=== PATIENT | female | born 1950 | race Caucasian/White ===

== ENCOUNTER 2022-09-13 11:34 | Emergency (ER) | payer MEDICARE, SELFPAY ==
[2022-09-13 11:44] VITALS: BP 137/97; PULSE 92; RESP 20; TEMP 36.9; O2SAT 98; BMI 33.3
[2022-09-13 12:05] VITALS: BP 154/75; PULSE 64; RESP 18; TEMP 37; O2SAT 95; BMI 33.6
--- NOTE | 2022-09-13 12:14 | XR_ITS ---
The [address] [address] Patient Name: EMILIANA WEBB MRN: [id number] date: 1950 Sex: F Assigned Patient Location: ER Current Patient Location: ER Accession/Order Number: [id number] Exam Date: 09/13/2022 12:35 Report Date: 09/13/2022 12:55 At the request of: CESIA ARGUETA Procedure: XR chest 1V EXAMINATION: XR chest 1V HISTORY: COUGH COMPARISON: XR chest 04/12/2018 FINDINGS: LUNGS: No significant pulmonary parenchymal abnormalities. VASCULATURE: No increased pulmonary vasculature. PLEURA: No pneumothorax, effusion, or pleural thickening. CARDIAC: No cardiomegaly or cardiac silhouette abnormality. MEDIASTINUM: No visible mass or adenopathy. BONES: No fracture or visible bone lesion. OTHER: Negative. IMPRESSION: 1. No acute cardiopulmonary process. Electronically authenticated by: STEVE RODNEY Date: 09/13/2022 12:55
[2022-09-13 12:16] VITALS: O2SAT 97
[2022-09-13 14:20] VITALS: BP 143/79; PULSE 83; RESP 22; O2SAT 95
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
== END 2022-09-13 14:21 | disposition home or self-care (01) ==
PROVIDERS: Emergency Provider Emergency Medicine; PCP Family Medicine
DX: J06.9 Acute upper respiratory infection, unspecified (principal); R05.9 Cough, unspecified; J04.0 Acute laryngitis; J02.9 Acute pharyngitis, unspecified
CPT/HCPCS: 71045; 99283

== ENCOUNTER 2022-10-21 14:48 | Emergency (ER) | payer MEDICARE, SELFPAY ==
[2022-10-21 15:09] VITALS: BP 107/79; PULSE 83; RESP 18; TEMP 36.6; O2SAT 98; BMI 29.2
--- NOTE | 2022-10-21 15:50 | XR_ITS ---
The [address] [address] Patient Name: EMILIANA WEBB MRN: [facility]:[id number] date: 1950 Sex: F Assigned Patient Location: ER Current Patient Location: ER Accession/Order Number: [id number] Exam Date: 10/21/2022 15:40 Report Date: 10/21/2022 16:48 At the request of: CLAUS MOTA Procedure: XR knee LT 4V IMAGES REVIEWED: XR knee LT 4V COMPARISON: 07/03/2020. CLINICAL INDICATION: fell 2 weeks ago on knee FINDINGS/IMPRESSION: 1. No radiographic evidence of acute osseous abnormality of the left knee. 2. Anterior-medial knee soft tissue swelling. No significant joint effusion. 3. Osteopenia. Moderate tricompartmental osteoarthritis, particularly severe in the patellofemoral compartment. Suprapatellar and infrapatellar enthesopathic change. Electronically authenticated by: ILDEFONSO HUGHES Date: 10/21/2022 16:48
--- NOTE | 2022-10-21 16:53 | ED.LOWEXI1 ---
HPI - Extremity Injury (Lower) General Chief Complaint: Extremity Injury, Lower Stated Complaint: LOWER EXTREMITY INJURY LEFT KNEE Time Seen by Provider: 10/21/22 15:09 Source: patient Mode of arrival: walk-in Limitations: no limitations History of Present Illness HPI Narrative: patient is a 72-year-old female who presents to the emergency department requesting an x-ray of her left knee. Patient states she tripped at home several weeks ago over her dog and fell onto her left knee. She had no other associated injuries. She states she has had continued pain to the anterior and medial aspect of the left knee. She saw her PCP who told her that she likely had a knee sprain. She presents to the Emergency Room today requesting an x-ray has her knee continues to hurt even though her PCP told her she would likely have pain for six weeks. Related Data Home Medications Medication Instructions Recorded Confirmed hydrocodone 5 mg-acetaminophen 325 1 tab PO Q8H 09/13/22 09/13/22 mg tablet Previous Rx's Medication Instructions Recorded prednisone 20 mg tablet 40 mg PO BID #6 tabs 09/13/22 methylprednisolone 4 mg tablets in 4 mg PO DAILY #21 ea 10/21/22 a dose pack (Medrol (Angel)) Allergies Allergy/AdvReac Type Severity Reaction Status Date / Time bee stings Allergy Severe Anaphylaxis Uncoded 09/13/22 12:14 mri dye Allergy Severe Anaphylaxis Uncoded 09/13/22 12:14 sea food Allergy Severe Uncoded 09/13/22 12:14 Review of Systems ROS Constitutional Denies: fever or chills Ears, nose, mouth, and throat Denies: throat pain Respiratory Denies: shortness of breath or cough Gastrointestinal Denies: nausea or vomiting Musculoskeletal Reports: extremity pain; Denies: back pain or neck pain Integumentary/Breast Denies: rash Neurological Denies: headache PFSH PFSH Social History Smoking status: Never smoker Exam Narrative Exam Narrative: Gen.: Awake, alert, in no distress Head: Normocephalic, atraumatic ENT: Moist mucous membranes Respiratory: No respiratory distress Extremities: left knee with no joint effusion, diffuse mild tenderness of the anteromedial aspect of the left knee. No crepitance or laxity of the left patella. No bony tenderness of the left tibia or left ankle Psych: Normal mood and affect Neuro: No focal neuro deficit Skin: Warm, dry, intact Constitutional Vital Signs, click to edit/add: Last Vital Signs Temp 97.8 F 10/21/22 15:09 Pulse 83 10/21/22 15:09 Resp 18 10/21/22 15:09 BP 107/79 10/21/22 15:09 Pulse Ox 98 10/21/22 15:09 O2 Del Method Room Air 10/21/22 15:09 Course Vital Signs Vital signs: Vital Signs Temperature 97.8 F 10/21/22 15:09 Pulse Rate 83 10/21/22 15:09 Respiratory Rate 18 10/21/22 15:09 Blood Pressure 107/79 10/21/22 15:09 Pulse Oximetry 98 10/21/22 15:09 Oxygen Delivery Method Room Air 10/21/22 15:09 Temperature 97.8 F 10/21/22 15:09 Pulse Rate 83 10/21/22 15:09 Respiratory Rate 18 10/21/22 15:09 Blood Pressure 107/79 10/21/22 15:09 Pulse Oximetry 98 10/21/22 15:09 Oxygen Delivery Method Room Air 10/21/22 15:09 MDM - Extremity Injury (Lower) MDM Narrative Medical decision making narrative: x-rays with arthritic changes, no acute fracture or dislocation. Patient placed in a short knee immobilizer and given a Medrol Dosepak for home. Follow-up with PCP and orthopedics as indicated and return to the Emergency Room if symptoms change or worsen. Neurovascularly intact at discharge. Medical Records Attestation: I reviewed the patient's medical records. Discharge Plan Discharge Chief Complaint: Extremity Injury, Lower Clinical Impression: Left knee sprain Patient Disposition: Home, Self-Care Time of Disposition Decision: 16:54 Condition: Good Prescriptions / Home Meds: New methylprednisolone [Medrol (Angel)] 4 mg tablets,dose pack 4 mg PO DAILY Qty: 21 0RF No Action hydrocodone-acetaminophen 5-325 mg tablet 1 tab PO Q8H prednisone 20 mg tablet 40 mg PO BID Qty: 6 0RF Instructions: Knee Sprain (ED) Stand Alone Forms: Portal Instructions Referrals: DORIAN HORTON [Primary Care Provider] - 1 week Discharge Date/Time: 10/21/22 17:03
== END 2022-10-21 17:03 | disposition home or self-care (01) ==
PROVIDERS: Emergency Provider Emergency Medicine; PCP Family Medicine
DX: S83.92XA Sprain of unspecified site of left knee, initial encounter (principal); W01.0XXA Fall on same level from slipping, tripping and stumbling without subsequent striking against object, initial encounter
CPT/HCPCS: 73564; 99283

== ENCOUNTER 2023-02-11 14:24 | Outpatient (OUT) | payer MEDICARE, SELFPAY | END 2023-02-11 14:25 | disposition home or self-care (01) | LOC: PST 14:24 | PROVIDERS: PCP Family Medicine; Visit Provider Surgery | DX: Z01.818 Encounter for other preprocedural examination (principal); R19.5 Other fecal abnormalities ==

== ENCOUNTER 2023-02-19 07:14 | Day surgery (SDC) | payer MEDICARE, SELFPAY ==
--- NOTE | 2023-02-19 | OP_ITS ---
OPERATION DATE: ??02/19/2023 PREOPERATIVE DIAGNOSIS:?? Positive Cologuard. POSTOPERATIVE DIAGNOSIS:? Redundant colon with sigmoid diverticulosis. PROCEDURE:?? Colonoscopy to cecum. SURGEON:? George Andrade M.D. ANESTHESIA:? Monitored anesthesia care. ESTIMATED BLOOD LOSS:? Zero. INDICATIONS AND CONSENT:? Patient is a 72-year-old female presents for colonoscopy with a positive Cologuard.? Indications, risks, benefits, alternatives of proceeding with colonoscopy were explained extensively to the patient, including the risks of bleeding, colon perforation or anesthetic complications.? All of her questions were answered.? Informed consent was obtained. PROCEDURE:? Patient brought to the operating room, placed in the left lateral decubitus position.? Monitored anesthesia care was provided.? Rectal exam was performed which showed no masses or blood.? The scope was inserted into the anal canal.? Under direct visualization was advanced.? It was advanced to the cecum where cecal markings were clearly identified.? There was noted to be a good prep.? Upon withdrawal of the scope, mucosal surfaces were carefully examined.? There were no mass lesions or polyps.? No inflammatory changes or ulcerations.? There was moderate sigmoid diverticulosis without inflammatory changes or scarring.? The scope was retroflexed in the anal canal.? There was no significant hemorrhoidal disease.? Scope was then withdrawn.? Patient tolerated procedure well, was sent to recovery room in good condition.f/u colon oscopy in 10 years. CC:? Shar Temple
[2023-02-19 07:39] VITALS: BMI 31.4
[2023-02-19] MEDS: LACTATED RINGER'S SOLUTION 1,000 ML 50 ML IV (07:44)
[2023-02-19 10:10] VITALS: BP 121/53; PULSE 68; RESP 14; TEMP 36.6; O2SAT 99
[2023-02-19 10:25] VITALS: BP 132/96; PULSE 68; RESP 16; O2SAT 96
[2023-02-19 10:39] VITALS: BP 145/85; PULSE 80; RESP 16; O2SAT 97
== END 2023-02-19 10:40 ==
PROVIDERS: PCP Nurse Practitioner Family; Visit Provider Surgery
PROC: (CPT 45378; principal; 2023-02-19 08:40)
DX: R19.5 Other fecal abnormalities (principal); K57.30 Diverticulosis of large intestine without perforation or abscess without bleeding; Q43.8 Other specified congenital malformations of intestine; I10 Essential (primary) hypertension; E66.9 Obesity, unspecified; Z68.31 Body mass index [BMI] 31.0-31.9, adult; Z90.49 Acquired absence of other specified parts of digestive tract; Z79.82 Long term (current) use of aspirin; Z79.84 Long term (current) use of oral hypoglycemic drugs; E11.9 Type 2 diabetes mellitus without complications
CPT/HCPCS: 45378; J2704

== ENCOUNTER 2023-07-26 12:05 | Emergency (ER) | payer MEDICARE, SELFPAY ==
[2023-07-26 12:13] VITALS: BP 175/102; PULSE 84; TEMP 36.7; O2SAT 98; BMI 29.3
--- OUTSIDE RECORDS SUMMARY | 2023-07-26 12:15 | XMS_ITS | CCD ---
Author Organization [facility] Care Team Providers Care Career Services Director Name Role Phone HOUSE, DR ALARCON Admitting Unavailable HOUSE, DR ALARCON Primary Care Unavailable HOUSE, DR ALARCON Consulting Unavailable HOUSE, DR ALARCON Attending Unavailable HOUSE, DR ALARCON Admitting Unavailable HOUSE, DR ALARCON Primary Care Unavailable HOUSE, DR ALARCON Consulting Unavailable HOUSE, DR ALARCON Attending Unavailable Dashawn Diallo Unavailable Natalie NDIAYE, Héctor See Attending Unavailable HOUSE, DORIAN West Primary Care Unavailable Natalie NDIAYE, Héctor See Attending Unavailable HOUSE, DORIAN West Primary Care Unavailable Natalie NDIAYE, Héctor See Attending Unavailable HOUSE, DORIAN West Primary Care Unavailable Polina De La Rosa Unavailable VANESSA SHANKAR Primary Care Physician Gabriela Garcia I Unavailable Unavailable NILL, George Poe Attending Unavailable NILL, George Poe Attending Unavailable Allergies Allergy Classification Reported Allergen(s) Allergy Type Date of Onset Reaction(s) Facility (1 source) bee venom Drug allergy (disorder) 7 [facility] Repository (1 source) Latex Drug allergy (disorder) 4 [facility] Rep[facility] (2 sources) Shellfish; Translations: [shellfish] Drug allergy (disorder) 4 [facility] Rep[facility] (1 source) Omniscan Drug allergy (disorder) 7 [facility] (7 sources) Bee Sting Drug allergy anaphylaxis [facility] Other (3 sources) Bee/Wasp/Ant venom; Translations: [Bee Stings] Propensity to adverse reactions to drug (disorder) Anaphylaxis (disorder) [facility] Repository (3 sources) Contrast media; Translations: [Contrast Dye] Propensity to adverse reactions to drug (disorder) Itching [facility] Repository (1 source) Iodine; Translations: [iodine] Drug Allergy [facility] (1 source) Seafood; Translations: [Seafood] Propensity to adverse reactions to drug (disorder) [facility] (7 sources) Shellfish; Translations: [shellfish] Drug allergy Unknown, Itching [facility] (6 sources) Contrast Allergy PreMed Pack Drug allergy Unknown [facility] Other Medications Current Medications Medication Drug Class(es) Dates Sig (Normalized) Sig (Original) acetaminophen 325 mg / HYDROcodone bitartrate 5 mg oral tablet (7 sources) Opioid Agonist Start: 05-19-2023 take 1 tablet by mouth every eight hours HYDROcodone-Aceta minophen 5-325 MG 1 tablet as needed Orally every 8 hrs for 30 days G28.9, M54.50 May, Active Start: 03-12-2023 take 1 tablet by bony th every eight hours HYDROcodone-Acetaminophen 5-325 MG 1 tab let as needed Orally every 8 hrs for 30 days G28.9, M54.50 Mar, Active Start: 02-10-2023 take 1 tablet by bony th every eight hours HYDROcodone-Acetaminophen 5-325 MG 1 tab let as needed Orally every 8 hrs for 30 days G28.9, M54.50 Feb, Active Start: 01-07-2023 take 1 tablet by bony th every eight hours HYDROcodone-Acetaminophen 5-325 MG 1 tab let as needed Orally every 8 hrs for 30 days Jan, Active Start: 03-19-2019 take 1 tablet by bony th every six hours acetaminophen-hydrocodone 325 mg-5 mg or al tablet 1 tab(s), Oral, q6hr, Refill(s) 0, Pain Start Date: 03/19/19 Status: Ordered aspirin 81 mg delayed release oral tablet (7 sources) Platelet Aggregation Inhibitor, Nonsteroidal Anti-inflammatory Drug Start: 03-19-2019 take 1 tablet by mouth once daily aspirin 81 mg Oral EC Tab 81 mg = 1 tab(s), Oral, Daily, Prophylaxis Start Date: 03/19/19 Status: Ordered take 1 tablet by mouth once andrews y Aspirin 81 81 MG 1 tablet Orally Once a day Active carvedilol 6.25 mg oral tablet (7 sources) alpha-Adrenergic Moises, beta-Adrenergic Moises Start: 03-19-2019 take 3.125 mg by mouth once daily carvedilol 6.25 mg Tab 3.125 mg = 0.5 tab(s), Oral, Daily, Refills(s) 0, Irregular heartbeat Start Date: 03/19/19 Status: Ordered take 0.5 tablet by m outh every twenty-four hours Carvedilol 6.25 MG 0.5 tablet Orally onc e a day Active HYDROcodone (1 source) Opioid Agonist Hydrocodone Bitartrate Active lisinopril 5 mg oral tablet (7 sources) Angiotensin Converting Enzyme Inhibitor Start: 9 take 5 mg by mouth once daily lisinopril 5 mg, Oral, Daily, Refills(s) 0, High blood pressure Start Date: 03/19/19 Status: Ordered metFORMIN hydrochloride 1000 mg oral tablet (7 sources) Biguanide Start: 9 take 1000 mg by mouth once daily metformin 1,000 mg, Oral, Daily, High blood sugar Start Date: 03/19/19 Status: Ordered Problems Active Problems Problem Classification Problem Date Documented Da te Episodic/Chronic Diabetes mellitus without complication (4 sources) Type 2 diabetes mellitus without complications; Translations: [TYPE 2 DM WITHOUT COMPLICATIONS] Onset: 08-24-2021 Chronic Diabetes mellitus without complication (2 sources) Impaired fasting glucose; Translations: [Impaired fasting glycemia] Episodic Essential hypertension (9 sources) Essential (primary) hypertension; Translations: [Essential hypertension] Onset: 08-30-2021 Chronic Osteoarthritis (5 sources) Unspecified osteoarthritis, unspecified site; Translations: [UNSPECIFIED OSTEOARTHRITIS UNS SITE] Onset: 11-03-2020 Chronic Other gastrointestinal disorders (1 source) Abnormal feces; Translations: [Other fecal abnormalities] Onset: 01-21-2023 Episodic Other nervous system disorders (1 source) Other specified mononeuropathies; Translations: [OTHER SPECIFIED MONONEUROPATHIES] Onset: 11-10-2020 Chronic Other nervous system disorders (6 sources) Chronic pain; Translations: [Other chronic pain] Chronic Other nervous system disorders (4 sources) Other chronic pain Chronic Other nutritional; endocrine; and metabolic disorders (1 source) Obese class I; Translations: [Body mass index (BMI) 31.0-31.9, adult] Onset: 01-21-2023 Chronic Other nutritional; endocrine; and metabolic disorders (1 source) Body mass index 30+ - obesity 01-21-2023 Chronic Other nutritional; endocrine; and metabolic disorders (1 source) Obesity 01-21-2023 Chronic Other screening for suspected conditions (not mental disorders or infectious disease) (2 sources) Encounter for screening for malignant neoplasm of colon; Translations: [Stool DNA-based colorectal cancer screening positive] Episodic Residual codes; unclassified (1 source) Chronic back pain 01-13-2023 Episodic Past or Other Problems Problem Classification Problem Date Documented Date Episodic/Chronic Fracture of neck of femur (hip) (1 source) Displaced subtrochanteric fracture of right femur, subsequent encounter for closed fracture with routine healing; Translations: [Closed displaced subtrochanteric fracture of right femur with routine healing, subsequent encounter S72.21XD] Onset: 12-29-2020 Resolved: 12-29-2020 Episodic Residual codes; unclassified (1 source) Other specified postprocedural states; Translations: [Other specified postprocedural states Z98.890] Onset: 12-29-2020 Resolved: 12-29-2020 Episodic Unclassified (3 sources) Low back pain, unspecified M54.50 Results Test Name Value Interpretation Reference Range Facility Outside Colonoscopyon 2022 Outside Colonoscopy [id number] F#1.00TIFF [facility] Insurance Correspondenceon Insurance Correspondence [id number] 05#1.00TIFF [facility] Consent for Procedure/Surger yon 01-22-2023 Consent for Procedure/Surgery [id number] 658#1.00TIFF [facility] Ambulatory Visit Summaryon Ambulatory Visit Summary EMILIANA WEBB :1950 Visit Date:01/21/2023 Ambulatory Visit Instructions Your Diagnosis Positive colorectal cancer screening using Cologuard test BMI 31.0-31.9,adult Your Care Team Attending Physician - ELLIE NDIAYE, George Poe Primary Care Physician - RENU NDIAYE, VANESSA Bar This Is Your Medications List Contact prescribing physician if questions or concerns acetaminophen-hydro codone (acetaminophen-hydr ocodone 325 mg-5 mg oral tablet) aspirin (aspirin 81 mg Oral EC Tab) carvedilol (carvedilol 6.25 mg Tab) lisinopril metformin Procedures Performed Cataract extraction and insertion of intraocular lens (05/10/2019), CEIOL - Cataract extraction and insertion of intraocular lens (03/22/2019), Colonoscopy (10/02/2018), section, section, section, Cholecystectomy, Fracture of leg. Discharge Vitals Heart Rate (Peripheral) 72 Respiratory Rate 16 Blood Pressure 138/80 Height 162 cm Height 64 in Weight 82.4 kg Weight 181.28 lb BMI 31.4 Medications What How Much When Instructions Unchanged acetaminophen-hydro codone (acetaminophen-hydr ocodone 325 mg-5 mg oral tablet) 1 Tablets By Mouth Every 6 hours Contact prescribing physician if questions or concerns Unchanged aspirin (aspirin 81 mg Oral EC Tab) 1 Tablets By Mouth Every day Contact prescribing physician if questions or concerns Unchanged carvedilol (carvedilol 6.25 mg Tab) 0.5 Tablets By Mouth Every day Contact prescribing physician if questions or concerns Unchanged lisinopril 5 Milligram By Mouth Every day Contact prescribing physician if questions or concerns Unchanged metformin 1,000 Milligram By Mouth Every day Contact prescribing physician if questions or concerns Allergies Bee Stings (Anaphylaxis) Contrast Dye (Itching) shellfish (Itching) Problems Ongoing - Any problem that you are currently receiving treatment for. BMI 31.0-31.9,adult Chronic back pain HTN (hypertension) Impaired fasting glucose Obesity Positive colorectal cancer screening using Cologuard test [facility] Formson 01-21-2023 Forms [id number] 70#1.00TIFF [facility] Physician Referralon 023 Physician Referral [id number] 0D#1.00TIFF [facility] Patient Handouton 11-28-2022 Patient Handout [id number] 14#1.00OTGTIFF [facility] Patient Handouton 11-27-2022 Patient Handout [id number] 375#1.00OTGTIFF Normal [facility] CBC AUTO DIFFon 08-24-2021 BASO # 0.0 103/ul Normal 0.0-0.1 [facility] Comment on above: Performed By: #### C BC #### [facility] [address] [address] [address] Sugar Givesn Basophils/100 WBC (Bld) 0.6 % Normal 0.2-2.0 [facility] Comment on above: Performed By: #### C BC #### [facility] [address] [address] [address] Sugar Givens EO # 0.8 103/ul Critically high 0.0-0.7 [facility] Comment on above: Performed By: #### C BC #### [facility] [address] [address] [address] Sugar Givens Eosinophils/100 WBC (Bld) 12.3 % Critically high 0.9-7.0 [facility] Comment on above: Performed By: #### C BC #### [facility] [address] [address] [address] Sugar Givens Erythrocyte distribution width (RBC) [Ratio] 12.8 % Normal 11.0-15.0 [facility] Comment on above: Performed By: #### C BC #### [facility] [address] [address] [address] Sugar Givens Hematocrit (Bld) [Volume fraction] 35.1 % Critically low 36.0-48.0 [facility] Comment on above: Performed By: #### C BC #### [facility] [address] [address] [address] Sugar Givens Hemoglobin (Bld) [Mass/Vol] 11.0 g/dL Critically low 12.0-16.0 [facility] Comment on above: Performed By: #### C BC #### [facility] [address] [address] [address] Sugar Givens IG # 0.03 10e3/ul Normal 0.00-0.03 [facility] Comment on above: Performed By: #### C BC #### [facility] [address] [place] [address] Dr. Sugar Givens IG % 0.4 % Normal 0.0-0.5 [facility] Comment on above: Performed By: #### C BC #### [facility] [address] [place] [address] Dr. Sugar Givens LYMPH # 2.1 103/ul Normal 1.2-3.8 [facility] Comment on above: Performed By: #### C BC #### [facility] [address] [place] [address] Dr. Sugar Givens Lymphocytes/100 WBC (Bld) 31.4 % Normal 20.5-60.0 [facility] Comment on above: Performed By: #### C BC #### [facility] [address] [place] [address] Dr. Sugar Givens MANUAL DIFF REQ NO Normal [facility] Comment on above: Performed By: #### C BC #### [facility] [address] [place] [address] Dr. Sugar Givens MCH (RBC) [Entitic mass] 27.4 pg Normal 26.7-34.0 [facility] Comment on above: Performed By: #### C BC #### [facility] [address] [place] [address] Dr. Sugar Givens MCHC (RBC) [Mass/Vol] 31.3 g/dL Normal 29.9-35.2 [facility] Comment on above: Performed By: #### C BC #### [facility] [address] [place] [address] Dr. Sugar Givens MCV (RBC) [Entitic vol] 87.3 fL Normal 81.0-99.0 [facility] Comment on above: Performed By: #### C BC #### [facility] [address] [place] [address] Dr. Sugar Givens MONO # 0.4 103/ul Normal 0.3-0.8 [facility] Comment on above: Performed By: #### C BC #### [facility] [address] [address] [address] Sugar Givnes Monocytes/100 WBC (Bld) 5.8 % Normal 1.7-12.0 [facility] Comment on above: Performed By: #### C BC #### [facility] [address] [address] [address] Sugar Givens NEUT # 3.3 103/ul Normal 1.4-6.5 [facility] Comment on above: Performed By: #### C BC #### [facility] [address] [address] [address] Sugar Givens Neutrophils/100 WBC (Bld) 49.5 % Normal 43.0-75.0 [facility] Comment on above: Performed By: #### C BC #### [facility] [address] [place] [address] Dr. Sugar Givens Platelet mean volume (Bld) [Entitic vol] 10.4 fL Normal 9.5-13.5 [facility] Comment on above: Performed By: #### C BC #### [facility] [address] [place] [address] Dr. Sugar Givens PLT 320 103/ul Normal 150-450 [facility] Comment on above: Performed By: #### C BC #### [facility] [address] [place] [address] Dr. Sugar Givens RBC 4.02 106/ul Critically low 4.20-5.40 [facility] Comment on above: Performed By: #### C BC #### [facility] [address] [place] [address] Dr. Sugar Givens WBC 6.8 103/ul Normal 4.0-11.0 [facility] Comment on above: Performed By: #### C BC #### [facility] [address] [place] [address] Dr. Sugar Givens GLYCOHEMOGLOBIN A1Con 2021 ADA RECOMMENDATION SEE BELOW Normal [facility] Comment on above: Result Comment: ADA RECOMMENDED LIMIT 4.0 - 6.0 ADA THERAPEUTIC TARGET < 7.0 ACTION SUGGESTED > 7.0 Performed By: #### A 1C #### [facility] [address] [address] [address] Sugar Givens Glucose [Mass/Vol] 151 mg/dL Normal [facility] Comment on above: Performed By: #### A 1C #### [facility] [address] [address] [address] Sugar Givens HbA1c (Bld) [Mass fraction] 6.9 % Critically high 4.5-6.2 [facility] Comment on above: Performed By: #### A 1C #### [facility] [address] [place] [address] Dr. Sugar Givens LIPID PROFILEon 08-24-2021 CHOL-HDL RATIO NORM SEE BELOW Normal [facility] Comment on above: Result Comment: 3.3 - 4.4 LOW RISK 4.4 - 7.1 AVERAGE RISK 7.1 - 11.0 MODERATE RISK >11.0 HIGH RISK Performed By: #### C MP, LIPID #### [facility] [address] [place] [address] Dr. Sugar Givens Cholesterol [Mass/Vol] 194 mg/dL Normal <=200 [facility] Comment on above: Performed By: #### C MP, LIPID #### [facility] [address] [place] [address] Dr. Sugar Givens Cholesterol in HDL [Mass/Vol] 38 mg/dL Critically low 40-60 [facility] Comment on above: Performed By: #### C MP, LIPID #### [facility] [address] [address] [address] Sugar Givens Cholesterol in LDL [Mass/Vol] 100.2 mg/dL Normal [facility] Comment on above: Performed By: #### C MP, LIPID #### [facility] [address] [place] [address] Dr. Sugar Givens Cholesterol.total/Cho lesterol in HDL [Mass ratio] 5.1 {ratio} Normal [facility] Comment on above: Performed By: #### C MP, LIPID #### [facility] [address] [address] [address] Sugar Givens HDL NORMAL > or = 60 mg/dl - LOW CARDIOVASCULAR RISK <40 mg/dl - HIGH CARDIOVASCULAR RISK Normal [facility] Comment on above: Performed By: #### C MP, LIPID #### [facility] [address] [address] [address] Sugar Givens LDL CALC NORMAL SEE BELOW Normal [facility] Comment on above: Result Comment: <100 mg/dl OPTIMAL 100 - 129 mg/dl NEAR OR ABOVE OPTIMAL 130 - 159 mg/dl BORDERLINE HIGH 160 - 189 mg/dl HIGH >190 mg/dl VERY HIGH Performed By: #### C MP, LIPID #### [facility] [address] [address] [address] Sugar Givens Triglyceride [Mass/Vol] 279 mg/dL Critically high <=150 [facility] Comment on above: Performed By: #### C MP, LIPID #### [facility] [address] [address] [address] Sugar Givens VLDL CALC 55.8 mg/dL Normal [facility] Comment on above: Performed By: #### C MP, LIPID #### [facility] [address] [address] [address] Sugar Givens MICROALBUMIN, RAND URon 08-06 mALB <1.3 Normal <=30.0 [facility] Comment on above: Performed By: #### M ALBR #### [facility] [address] [address] [address] Sugar Givens PROF 14(COMP METB)on 022 Albumin [Mass/Vol] 3.6 g/dL Normal 3.4-5.0 [facility] Comment on above: Performed By: #### C MP, LIPID #### [facility] [address] [address] [address] Sugar Givens Albumin/Globulin [Mass ratio] 0.9 {ratio} Normal [facility] Comment on above: Performed By: #### C MP, LIPID #### [facility] [address] [address] [address] Sugar Givens ALP [Catalytic activity/Vol] 122 U/L Critically high 46-116 [facility] Comment on above: Performed By: #### C MP, LIPID #### [facility] [address] [address] [address] Sugar Givens ALT [Catalytic activity/Vol] 26 U/L Normal 14-59 [facility] Comment on above: Performed By: #### C MP, LIPID #### [facility] [address] [address] [address] Sugar Givens Anion gap [Moles/Vol] 12.0 mmol/L Normal [facility] Comment on above: Performed By: #### C MP, LIPID #### [facility] [address] [address] [address] Sugar Givens AST [Catalytic activity/Vol] 28 U/L Normal 15-37 [facility] Comment on above: Performed By: #### C MP, LIPID #### [facility] [address] [address] [address] Sugar Givens Bilirubin [Mass/Vol] 0.4 mg/dL Normal 0.2-1.0 [facility] Comment on above: Performed By: #### C MP, LIPID #### [facility] [address] [address] [address] Sugar Givens Calcium [Mass/Vol] 9.2 mg/dL Normal 8.5-10.1 [facility] Comment on above: Performed By: #### C MP, LIPID #### [facility] [address] [address] [address] Sugar Givens Chloride [Moles/Vol] 104 mmol/L Normal 98-107 [facility] Comment on above: Performed By: #### C MP, LIPID #### [facility] [address] [address] [address] Sugar Givens CO2 [Moles/Vol] 27.5 mmol/L Normal 21.0-32.0 [facility] Comment on above: Performed By: #### C MP, LIPID #### [facility] [address] [address] [address] Sugar Givens Creatinine [Mass/Vol] 0.82 mg/dL Normal 0.55-1.02 [facility] Comment on above: Performed By: #### C MP, LIPID #### [facility] [address] [address] [address] Sugar Givens EGFR-AF PERUVIAN >60 Normal >=60 [facility] Comment on above: Performed By: #### C MP, LIPID #### [facility] [address] [address] [address] Sugar Givens EGFR-NON AF PERUVIAN >60 Normal >=60 [facility] Comment on above: Performed By: #### C MP, LIPID #### [facility] [address] [address] [address] Sugar Givens Globulin (S) [Mass/Vol] 4.1 g/dL Normal [facility] Comment on above: Performed By: #### C MP, LIPID #### [facility] [address] [address] [address] Sugar Givens Glucose [Mass/Vol] 121 mg/dL Critically high 74-106 [facility] Comment on above: Performed By: #### C MP, LIPID #### [facility] [address] [address] [address] Sugar Givens Potassium [Moles/Vol] 4.5 mmol/L Normal 3.5-5.1 [facility] Comment on above: Performed By: #### C MP, LIPID #### [facility] [address] [address] [address] Sugar Givens Protein [Mass/Vol] 7.7 g/dL Normal 6.4-8.2 [facility] Comment on above: Performed By: #### C MP, LIPID #### [facility] [address] [address] [address] Sugar Givens Sodium [Moles/Vol] 139 mmol/L Normal 136-145 [facility] Comment on above: Performed By: #### C MP, LIPID #### [facility] [address] [address] [address] Sugar Givens Urea nitrogen [Mass/Vol] 16.0 mg/dL Normal 7.0-18.0 [facility] Comment on above: Performed By: #### C MP, LIPID #### [facility] [address] [place], [place] [address] Dr. Sugar Givens Urea nitrogen/Creatinine [Mass ratio] 19.5 mg/mg Normal [facility] Comment on above: Performed By: #### C MP, LIPID #### [facility] [address] [place], [place] [address] Dr. Sugar Givens XR femur RT 2V*on 12-29-2020 XR femur RT 2V* [facility] [employer] Other XR femur RT 2V* [facility] [employer] Other XR femur RT 2V* [address] [place] [address] [employer] Other XR femur RT 2V* [place] [id number] [facility] [employer] Other XR femur RT 2V* XRay Report [employer] Other XR femur RT 2V* Signed [employer] Other XR femur RT 2V* Patient: Emiliana Webb MR#: [id number] [place] [employer] Other XR femur RT 2V* 3564 [employer] Other XR femur RT 2V* : 1950 Acct:[id number] [place] [employer] Other XR femur RT 2V* Age/Sex: 70 / F ADM Date: 12/29/20 [employer] Other XR femur RT 2V* Loc: [facility] Room: Type: [facility] [employer] Other XR femur RT 2V* Attending Dr: Dashawn Diallo DO [employer] Other XR femur RT 2V* Ordering Provider: Dashawn Diallo, [employer] Other XR femur RT 2V* Date of Service: 12/29/20 [employer] Other XR femur RT 2V* XR/XR femur RT 2V*: Closed displaced subtrochanteric fracture of right [employer] Other XR femur RT 2V* femur wit [facility] compareit4me Other XR femur RT 2V* Copies to: Dashawn Diallo, DO [employer] Other XR femur RT 2V* RIGHT FEMUR - 2 views [employer] Other XR femur RT 2V* COMPARISON: 11/29/2020 [employer] Other XR femur RT 2V* CLINICAL DATA: Follow-up femur fracture. [employer] Other XR femur RT 2V* AP and lateral views were obtained. There is osteopenia. There is a dynamic hip screw with long [employer] Other XR femur RT 2V* intramedullary jcarlos. The fracture at the proximal femoral shaft is in satisfactory alignment. There i [employer] Other XR femur RT 2V* s a small amount of developing callus formation. No new fractures or dislocation are noted. There [employer] Other XR femur RT 2V* are degenerative changes at the knee with joint space narrowing and marginal spurring. No soft [employer] Other XR femur RT 2V* tissue abnormalities are present. [employer] Other XR femur RT 2V* XR/XR femur RT 2V* [employer] Other XR femur RT 2V* IMPRESSION: [facility] [employer] Other XR femur RT 2V* STABLE HEALING PROXIMAL FEMUR FRACTURE. [employer] Other XR femur RT 2V* Impression dictated by: Elicia Collier M.D.12/29/2020 11:37 AM [employer] Other XR femur RT 2V* Dictation Location: RADIO-PC-11 [facility] compareit4me Other XR femur RT 2V* Transcribed By: PWS 12/29/20 1139 [facility] Other XR femur RT 2V* Dictated By: Elicia Collier MD 12/29/20 1122 [facility] Other XR femur RT 2V* Signed By: [facility] compare[employer]4me Other XR femur RT 2V* 12/29/20 9008 [facility] Other XR femur RT 2V* [facility] [address] [place] [address] XRay Report Signed Patient: Emiliana Webb MR#: [id number] : 1950 Acct:[id number] Age/Sex: 70 / F ADM Date: 12/29/20 [place] [facility] [place]: Type: [facility] Attending Dr: Dashawn Diallo DO Ordering Provider: Dashawn Diallo DO Date of Service: 12/29/20 XR/XR femur RT 2V*: Closed displaced subtrochanteric fracture of right femur wit Copies to: Dashawn Diallo DO RIGHT FEMUR - 2 views COMPARISON: 11/29/2020 CLINICAL DATA: Follow-up femur fracture. AP and lateral views were obtained. There is osteopenia. There is a dynamic hip screw with long intramedullary jcarlos. The fracture at the proximal femoral shaft is in satisfactory alignment. There i s a small amount of developing callus formation. No new fractures or dislocation are noted. There are degenerative changes at the knee with joint space narrowing and marginal spurring. No soft tissue abnormalities are present. XR/XR femur RT 2V* IMPRESSION: STABLE HEALING PROXIMAL FEMUR FRACTURE. Impression dictated by: Elicia Collier M.D.12/29/2020 11:37 AM Dictation Location: KnowledgeTreePC-11 Transcribed By: [facility] 12/29/20 1135 Dictated By: Elicia Collier MD 12/29/20 1120 Signed By: 12/29/20 1137 Normal [facility] XR femur RT 2V*on 11-29-2020 XR femur RT 2V* [facility] [address] [place] [address] XRay Report Signed Patient: Emiliana Webb MR#: [id number] : 1950 Acct:[id number] Age/Sex: 70 / F ADM Date: 11/29/20 [place] [facility] [place]: Type: [facility] CLI Attending Dr: Dashawn Diallo DO Ordering Provider: Dashawn Diallo DO Date of Service: 11/29/20 XR/XR femur RT 2V*: [id number] Copies to: Dashawn Diallo DO Right femur 11/29/2020. CLINICAL DATA: Follow-up right femur fracture repair. FINDINGS: 4 views of the right femur were obtained and are compared with a prior study 11/07/2020. The patient is status post internal fixation of a fracture of the proximal shaft of the femur with a hip nail and long intramedullary jcarlos. The hardware appears to be intact and in satisfactory position. Bony alignment is anatomic. Skin mark remain present. XR/XR femur RT 2V* IMPRESSION: Status post internal fixation of a proximal right femoral shaft fracture with a hip nail and long intramedullary jcarlos. Impression dictated by: Terry Donaldson Jr., M.D.11/29/2020 5:06 PM Dictation Location: [place] [address] Transcribed By: [facility] 11/29/201705 Dictated By: Terry Donaldson Jr, MD 11/29/201703 Signed By: 11/29/20 1706 Normal [facility] Glucose Poct Glucometerson 0 11-10-2020 Commemt1 Glu2: Cleaned Meter [facility] Comment on above: Result Comment: PERF ORMED BY: [place] [address] PATHOLOGIST [employer] COLT MORENO M.D. Performed By: #### P T, PTT, CMP, CBC #### [facility] [address] [place] [address] [place] Glucose [Mass/Vol] 133 mg/dL Normal [facility] Comment on above: Result Comment: Fonda om Glucose Reference Range is dependent on time and content of last meal. Glucose of more than 200 mg/dL in a nonstressed, ambulatory subject supports the diagnosis of Diabetes Mellitus. Performed By: #### P T, PTT, CMP, CBC #### [facility] [address] Commemt1 Glu2: Cleaned Meter Normal [facility] Comment on above: Result Comment: PERF ORMED BY: [facility] [address] [place] [address] PATHOLOGIST [employer] COLT MORENO M.D. Performed By: #### P T, PTT, CMP, CBC #### [address] Glucose [Mass/Vol] 157 mg/dL Normal [facility] Comment on above: Result Comment: Fonda om Glucose Reference Range is dependent on time and content of last meal. Glucose of more than 200 mg/dL in a nonstressed, ambulatory subject supports the diagnosis of Diabetes Mellitus. Performed By: #### P T, PTT, CMP, CBC #### [facility] [address] Glucose [Mass/Vol] 112 mg/dL Normal [facility] Comment on above: Result Comment: Fonda om Glucose Reference Range is dependent on time and content of last meal. Glucose of more than 200 mg/dL in a nonstressed, ambulatory subject supports the diagnosis of Diabetes Mellitus. PERFORMED BY: [facility] [address] [facility] [place] [address] PATHOLOGIST [employer] COLT MORENO M.D. Performed By: #### P T, PTT, CMP, CBC #### [facility] [address] [place] [address] [place] Glucose Poct Glucometerson 0 11-09-2020 Glucose [Mass/Vol] 106 mg/dL Normal [facility] Comment on above: Result Comment: Fonda om Glucose Reference Range is dependent on time and content of last meal. Glucose of more than 200 mg/dL in a nonstressed, ambulatory subject supports the diagnosis of Diabetes Mellitus. PERFORMED BY: [address] [place] [address] PATHOLOGIST [employer] COLT MORENO M.D. Performed By: #### P T, PTT, CMP, CBC #### [address] Glucose [Mass/Vol] 113 mg/dL Normal [facility] Comment on above: Result Comment: Fonda om Glucose Reference Range is dependent on time and content of last meal. Glucose of more than 200 mg/dL in a nonstressed, ambulatory subject supports the diagnosis of Diabetes Mellitus. PERFORMED BY: [address] [place] [address] PATHOLOGIST [employer] COLT MORENO M.D. Performed By: #### P T, PTT, CMP, CBC #### [address] Glucose [Mass/Vol] 91 mg/dL Normal [facility] Comment on above: Result Comment: Fonda om Glucose Reference Range is dependent on time and content of last meal. Glucose of more than 200 mg/dL in a nonstressed, ambulatory subject supports the diagnosis of Diabetes Mellitus. PERFORMED BY: [address] [place] [address] PATHOLOGIST [employer] COLT MORENO M.D. Performed By: #### P T, PTT, CMP, CBC #### [facility] [address] [place] [address] [place] Commemt1 Glu2: Cleaned Meter Normal [facility] Comment on above: Result Comment: PERF ORMED BY: [facility] [address] [facility] [address] PATHOLOGIST [employer] COLT MORENO M.D. Performed By: #### P T, PTT, CMP, CBC #### [facility] [address] [place] [address] [place] Glucose [Mass/Vol] 101 mg/dL Normal [facility] Comment on above: Result Comment: Fonda om Glucose Reference Range is dependent on time and content of last meal. Glucose of more than 200 mg/dL in a nonstressed, ambulatory subject supports the diagnosis of Diabetes Mellitus. Performed By: #### P T, PTT, CMP, CBC #### [address] Commemt1 Glu2: Cleaned Meter [facility] Comment on above: Result Comment: PERF ORMED BY: [place] [address] PATHOLOGIST [employer] COLT MORENO M.D. Performed By: #### P T, PTT, CMP, CBC #### [address] Glucose [Mass/Vol] 100 mg/dL Normal [facility] Comment on above: Result Comment: Fonda om Glucose Reference Range is dependent on time and content of last meal. Glucose of more than 200 mg/dL in a nonstressed, ambulatory subject supports the diagnosis of Diabetes Mellitus. Performed By: #### P T, PTT, CMP, CBC #### [address] Glucose Poct Glucometerson 0 11-08-2020 Glucose [Mass/Vol] 174 mg/dL Normal [facility] Comment on above: Result Comment: Fonda om Glucose Reference Range is dependent on time and content of last meal. Glucose of more than 200 mg/dL in a nonstressed, ambulatory subject supports the diagnosis of Diabetes Mellitus. PERFORMED BY: [place] [address] PATHOLOGIST [employer] COLT MORENO M.D. Performed By: #### P T, PTT, CMP, CBC #### [address] Commemt1 Glu2: Cleaned Meter [facility] Comment on above: Result Comment: PERF ORMED BY: [place] [address] PATHOLOGIST [employer] COLT MORENO M.D. Performed By: #### P T, PTT, CMP, CBC #### [facility] [address] Glucose [Mass/Vol] 117 mg/dL Normal [facility] Comment on above: Result Comment: Fonda om Glucose Reference Range is dependent on time and content of last meal. Glucose of more than 200 mg/dL in a nonstressed, ambulatory subject supports the diagnosis of Diabetes Mellitus. Performed By: #### P T, PTT, CMP, CBC #### [address] Commemt1 Glu2: Cleaned Meter [facility] Comment on above: Result Comment: PERF ORMED BY: [place] [address] PATHOLOGIST [employer] COLT MORENO M.D. Performed By: #### P T, PTT, CMP, CBC #### [address] Glucose [Mass/Vol] 114 mg/dL Normal [facility] Comment on above: Result Comment: Fonda om Glucose Reference Range is dependent on time and content of last meal. Glucose of more than 200 mg/dL in a nonstressed, ambulatory subject supports the diagnosis of Diabetes Mellitus. Performed By: #### P T, PTT, CMP, CBC #### [address] Commemt1 Glu2: Cleaned Meter [facility] Comment on above: Result Comment: PERF ORMED BY: [place] [address] PATHOLOGIST [employer] COLT MORENO M.D. Performed By: #### P T, PTT, CMP, CBC #### [place] [address] [place] Glucose [Mass/Vol] 147 mg/dL Normal [facility] Comment on above: Result Comment: Fonda om Glucose Reference Range is dependent on time and content of last meal. Glucose of more than 200 mg/dL in a nonstressed, ambulatory subject supports the diagnosis of Diabetes Mellitus. Performed By: #### P T, PTT, CMP, CBC #### [facility] [address] [place] [address] [place] ABO/Rh Retypeon 11-07-2020 ABO/RH Recheck Result Positive Normal [facility] Comment on above: Result Comment: PERF ORMED BY: [address] [place] [address] PATHOLOGIST [employer] COLT MORENO M.D. Basic Metabolic Panelon Calcium [Mass/Vol] 9.0 mg/dL Normal 8.2-10.2 [facility] Comment on above: Performed By: #### Ericka G, BMP #### [facility] [address] Chloride [Moles/Vol] 105 mmol/L Normal 95-114 [facility] Comment on above: Performed By: #### Ericka G, BMP #### [facility] [address] CO2 [Moles/Vol] 20.6 mmol/L Low 22.0-30.0 [facility] Comment on above: Performed By: #### Ercika G, BMP #### [facility] [address] Creatinine [Mass/Vol] 0.79 mg/dL Normal 0.44-1.03 [facility] Comment on above: Performed By: #### Ericka G, BMP #### [facility] [address] [place] [address] [place] Creatinine Clr Calc Pharmacy 71.32 [facility] Comment on above: Performed By: #### Ericka G, BMP #### [facility] [address] [place] [address] [place] Estimated GFR ( Huong > 60 [facility] Comment on above: Result Comment: GFR estimated reference range: According to KDOQI guidelines, <60 ml/min/1.73m2 is sufficient to diagnose a patient with chronic kidney disease. Performed By: #### M G, BMP #### [facility] [address] [place] [address] [place] Estimated GFR (Non- Am > 60 [facility] Comment on above: Performed By: #### Ericka G, BMP #### [facility] [address] Glucose [Mass/Vol] 142 mg/dL High 70-100 [facility] Comment on above: Result Comment: Fonda Glucose Reference Range is dependent on time and content of last meal. Glucose of more than 200 mg/dL in a nonstressed, ambulatory subject supports the diagnosis of Diabetes Mellitus. ADA recommended reference range Performed By: #### Ericka See, BMP #### [facility] [address] Potassium Normal 3.5-5.1 [facility] Comment on above: Result Comment: Spec imen hemolyzed, redraw requested Performed By: #### Ericka See, BMP #### [address] Sodium [Moles/Vol] 137 mmol/L Normal 136-146 [facility] Comment on above: Performed By: #### Ericka See, BMP #### [place] [address] [place] Urea nitrogen [Mass/Vol] 11 mg/dL Normal 9-23 [facility] Comment on above: Performed By: #### Ericka See, BMP #### [address] Complete Blood Count Auto Di ffon 11-07-2020 Basophils (Bld) [#/Vol] 0.0 10*3/uL Normal 0.0-0.2 [facility] Comment on above: Order Comment: REDRA W Result Comment: PERF ORMED BY: [place] [address] PATHOLOGIST [employer] COLT MORENO M.D. Performed By: #### P T, PTT, CMP, CBC #### [facility] [address] [place] [address] [place] Basophils/100 WBC (Bld) 0.5 % Normal . [facility] Comment on above: Order Comment: REDRA W Performed By: #### P T, PTT, CMP, CBC #### [address] Eosinophils (Bld) [#/Vol] 0.2 10*3/uL Normal 0.0-0.45 [facility] Comment on above: Order Comment: REDRA W Performed By: #### P T, PTT, CMP, CBC #### [address] Eosinophils/100 WBC (Bld) 1.8 % Normal . [facility] Comment on above: Order Comment: REDRA W Performed By: #### P T, PTT, CMP, CBC #### [address] Erythrocyte distribution width (RBC) [Ratio] 13.6 % Normal 11.9-15.3 [facility] Comment on above: Order Comment: REDRA W Performed By: #### P T, PTT, CMP, CBC #### [address] Hematocrit (Bld) [Volume fraction] 33.5 % Low 34.0-46.4 [facility] Comment on above: Order Comment: REDRA W Performed By: #### P T, PTT, CMP, CBC #### [address] Hemoglobin (Bld) [Mass/Vol] 11.3 g/dL Low 11.8-15.4 [facility] Comment on above: Order Comment: REDRA W Performed By: #### P T, PTT, CMP, CBC #### [address] Lymphocytes (Bld) [#/Vol] 1.4 10*3/uL Normal 1.00-4.8 [facility] Comment on above: Order Comment: REDRA W Performed By: #### P T, PTT, CMP, CBC #### [address] Lymphocytes/100 WBC (Bld) 14.7 % Normal . [facility] Comment on above: Order Comment: REDRA W Performed By: #### P T, PTT, CMP, CBC #### [address] MCH (RBC) [Entitic mass] 28.9 pg Normal 24.7-34.3 [facility] Comment on above: Order Comment: REDRA W Performed By: #### P T, PTT, CMP, CBC #### [address] MCV (RBC) [Entitic vol] 85.6 fL Normal 80-100 [facility] Comment on above: Order Comment: REDRA W Performed By: #### P T, PTT, CMP, CBC #### [address] Mean Corpuscular HGB Conc 33.7 g/dL Normal 32.0-35.0 [facility] Comment on above: Order Comment: REDRA W Performed By: #### P T, PTT, CMP, CBC #### [address] Monocytes (Bld) [#/Vol] 0.4 10*3/uL Normal 0.0-0.8 [facility] Comment on above: Order Comment: REDRA W Performed By: #### P T, PTT, CMP, CBC #### [address] Monocytes/100 WBC (Bld) 4.4 % Normal . [facility] Comment on above: Order Comment: REDRA W Performed By: #### P T, PTT, CMP, CBC #### [address] Neutrophils (Bld) [#/Vol] 7.4 10*3/uL Normal 1.8-7.7 [facility] Comment on above: Order Comment: REDRA W Performed By: #### P T, PTT, CMP, CBC #### [address] Neutrophils/100 WBC (Bld) 78.6 % Normal . [facility] Comment on above: Order Comment: REDRA W Performed By: #### P T, PTT, CMP, CBC #### [address] Nucleated RBC/100 WBC (Bld) [Ratio] 0.1 % Normal 0-0.5 [facility] Comment on above: Order Comment: REDRA W Performed By: #### P T, PTT, CMP, CBC #### [address] Platelet mean volume (Bld) [Entitic vol] 8.8 fL Normal 6.3-10.7 [facility] Comment on above: Order Comment: REDRA W Performed By: #### P T, PTT, CMP, CBC #### [address] Platelets (Bld) [#/Vol] 219 10*3/uL Normal 150-450 [facility] Comment on above: Order Comment: REDRA W Performed By: #### P T, PTT, CMP, CBC #### [address] RBC (Bld) [#/Vol] 3.91 10*6/uL Normal 3.60-5.[address] [facility] Comment on above: Order Comment: REDRA W Performed By: #### P T, PTT, CMP, CBC #### [address] WBC (Bld) [#/Vol] 9.4 10*3/uL Normal 4.5-11.0 [facility] Comment on above: Order Comment: REDRA W Performed By: #### P T, PTT, CMP, CBC #### [address] Basophils (Bld) [#/Vol] 0.1 10*3/uL Normal 0.0-0.2 [facility] Comment on above: Result Comment: PERF ORMED BY: [place] [address] PATHOLOGIST [employer] COLT MORENO M.D. Performed By: #### P T, PTT, CMP, CBC #### [address] [place] [address] [place] Basophils/100 WBC (Bld) 0.9 % Normal . [facility] Comment on above: Performed By: #### P T, PTT, CMP, CBC #### [address] Eosinophils (Bld) [#/Vol] 0.5 10*3/uL High 0.0-0.45 [facility] Comment on above: Performed By: #### P T, PTT, CMP, CBC #### [address] Eosinophils/100 WBC (Bld) 4.4 % Normal . [facility] Comment on above: Performed By: #### P T, PTT, CMP, CBC #### [address] Erythrocyte distribution width (RBC) [Ratio] 13.9 % Normal 11.9-15.3 [facility] Comment on above: Performed By: #### P T, PTT, CMP, CBC #### [address] Hematocrit (Bld) [Volume fraction] 36.1 % Normal 34.0-46.4 [facility] Comment on above: Performed By: #### P T, PTT, CMP, CBC #### [address] Hemoglobin (Bld) [Mass/Vol] 11.9 g/dL Normal 11.8-15.4 [facility] Comment on above: Performed By: #### P T, PTT, CMP, CBC #### [place] [address] [place] Lymphocytes (Bld) [#/Vol] 2.1 10*3/uL Normal 1.00-4.8 [facility] Comment on above: Performed By: #### P T, PTT, CMP, CBC #### [address] Lymphocytes/100 WBC (Bld) 20.8 % Normal . [facility] Comment on above: Performed By: #### P T, PTT, CMP, CBC #### [address] MCH (RBC) [Entitic mass] 28.6 pg Normal 24.7-34.3 [facility] Comment on above: Performed By: #### P T, PTT, CMP, CBC #### [address] MCV (RBC) [Entitic vol] 86.6 fL Normal 80-100 [facility] Comment on above: Performed By: #### P T, PTT, CMP, CBC #### [address] Mean Corpuscular HGB Conc 33.1 g/dL Normal 32.0-35.0 [facility] Comment on above: Performed By: #### P T, PTT, CMP, CBC #### [address] Monocytes (Bld) [#/Vol] 0.4 10*3/uL Normal 0.0-0.8 [facility] Comment on above: Performed By: #### P T, PTT, CMP, CBC #### [address] Monocytes/100 WBC (Bld) 4.3 % Normal . [facility] Comment on above: Performed By: #### P T, PTT, CMP, CBC #### [address] Neutrophils (Bld) [#/Vol] 7.1 10*3/uL Normal 1.8-7.7 [facility] Comment on above: Performed By: #### P T, PTT, CMP, CBC #### [address] Neutrophils/100 WBC (Bld) 69.6 % Normal . [facility] Comment on above: Performed By: #### P T, PTT, CMP, CBC #### [address] Nucleated RBC/100 WBC (Bld) [Ratio] 0.2 % Normal 0-0.5 [facility] Comment on above: Performed By: #### P T, PTT, CMP, CBC #### [address] Platelet mean volume (Bld) [Entitic vol] 9.2 fL Normal 6.3-10.7 [facility] Comment on above: Performed By: #### P T, PTT, CMP, CBC #### [address] Platelets (Bld) [#/Vol] 261 10*3/uL Normal 150-450 [facility] Comment on above: Performed By: #### P T, PTT, CMP, CBC #### [address] RBC (Bld) [#/Vol] 4.17 10*6/uL Normal 3.60-5.[address] [facility] Comment on above: Performed By: #### P T, PTT, CMP, CBC #### [address] WBC (Bld) [#/Vol] 10.2 10*3/uL Normal 4.5-11.[address] [facility] Comment on above: Performed By: #### P T, PTT, CMP, CBC #### [address] Comprehensive Metabolic Pane claudia 11-07-2020 Albumin [Mass/Vol] 3.9 g/dL Normal 3.2-5.5 [facility] Comment on above: Performed By: #### P T, PTT, CMP, CBC #### [address] Albumin/Globulin [Mass ratio] 1.3 {ratio} Normal [facility] Comment on above: Performed By: #### P T, PTT, CMP, CBC #### [address] ALP [Catalytic activity/Vol] 85 U/L Normal 32-92 [facility] Comment on above: Performed By: #### P T, PTT, CMP, CBC #### [facility] [address] [place] [address] [place] ALT [Catalytic activity/Vol] 22 U/L Normal 10-60 [facility] Comment on above: Performed By: #### P T, PTT, CMP, CBC #### [facility] [address] [place] [address] [place] AST [Catalytic activity/Vol] 29 U/L Normal 10-42 [facility] Comment on above: Performed By: #### P T, PTT, CMP, CBC #### [facility] [address] Bilirubin [Mass/Vol] 0.6 mg/dL Normal 0.3-1.2 [facility] Comment on above: Performed By: #### P T, PTT, CMP, CBC #### [facility] [address] Calcium [Mass/Vol] 9.6 mg/dL Normal 8.2-10.2 [facility] Comment on above: Performed By: #### P T, PTT, CMP, CBC #### [facility] [address] [place] [address] [place] Chloride [Moles/Vol] 104 mmol/L Normal 95-114 [facility] Comment on above: Performed By: #### P T, PTT, CMP, CBC #### [facility] [address] [place] [address] [place] CO2 [Moles/Vol] 21.4 mmol/L Low 22.0-30.0 [facility] Comment on above: Performed By: #### P T, PTT, CMP, CBC #### [facility] [address] [place] [address] [place] Creatinine [Mass/Vol] 0.83 mg/dL Normal 0.44-1.03 [facility] Comment on above: Performed By: #### P T, PTT, CMP, CBC #### [facility] [address] [place] [id number] [place] [facility] 65.79 Normal [facility] Comment on above: Result Comment: PERF ORMED BY: [place] [address] PATHOLOGIST [employer] COLT MORENO M.D. Performed By: #### P T, PTT, CMP, CBC #### [address] Estimated GFR ( Huong > 60 [facility] Comment on above: Result Comment: GFR estimated reference range: According to KDOQI guidelines, <60 ml/min/1.73m2 is sufficient to diagnose a patient with chronic kidney disease. Performed By: #### P T, PTT, CMP, CBC #### [address] Estimated GFR (Non- Am > 60 [facility] Comment on above: Performed By: #### P T, PTT, CMP, CBC #### [address] Globulin (S) [Mass/Vol] 3.0 g/dL [facility] Comment on above: Performed By: #### P T, PTT, CMP, CBC #### [address] Glucose [Mass/Vol] 122 mg/dL High 70-100 [facility] Comment on above: Result Comment: Fonda om Glucose Reference Range is dependent on time and content of last meal. Glucose of more than 200 mg/dL in a nonstressed, ambulatory subject supports the diagnosis of Diabetes Mellitus. ADA recommended reference range Performed By: #### P T, PTT, CMP, CBC #### [address] Potassium [Moles/Vol] 3.9 mmol/L Normal 3.5-5.1 [facility] Comment on above: Performed By: #### P T, PTT, CMP, CBC #### [address] Protein [Mass/Vol] 6.9 g/dL Normal 6.1-7.9 [facility] Comment on above: Performed By: #### P T, PTT, CMP, CBC #### [facility] [address] [place] [address] [place] Sodium [Moles/Vol] 138 mmol/L Normal 136-146 [facility] Comment on above: Performed By: #### P T, PTT, CMP, CBC #### [facility] [address] Urea nitrogen [Mass/Vol] 14 mg/dL Normal 9-23 [facility] Comment on above: Performed By: #### P T, PTT, CMP, CBC #### [facility] [address] [place] [id number] [facility] ECG 12 lead ECGon 11-07-[address] [facility] [place] [address] [place] [address] Electrocardiograph Report Signed Patient: Emiliana Webb MR#: [id number] : 1950 Acct:[id number] Age/Sex: 70 / F ADM Date: 11/06/20 Loc: ER Room: Type: [facility] ER Attending Dr: Ordering Provider: Dc Bee DO Date of Service: 11/06/20 ECG/ECG 12 lead ECG: Fall Copies to: Test Reason : Blood Pressure : 187/085 mmHG Vent. Rate : 069 BPM Atrial Rate : 069 BPM P-R Int : 180 ms QRS Dur : 082 ms QT Int : 416 ms P-R-T Axes : 064 058 061 degrees QTc Int : 445 ms Normal sinus rhythm Nonspecific ST and T wave abnormality Confirmed by Dc BEE DO ([id number]) on 11/07/2020 1:28:07 AM Referred By: Electronically Signed By:Dc BEE DO Transcribed By: MUS Dictated By: Dc Bee DO 11/07/20 0028 Signed By: 11/07/20 0128 Normal [facility] Glucose Poct Glucometerson 0 11-07-2020 Glucose [Mass/Vol] 159 mg/dL Normal [facility] Comment on above: Result Comment: [place] Glucose Reference Range is dependent on time and content of last meal. Glucose of more than 200 mg/dL in a nonstressed, ambulatory subject supports the diagnosis of Diabetes Mellitus. PERFORMED BY: [place] [address] PATHOLOGIST [employer] COLT MORENO M.D. Performed By: #### P T, PTT, CMP, CBC #### [address] Glucose [Mass/Vol] 114 mg/dL Normal [facility] Comment on above: Result Comment: [place] om Glucose Reference Range is dependent on time and content of last meal. Glucose of more than 200 mg/dL in a nonstressed, ambulatory subject supports the diagnosis of Diabetes Mellitus. PERFORMED BY: [place] [address] PATHOLOGIST [employer] COLT MORENO M.D. Performed By: #### P T, PTT, CMP, CBC #### [address] Commemt1 Glu2: Cleaned Meter Normal [facility] Comment on above: Result Comment: PERF ORMED BY: [place] [address] PATHOLOGIST [employer] COLT MORENO M.D. Performed By: #### P T, PTT, CMP, CBC #### [address] Glucose [Mass/Vol] 98 mg/dL Normal [facility] Comment on above: Result Comment: [place] Glucose Reference Range is dependent on time and content of last meal. Glucose of more than 200 mg/dL in a nonstressed, ambulatory subject supports the diagnosis of Diabetes Mellitus. Performed By: #### P T, PTT, CMP, CBC #### [address] Commemt1 Glu2: Cleaned Meter Normal [facility] Comment on above: Result Comment: PERF ORMED BY: [place] [address] PATHOLOGIST [employer] COLT MORENO M.D. Performed By: #### P T, PTT, CMP, CBC #### [address] [address] [place] Glucose [Mass/Vol] 120 mg/dL Normal [facility] Comment on above: Result Comment: [facility] Glucose Reference Range is dependent on time and content of last meal. Glucose of more than 200 mg/dL in a nonstressed, ambulatory subject supports the diagnosis of Diabetes Mellitus. Performed By: #### P T, PTT, CMP, CBC #### [address] Magnesiumon 11-07-2020 Magnesium [Mass/Vol] 1.9 mg/dL Normal 1.6-2.6 [facility] Comment on above: Result Comment: PERF ORMED BY: [place] [address] PATHOLOGIST [employer] COLT MORENO M.D. Performed By: #### M G, BMP #### [address] Partial Thromboplastin Timeo n 11-07-2020 aPTT Coag (Bld) [Time] 30.8 s Normal 25.1-36.5 [facility] Comment on above: Order Comment: REDRA W, FIRST SPECIMEN HEMOLYZED CHRISTI ON 4N NOTIFIED Result Comment: PERF ORMED BY: [place] [address] PATHOLOGIST [employer]ACH[employer] COLT MORENO M.D. Performed By: #### P T, PTT, CMP, CBC #### [address] aPTT Coag (Bld) [Time] 30.8 s Normal 25.1-36.5 [facility] Comment on above: Result Comment: PERF ORMED BY: [place] [address] PATHOLOGIST [employer] COLT MORENO M.D. Performed By: #### P T, PTT, CMP, CBC #### [address] Prothrombin Time INRon 11-07 INR Coag (PPP) [Relative time] 1.1 {INR} Normal [facility] Comment on above: Result Comment: INR Therapeutic Range A) Pre- and Peroperative OAT started two weeks before surgery. NOT HIP SURGERY: 1.5 - 2.5 HIP SURGERY: 2 - 3 B) Primary and secondary prevention of venous THROMBOSIS: 2 - 3 C) Active venous thrombosis, pulmonary embolism and prevention of recurrent venous thrombosis: 2 - 3 D) Prevention of arterial thromboembolism including patients with mechanical heart valves: 3 - 4.5 Performed By: #### P T, PTT, CMP, CBC #### [facility] [address] PT Coag (PPP) [Time] 11.8 s Normal 9.0-12.9 [facility] Comment on above: Performed By: #### P T, PTT, CMP, CBC #### [address] Redraw Potassiumon Potassium [Moles/Vol] 3.9 mmol/L Normal 3.5-5.1 [facility] Comment on above: Result Comment: PERF ORMED BY: [place] [address] PATHOLOGIST [employer]ACH[employer] COLT MORENO M.D. Performed By: #### P T, PTT, CMP, CBC #### [address] Type and Screenon 11-07-2020 ABO and Rh group Nom (Bld) Blood group O Rh(D) positive Normal [facility] Comment on above: Result Comment: PERF ORMED BY: [place] [address] PATHOLOGIST [employer]ACH[employer] COLT MORENO M.D. Urinalysison 11-07-2020 Appearance (U) Clear Normal Clear [facility] Comment on above: Order Comment: Name Collection Type:: Ordonez Catheter Performed By: #### U A #### [address] Bilirubin,Urine Negative Normal Negative [facility] Comment on above: Order Comment: Name Collection Type:: Ordonez Catheter Performed By: #### U A #### [facility] [address] [place] [address] [place] Color (U) Yellow Normal Yellow [facility] Comment on above: Order Comment: Name Collection Type:: Ordonez Catheter Performed By: #### U A #### [facility] [address] [place] [address] Glucose Ql (U) Normal Normal Normal [facility] Comment on above: Order Comment: Name Collection Type:: Ordonez Catheter Performed By: #### U A #### [address] Ketones Ql (U) Negative Normal Negative [facility] Comment on above: Order Comment: Name Collection Type:: Ordonez Catheter Performed By: #### U A #### [address] Leukocyte esterase Test strip Ql (U) Negative Normal Negative [facility] Comment on above: Order Comment: Name Collection Type:: Ordonez Catheter Performed By: #### U A #### [address] Nitrite,Urine Negative Normal Negative [facility] Comment on above: Order Comment: Name Collection Type:: Ordonez Catheter Performed By: #### U A #### [address] Occult Blood,Urine Negative Normal Negative [facility] Comment on above: Order Comment: Name Collection Type:: Ordonez Catheter Result Comment: PERF ORMED BY: [address] [place] [address] PATHOLOGIST [employer] MACHINE COLT MORENO M.D. Performed By: #### U A #### [facility] [address] [place] [address] pH (U) 5.0 [pH] Normal 5.0-9.0 [facility] Comment on above: Order Comment: Name Collection Type:: Ordonez Catheter Performed By: #### U A #### [facility] [address] [place] [address] [place] Protein,Urine Negative Normal Negative [facility] Comment on above: Order Comment: Name Collection Type:: Ordonez Catheter Performed By: #### U A #### [facility] [address] Specificy [place],Urine 1.011 Normal 1.001-1.030 [facility] Comment on above: Order Comment: Name Collection Type:: Ordonez Catheter Performed By: #### U A #### [facility] [address] Urobilinogen,Urine Normal Normal Normal [facility] Comment on above: Order Comment: Name Collection Type:: Ordonez Catheter Performed By: #### U A #### [facility] [address] [place] [address] XR chest 1Von 11-07-[address] [facility] [place] [address] [place] [address] XRay Report Signed Patient: Emiliana Webb MR#: [id number] : 1950 Acct:[id number] Age/Sex: 70 / F ADM Date: 11/07/20 Loc: Room: [address] [place] [address] Type: ADM IN Attending Dr: Israel Mcfadden MD Ordering Provider: Dc Bee DO Date of Service: 11/06/20 XR/XR chest 1V: Fall Copies to: DO Israel Tesfaye MD Plain film chestsingle view HISTORY:Fell injuring RIGHT hip. COMPARISON:04/25/18 FINDINGS:Interstiti al prominence identified. The cardiac, mediastinal and hilar silhouettes are within normal limits. No acute lung process, pleural effusion or pneumothorax identified. Bony structures are intact. XR/XR chest 1V IMPRESSION: No acute process. Similar mild interstitial prominence. Impression dictated by: Kb Peña M.D.11/07/2020 9:52 AM Dictation Location: [place] [address] Transcribed By: [facility] 11/07/2052 Dictated By: Kb Peña DO 11/07/2050 Signed By: 11/07/20951 [facility] XR femur RT 2V*on 11-07-2020 XR femur RT 2V* [facility] Main [address] [address] XRay Report Signed Patient: Emiliana Webb MR#: [id number] : 1950 Acct:[id number] Age/Sex: 70 / F ADM Date: 11/07/20 Loc: 4N Room: [address] [place] [address] Type: ADM IN Attending Dr: Israel Mcfadden MD Ordering Provider: Dashawn Diallo DO Date of Service: 11/07/20 XR/XR femur RT 2V*: RT TFN Copies to: DO Israel Portillo MD Intraoperative fluoroscopy and fluoroscopic spot images of the right femur 11/07/2020. CLINICAL DATA: Right femur fracture. FINDINGS: 1 minute and 18 seconds of intraoperative fluoroscopy were provided. 7 fluoroscopic spot images of the right femur were obtained and demonstrate internal fixation of a fracture of the shaft of the femur with a hip nail and long intramedullary jcarlos. XR/XR femur RT 2V* IMPRESSION: Internal fixation of a right femoral shaft fracture. Impression dictated by: Terry Donaldson Jr., M.D.11/07/2020 8:07 PM Dictation Location: [place] [address] Transcribed By: [facility] 11/07/202006 Dictated By: Terry Donaldson Jr, MD 11/07/202002 Signed By: 11/07/202006 [facility] XR femur RT 2V* [facility] Main [address] [address] XRay Report Signed Patient: Emiliana Webb MR#: [id number] : 1950 Acct:[id number] Age/Sex: 70 / F ADM Date: 11/07/20 Loc: 4N Room: [address] [place] [address] Type: ADM IN Attending Dr: Israel Mcfadden MD Ordering Provider: Dc Bee DO Date of Service: 11/07/20 XR/XR hip RT min 2V(w/wo pelvis)*: Fall ([id number]) XR/XR femur RT 2V*: Fall Copies to: DO Israel Tesfaye MD 2 views RIGHT hip with single view pelvisplain film COMPARISON:None HISTORY:Fell. RIGHT hip pain. Mildly displaced fracture of the proximal shaft of theRIGHT femur is present. No dislocation.No soft tissue abnormality. XR/XR hip RT min 2V(w/wo pelvis)* IMPRESSION:Proximal RIGHT femoral shaft fracture. 2 views RIGHT femur Proximal shaft fracture redemonstrated. No additional fracture or dislocation. IMPRESSION: No additional fracture. Impression dictated by: Kb Peña M.D.11/07/2020 9:50 AM Dictation Location: [place] [address] Transcribed By: [facility] 11/07/2050 Dictated By: Kb Peña DO 11/07/20 0943 Signed By: 11/07/20 0950 [facility] CBC AUTO DIFFon 11-03-2020 BASO # 0.1 103/ul Normal 0.0-0.1 [facility] Comment on above: Performed By: #### C BC #### [facility] [address] [place], [place] [address] [place] Basophils/100 WBC (Bld) 0.9 % Normal 0.2-2.0 [facility] Comment on above: Performed By: #### C BC #### [facility] [address] [place] [address] [place] EO # 0.3 103/ul Normal 0.0-0.7 [facility] Comment on above: Performed By: #### C BC #### [facility] [address] [place], [place] [address] [place] Eosinophils/100 WBC (Bld) 4.8 % Normal 0.9-7.0 [facility] Comment on above: Performed By: #### C BC #### [facility] [address] [place] [address] [place] Erythrocyte distribution width (RBC) [Ratio] 13.0 % Normal 11.0-15.0 [facility] Comment on above: Performed By: #### C BC #### [facility] [address] [place] [address] [place] Hematocrit (Bld) [Volume fraction] 34.9 % Critically low 36.0-48.0 [facility] Comment on above: Performed By: #### C BC #### [facility] [address] [place] [address] [place] Hemoglobin (Bld) [Mass/Vol] 10.9 g/dL Critically low 12.0-16.0 [facility] Comment on above: Performed By: #### C BC #### [facility] [address] [place] [address] [place] IG # 0.02 10e3/ul Normal 0.00-0.03 [facility] Comment on above: Performed By: #### C BC #### [facility] [address] [place] [address] [place] IG % 0.3 % Normal 0.0-0.5 [facility] Comment on above: Performed By: #### C BC #### [facility] [address] [place] [address] [place] LYMPH # 2.3 103/ul Normal 1.2-3.8 [facility] Comment on above: Performed By: #### C BC #### [facility] [address] [place] [address] [place] Lymphocytes/100 WBC (Bld) 35.2 % Normal 20.5-60.0 [facility] Comment on above: Performed By: #### C BC #### [facility] [address] [place] [address] [place] Real[place] MANUAL DIFF REQ NO Normal [facility] Comment on above: Performed By: #### C BC #### [facility] [address] [place], [place] [id number] [place] MCH (RBC) [Entitic mass] 28.0 pg Normal 26.7-34.0 [facility] Comment on above: Performed By: #### C BC #### [facility] [address] [place] [address] [place] Rubi MCHC (RBC) [Mass/Vol] 31.2 g/dL Normal 29.9-35.2 [facility] Comment on above: Performed By: #### C BC #### [facility] [address] [place] [address] [place] Rubi MCV (RBC) [Entitic vol] 89.7 fL Normal 81.0-99.0 [facility] Comment on above: Performed By: #### C BC #### [facility] [address] [place] [address] [place] MONO # 0.4 103/ul Normal 0.3-0.8 [facility] Comment on above: Performed By: #### C BC #### [facility] [address] [place] [address] [place] Rub[place] Monocytes/100 WBC (Bld) 6.3 % Normal 1.7-12.0 [facility] Comment on above: Performed By: #### C BC #### [facility] [address] [place] [address] [place] Real[place] NEUT # 3.4 103/ul Normal 1.4-6.5 [facility] Comment on above: Performed By: #### C BC #### [facility] [address] [place] [address] [place] Rubi Neutrophils/100 WBC (Bld) 52.5 % Normal 43.0-75.0 [facility] Comment on above: Performed By: #### C BC #### [facility] [address] [place] [address] [place] Rubi Platelet mean volume (Bld) [Entitic vol] 11.0 fL Normal 9.5-13.5 [facility] Comment on above: Performed By: #### C BC #### [facility] [address] [place] [address] [place] PLT 262 103/ul Normal 150-450 [facility] Comment on above: Performed By: #### C BC #### [facility] [address] [place] [address] [place] RBC 3.89 106/ul Critically low 4.20-5.40 [facility] Comment on above: Performed By: #### C BC #### [facility] [address] [place] [id number] [place] E[place] WBC 6.5 103/ul Normal 4.0-11.0 [facility] Comment on above: Performed By: #### C BC #### [facility] [address] [place] [id number] [place] PROF 14(COMP METB)on 021 Albumin [Mass/Vol] 3.7 g/dL Normal 3.5-5.0 [facility] Comment on above: Performed By: #### T SH, T4, CMP #### [facility] [address] [place], [place] [id number] [place] Albumin/Globulin [Mass ratio] 1.0 {ratio} Normal [facility] Comment on above: Performed By: #### T SH, T4, CMP #### [facility] [address] [place], [place] [id number] [place] ALP [Catalytic activity/Vol] 98 U/L Normal 38-126 [facility] Comment on above: Performed By: #### T SH, T4, CMP #### [facility] [address] [place], [place] [id number] [place] ALT [Catalytic activity/Vol] 29 U/L Normal 9-52 [facility] Comment on above: Performed By: #### T SH, T4, CMP #### [facility] [address] [place], [place] [id number] [place] Anion gap [Moles/Vol] 11.6 mmol/L Normal [facility] Comment on above: Performed By: #### T SH, T4, CMP #### [facility] [address] [place], [place] [id number] [place] AST [Catalytic activity/Vol] 29 U/L Normal 14-36 [facility] Comment on above: Performed By: #### T SH, T4, CMP #### [facility] [address] [place], [place] [phone] [place] Bilirubin [Mass/Vol] 0.3 mg/dL Normal 0.2-1.3 [facility] Comment on above: Performed By: #### T SH, T4, CMP #### [facility] [address] [place] [address] [place] Calcium [Mass/Vol] 9.2 mg/dL Normal 8.4-10.2 [facility] Comment on above: Performed By: #### T SH, T4, CMP #### [facility] [address] [place] [address] [place] Chloride [Moles/Vol] 107 mmol/L Normal 98-107 [facility] Comment on above: Performed By: #### T SH, T4, CMP #### [facility] [address] [place] [address] [place] CO2 [Moles/Vol] 27.1 mmol/L Normal 22.0-30.0 [facility] Comment on above: Performed By: #### T SH, T4, CMP #### [facility] [address] [place] [address] [place] Creatinine [Mass/Vol] 0.80 mg/dL Normal 0.52-1.04 [facility] Comment on above: Performed By: #### T SH, T4, CMP #### [facility] [address] [place] [address] [place] EGFR-AF PERUVIAN >60 Normal >=60 [facility] Comment on above: Performed By: #### T SH, T4, CMP #### [facility] [address] [place] [address] [place] EGFR-NON AF PERUVIAN >60 Normal >=60 [facility] Comment on above: Performed By: #### T SH, T4, CMP #### [facility] [address] [place] [address] [place] Globulin (S) [Mass/Vol] 3.6 g/dL Normal [facility] Comment on above: Performed By: #### T SH, T4, CMP #### [facility] [address] [place] [address] [place] Glucose [Mass/Vol] 112 mg/dL Critically high 74-106 [facility] Comment on above: Performed By: #### T SH, T4, CMP #### [facility] [address] [place] [address] [place] Potassium [Moles/Vol] 4.7 mmol/L Normal 3.4-5.0 [facility] Comment on above: Performed By: #### T SH, T4, CMP #### [facility] [address] [place] [address] [place] Protein [Mass/Vol] 7.3 g/dL Normal 6.1-8.2 [facility] Comment on above: Performed By: #### T SH, T4, CMP #### [facility] [address] [place] [address] [place] Sodium [Moles/Vol] 141 mmol/L Normal 137-145 [facility] Comment on above: Performed By: #### T SH, T4, CMP #### [facility] [address] [place] [address] [place] Urea nitrogen [Mass/Vol] 9.0 mg/dL Normal 7.0-17.0 [facility] Comment on above: Performed By: #### T SH, T4, CMP #### [facility] [address] [place] [address] [place] Urea nitrogen/Creatinine [Mass ratio] 11.2 mg/mg Normal [facility] Comment on above: Performed By: #### T SH, T4, CMP #### [facility] [address] [place] [address] [place] T4on 11-03-2020 T4 [Mass/Vol] 7.60 ug/dL Normal 5.53-11.00 [facility] Comment on above: Performed By: #### T SH, T4, CMP #### [facility] [address] [place] [address] [place] TSHon 11-03-2020 TSH 0.955 uIU/mL Normal 0.470-4.680 [facility] Comment on above: Performed By: #### T SH, T4, CMP #### [facility] [address] [place], [place] [address] Carolinasurekha Rubi TSH RANGE SEE BELOW Normal [facility] Comment on above: Result Comment: <0.3 4 UIU/ml HYPERTHYROID 0.34-5.60 UIU/ml EUTHYROID >5.60 UIU/ml HYPOTHYROID Performed By: #### T SH, T4, CMP #### [facility] [address] [place], [place] [address] Carolina Elicia Vital Signs Date Time Vital Sign Value Performing Clinician Facility 03-12-2023 13:30-0500 Body height 160.02 cm Polina De La Rosa Other [facility] Other 03-12-2023 13:30-0500 Body mass index (BMI) [Ratio] 33.09 kg/m2 Polina De La Rosa Other [facility] Other 03-12-2023 13:30-0500 Body weight 84.73 kg Polina De La Rosa Other [facility] Other 03-12-2023 13:30-0500 Diastolic blood pressure 80 mm[Hg] Ploina De La Rosa Other [facility] Other 03-12-2023 13:30-0500 SaO2% (BldA) [Mass fraction] 96 % Polina De La Rosa Other [facility] Other 03-12-2023 13:30-0500 Systolic blood pressure 132 mm[Hg] Polina De La Rosa Other [facility] Other 01-21-2023 13:29-0400 Blood Pressure Location George ARGUETA [facility] [place] 01-21-2023 13:29-0400 Diastolic blood pressure 80 mm[Hg] George HAJIL [facility] [place] 01-21-2023 13:29-0400 Heart rate 72 /min George HAJIL [facility] [place] 01-21-2023 13:29-0400 Respiratory rate 16 /min George HAJIL [facility] [place] 01-21-2023 13:29-0400 Systolic blood pressure 138 mm[Hg] George HAJIL [facility] [place] 12-16-2022 14:00-0400 Body height 160.02 cm Polina De La Rosa Other [facility] Other 12-16-2022 14:00-0400 Body mass index (BMI) [Ratio] 31.92 kg/m2 Polina De La Rosa Other [facility] Other 12-16-2022 14:00-0400 Body weight 81.74 kg Polina De La Rosa Other [facility] Other 12-16-2022 14:00-0400 Diastolic blood pressure 72 mm[Hg] Polina De La Rosa Other [facility] Other 12-16-2022 14:00-0400 SaO2% (BldA) [Mass fraction] 96 % Polina De La Rosa Other [facility] Other 12-16-2022 14:00-0400 Systolic blood pressure 120 mm[Hg] Polina De La Rosa Other [facility] Other Encounters Encounter Date Encounter Type Care Provider Facility Start: 05-19-2023 End: 05-19-2023 ambulatory Polina De La Rosa Other [facility] Other Start: 05-19-2023 Telephone encounter Polina Quinteros her [facility] Start: 03-12-2023 End: 03-12-2023 ambulatory Polina De La Rosa Other [facility] Other Start: 03-12-2023 Office outpatient visit 25 minutes Polina De La Rosa [facility] Start: 03-04-2023 End: 03-04-2023 ambulatory Polina De La Rosa Other [facility] Other Start: 03-04-2023 Telephone encounter Polina Quinteros her [facility] Start: 02-19-2023 End: 02-20-2023 ambulatory George ARGUETA Facility:CD:[id number] Start: 02-10-2023 End: 02-10-2023 ambulatory Polina Steelnaseembalbina Other [facility] Other Start: 02-10-2023 Telephone encounter Polina Quinteros her [facility] Start: 01-21-2023 End: 01-22-2023 ambulatory George HAJIL Facility:[facility] Start: 01-21-2023 End: 01-21-2023 Patient encounter procedure George ARGUETA [facility] Start: 01-09-2023 ambulatory George HAJIL Facility:[facility] Start: 01-06-2023 End: 01-06-2023 ambulatory Polina Rj Other [facility] Other Start: 01-06-2023 Telephone encounter Polina Quinteros her [facility] Start: 12-16-2022 End: 12-16-2022 ambulatory Polina Rj Other [facility] Other Start: 12-16-2022 Patient encounter procedure Polina Peymanbarbra [facility] Start: 12-11-2022 End: 12-12-2022 ambulatory Héctor Estrada MD Facility:[facility] Start: 11-28-2022 End: 11-29-2022 ambulatory Héctor Estrada MD Facility:[facility] Start: 11-21-2022 ambulatory Héctor Estrada MD Fac ility:[facility] Start: 08-24-2021 End: 08-25-[address] DORIAN HORTON Facility:[facility] Start: 12-29-2020 Postop follow up vis it related to original px Dashawn Imani [facility] Start: 11-03-2020 End: 11-04-[address] DORIAN HORTON Facility:[facility] Procedures Date Procedure Procedure Detail Performing Clinician Start: 11-07-2020 Antibody screen Comment on above: Result Comment: PERF ORMED BY: [facility] [address] [place] [address] PATHOLOGIST [employer]ACHINE COLT MORENO M.D. Start: 05-10-2019 Cataract extraction and insertion of intraocular lens George HAJIL Comment on above: LEFT Start: 03-22-2019 Cataract extraction and insertion of intraocular lens George NILL Comment on above: CATARACT EXTRACTION W/ INTRAOCULAR LENS IMPLANTATION right Start: 10-02-2018 Colonoscopy George PULIDO LL section George NIL L Cholecystectomy George NILL Fracture of lower li mb (disorder) George NILL Immunizations Immunization Date Immunization Notes Care Provider Fa cility 07-27-2020 SARS-CoV-2 (COVID-19 ) mRNA BNT-162b2 vax George NILL [facility] [place] 07-05-2020 SARS-CoV-2 (COVID-19 ) mRNA BNT-162b2 vax George NILL [facility] [place] NEGATED: Highlighted row has not occurred!01-21-2023 influenza virus vaccine, unspecified formulation George ARGUETA [facility] Payers Date Payer Category Payer Self-pay [employer] 1959 Unknown [id number] 1950 Unknown [id number] [id number] 1950 Unknown [id number] [id number] [id number] 1950 Unknown [id number] 2.16.8 [id number] 1950 Unknown [id number] 2.16.8 [id number] 1950 Unknown [id number] 2.16.8 [id number] 1950 Unknown [id number] 2.16.8 [id number] 1950 Unknown [id number] 2.16.8 [id number] Social History Date Type Detail Facility Sex Assigned At [facility] Start: 01-21-2023 Tobacco smoking status Never s moked tobacco (finding) [facility] [place] Tobacco smoking status Never Gener al [facility] [place] Medical Equipment Procedure Code Equipment Code Equipment Origin al Text Equipment Identifier Dates CATARACT EXTRACT ION W/ INTRAOCULAR LENS Sridevi Shankar MD 03/22/19 Non Biological Eye R {[id number] FDA Start: 03-22-2019 CATARACT EXTRACT ION W/ INTRAOCULAR LENS Sridevi Shankar MD 05/10/19 Non Biological Eye L [id number] FDA Start: 05-10-2019 Functional Status Date Assessment Result Facility 01-21-2023 Functional Status N/A [facility] Clinical Notes 12-29-2020 to 05-19-2023 Note Date & Type Note Facility 05-19-2023 Evaluation note Encounter Date Diagnosis Assessment Notes May, Other chronic pain (ICD-10 - G89.29) [facility] Other 12-06-2023 Evaluation note* Encounter Date Diagnosis Assessment Notes Treatment Notes Treatment Clinical Notes Mar, Other chronic pain (ICD-10 - G89.29) You have been prescribed a narcotic pain medication. Keep all medications in a safe, secure location. Narcotics are controlled medications that can be dangerous if taken incorrently. Any lost or stollen prescriptions will not be replaced without a police report. Medication prescriptions and refills will be given only at office appointments. Return to the office as directed for re-evaluation, call sooner with concerns or side effects or non-effectiveness. Patient has continued need for HYrodcodone. OARRS report processed and reviewed and shows no violations. Patient was educated on the risks and benefits of prison opioid use. Hydrocodone was refilled today opioid risk assessment was. Patient is compliant with opioid medication. The patient denies any opioid related side effects. Last filled on 02/10/2023. Controlled substance agreement signed at her previous appt. She well controlled on current therapy, continue present regimen Mar, Low back pain, unspecified (ICD-10 - M54.50) [facility] Other 11-06-2023 Evaluation note* Encounter Date Diagnosis Assessment Notes Treatment Notes Treatment Clinical Notes Feb, Low back pain, unspecified (ICD-10 - M54.50) Feb, Other chronic pain (ICD-10 - G89.29) [facility] Other 10-17-2023 NoteChief Complaint consultation for positive Cologuard HPI Staff 72 year old female presents on consultation from Polina De La Rosa for positive Cologuard. Deniesabdominal or rectal pain. No rectal bleeding or change in bowel habits. Denies nausea or vomiting. No unexplained weight loss. Last colonoscopy completed 09/2018 with incomplete bowel prep. No additional colonoscopies or previous Cologuard testing. No known family history of colon cancer. History of Present Illness 72 yo female with htn, DMII, chronic back pain, referred for positive Cologuard; denies change in bms or blood in stools, no abd complaints; abd operations significant for x3 and cholecystectomy; attempted colonoscopy in 2019, but poor prep; on baby asa daily, no NSAIDs, no SBE prophylaxis, no fmhx of GI malignancy or IBD; no tobacco use. Review of Systems PHQ Score Initial Depression Screen Score: 0 ROS - Provider Constitutional: no fever, no sweats, no weight loss. Eyes: yes glasses, no blurred vision, no visual loss. ENMT: no dentures, no hoarseness, no swallowing difficulties, no hearing loss, no ear infection(s),no nose bleeds. Cardiovascular: normal blood pressure, no chest pain, regular heartbeat, no heart murmur. Respiratory: no shortness of breath, no cough, no asthma, no wheezing. Gastrointestinal: no nausea, no vomiting, no diarrhea, no constipation, no blood in stool, no change in bowel habits, no abdominal pain, no hepatitis. Genitourinary: no kidney stones, no urine infection, no dysuria. Musculoskeletal: no pain, no weakness. Skin: no changing moles, no rash, no skin lumps. Neurologic: no seizures, no epilepsy, no headache. Psychiatric: no emotional or psychiatric problem. Heme/Lymph: no bleeding problems, no anemia, no blood clots, no transfusions. Allergy/Immunologic: no swollen lymph nodes/glands, no IV drug abuse. Other: Additional ROS info: Except as noted in the above Review of Systems and in the History of Present Illness, all other systems have been reviewed and are negative or noncontributory. Physical Exam Vitals & Measurements HR: 72(Peripheral) RR: 16 BP: 138/80 HT: 64 in HT: 162 cm WT: 82.4 kg WT: 181.28 lb BMI: 31.4 HEENT: normal conjunctiva, sclera clear, no scleral icterus, EOM intact, PERRLA, oral mucosa moist without lesions. Neck: trachea midline, no mass, symmetric, no thyromegaly or nodules, no adenopathy Respiratory: lungs CTA, respirations non labored. Cardiovascular: regular rate and rhythm, no murmur, no pedal edema or varicosities. Gastrointestinal: obese, soft, non distended, no tenderness, no masses, no palpable hernias, diastasis recti no, no hepatosplenomegaly; normal bs Lymphatic: no cervical adenopathy, no supraclavicular adenopathy. Musculoskeletal: normal gait, digits and nails without infection, nodes, cyanosis, clubbing. Skin: no rashes, no lesions, no ulcers, no subcutaneous nodules, induration. Psychiatric/Neuro: oriented to time, place, person, judgement normal, affect appropriate for age, insight intact, no focal deficits. Tests: labs reviewed, review of old records completed , Discussed surgical options, risks, and possible complications with patient. Assessment/Plan 1. Positive colorectal cancer screening using Cologuard test (R19.5: Other fecal abnormalities) plan colonoscopy under anesthesia, informed consent obtained. 2. BMI 31.0-31.9,adult (Z68.31: Body mass index [BMI] 31.0-31.9, adult) recommend diet and exercise. Follow-up No qualifying data available Problem List/Past Medical History Ongoing BMI 31.0-31.9,adult Chronic back pain HTN (hypertension) Impaired fasting glucose Obesity Positive colorectal cancer screening using Cologuard test Historical No qualifying data Procedure/Surgical History Cataract extraction and insertion of intraocular lens (05/10/2019), CEIOL - Cataract extraction andinsertion of intraocular lens (03/22/2019), Colonoscopy (10/02/2018), section, section, section, Cholecystectomy, Fracture of leg. Medications acetaminophen-hydrocodone 325 mg-5 mg oral tablet, 1 tab(s), Oral, q6hr aspirin 81 mg Oral EC Tab, 81 mg= 1 tab(s), Oral, Daily carvedilol 6.25 mg Tab, 3.125 mg= 0.5 tab(s), Oral, Daily lisinopril, 5 mg, Oral, Daily metformin, 1000 mg, Oral, Daily Allergies Bee Stings (Anaphylaxis) Contrast Dye (Itching) shellfish (Itching) Social History Alcohol - Denies Alcohol Use, 01/21/2023 Substance Abuse - Denies Substance Abuse, 01/21/2023 Tobacco Never (less than 100 in lifetime) Tobacco Use:. Never Smokeless Tobacco Use:., 01/21/2023 Family History Family history is negative Immunizations Vaccine Date Status SARS-CoV-2 (COVID-19) mRNA BNT-162b2 vax 07/27/2020 Recorded SARS-CoV-2 (COVID-19) mRNA BNT-162b2 [facility] Comment: Electronically Signed By: ELLIE NDIAYE, George Trinh\Date and Time Signed: 01/21/23 14:00 [id number] Evaluation note * Encounter Date Diagnosis Assessment Notes Treatment Notes Treatment Clinical Notes Dec, Medicare annual wellness visit, subsequent (ICD-10 - Z00.00) Personalized health advice was given to the beneficiary with a referral, if appropriate, to health education of preventative counseling services or programs aimed at reducing identified risk factors and improving self-management or community-based lifestyle interventions to reduce health risks and promote self-management and wellness, including weight loss, physical activity, smoking cessation, fall prevention and nutrition. A written plan for screenings discussed, including colonoscopy, mammography, flu vaccination, other vaccinations if at risk, routine lab studies, eye exams, glaucoma screening, skin checks, risk factors for medical problems discussed, including BP control, obesity, and need for consistent exercise. Advanced care planning reviewed. Counseling was provided here today - specifically in regard to any positively answered questions as noted above. Dec, Impaired fasting glucose (ICD-10 - R73.01) Will obtain labs from [facility] Sugars reviewed and above normal values of <100. Dx of IFG discussed as well as the risk of progression to to DMII. Tx options reviewed - ADA diet, regular aerobic exercise (150 min weekly) with f/u in 6 months. Goal of A1C <6 % and FBG <100 discussed Dec, Primary hypertension (ICD-10 - I10) To goal Prior to your visit today we reviewed your chart and outlined the tetsing and treatment needed for your care. We discussed the possible complications of high blood pressure, including increased risk for heart disease, stroke, and kidney disease. Our goal is to keep your blood pressure below 130/85 (an preferably < 120/80) and maintain a healthy weight with a BMI less than 26. We are working together to acheive these goals with the following plan; healthier diet, increased activity and exercise, understanding your medicaitons, and your complaince. You have been given relevant education handouts. Dec, Other chronic pain (ICD-10 - G89.29) Discussed with pt that I do not typically prescribe NORCO and that she would need to be referred to pain management for furhter prescribing of the [place]. She is not sure what she wants to do about this. OARRS was processed and no violoations have been noted. Sh will determine what she wants to do and will call the office. Dec, Low back pain, unspecified (ICD-10 - M54.50) Dec, Screening for colon cancer (ICD-10 - Z12.11) Discussed with patient the colon cancer screening options including cologuard and colonoscopy. Risks and benefits of each discussed. Patient opts for cologuard screening. [facility] Other 09-24-2021 Evaluation note* Encounter Date Diagnosis Assessment Notes Treatment Notes Treatment Clinical Notes Dec, Closed displaced subtrochanteric fracture of right femur with routine healing, subsequent encounter (ICD-10 - S72.21XD) Emiliana returns now 7 weeks s/p intramedullary nail fixation of right subtrochanteric femur fracture. She is doing well and her x-rays look wonderful and the fracture is healed nicely. At this juncture we have discussed the findings and diagnosis as well as personally reviewed appropriate imaging and performed interpretation of related testing and examination with the patient in office today. Prior medical notes from her hospital discharge and history have been reviewed. At this time I would recommend continued activity as tolerated with weightbearing as tolerated. I have discussed with her that I expect this to go on to remodel fully without any issues. She can continue to progress as tolerated. She can follow-up as needed if she continues to have any issues. The patient has been involved in our cooperative treatment plan and agrees to move forward with treatment at this time. Radiographs reviewed with patient. She is progressing well at this time. Continue gentle motion/strengthe jin exercises. Patient declines formal therapy order today. Call with questions/concer ns. Dec, Other specified postprocedural states (ICD-10 - Z98.890) [facility] Other Evaluation + Plan note No data available for this section [facility] Evaluation noteNo InformationNort Bridge [employer] Other History general Narrative - Reported* Type Description Date Medical History HTN Medical History Pre-diabetes Medical History Back pain Surgical History x3 Surgical History Gallbladder Surgical History Leg surgery, jcarlos placement [facility] Other Hospital Discharge instructions No data available for this section [facility] [place] Progress note No data available for this section [facility] [place] Reason for referral (narrative)* Reason *FU 02/17 needs ev aluation for chronic back pain Diagnosis 1 Low back pain, unspe cified (M54.50) Diagnosis 2 Other chronic pain ( G89.29) Referral Organization [facility] Referring Provider First Name Polina Referring Provider Last Name Rj Referring Provider Specialty Nurse Alex bustamante Referred Organization [facility] Referred Address [address], [place],[address] Referred Provider Specialty Pain Medicin e Referral Priority Routine General Notes Tracey Hancock 04:38:21 PM >received today, attachments made, notes locked, referral faxed Clinical Notes f: [id number] [facility] Other Summary Purpose Family History No Family History Records FoundNo Family History Records FoundNo Family History Records Found No data available for this section No Family History Records Found Advance Directives No Advanced Directives Records FoundNo Advanced Directives Records FoundNo Advanced Directives Records FoundNo Advanced Directives Records Found Additional Source Comments INFORMATION SOURCE (unrecogn ized section and content) DATE CREATED AUTHOR 04/15/2021 [facility] DATE CREATED AUTHOR AUTHOR'S ORGANIZ ATION 08/31/2021 [facility] DATE CREATED AUTHOR AUTHOR'S ORGANIZ ATION 12/12/2022 [facility] DATE CREATED AUTHOR AUTHOR'S ORGANIZ ATION 03/08/2023 [facility] REASON FOR VISIT (unrecogniz ed section and content) Recheck Right FemurWellnessR efillrefillPain ManagementPain management discussionRefill Patient Care team informatio n (unrecognized section and content) Personnel Name: RENU NDIAYE, VANESSA Bar Address: Address: [address] Name: Gabriela Garcia I FOR RECORDS PERTAINING TO PATIENTS WHO ARE OR HAVE BEEN ENROLLED IN A CHEMICAL DEPENDENCY/SUBSTANCEABUSE PROGRAM, SOME INFORMATION MAY BE OMITTED. This clinical summary was aggregated from multiple sources. Caution should be exercised in using it in the provision of clinical care. This summary normalizes information from multiple sources, and as a consequence, information in this document may materially change the coding, format and clinical context of patient data. In addition, data may be omitted in some cases. CLINICAL DECISIONS SHOULD BE BASED ON THE PRIMARY CLINICAL RECORDS. [facility] [employer] [facility]. provides no warranty or guarantee of the accuracy or completeness of information in this document.
--- NOTE | 2023-07-26 12:23 | PC.NURSE ---
no redness, swelling or bruisong observed to left upper abd / rib area
--- NOTE | 2023-07-26 12:24 | PC.NURSE ---
no redness, swelling or bruising observed to left knee
--- NOTE | 2023-07-26 12:26 | XR_ITS ---
The [address] [address] Patient Name: EMILIANA WEBB MRN: [facility]:[id number] date: 1950 Sex: F Assigned Patient Location: ER Current Patient Location: ER Accession/Order Number: [id number] Exam Date: 07/26/2023 12:35 Report Date: 07/26/2023 13:17 At the request of: SINGH BYRD Procedure: XR knee LT 3V EXAM: XR knee LT 3V HISTORY: fall previous fall with persistent knee pain. COMPARISON: 07/03/2020, 10/21/2022 TECHNIQUE: AP, oblique, lateral x-ray left knee. FINDINGS: No fracture noted. Questionable small joint effusion. Mild femoral tibial joint narrowing and minor spurring consistent with DJD. Prominent patellar osteophytes. Unchanged. No suspicious focal bone lesion. No periarticular or intra-articular calcification or loose body. XR/XR knee LT 3V IMPRESSION: Tricompartment DJD most prominent patellofemoral joint. No acute fracture seen. Questionable tiny joint effusion. Electronically authenticated by: JOEL VALERIO Date: 07/26/2023 13:17
--- NOTE | 2023-07-26 12:26 | XR_ITS ---
The [address] [address] Patient Name: EMILIANA WEBB MRN: [id number] date: 1950 Sex: F Assigned Patient Location: ER Current Patient Location: ER Accession/Order Number: [id number] Exam Date: 07/26/2023 12:35 Report Date: 07/26/2023 13:20 At the request of: SINGH BYRD Procedure: XR ribs LT min 3V w CXR1V EXAM: XR ribs LT min 3V w CXR1V HISTORY: fall chest x-ray 10/03/2022 and earlier. Left shoulder x-ray including some of the left ribs 04/30/2022. COMPARISON: Chest x-ray 09/13/2022, 04/30/2022. Left shoulder x-ray including TECHNIQUE: Upright PA chest. AP, right and left oblique views left RIBS. FINDINGS: Chest x-ray demonstrates clear lungs without consolidation contusion. Heart size borderline unchanged. No pleural effusion or pneumothorax. No displaced fracture seen. Left rib x-ray demonstrates smooth cortical margins of the ribs without displaced fracture or focal bone lesion. XR/XR ribs LT min 3V w CXR1V IMPRESSION: 1. Chest x-ray stable without acute abnormality or new lung density. No pleural effusion or pneumothorax. 2. Left rib x-ray demonstrates an intact right margins without displaced fracture or healing fracture.. Electronically authenticated by: JOEL VALERIO Date: 07/26/2023 13:20
--- NOTE | 2023-07-26 12:26 | ED.LOWEXI1 ---
HPI HPI - Extremity Injury (Lower) General Chief Complaint: Extremity Injury, Lower Stated Complaint: DIFFICULTY BREATHING Time Seen by Provider: 07/26/23 12:22 Source: patient Mode of arrival: walk-in History of Present Illness HPI Narrative: 73-year-old female presents for pain to her left lower anterior rib region as well as her left knee. 9 days ago she fell forward while she was walking and hurt these areas. She did not hit her head and has no headache or neck pain. No other injury was sustained. The pain is moderate. Related Data Home Medications ?Medication ?Instructions ?Recorded ?Confirmed hydrocodone 5 mg-acetaminophen 325 1 tab PO Q8H PRN pain 09/13/22 02/19/23 mg tablet aspirin 81 mg capsule 81 mg PO DAILY 02/11/23 02/19/23 carvedilol 3.125 mg tablet 3.125 mg PO BID 02/11/23 02/19/23 lisinopril 5 mg tablet 5 mg PO DAILY 02/11/23 02/19/23 metformin 1,000 mg tablet 1,000 mg PO DAILY 02/11/23 02/19/23 Previous Rx's ?Medication ?Instructions ?Recorded prednisone 20 mg tablet 40 mg (2 x 20 mg) PO BID #6 tabs 09/13/22 Allergies Allergy/AdvReac Type Severity Reaction Status Date / Time latex Allergy Severe Hives Verified 02/11/23 13:19 bee stings Allergy Severe Anaphylaxis Uncoded 09/13/22 12:14 mri dye Allergy Severe Anaphylaxis Uncoded 09/13/22 12:14 sea food Allergy Severe Uncoded 09/13/22 12:14 Opioid HPI Opioid Management Most Recent Pain and Opioid Data: Last Pain Scale 7 10/21/22 16:06 Review of Systems ROS Narrative A ten point review of systems is negative except as noted above. [facility] Medical History (Updated 07/26/23 @ 14:06 by Jeff Pena MD) Fracture of leg ?S82.90XA - Unspecified fracture of unspecified lower leg, initial encounter for closed fracture (ICD-10) Positive colorectal cancer screening using Cologuard test ?R19.5 - Other fecal abnormalities (ICD-10) Impaired fasting glucose ?R73.01 - Impaired fasting glucose (ICD-10) Chronic back pain ?M54.9 - Dorsalgia, unspecified (ICD-10) ?G89.29 - Other chronic pain (ICD-10) Obesity ?E66.9 - Obesity, unspecified (ICD-10) HTN (hypertension) ?I10 - Essential (primary) hypertension (ICD-10) Surgical History (Updated 02/11/23 @ 13:17 by Stormy Magallanes, RN) Hx of cholecystectomy ?Z90.49 - Acquired absence of other specified parts of digestive tract (ICD-10) H/O colonoscopy ?Z98.890 - Other specified postprocedural states (ICD-10) H/O section ?Z98.891 - History of uterine scar from previous surgery (ICD-10) History of cataract extraction with lens replacement Social History (Updated 02/11/23 @ 13:25 by Stormy Magallanes, RN) Within the past year, how often did you have a drink containing alcohol: never Score interpretation: A score less than 3 is consistent with normal alcohol consumption. 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 General: The patient appears well and in no apparent distress. Patient is resting comfortably on cart. Skin: Warm, dry, no pallor noted. There is no rash noted. Head: Normocephalic, atraumatic Eye: Normal conjunctiva, no drainage Ears, Nose, Mouth, and Throat: oral mucosa is moist. Nares patent. Cardiovascular: Regular Rate and Rhythm Respiratory: Patient is in no distress, no accessory muscle use, lungs are clear to auscultation, no wheezing, rales or rhonchi. She has some tenderness in the left anterior rib region without bruise or abrasion or crepitus. No tenderness in the left upper quadrant or elsewhere on her abdomen. Back: non-tender GI: Soft and nontender Musculoskeletal: Left knee has no swelling or bruising or abrasion. It has good range of motion. Neurological: A&O, normal speech Psychiatric: Cooperative Constitutional Vital Signs, click to edit/add: Last Vital Signs Temp 98.0 F 07/26/23 12:13 Pulse 84 07/26/23 12:13 Resp 20 07/26/23 12:13 BP 175/102 H 07/26/23 12:13 Pulse Ox 98 04/20/24 12:13 Course Vital Signs Vital signs: Vital Signs Temperature 98.0 F 07/26/23 12:13 Pulse Rate 84 07/26/23 12:13 Respiratory Rate 20 07/26/23 12:13 Blood Pressure 175/102 H 07/26/23 12:13 Pulse Oximetry 98 07/26/23 12:13 Temperature 98.0 F 07/26/23 12:13 Pulse Rate 84 07/26/23 12:13 Respiratory Rate 20 07/26/23 12:13 Blood Pressure 175/102 H 07/26/23 12:13 Pulse Oximetry 98 07/26/23 12:13 MDM - Extremity Injury (Lower) MDM Narrative Medical decision making narrative: Rib x-rays and the x-rays are negative per radiologist for acute findings. Treatment diagnosis and follow-up were discussed with the patient. Differential Diagnosis Differential diagnosis: Likely other (Rib fracture, rib contusion, pneumothorax, knee contusion, knee fracture) Imaging Data Rib x-rays and knee x-ray: Radiologist's impression: ITS Impressions Knee X-Ray 07/26/23 12:26 IMPRESSION: [employer]ricom[employer] DJD most prominent patellofemoral joint. No acute fracture seen. Questionable tiny joint effusion. Electronically authenticated by: JOEL VALERIO Date: 07/26/2023 13:17 Ribs X-Ray 07/26/23 12:26 IMPRESSION: 1. Chest x-ray stable without acute abnormality or new lung density. No pleural effusion or pneumothorax. 2. Left rib x-ray demonstrates an intact right margins without displaced fracture or healing fracture.. Electronically authenticated by: JOEL VALERIO Date: 07/26/2023 13:20 Discharge Plan Discharge Stand Alone Forms: Portal Instructions Chief Complaint: Extremity Injury, Lower Clinical Impression: Contusion of rib Patient Disposition: Home, Self-Care Time of Disposition Decision: 14:05 Condition: Good Mode of Transportation: Private Vehicle Prescriptions / Home Meds: No Action hydrocodone-acetaminophen 5-325 mg tablet 1 tab PO Q8H PRN (Reason: pain) prednisone 20 mg tablet 40 mg PO BID Qty: 6 0RF aspirin 81 mg capsule 81 mg PO DAILY carvedilol 3.125 mg tablet 3.125 mg PO BID Rx Instructions: must administer with a meal/food lisinopril 5 mg tablet 5 mg PO DAILY metformin 1,000 mg tablet 1,000 mg PO DAILY Print Language: Korean Instructions: Rib Contusion (ED) Referrals: MYRTLE BAILEY [Primary Care Provider] - 1 week
== END 2023-07-26 14:19 | disposition home or self-care (01) ==
PROVIDERS: Emergency Provider Emergency Medicine; PCP Nurse Practitioner Family
DX: S20.212A Contusion of left front wall of thorax, initial encounter (principal); W19.XXXA Unspecified fall, initial encounter; Z79.82 Long term (current) use of aspirin; Z79.899 Other long term (current) drug therapy; Z79.84 Long term (current) use of oral hypoglycemic drugs; I10 Essential (primary) hypertension; E66.9 Obesity, unspecified; Z90.49 Acquired absence of other specified parts of digestive tract; Z98.890 Other specified postprocedural states; Z98.891 History of uterine scar from previous surgery; Z68.29 Body mass index [BMI] 29.0-29.9, adult
CPT/HCPCS: 71101; 73562; 99284

== ENCOUNTER 2024-04-06 08:11 | Outpatient (OUT) | payer MEDICARE, SELFPAY ==
--- OUTSIDE RECORDS SUMMARY | 2024-04-06 08:19 | XMS_ITS | CCD ---
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 Name Role Phone HOUSE, DR ALARCON Admitting Unavailable HOUSE, DR ALARCON Primary Care Unavailable HOUSE, DR ALARCON Consulting Unavailable HOUSE, DR ALARCON Attending Unavailable HOUSE, DR ALARCON Admitting Unavailable HOUSE, DR ALARCON Primary Care Unavailable HOUSE, DR ALARCON Consulting Unavailable HOUSE, DR ALARCON Attending Unavailable Dashawn Diallo Unavailable Natalie NDIAYE, Hcétor See Attending Unavailable HOUSE, DORIAN West Primary Care Unavailable Natalie NDIAYE, Héctor See Attending Unavailable HOUSE, DORIAN West Primary Care Unavailable Natalie NDIAYE, Héctor See Attending Unavailable HOUSE, DORIAN West Primary Care Unavailable Polina De La Rosa Unavailable [phone] VANESSA SHANKAR Primary Care Physician Gabriela Garcia I Unavailable Unavailable NILL, George Poe Attending Unavailable NILL, George Poe Attending Unavailable Allergies Allergy Classification Reported Allergen(s) Allergy Type Date of Onset Reaction(s) Facility (1 source) bee venom Drug allergy (disorder) 7 [facility] (3 sources) Latex Drug allergy (disorder) 4 Rash [facility] (2 sources) Shellfish; Translations: [shellfish] Drug allergy (disorder) 4 [facility] (1 source) Omniscan Drug allergy (disorder) 7 [facility] (7 sources) Bee Sting Drug allergy anaphylaxis [employer] Other (3 sources) Bee/Wasp/Ant venom; Translations: [Bee Stings] Propensity to adverse reactions to drug (disorder) Anaphylaxis (disorder) [facility] Rep[facility] (3 sources) Contrast media; Translations: [Contrast Dye] Propensity to adverse reactions to drug (disorder) Itching [facility] (1 source) Iodine; Translations: [iodine] Drug Allergy [facility] (1 source) Seafood; Translations: [Seafood] Propensity to adverse reactions to drug (disorder) [facility] (7 sources) Shellfish; Translations: [shellfish] Drug allergy Unknown, Itching [facility] (6 sources) Contrast Allergy PreMed Pack Drug allergy Unknown [facility] [employer] Other (2 sources) Shellfish Allergy to substance 4 Unknown Reaction [facility] (2 sources) bee venom protein (honey bee) Allergy to substance 4 anaphylaxis [facility] (2 sources) Iodinated [employer] Allergy to substance 4 Anaphylaxis [facility] Medications Current Medications Medication Drug Class(es) Dates Sig (Normalized) Sig (Original) carvedilol 6.25 mg oral tablet (9 sources) alpha-Adrenergic Moisse, beta-Adrenergic Moises Start: 02-18-2018 take 3.125 mg by mouth once daily Carvedilol (Coreg) 6.25 mg Tablet Active 3.125 MG PO Daily February 18, 2018 1:00am take 0.5 tablet by m outh every twenty-four hours Carvedilol 6.25 MG 0.5 tablet Orally onc e a day Active HYDROcodone (1 source) Opioid Agonist Hydrocodone Bitartrate Active lisinopril 5 mg oral tablet (9 sources) Angiotensin Converting Enzyme Inhibitor Start: 8 take 5 mg by mouth once daily Lisinopril Active 5 MG PO Daily February 18, 2018 1:00am metFORMIN hydrochloride 1000 mg oral tablet (13 sources) Biguanide Start: 4 End: 4 take 1000 mg by mouth once daily Metformin Active 1000 MG PO Daily 90 90 August 07, 2023 1:44pm Start: 03-19-2019 take 1000 mg by mout h once daily metformin 1,000 mg, Oral, Daily, High blood sugar Start Date: 03/19/19 Status: Ordered Start: 02-18-2018 End: 05-21-2023 take 1000 mg by mouth twice daily Metformin Discontinued 1000 MG PO Twice daily February 18, 2018 1:00am May 21, 2023 9:39am Completed/Discontinued Medications Medication Drug Class(es) Dates Sig (Normalized) Sig (Original) acetaminophen 500 mg oral tablet (2 sources) Start: 11-09-2020 End: 05-21-2023 take 2 tablets by mouth every eight hours Acetaminophen (Tylenol Extra Strength) 500 mg tablet Discontinued 1000 MG PO Every 8 hours 180 November 09, 2020 12:00am May 21, 2023 9:38am acetaminophen 325 mg / HYDROcodone bitartrate 5 mg oral tablet (20 sources) Opioid Agonist Start: 05-19-2023 End: 12-04-2023 take 1 tablet by mouth every eight hours Hydrocodone-Acetami nophen Discontinued 1 TAB PO Every 8 hours 90 June 10, 2023 July 17, 2023 2:24pm Start: 03-12-2023 take 1 tablet by bony [...] 0, Pain Start Date: 03/19/19 Status: Ordered Start: 04-28-2018 End: 11-09-2020 take 1 tablet by mouth twice daily Hydrocodone-Acetaminophen (Winona) 5-325 mg Tablet Discontinued 1 TAB PO Twice daily 0 April 28, 2018 11:32am November 09, 2020 3:26pm Start: 02-28-2018 End: 04-28-2018 Hydrocodone-Acetaminophen (N orco) 5-325 mg Tablet Discontinued 1 TAB PO every 6 to 8 hours February 28, 2018 1:00am April 28, 2018 11:32am acetaminophen 325 mg / oxyCODONE hydrochloride 5 mg oral tablet (4 sources) Opioid Agonist Start: 02-28-2018 End: 03-03-2018 take 1 tablet by mouth every four to six hours Oxycodone-Acetaminophen (Percocet) 5-325 mg tablet Discontinued 1 TAB PO EVERY 4-6 HOURS 14 3 February 28, 2018 March 03, 2018 1:01am Start: 02-10-2018 End: 02-14-2018 take 2 tablets by mouth every four hours Oxycodone-Acetaminophen (Percocet) 5-325 mg tablet Discontinued 2 TAB PO Q4H 20 4 February 10, 2018 February 14, 2018 1:02am acyclovir 400 mg oral tablet (2 sources) Herpesvirus Nucleoside Analog DNA Polymerase Inhibitor, Herpes Simplex Virus Nucleoside Analog DNA Polymerase Inhibitor, Herpes Zoster Virus Nucleoside Analog DNA Polymerase Inhibitor Start: 02-28-2018 End: 04-28-2018 take 400 mg by mouth three times daily Acyclovir Discontinued 400 MG PO Three times daily February 28, 2018 1:00am April 28, 2018 11:29am aspirin 81 mg delayed release oral tablet (11 sources) Platelet Aggregation Inhibitor, Nonsteroidal Anti-inflammatory Drug Start: 11-09-2020 End: 05-21-2023 take 81 mg by mouth twice daily Aspirin Discontinued 81 MG PO Twice daily 42 November 09, 2020 12:00am May 21, 2023 9:38am Start: 02-18-2018 take 1 tablet by bony th once daily Aspirin (Aspir-81) 81 mg Tablet,Delayed Release (Dr/Ec) Active 81 MG PO Daily February 18, 2018 1:00am take 1 tablet by bony th once daily Aspirin 81 81 MG 1 tablet Orally Once a day Active cephalexin 500 mg oral capsule (2 sources) Cephalosporin Antibacterial Start: 04-28-2018 End: 05-02-2018 take 1 capsule by mouth every eight hours Cephalexin (Keflex) 500 mg capsule Discontinued 500 MG PO Q8H 12 4 April 28, 2018 1:00am May 02, 2018 1:02am start 04/29/18 cyclobenzaprine hydrochloride 10 mg oral tablet (2 sources) Muscle Relaxant Start: 11-09-2020 End: 05-21-2023 take 10 mg by mouth every eight hours Cyclobenzaprine Discontinued 10 MG PO Q8H 63 November 09, 2020 12:00am May 21, 2023 9:38am docusate sodium 100 mg oral tablet (2 sources) Start: 11-09-2020 End: 05-21-2023 take 100 mg by mouth twice daily Docusate Sodium Discontinued 100 MG PO Twice daily 28 November 09, 2020 12:00am May 21, 2023 9:38am gabapentin 600 mg oral tablet (4 sources) Anti-epileptic Agent Start: 02-18-2018 End: 11-07-2020 take 400 mg by mouth twice daily Gabapentin Discontinued 400 MG PO Twice daily February 18, 2018 1:00am November 07, 2020 12:01am Start: 02-11-2018 End: 02-18-2018 take 600 mg by mouth twice daily Gabapentin Discontinued 600 MG PO Twice daily 14 February 11, 2018 5:58pm February 18, 2018 1:01am oxyCODONE hydrochloride 5 mg oral tablet (2 sources) Opioid Agonist Start: 11-09-2020 End: 05-21-2023 take 1 tablet by mouth every six hours Oxycodone (Roxicodone) 5 mg tablet Discontinued 5 MG PO Q6H 40 7 November 09, 2020 May 21, 2023 9:38am predniSONE 10 mg oral tablet (4 sources) Start: 07-14-2018 End: 11-06-2020 take 3 doses by mouth once daily Prednisone Discontinued 10 MG PO Once 15 July 14, 2018 12:00am November 06, 2020 11:29pm 3 pills daily X 5 days Start: 02-11-2018 End: 02-15-2018 take 50 mg by mouth once daily Prednisone Discontinued 50 MG PO Daily 4 4 February 11, 2018 1:00am February 15, 2018 1:02am pregabalin 75 mg oral capsule (2 sources) Start: 02-28-2018 End: 04-27-2018 take 1 capsule by mouth twice daily Pregabalin (Lyrica) 75 mg Capsule Discontinued 75 MG PO Twice daily February 28, 2018 1:00am April 27, 2018 7:05pm traZODone hydrochloride 50 mg oral tablet (2 sources) Serotonin Reuptake Inhibitor Start: 02-28-2018 End: 11-06-2020 take 50 mg by mouth once daily at bedtime Trazodone Discontinued 50 MG PO Daily at bedtime February 28, 2018 1:00am November 06, 2020 11:30pm Problems Active Problems Problem Classification Problem Date Documented Da te Episodic/Chronic Diabetes mellitus without complication (4 sources) Type 2 diabetes mellitus without complications; Translations: [TYPE 2 DM WITHOUT COMPLICATIONS] Onset: 08-24-2021 Chronic Diabetes mellitus without complication (6 sources) Impaired fasting glucose; Translations: [Impaired fasting glycemia] Episodic E Codes: Fall (3 sources) Fall; Translations: [Unspecified fall, initial encounter] 08-07-2023 Episodic Essential hypertension (12 sources) Essential (primary) hypertension; Translations: [Essential hypertension] Onset: 08-30-2021 Chronic Fracture of neck of femur (hip) (3 sources) Displaced subtrochanteric fracture of right femur, subsequent encounter for closed fracture with routine healing; Translations: [Fracture of proximal end of femur] Onset: 12-29-2020 Resolved: 12-29-2020 Episodic Osteoarthritis (5 sources) Unspecified osteoarthritis, unspecified site; Translations: [UNSPECIFIED OSTEOARTHRITIS UNS SITE] Onset: 11-03-2020 Chronic Other circulatory disease (2 sources) Orthostatic hypotension; Translations: [Orthostatic hypotension] 03-19-2023 Episodic Other gastrointestinal disorders (1 source) Abnormal feces; Translations: [Other fecal abnormalities] Onset: 01-21-2023 Episodic Other nervous system disorders (1 source) Other specified mononeuropathies; Translations: [OTHER SPECIFIED MONONEUROPATHIES] Onset: 11-10-2020 Chronic Other nervous system disorders (8 sources) Chronic pain; Translations: [Other chronic pain] 05-21-2023 Chronic Other nervous system disorders (8 sources) Other chronic pain; Translations: [Other chronic pain] Chronic Other nutritional; endocrine; and metabolic disorders [...] (1 source) Chronic back pain 01-13-2023 Episodic Spondylosis; intervertebral disc disorders; other back problems (6 sources) Backache; Translations: [Dorsalgia, unspecified] 05-21-2023 Episodic Superficial injury; contusion (6 sources) Contusion of rib; Translations: [Contusion of left front wall of thorax, initial encounter] 08-07-2023 Episodic Syncope (2 sources) Syncope; Translations: [Syncope and collapse] 03-19-2023 Episodic Urinary tract infections (2 sources) Bacterial urinary infection; Translations: [Urinary tract infection, site not specified] 03-19-2023 Episodic Past or Other Problems Problem Classification Problem Date Documented Date Episodic/Chronic Residual codes; unclassified (1 source) Other specified postprocedural states; Translations: [Other specified postprocedural states Z98.890] Onset: 12-29-2020 Resolved: 12-29-2020 Episodic Unclassified (3 sources) Low back pain, unspecified M54.50 Results Test Name Value Interpretation Reference Range Facility Outside Colonoscopyon 2022 Outside Colonoscopy [id number] F#1.00TIFF [facility] Insurance Correspondenceon Insurance Correspondence [id number] 05#1.00TIFF [facility] Consent for Procedure/Surger yon 01-22-2023 Consent for Procedure/Surgery [id number] 658#1.00TIFF [facility] Ambulatory Visit Summaryon 1 Ambulatory Visit Summary EMILIANA WEBB :1950 Visit [...] Positive colorectal cancer screening using Cologuard test [facility] Formson 01-21-2023 Forms [id number] 70#1.00TIFF [facility] Physician Referralon 023 Physician Referral [id number] 0D#1.00TIFF [facility] Patient Handouton 11-28-2022 Patient Handout [id number] 14#1.00OTGTIFF [facility] Patient Handouton 11-27-2022 Patient Handout [id number] 375#1.00OTGTIFF [facility] CBC AUTO DIFFon 08-24-2021 BASO # 0.0 103/ul Normal 0.0-0.1 [facility] Comment on above: Performed By: #### C BC #### [facility] [address] [address] [address] Sugar Givens Basophils/100 WBC (Bld) 0.6 % Normal 0.2-2.0 [facility] Comment on above: Performed By: #### C BC #### [facility] [address] [address] [address] Sugar Givens EO # 0.8 103/ul Critically high 0.0-0.7 [facility] Comment on above: Performed By: #### C BC #### [facility] [address] [address] [address] Sugar Givens Eosinophils/100 WBC (Bld) 12.3 % Critically high 0.9-7.0 [facility] Comment on above: Performed By: #### C BC #### [facility] [address] [place] [address] Dr. Sugar Givens Erythrocyte distribution width (RBC) [Ratio] 12.8 % Normal 11.0-15.0 [facility] Comment on above: Performed By: #### C BC #### [facility] [address] [place] [address] Dr. Sugar Givens Hematocrit (Bld) [Volume fraction] 35.1 % Critically low 36.0-48.0 [facility] Comment on above: Performed By: #### C BC #### [facility] [address] [place] [address] Dr. Sugar Givens Hemoglobin (Bld) [Mass/Vol] 11.0 g/dL Critically low 12.0-16.0 [facility] Comment on above: Performed By: #### C BC #### [facility] [address] [place] [address] Dr. Sugar Givens IG # 0.03 10e3/ul Normal 0.00-0.03 [facility] Comment on above: Performed By: #### C BC #### [facility] [address] [place] [address] Dr. Sugar Givens IG % 0.4 % Normal 0.0-0.5 [facility] Comment on above: Performed By: #### C BC #### [facility] [address] [place] [address] Dr. Sugar Givens LYMPH # 2.1 103/ul Normal 1.2-3.8 [facility] Comment on above: Performed By: #### C BC #### [facility] [address] [place] [address] Dr. Sugar Givens Lymphocytes/100 WBC (Bld) 31.4 % Normal 20.5-60.0 [facility] Comment on above: Performed By: #### C BC #### [facility] [address] [place] [address] Dr. Sugar Givens MANUAL DIFF REQ NO Normal [facility] Comment on above: Performed By: #### C BC #### [facility] [address] [place] [address] Dr. Sugar Givens MCH (RBC) [Entitic mass] 27.4 pg Normal 26.7-34.0 [facility] Comment on above: Performed By: #### C BC #### [facility] [address] [place] [address] Dr. Sugar Givens MCHC (RBC) [Mass/Vol] 31.3 g/dL Normal 29.9-35.2 [facility] Comment on above: Performed By: #### C BC #### [facility] [address] [place] [address] Dr. Sugar Givens MCV (RBC) [Entitic vol] 87.3 fL Normal 81.0-99.0 [facility] Comment on above: Performed By: #### C BC #### [facility] [address] [place] [address] Dr. Sugar Givens MONO # 0.4 103/ul Normal 0.3-0.8 [facility] Comment on above: Performed By: #### C BC #### [facility] [address] [place] [address] Dr. Sugar Givens Monocytes/100 WBC (Bld) 5.8 % Normal 1.7-12.0 [facility] Comment on above: Performed By: #### C BC #### [facility] [address] [address] [address] Sugar Givens NEUT # 3.3 103/ul Normal 1.4-6.5 [facility] Comment on above: Performed By: #### C BC #### [facility] [address] [address] [address] Sugar Givens Neutrophils/100 WBC (Bld) 49.5 % Normal 43.0-75.0 [facility] Comment on above: Performed By: #### C BC #### [facility] [address] [address] [address] Sugar Givens Platelet mean volume (Bld) [Entitic vol] 10.4 fL Normal 9.5-13.5 [facility] Comment on above: Performed By: #### C BC #### [facility] [address] [place] [address] Dr. Sugar Givens PLT 320 103/ul Normal 150-450 [facility] Comment on above: Performed By: #### C BC #### [facility] [address] [address] [address] Sugar Givens RBC 4.02 106/ul Critically low 4.20-5.40 [facility] Comment on above: Performed By: #### C BC #### [facility] [address] [place] [address] Dr. Sugar Givens WBC 6.8 103/ul Normal 4.0-11.0 [facility] Comment on above: Performed By: #### C BC #### [facility] [address] [place] [address] Dr. Sugar Givens GLYCOHEMOGLOBIN A1Con 2021 ADA RECOMMENDATION SEE BELOW Normal [facility] Comment on above: Result Comment: ADA RECOMMENDED LIMIT 4.0 - 6.0 ADA THERAPEUTIC TARGET < 7.0 ACTION SUGGESTED > 7.0 Performed By: #### A 1C #### [facility] [address] [place] [address] Dr. Sugar Givens Glucose [Mass/Vol] 151 mg/dL Normal [facility] Comment on above: Performed By: #### A 1C #### [facility] [address] [address] [address] Sugar Givens HbA1c (Bld) [Mass fraction] 6.9 % Critically high 4.5-6.2 [facility] Comment on above: Performed By: #### A 1C #### [facility] [address] [place] [address] Dr. Sugar Givens LIPID PROFILEon 08-24-2021 CHOL-HDL RATIO NORM SEE BELOW Normal [facility] Comment on above: Result Comment: 3.3 - 4.4 LOW RISK 4.4 - 7.1 AVERAGE RISK 7.1 - 11.0 MODERATE RISK >11.0 HIGH RISK Performed By: #### C MP, LIPID #### [facility] [address] [place] [address] Dr. Sugar Givens Cholesterol [Mass/Vol] 194 mg/dL Normal <=200 [facility] Comment on above: Performed By: #### C MP, LIPID #### [facility] [address] [place] [address] Dr. Sugar Givens Cholesterol in HDL [Mass/Vol] 38 mg/dL Critically low 40-60 [facility] Comment on above: Performed By: #### C MP, LIPID #### [facility] [address] [place] [address] Dr. Sugar Givens Cholesterol in LDL [Mass/Vol] 100.2 mg/dL Normal [facility] Comment on above: Performed By: #### C MP, LIPID #### [facility] [address] [place] [address] Dr. Sugar Givens Cholesterol.total/Cho lesterol in HDL [Mass ratio] 5.1 {ratio} Normal [facility] Comment on above: Performed By: #### C MP, LIPID #### [facility] [address] [place] [address] Dr. Sugar Givens HDL NORMAL > or = 60 mg/dl - LOW CARDIOVASCULAR RISK <40 mg/dl - HIGH CARDIOVASCULAR RISK Normal [facility] Comment on above: Performed By: #### C MP, LIPID #### [facility] [address] [place] [address] Dr. Sugar Givens LDL CALC NORMAL SEE BELOW Normal [facility] Comment on above: Result Comment: <100 mg/dl OPTIMAL 100 - 129 mg/dl NEAR OR ABOVE OPTIMAL 130 - 159 mg/dl BORDERLINE HIGH 160 - 189 mg/dl HIGH >190 mg/dl VERY HIGH Performed By: #### C MP, LIPID #### [facility] [address] [address] [address] Sugar Givens Triglyceride [Mass/Vol] 279 mg/dL Critically high <=150 [facility] Comment on above: Performed By: #### C MP, LIPID #### [facility] [address] [address] [address] Sugar Givens VLDL CALC 55.8 mg/dL Normal [facility] Comment on above: Performed By: #### C MP, LIPID #### [facility] [address] [address] [address] Sugar Givens MICROALBUMIN, RAND URon 05 mALB <1.3 Normal <=30.0 [facility] Comment on above: Performed By: #### M ALBR #### [facility] [address] [address] [address] Sugar Givens PROF 14(COMP METB)on 022 Albumin [Mass/Vol] 3.6 g/dL Normal 3.4-5.0 [facility] Comment on above: Performed By: #### C MP, LIPID #### [facility] [address] [address] [address] Sugar Givens Albumin/Globulin [Mass ratio] 0.9 {ratio} Normal [facility] Comment on above: Performed By: #### C MP, LIPID #### [facility] [address] [address] [address] Sugar Givens ALP [Catalytic activity/Vol] 122 U/L Critically high 46-116 [facility] Comment on above: Performed By: #### C MP, LIPID #### [facility] [address] [address] [address] Sugar Givens ALT [Catalytic activity/Vol] 26 U/L Normal 14-59 [facility] Comment on above: Performed By: #### C MP, LIPID #### [facility] [address] [address] [address] Sugar Givens Anion gap [Moles/Vol] 12.0 mmol/L Normal [facility] Comment on above: Performed By: #### C MP, LIPID #### [facility] [address] [address] [address] Sugar Givens AST [Catalytic activity/Vol] 28 U/L Normal 15-37 [facility] Comment on above: Performed By: #### C MP, LIPID #### [facility] [address] [address] [address] Sugar Givens Bilirubin [Mass/Vol] 0.4 mg/dL Normal 0.2-1.0 [facility] Comment on above: Performed By: #### C MP, LIPID #### [facility] [address] [address] [address] Sugar Givens Calcium [Mass/Vol] 9.2 mg/dL Normal 8.5-10.1 [facility] Comment on above: Performed By: #### C MP, LIPID #### [facility] [address] [address] [address] Sugar Givens Chloride [Moles/Vol] 104 mmol/L Normal 98-107 [facility] Comment on above: Performed By: #### C MP, LIPID #### [facility] [address] [address] [address] Sugar Givens CO2 [Moles/Vol] 27.5 mmol/L Normal 21.0-32.0 [facility] Comment on above: Performed By: #### C MP, LIPID #### [facility] [address] [address] [address] Sugar Givens Creatinine [Mass/Vol] 0.82 mg/dL Normal 0.55-1.02 [facility] Comment on above: Performed By: #### C MP, LIPID #### [facility] [address] [address] [address] Sugar Givens EGFR-AF BARBADIAN >60 Normal >=60 [facility] Comment on above: Performed By: #### C MP, LIPID #### [facility] [address] [address] [address] Sugar Givens EGFR-NON AF BARBADIAN >60 Normal >=60 [facility] Comment on above: Performed By: #### C MP, LIPID #### [facility] [address] [address] [address] Sugar Givens Globulin (S) [Mass/Vol] 4.1 g/dL Normal [facility] Comment on above: Performed By: #### C MP, LIPID #### [facility] [address] [address] [address] Sugar Givens Glucose [Mass/Vol] 121 mg/dL Critically high 74-106 [facility] Comment on above: Performed By: #### C MP, LIPID #### [facility] [address] [address] [address] Sugar Givens Potassium [Moles/Vol] 4.5 mmol/L Normal 3.5-5.1 [facility] Comment on above: Performed By: #### C MP, LIPID #### [facility] [address] [address] [address] Sugar Givens Protein [Mass/Vol] 7.7 g/dL Normal 6.4-8.2 [facility] Comment on above: Performed By: #### C MP, LIPID #### [facility] [address] [address] [address] Sugar Givens Sodium [Moles/Vol] 139 mmol/L Normal 136-145 [facility] Comment on above: Performed By: #### C MP, LIPID #### [facility] [address] [address] [address] Sugar Givens Urea nitrogen [Mass/Vol] 16.0 mg/dL Normal 7.0-18.0 [facility] Comment on above: Performed By: #### C MP, LIPID #### [facility] [address] [address] [address] Sugar Givens Urea nitrogen/Creatinine [Mass ratio] 19.5 mg/mg Normal [facility] Comment on above: Performed By: #### C MP, LIPID #### [facility] [address] [address] [address] Sugar Givens XR femur RT 2V*on 12-29-2020 XR femur RT 2V* [facility] [employer] Other XR femur RT 2V* [facility] [place] [facility] [employer] Other XR femur RT 2V* [address] [facility] [employer] Other XR femur RT 2V* [place] [address] N [facility] [employer] Other XR femur RT 2V* XRay Report [employer] Other XR femur RT 2V* Signed [employer] Other XR femur RT 2V* Patient: Emiliana Webb MR#: [id number] [place] [employer] Other XR femur RT 2V* 3564 [employer] Other XR femur RT 2V* : 1950 Acct:[id number] [place] [employer] Other XR femur RT 2V* Age/Sex: 70 / F ADM Date: 12/29/20 [employer] Other XR femur RT 2V* [place] [facility] [place]: Type: [facility] [employer] Other XR femur RT 2V* Attending Dr: Dashawn Diallo DO [employer] Other XR femur RT 2V* Ordering Provider: Dashawn Diallo DO [employer] Other XR femur RT 2V* Date of Service: 12/29/20 [employer] Other XR femur RT 2V* XR/XR femur RT 2V*: Closed displaced subtrochanteric fracture of right [employer] Other XR femur RT 2V* femur wit [employer] Other XR femur RT 2V* Copies to: Dashawn Diallo, DO [employer] Other XR femur RT 2V* RIGHT FEMUR - 2 views [facility] [employer] Other XR femur RT 2V* COMPARISON: 11/29/2020 [place] [employer] Other XR femur RT 2V* CLINICAL DATA: Follow-up femur fracture. [employer] Other XR femur RT 2V* AP and lateral views were obtained. There is osteopenia. There is a dynamic hip screw with long [employer] Other XR femur RT 2V* intramedullary jcarlos. The fracture at the proximal femoral shaft is in satisfactory alignment. There i [employer] Other XR femur RT 2V* s a small amount of developing callus formation. No new fractures or dislocation are noted. There [employer] Other XR femur RT 2V* are degenerative changes at the knee with joint space narrowing and marginal spurring. No soft [employer] Other XR femur RT 2V* tissue abnormalities are present. [employer] Other XR femur RT 2V* XR/XR femur RT 2V* [employer] Other XR femur RT 2V* IMPRESSION: [facility] [employer] Other XR femur RT 2V* STABLE HEALING PROXIMAL FEMUR FRACTURE. [employer] Other XR femur RT 2V* Impression dictated by: Elicia Collier M.D.12/29/2020 11:37 AM [employer] Other XR femur RT 2V* Dictation Location: [place] [address] [employer] Other XR femur RT 2V* Transcribed By: SVITLANA 12/29/20 1137 [employer] Other XR femur RT 2V* Dictated By: Elicia Collier MD 12/29/20 1120 [facility] [employer] Other XR femur RT 2V* Signed By: [facility] [employer] Other XR femur RT 2V* 12/29/20 4854 [facility] [employer] Other XR femur RT 2V* [facility] Main [address] [address] XRay Report Signed Patient: Emiliana Webb MR#: [id number] : 1950 Acct:[id number] Age/Sex: 70 / F ADM Date: 12/29/20 [place] [facility] [place]: [facility] Attending Dr: Dashawn Diallo DO Ordering [...] Elicia Collier M.D.12/29/2020 11:37 AM Dictation Location: [place] [address] Transcribed By: [facility] 12/29/20 1137 Dictated By: Elicia Collier MD 12/29/20 1120 Signed By: 12/29/20 1137 Normal [facility] XR femur RT 2V*on 11-29-2020 XR femur RT 2V* [facility] Main [address] [address] XRay Report Signed Patient: Emiliana Webb MR#: [id number] : 1950 Acct:[id number] Age/Sex: 70 / F ADM Date: 11/29/20 Loc: [facility] Room: Type: [facility] Attending Dr: Dashawn Diallo DO Ordering [...] Donaldson Jr., M.D.11/29/2020 5:06 PM Dictation Location: [place] [address] Transcribed By: [facility] 11/29/201705 Dictated By: Terry Donaldson Jr, MD 11/29/201703 Signed By: 11/29/201705 [facility] Glucose Poct Glucometerson 0 11-10-2020 Commemt1 Glu2: Cleaned Meter [facility] Comment on above: Result Comment: PERF ORMED BY: [place] [address] PATHOLOGIST COGENERATION TECHNICIAN COLT MORENO M.D. Performed By: #### P T, PTT, CMP, CBC #### [address] Glucose [Mass/Vol] 133 mg/dL Normal [facility] Comment on above: Result Comment: Reynolds Glucose Reference Range is dependent on time and content of last meal. Glucose of more than 200 mg/dL in a nonstressed, ambulatory subject supports the diagnosis of Diabetes Mellitus. Performed By: #### P T, PTT, CMP, CBC #### [address] Commemt1 Glu2: Cleaned Meter Normal [facility] Comment on above: Result Comment: PERF ORMED BY: [place] [address] PATHOLOGIST COGENERATION TECHNICIAN COLT MORENO M.D. Performed By: #### P T, PTT, CMP, CBC #### [address] Glucose [Mass/Vol] 157 mg/dL Normal [facility] Comment on above: Result Comment: Reynolds om Glucose Reference Range is dependent on time and content of last meal. Glucose of more than 200 mg/dL in a nonstressed, ambulatory subject supports the diagnosis of Diabetes Mellitus. Performed By: #### P T, PTT, CMP, CBC #### [address] Glucose [Mass/Vol] 112 mg/dL Normal [facility] Comment on above: Result Comment: [place] om Glucose Reference Range is dependent on time and content of last meal. Glucose of more than 200 mg/dL in a nonstressed, ambulatory subject supports the diagnosis of Diabetes Mellitus. PERFORMED BY: [place] [address] PATHOLOGIST COGENERATION TECHNICIAN COLT MORENO M.D. Performed By: #### P T, PTT, CMP, CBC #### [address] Glucose Poct Glucometerson 0 11-09-2020 Glucose [Mass/Vol] 106 mg/dL Normal [facility] Comment on above: Result Comment: [place] om Glucose Reference Range is dependent on time and content of last meal. Glucose of more than 200 mg/dL in a nonstressed, ambulatory subject supports the diagnosis of Diabetes Mellitus. PERFORMED BY: [place] [address] PATHOLOGIST COGENERATION TECHNICIAN COLT MORENO M.D. Performed By: #### P T, PTT, CMP, CBC #### [facility] [address] [place] [address] Glucose [Mass/Vol] 113 mg/dL Normal [facility] Comment on above: Result Comment: Reynolds om Glucose Reference Range is dependent on time and content of last meal. Glucose of more than 200 mg/dL in a nonstressed, ambulatory subject supports the diagnosis of Diabetes Mellitus. PERFORMED BY: [place] [address] PATHOLOGIST COGENERATION TECHNICIAN COLT MORENO M.D. Performed By: #### P T, PTT, CMP, CBC #### [address] Glucose [Mass/Vol] 91 mg/dL Normal [facility] Comment on above: Result Comment: [place] om Glucose Reference Range is dependent on time and content of last meal. Glucose of more than 200 mg/dL in a nonstressed, ambulatory subject supports the diagnosis of Diabetes Mellitus. PERFORMED BY: [place] [address] PATHOLOGIST COGENERATION TECHNICIAN COLT MORENO M.D. Performed By: #### P T, PTT, CMP, CBC #### [address] Commemt1 Glu2: Cleaned Meter Normal [facility] Comment on above: Result Comment: PERF ORMED BY: [place] [address] PATHOLOGIST COGENERATION TECHNICIAN COLT MORENO M.D. Performed By: #### P T, PTT, CMP, CBC #### [address] Glucose [Mass/Vol] 101 mg/dL Normal [facility] Comment on above: Result Comment: [employer] om Glucose Reference Range is dependent on time and content of last meal. Glucose of more than 200 mg/dL in a nonstressed, ambulatory subject supports the diagnosis of Diabetes Mellitus. Performed By: #### P T, PTT, CMP, CBC #### [facility] [address] [place] [address] Commemt1 Glu2: Cleaned Meter Normal [facility] Comment on above: Result Comment: PERF ORMED BY: [place] [address] PATHOLOGIST COGENERATION TECHNICIAN COLT MORENO M.D. Performed By: #### P T, PTT, CMP, CBC #### [address] Glucose [Mass/Vol] 100 mg/dL Normal [facility] Comment on above: Result Comment: [place] om Glucose Reference Range is dependent on time and content of last meal. Glucose of more than 200 mg/dL in a nonstressed, ambulatory subject supports the diagnosis of Diabetes Mellitus. Performed By: #### P T, PTT, CMP, CBC #### [address] Glucose Poct Glucometerson 0 11-08-2020 Glucose [Mass/Vol] 174 mg/dL Normal [facility] Comment on above: Result Comment: [place] om Glucose Reference Range is dependent on time and content of last meal. Glucose of more than 200 mg/dL in a nonstressed, ambulatory subject supports the diagnosis of Diabetes Mellitus. PERFORMED BY: [place] [address] PATHOLOGIST COGENERATION TECHNICIAN COLT MORENO M.D. Performed By: #### P T, PTT, CMP, CBC #### [address] Commemt1 Glu2: Cleaned Meter Normal [facility] Comment on above: Result Comment: PERF ORMED BY: [place] [address] PATHOLOGIST COGENERATION TECHNICIAN COLT MORENO M.D. Performed By: #### P T, PTT, CMP, CBC #### [facility] [address] [place] [address] Glucose [Mass/Vol] 117 mg/dL Normal [facility] Comment on above: Result Comment: [place] om Glucose Reference Range is dependent on time and content of last meal. Glucose of more than 200 mg/dL in a nonstressed, ambulatory subject supports the diagnosis of Diabetes Mellitus. Performed By: #### P T, PTT, CMP, CBC #### [address] Commemt1 Glu2: Cleaned Meter [facility] Comment on above: Result Comment: PERF ORMED BY: [place] [address] PATHOLOGIST COGENERATION TECHNICIAN COLT MORENO M.D. Performed By: #### P T, PTT, CMP, CBC #### [address] Glucose [Mass/Vol] 114 mg/dL Normal [facility] Comment on above: Result Comment: [employer] om Glucose Reference Range is dependent on time and content of last meal. Glucose of more than 200 mg/dL in a nonstressed, ambulatory subject supports the diagnosis of Diabetes Mellitus. Performed By: #### P T, PTT, CMP, CBC #### [address] Commemt1 Glu2: Cleaned Meter [facility] Comment on above: Result Comment: PERF ORMED BY: [place] [address] PATHOLOGIST COGENERATION TECHNICIAN COLT MORENO M.D. Performed By: #### P T, PTT, CMP, CBC #### [address] Glucose [Mass/Vol] 147 mg/dL Normal [facility] Comment on above: Result Comment: [place] om Glucose Reference Range is dependent on time and content of last meal. Glucose of more than 200 mg/dL in a nonstressed, ambulatory subject supports the diagnosis of Diabetes Mellitus. Performed By: #### P T, PTT, CMP, CBC #### [address] ABO/Rh Retypeon 11-07-2020 ABO/RH Recheck Result Positive [facility] Comment on above: Result Comment: PERF ORMED BY: [place] [address] PATHOLOGIST COGENERATION TECHNICIAN COLT OMRENO M.D. Basic Metabolic Panelon 08-0 Calcium [Mass/Vol] 9.0 mg/dL Normal 8.2-10.2 [facility] Comment on above: Performed By: #### M G, BMP #### [facility] [address] [place] [address] [place] Chloride [Moles/Vol] 105 mmol/L Normal 95-114 [facility] Comment on above: Performed By: #### M G, BMP #### [facility] [address] [place] [address] [place] CO2 [Moles/Vol] 20.6 mmol/L Low 22.0-30.0 [facility] Comment on above: Performed By: #### M G, BMP #### [facility] [address] Creatinine [Mass/Vol] 0.79 mg/dL Normal 0.44-1.03 [facility] Comment on above: Performed By: #### M G, BMP #### [facility] [address] [place] [address] [place] Creatinine Clr Calc Pharmacy 71.32 [facility] Comment on above: Performed By: #### M G, BMP #### [facility] [address] Estimated GFR ( Huong > 60 [facility] Comment on above: Result Comment: GFR estimated reference range: According to KDOQI guidelines, <60 ml/min/1.73m2 is sufficient to diagnose a patient with chronic kidney disease. Performed By: #### M G, BMP #### [facility] [address] [place] [address] [place] Estimated GFR (Non- Am > 60 [facility] Comment on above: Performed By: #### M G, BMP #### [facility] [address] [place] [address] [place] Glucose [Mass/Vol] 142 mg/dL High 70-100 [facility] Comment on above: Result Comment: [place] Glucose Reference Range is dependent on time and content of last meal. Glucose of more than 200 mg/dL in a nonstressed, ambulatory subject supports the diagnosis of Diabetes Mellitus. ADA recommended reference range Performed By: #### Ericka See, RANCHO #### [address] Potassium Normal 3.5-5.1 [facility] Comment on above: Result Comment: Spec imen hemolyzed, redraw requested Performed By: #### Ericka See, BMP #### [address] Sodium [Moles/Vol] 137 mmol/L Normal 136-146 [facility] Comment on above: Performed By: #### Ericka See, BMP #### [address] Urea nitrogen [Mass/Vol] 11 mg/dL Normal 9-23 [facility] Comment on above: Performed By: #### Ericka See, BMP #### [address] Complete Blood Count Auto Di ffon 11-07-2020 Basophils (Bld) [#/Vol] 0.0 10*3/uL Normal 0.0-0.2 [facility] Comment on above: Order Comment: REDRA W Result Comment: PERF ORMED BY: [place] [address] PATHOLOGIST COGENERATION TECHNICIAN COLT MORENO M.D. Performed By: #### P T, PTT, CMP, CBC #### [place] [address] [place] Basophils/100 WBC (Bld) 0.5 % Normal . [facility] Comment on above: Order Comment: REDRA W Performed By: #### P T, PTT, CMP, CBC #### [facility] [address] [place] [address] [place] Eosinophils (Bld) [#/Vol] 0.2 10*3/uL Normal 0.0-0.45 [facility] Comment on above: Order Comment: REDRA W Performed By: #### P T, PTT, CMP, CBC #### [address] Eosinophils/100 WBC (Bld) 1.8 % Normal . [facility] Comment on above: Order Comment: REDRA W Performed By: #### P T, PTT, CMP, CBC #### [address] Erythrocyte distribution width (RBC) [Ratio] 13.6 % Normal 11.9-15.3 [facility] Comment on above: Order Comment: REDRA W Performed By: #### P T, PTT, CMP, CBC #### [address] Hematocrit (Bld) [Volume fraction] 33.5 % Low 34.0-46.4 [facility] Comment on above: Order Comment: REDRA W Performed By: #### P T, PTT, CMP, CBC #### [address] Hemoglobin (Bld) [Mass/Vol] 11.3 g/dL Low 11.8-15.4 [facility] Comment on above: Order Comment: REDRA W Performed By: #### P T, PTT, CMP, CBC #### [address] Lymphocytes (Bld) [#/Vol] 1.4 10*3/uL Normal 1.00-4.8 [facility] Comment on above: Order Comment: REDRA W Performed By: #### P T, PTT, CMP, CBC #### [address] Lymphocytes/100 WBC (Bld) 14.7 % Normal . [facility] Comment on above: Order Comment: REDRA W Performed By: #### P T, PTT, CMP, CBC #### [address] MCH (RBC) [Entitic mass] 28.9 pg Normal 24.7-34.3 [facility] Comment on above: Order Comment: REDRA W Performed By: #### P T, PTT, CMP, CBC #### [address] MCV (RBC) [Entitic vol] 85.6 fL Normal 80-100 [facility] Comment on above: Order Comment: REDRA W Performed By: #### P T, PTT, CMP, CBC #### [address] Mean Corpuscular HGB Conc 33.7 g/dL Normal 32.0-35.0 [facility] Comment on above: Order Comment: REDRA W Performed By: #### P T, PTT, CMP, CBC #### [address] Monocytes (Bld) [#/Vol] 0.4 10*3/uL Normal 0.0-0.8 [facility] Comment on above: Order Comment: REDRA W Performed By: #### P T, PTT, CMP, CBC #### [address] Monocytes/100 WBC (Bld) 4.4 % Normal . [facility] Comment on above: Order Comment: REDRA W Performed By: #### P T, PTT, CMP, CBC #### [address] Neutrophils (Bld) [#/Vol] 7.4 10*3/uL Normal 1.8-7.7 [facility] Comment on above: Order Comment: REDRA W Performed By: #### P T, PTT, CMP, CBC #### [address] Neutrophils/100 WBC (Bld) 78.6 % Normal . [facility] Comment on above: Order Comment: REDRA W Performed By: #### P T, PTT, CMP, CBC #### [address] Nucleated RBC/100 WBC (Bld) [Ratio] 0.1 % Normal 0-0.5 [facility] Comment on above: Order Comment: REDRA W Performed By: #### P T, PTT, CMP, CBC #### [facility] [address] Platelet mean volume (Bld) [Entitic vol] 8.8 fL Normal 6.3-10.7 [facility] Comment on above: Order Comment: REDRA W Performed By: #### P T, PTT, CMP, CBC #### [address] Platelets (Bld) [#/Vol] 219 10*3/uL Normal 150-450 [facility] Comment on above: Order Comment: REDRA W Performed By: #### P T, PTT, CMP, CBC #### [address] RBC (Bld) [#/Vol] 3.91 10*6/uL Normal 3.60-5.00 [facility] Comment on above: Order Comment: REDRA W Performed By: #### P T, PTT, CMP, CBC #### [address] WBC (Bld) [#/Vol] 9.4 10*3/uL Normal 4.5-11.0 [facility] Comment on above: Order Comment: REDRA W Performed By: #### P T, PTT, CMP, CBC #### [address] Basophils (Bld) [#/Vol] 0.1 10*3/uL Normal 0.0-0.2 [facility] Comment on above: Result Comment: PERF ORMED BY: [place] [address] PATHOLOGIST COGENERATION TECHNICIAN COLT MORENO M.D. Performed By: #### P T, PTT, CMP, CBC #### [address] Basophils/100 WBC (Bld) 0.9 % Normal . [facility] Comment on above: Performed By: #### P T, PTT, CMP, CBC #### [address] Eosinophils (Bld) [#/Vol] 0.5 10*3/uL High 0.0-0.45 [facility] Comment on above: Performed By: #### P T, PTT, CMP, CBC #### [address] Eosinophils/100 WBC (Bld) 4.4 % Normal . [facility] Comment on above: Performed By: #### P T, PTT, CMP, CBC #### [address] Erythrocyte distribution width (RBC) [Ratio] 13.9 % Normal 11.9-15.3 [facility] Comment on above: Performed By: #### P T, PTT, CMP, CBC #### [address] Hematocrit (Bld) [Volume fraction] 36.1 % Normal 34.0-46.4 [facility] Comment on above: Performed By: #### P T, PTT, CMP, CBC #### [address] Hemoglobin (Bld) [Mass/Vol] 11.9 g/dL Normal 11.8-15.4 [facility] Comment on above: Performed By: #### P T, PTT, CMP, CBC #### [address] Lymphocytes (Bld) [#/Vol] 2.1 10*3/uL Normal 1.00-4.8 [facility] Comment on above: Performed By: #### P T, PTT, CMP, CBC #### [place] [address] [place] Lymphocytes/100 WBC (Bld) 20.8 % Normal . [facility] Comment on above: Performed By: #### P T, PTT, CMP, CBC #### [address] MCH (RBC) [Entitic mass] 28.6 pg Normal 24.7-34.3 [facility] Comment on above: Performed By: #### P T, PTT, CMP, CBC #### [address] MCV (RBC) [Entitic vol] 86.6 fL Normal 80-100 [facility] Comment on above: Performed By: #### P T, PTT, CMP, CBC #### [address] Mean Corpuscular HGB Conc 33.1 g/dL Normal 32.0-35.0 [facility] Comment on above: Performed By: #### P T, PTT, CMP, CBC #### [address] Monocytes (Bld) [#/Vol] 0.4 10*3/uL Normal 0.0-0.8 [facility] Comment on above: Performed By: #### P T, PTT, CMP, CBC #### [address] Monocytes/100 WBC (Bld) 4.3 % Normal . [facility] Comment on above: Performed By: #### P T, PTT, CMP, CBC #### [address] Neutrophils (Bld) [#/Vol] 7.1 10*3/uL Normal 1.8-7.7 [facility] Comment on above: Performed By: #### P T, PTT, CMP, CBC #### [address] Neutrophils/100 WBC (Bld) 69.6 % Normal . [facility] Comment on above: Performed By: #### P T, PTT, CMP, CBC #### [place] [address] [place] Nucleated RBC/100 WBC (Bld) [Ratio] 0.2 % Normal 0-0.5 [facility] Comment on above: Performed By: #### P T, PTT, CMP, CBC #### [address] Platelet mean volume (Bld) [Entitic vol] 9.2 fL Normal 6.3-10.7 [facility] Comment on above: Performed By: #### P T, PTT, CMP, CBC #### [facility] [address] [place] [address] Platelets (Bld) [#/Vol] 261 10*3/uL Normal 150-450 [facility] Comment on above: Performed By: #### P T, PTT, CMP, CBC #### [address] RBC (Bld) [#/Vol] 4.17 10*6/uL Normal 3.60-5.00 [facility] Comment on above: Performed By: #### P T, PTT, CMP, CBC #### [address] WBC (Bld) [#/Vol] 10.2 10*3/uL Normal 4.5-11.0 [facility] Comment on above: Performed By: #### P T, PTT, CMP, CBC #### [address] Comprehensive Metabolic Pane claudia 11-07-2020 Albumin [Mass/Vol] 3.9 g/dL Normal 3.2-5.5 [facility] Comment on above: Performed By: #### P T, PTT, CMP, CBC #### [address] Albumin/Globulin [Mass ratio] 1.3 {ratio} Normal [facility] Comment on above: Performed By: #### P T, PTT, CMP, CBC #### [address] ALP [Catalytic activity/Vol] 85 U/L Normal 32-92 [facility] Comment on above: Performed By: #### P T, PTT, CMP, CBC #### [address] ALT [Catalytic activity/Vol] 22 U/L Normal 10-60 [facility] Comment on above: Performed By: #### P T, PTT, CMP, CBC #### [facility] [address] AST [Catalytic activity/Vol] 29 U/L Normal 10-42 [facility] Comment on above: Performed By: #### P T, PTT, CMP, CBC #### [facility] [address] Bilirubin [Mass/Vol] 0.6 mg/dL Normal 0.3-1.2 [facility] Comment on above: Performed By: #### P T, PTT, CMP, CBC #### [facility] [address] Calcium [Mass/Vol] 9.6 mg/dL Normal 8.2-10.2 [facility] Comment on above: Performed By: #### P T, PTT, CMP, CBC #### [facility] [address] Chloride [Moles/Vol] 104 mmol/L Normal 95-114 [facility] Comment on above: Performed By: #### P T, PTT, CMP, CBC #### [address] CO2 [Moles/Vol] 21.4 mmol/L Low 22.0-30.0 [facility] Comment on above: Performed By: #### P T, PTT, CMP, CBC #### [facility] [address] Creatinine [Mass/Vol] 0.83 mg/dL Normal 0.44-1.03 [facility] Comment on above: Performed By: #### P T, PTT, CMP, CBC #### [facility] [address] [place] [address] [place] Creatinine Clr Calc Pharmacy 65.79 Normal [facility] Comment on above: Result Comment: PERF ORMED BY: [place] [address] PATHOLOGIST COGENERATION TECHNICIAN COLT MORENO M.D. Performed By: #### P T, PTT, CMP, CBC #### [facility] [address] Estimated GFR ( Huong > 60 Normal [facility] Comment on above: Result Comment: GFR estimated reference range: According to KDOQI guidelines, <60 ml/min/1.73m2 is sufficient to diagnose a patient with chronic kidney disease. Performed By: #### P T, PTT, CMP, CBC #### [address] Estimated GFR (Non- Am > 60 Normal [facility] Comment on above: Performed By: #### P T, PTT, CMP, CBC #### [address] Globulin (S) [Mass/Vol] 3.0 g/dL [facility] Comment on above: Performed By: #### P T, PTT, CMP, CBC #### [address] Glucose [Mass/Vol] 122 mg/dL High 70-100 [facility] Comment on above: Result Comment: Reynolds Glucose Reference Range is dependent on time and content of last meal. Glucose of more than 200 mg/dL in a nonstressed, ambulatory subject supports the diagnosis of Diabetes Mellitus. ADA recommended reference range Performed By: #### P T, PTT, CMP, CBC #### [address] Potassium [Moles/Vol] 3.9 mmol/L Normal 3.5-5.1 [facility] Comment on above: Performed By: #### P T, PTT, CMP, CBC #### [address] Protein [Mass/Vol] 6.9 g/dL Normal 6.1-7.9 [facility] Comment on above: Performed By: #### P T, PTT, CMP, CBC #### [address] Sodium [Moles/Vol] 138 mmol/L Normal 136-146 [facility] Comment on above: Performed By: #### P T, PTT, CMP, CBC #### [address] [place] [address] [place] Urea nitrogen [Mass/Vol] 14 mg/dL Normal 9- [facility] Comment on above: Performed By: #### P T, PTT, CMP, CBC #### [place] [id number] [facility] ECG 12 lead ECGon 11-07-2020 ECG 12 lead ECG [facility] [place] [address] [place] [address] Electrocardiograph Report Signed Patient: Emiliana Webb MR#: [id number] : 1950 Acct:[id number] Age/Sex: 70 / F ADM Date: 11/06/20 Loc: ER Room: Type: [facility] ER Attending Dr: Ordering Provider: Dc Bee [...] wave abnormality Confirmed by Dc BEE DO ([id number]) on 11/07/2020 1:28:07 AM Referred By: Electronically Signed By:Dc BEE DO Transcribed By: KASI Dictated By: Dc Bee DO 11/07/20 0028 Signed By: 11/07/20 0128 Normal [facility] Glucose Poct Glucometerson 0 11-07-2020 Glucose [Mass/Vol] 159 mg/dL Normal [facility] Comment on above: Result Comment: Reynolds Glucose Reference Range is dependent on time and content of last meal. Glucose of more than 200 mg/dL in a nonstressed, ambulatory subject supports the diagnosis of Diabetes Mellitus. PERFORMED BY: [place] [address] PATHOLOGIST COGENERATION TECHNICIAN COLT MORENO M.D. Performed By: #### P T, PTT, CMP, CBC #### [address] Glucose [Mass/Vol] 114 mg/dL Normal [facility] Comment on above: Result Comment: Reynolds om Glucose Reference Range is dependent on time and content of last meal. Glucose of more than 200 mg/dL in a nonstressed, ambulatory subject supports the diagnosis of Diabetes Mellitus. PERFORMED BY: [place] [address] PATHOLOGIST COGENERATION TECHNICIAN COLT MORENO M.D. Performed By: #### P T, PTT, CMP, CBC #### [facility] [address] [place] [address] Commemt1 Glu2: Cleaned Meter [facility] Comment on above: Result Comment: PERF ORMED BY: [place] [address] PATHOLOGIST COGENERATION TECHNICIAN COLT MORENO M.D. Performed By: #### P T, PTT, CMP, CBC #### [address] Glucose [Mass/Vol] 98 mg/dL Normal [facility] Comment on above: Result Comment: Reynolds om Glucose Reference Range is dependent on time and content of last meal. Glucose of more than 200 mg/dL in a nonstressed, ambulatory subject supports the diagnosis of Diabetes Mellitus. Performed By: #### P T, PTT, CMP, CBC #### [facility] [address] [place] [address] Commemt1 Glu2: Cleaned Meter [facility] Comment on above: Result Comment: PERF ORMED BY: [place] [address] PATHOLOGIST COGENERATION TECHNICIAN COLT MORENO M.D. Performed By: #### P T, PTT, CMP, CBC #### [facility] [address] [place] [address] Glucose [Mass/Vol] 120 mg/dL Normal [facility] Comment on above: Result Comment: Reynolds om Glucose Reference Range is dependent on time and content of last meal. Glucose of more than 200 mg/dL in a nonstressed, ambulatory subject supports the diagnosis of Diabetes Mellitus. Performed By: #### P T, PTT, CMP, CBC #### [address] Magnesiumon 11-07-2020 Magnesium [Mass/Vol] 1.9 mg/dL Normal 1.6-2.6 [facility] Comment on above: Result Comment: PERF ORMED BY: [place] [address] PATHOLOGIST COGENERATION TECHNICIAN COLT MORENO M.D. Performed By: #### M G, BMP #### [address] Partial Thromboplastin Timeo n 11-07-2020 aPTT Coag (Bld) [Time] 30.8 s Normal 25.1-36.5 [facility] Comment on above: Order Comment: REDRA W, FIRST SPECIMEN HEMOLYZED CHRISTI ON 4N NOTIFIED Result Comment: PERF ORMED BY: [place] [address] PATHOLOGIST COGENERATION TECHNICIAN COLT MORENO M.D. Performed By: #### P T, PTT, CMP, CBC #### [address] aPTT Coag (Bld) [Time] 30.8 s Normal 25.1-36.5 [facility] Comment on above: Result Comment: PERF ORMED BY: [place] [address] PATHOLOGIST COGENERATION TECHNICIAN COLT MORENO M.D. Performed By: #### P T, PTT, CMP, CBC #### [facility] [address] [place] [address] [place] Prothrombin Time INRon 11-07 INR Coag (PPP) [Relative time] 1.1 {INR} Normal [facility] Comment on above: Result Comment: INR Therapeutic [...] #### P T, PTT, CMP, CBC #### [facility] [address] PT Coag (PPP) [Time] 11.8 s Normal 9.0-12.9 [facility] Comment on above: Performed By: #### P T, PTT, CMP, CBC #### [address] [employer]raw Potassiumon Potassium [Moles/Vol] 3.9 mmol/L Normal 3.5-5.1 [facility] Comment on above: Result Comment: PERF ORMED BY: [place] [address] PATHOLOGIST COGENERATION TECHNICIAN COLT MORENO M.D. Performed By: #### P T, PTT, CMP, CBC #### [address] Type and Screenon 11-07-2020 ABO and Rh group Nom (Bld) Blood group O Rh(D) positive Normal [facility] Comment on above: Result Comment: PERF ORMED BY: [place] [address] PATHOLOGIST COGENERATION TECHNICIAN COLT MORENO M.D. Urinalysison 11-07-2020 Appearance (U) Clear Normal Clear [facility] Comment on above: Order Comment: Name Collection Type:: Ordonez Catheter Performed By: #### U A #### [address] Bilirubin,Urine Negative Normal Negative [facility] Comment on above: Order Comment: Name Collection Type:: Ordonez Catheter Performed By: #### U A #### [address] Color (U) Yellow Normal Yellow [facility] Comment on above: Order Comment: Name Collection Type:: Ordonez Catheter Performed By: #### U A #### [address] Glucose Ql (U) Normal Normal Normal [facility] Comment on above: Order Comment: Name Collection Type:: Ordonez Catheter Performed By: #### U A #### [address] Ketones Ql (U) Negative Normal Negative [facility] Comment on above: Order Comment: Name Collection Type:: Ordonez Catheter Performed By: #### U A #### [address] Leukocyte esterase Test strip Ql (U) Negative Normal Negative [facility] Comment on above: Order Comment: Name Collection Type:: Ordonez Catheter Performed By: #### U A #### [address] Nitrite,Urine Negative Normal Negative [facility] Comment on above: Order Comment: Name Collection Type:: Ordonez Catheter Performed By: #### U A #### [address] Occult Blood,Urine Negative Normal Negative [facility] Comment on above: Order Comment: Name Collection Type:: Ordonez Catheter Result Comment: PERF ORMED BY: [place] [address] PATHOLOGIST COGENERATION TECHNICIAN COLT MORENO M.D. Performed By: #### U A #### [address] pH (U) 5.0 [pH] Normal 5.0-9.0 [facility] Comment on above: Order Comment: Name Collection Type:: Ordonez Catheter Performed By: #### U A #### [place] [address] [place] Protein,Urine Negative Normal Negative [facility] Comment on above: Order Comment: Name Collection Type:: Ordonez Catheter Performed By: #### U A #### [address] Specificy [place],Urine 1.011 Normal 1.001-1.030 [facility] Comment on above: Order Comment: Name Collection Type:: Ordonez Catheter Performed By: #### U A #### [facility] [address] [place] [address] Urobilinogen,Urine Normal Normal Normal [facility] Comment on above: Order Comment: Name Collection Type:: Ordonez Catheter Performed By: #### U A #### [facility] [address] [place] [address] XR chest 1Von 11-07-2020 XR chest 1V [facility] Main [place] [address] [place] [address] XRay Report Signed Patient: Emiliana Webb MR#: [id number] : 1950 Acct:[id number] Age/Sex: 70 / F ADM Date: 11/07/20 Loc: Room: [address] [place] [address] Type: ADM IN Attending Dr: Israel Mcfadden [...] Kb Peña M.D.11/07/2020 9:52 AM Dictation Location: [place] [address] Transcribed By: [facility] 11/07/2052 Dictated By: Kb Peña DO 11/07/20 0950 Signed By: 11/07/20 0952 Normal [facility] XR femur RT 2V*on 11-07-2020 XR femur RT 2V* [facility] [place] [address] XRay Report Signed Patient: Emiliana Webb MR#: [id number] : 1950 Acct:[id number] Age/Sex: 70 / F ADM Date: 11/07/20 Loc: 4N Room: [address] [place] [address] Type: ADM IN Attending Dr: Israel Mcfadden [...] Donaldson Jr., M.D.11/07/2020 8:07 PM Dictation Location: [place] [address] Transcribed By: [facility] 11/07/202006 Dictated By: Terry Donaldson Jr, MD 11/07/202002 Signed By: 11/07/202006 [facility] XR femur RT 2V* [facility] [place] [address] XRay Report Signed Patient: Emiliana Webb MR#: [id number] : 1950 Acct:[id number] Age/Sex: 70 / F ADM Date: 11/07/20 Loc: 4N Room: [id number] Type: ADM IN Attending Dr: Israel Mcfadden MD Ordering Provider: Dc Bee DO Date of Service: 11/07/20 XR/XR hip RT min 2V(w/wo pelvis)*: Fall ([id number]) XR/XR femur RT 2V*: Fall Copies to: [...] Kb Peña M.D.11/07/2020 9:50 AM Dictation Location: [place] [address] Transcribed By: [facility] 11/07/20 0950 Dictated By: Kb Peña DO 11/07/20 0943 Signed By: 11/07/2050 [facility] CBC AUTO DIFFon 11-03-2020 BASO # 0.1 103/ul Normal 0.0-0.1 [facility] Comment on above: Performed By: #### C BC #### [facility] [address] [place], [place] [id number] [place] Elicia Basophils/100 WBC (Bld) 0.9 % Normal 0.2-2.0 [facility] Comment on above: Performed By: #### C BC #### [facility] [address] [place] [address] [place] Elicia EO # 0.3 103/ul Normal 0.0-0.7 [facility] Comment on above: Performed By: #### C BC #### [facility] [address] [place] [address] [place] Elicia Eosinophils/100 WBC (Bld) 4.8 % Normal 0.9-7.0 [facility] Comment on above: Performed By: #### C BC #### [facility] [address] [place], [place] [id number] [place] Elicia Erythrocyte distribution width (RBC) [Ratio] 13.0 % Normal 11.0-15.0 [facility] Comment on above: Performed By: #### C BC #### [facility] [address] [place], [place] [id number] [place] Elicia Hematocrit (Bld) [Volume fraction] 34.9 % Critically low 36.0-48.0 [facility] Comment on above: Performed By: #### C BC #### [facility] [address] [place], [place] [address] [place] Elicia Hemoglobin (Bld) [Mass/Vol] 10.9 g/dL Critically low 12.0-16.0 [facility] Comment on above: Performed By: #### C BC #### [facility] [address] [place] [address] [place] Elicia IG # 0.02 10e3/ul Normal 0.00-0.03 [facility] Comment on above: Performed By: #### C BC #### [facility] [address] [place] [address] [place] Elicia IG % 0.3 % Normal 0.0-0.5 [facility] Comment on above: Performed By: #### C BC #### [facility] [address] [place] [address] [place] Elicia LYMPH # 2.3 103/ul Normal 1.2-3.8 [facility] Comment on above: Performed By: #### C BC #### [facility] [address] [place] [address] [place] Elicia Lymphocytes/100 WBC (Bld) 35.2 % Normal 20.5-60.0 [facility] Comment on above: Performed By: #### C BC #### [facility] [address] [place] [address] [place] Elicia MANUAL DIFF REQ NO Normal [facility] Comment on above: Performed By: #### C BC #### [facility] [address] [place], [place] [id number] [place] Elicia MCH (RBC) [Entitic mass] 28.0 pg Normal 26.7-34.0 [facility] Comment on above: Performed By: #### C BC #### [facility] [address] [place] [address] [place] Elicia MCHC (RBC) [Mass/Vol] 31.2 g/dL Normal 29.9-35.2 [facility] Comment on above: Performed By: #### C BC #### [facility] [address] [place] [address] [place] Elicia MCV (RBC) [Entitic vol] 89.7 fL Normal 81.0-99.0 [facility] Comment on above: Performed By: #### C BC #### [facility] [address] [place], [place] [address] [place] Rubi MONO # 0.4 103/ul Normal 0.3-0.8 [facility] Comment on above: Performed By: #### C BC #### [facility] [address] [place] [address] [place] Rubi Monocytes/100 WBC (Bld) 6.3 % Normal 1.7-12.0 [facility] Comment on above: Performed By: #### C BC #### [facility] [address] [place] [address] [place] Rubi NEUT # 3.4 103/ul Normal 1.4-6.5 [facility] Comment on above: Performed By: #### C BC #### [facility] [address] [place] [address] [place] Rubi Neutrophils/100 WBC (Bld) 52.5 % Normal 43.0-75.0 [facility] Comment on above: Performed By: #### C BC #### [facility] [address] [place], [place] [phone] [place] Rubi Platelet mean volume (Bld) [Entitic vol] 11.0 fL Normal 9.5-13.5 [facility] Comment on above: Performed By: #### C BC #### [facility] [address] [place] [address] Carolinasurekha Realen PLT 262 103/ul Normal 150-450 [facility] Comment on above: Performed By: #### C BC #### [facility] [address] [place], [place] [address] [place] E[place] RBC 3.89 106/ul Critically low 4.20-5.40 [facility] Comment on above: Performed By: #### C BC #### [facility] [address] [place], [place] [address] [place] Elicia WBC 6.5 103/ul Normal 4.0-11.0 [facility] Comment on above: Performed By: #### C BC #### [facility] [address] [place], [place] [address] [place] Elicia PROF 14(COMP METB)on 021 Albumin [Mass/Vol] 3.7 g/dL Normal 3.5-5.0 [facility] Comment on above: Performed By: #### T SH, T4, CMP #### [facility] [address] [place] [id number] [place] Elicia Albumin/Globulin [Mass ratio] 1.0 {ratio} Normal [facility] Comment on above: Performed By: #### T SH, T4, CMP #### [facility] [address] [place], [place] [address] [place] Elicia ALP [Catalytic activity/Vol] 98 U/L Normal 38-126 [facility] Comment on above: Performed By: #### T SH, T4, CMP #### [facility] [address] [place] [id number] [place] Elicia ALT [Catalytic activity/Vol] 29 U/L Normal 9-52 [facility] Comment on above: Performed By: #### T SH, T4, CMP #### [facility] [address] [place] [id number] [place] Elicia Anion gap [Moles/Vol] 11.6 mmol/L Normal [facility] Comment on above: Performed By: #### T SH, T4, CMP #### [facility] [address] [place], [place] [phone] [place] Elicia AST [Catalytic activity/Vol] 29 U/L Normal 14-36 [facility] Comment on above: Performed By: #### T SH, T4, CMP #### [facility] [address] [place] [id number] [place] Elicia Bilirubin [Mass/Vol] 0.3 mg/dL Normal 0.2-1.3 [facility] Comment on above: Performed By: #### T SH, T4, CMP #### [facility] [address] [place] [id number] [place] Elicia Calcium [Mass/Vol] 9.2 mg/dL Normal 8.4-10.2 [facility] Comment on above: Performed By: #### T SH, T4, CMP #### [facility] [address] [place] [address] [place] Elicia Chloride [Moles/Vol] 107 mmol/L Normal 98-107 [facility] Comment on above: Performed By: #### T SH, T4, CMP #### [facility] [address] [place] [address] [place] Elicia CO2 [Moles/Vol] 27.1 mmol/L Normal 22.0-30.0 [facility] Comment on above: Performed By: #### T SH, T4, CMP #### [facility] [address] [place] [address] [place] Elicia Creatinine [Mass/Vol] 0.80 mg/dL Normal 0.52-1.04 [facility] Comment on above: Performed By: #### T SH, T4, CMP #### [facility] [address] [place] [address] [place] Elicia EGFR-AF BARBADIAN >60 Normal >=60 [facility] Comment on above: Performed By: #### T SH, T4, CMP #### [facility] [address] [place] [address] [place] Elicia EGFR-NON AF BARBADIAN >60 Normal >=60 [facility] Comment on above: Performed By: #### T SH, T4, CMP #### [facility] [address] [place] [address] [place] Elicia Globulin (S) [Mass/Vol] 3.6 g/dL Normal [facility] Comment on above: Performed By: #### T SH, T4, CMP #### [facility] [address] [place] [address] [place] Elicia Glucose [Mass/Vol] 112 mg/dL Critically high 74-106 [facility] Comment on above: Performed By: #### T SH, T4, CMP #### [facility] [address] [place] [address] [place] Elicia Potassium [Moles/Vol] 4.7 mmol/L Normal 3.4-5.0 [facility] Comment on above: Performed By: #### T SH, T4, CMP #### [facility] [address] [place] [address] [place] Elicia Protein [Mass/Vol] 7.3 g/dL Normal 6.1-8.2 [facility] Comment on above: Performed By: #### T SH, T4, CMP #### [facility] [address] [place] [address] [place] Elicia Sodium [Moles/Vol] 141 mmol/L Normal 137-145 [facility] Comment on above: Performed By: #### T SH, T4, CMP #### [facility] [address] [place] [address] [place] Elicia Urea nitrogen [Mass/Vol] 9.0 mg/dL Normal 7.0-17.0 [facility] Comment on above: Performed By: #### T SH, T4, CMP #### [facility] [address] [place] [address] [place] Elicia Urea nitrogen/Creatinine [Mass ratio] 11.2 mg/mg Normal [facility] Comment on above: Performed By: #### T SH, T4, CMP #### [facility] [address] [place] [address] [place] Elicia T4on 11-03-2020 T4 [Mass/Vol] 7.60 ug/dL Normal 5.53-11.00 The [facility] Comment on above: Performed By: #### T SH, T4, CMP #### [facility] [address] [place] [address] [place] Elicia TSHon 11-03-2020 TSH 0.955 uIU/mL Normal 0.470-4.680 [facility] Comment on above: Performed By: #### T SH, T4, CMP #### [facility] [address] [place] [address] [place] Elicia TSH RANGE SEE BELOW Normal [facility] Comment on above: Result Comment: <0.3 4 UIU/ml HYPERTHYROID 0.34-5.60 UIU/ml EUTHYROID >5.60 UIU/ml HYPOTHYROID Performed By: #### T SH, T4, CMP #### [facility] [address] [place] [address] [place] Rubi Vital Signs Date Time Vital Sign Value Performing Clinician Facility 12-09-2023 13:130400 Body height 160.02 cm [facility] 12-09-2023 13:130400 Body mass index (BMI) [Ratio] 32.6 kg/m2 [facility] 12-09-2023 13:130400 Body weight 83.57 kg [facility] 12-09-2023 13:130400 Diastolic blood pressure 70 mm[Hg] [facility] 12-09-2023 13:130400 Heart rate 63 /min [facility] 12-09-2023 13:130400 Respiratory rate 18 /min [facility] 12-09-2023 13:130400 SaO2% (BldA) [Mass fraction] 98 % [facility] 12-09-2023 13:130400 Systolic blood pressure 120 mm[Hg] [facility] 09-10-2023 13:280400 Body height 160.02 cm [facility] 09-10-2023 13:28-0400 Body mass index (BMI) [Ratio] 33.1 kg/m2 [facility] 09-10-2023 13:280400 Body weight 84.82 kg [facility] 09-10-2023 13:280400 Diastolic blood pressure 70 mm[Hg] [facility] 09-10-2023 13:280400 Heart rate 73 /min [facility] 09-10-2023 13:28-0400 SaO2% (BldA) [Mass fraction] 98 % [facility] 09-10-2023 13:28-0400 Systolic blood pressure 110 mm[Hg] [facility] 08-07-2023 13:240400 Body height 160.02 cm [facility] 08-07-2023 13:24-0400 Body mass index (BMI) [Ratio] 33.8 kg/m2 [facility] 08-07-2023 13:24-0400 Body weight 86.63 kg [facility] 08-07-2023 13:24-0400 Diastolic blood pressure 64 mm[Hg] [facility] 08-07-2023 13:24-0400 Heart rate 78 /min [facility] 08-07-2023 13:24-0400 SaO2% (BldA) [Mass fraction] 97 % [facility] 08-07-2023 13:24-0400 Systolic blood pressure 116 mm[Hg] [facility] 03-12-2023 13:30-0500 Body height 160.02 cm Polina De La Rosa Other [employer] Other 03-12-2023 13:30-0500 Body mass index (BMI) [Ratio] 33.09 kg/m2 Polina De La Rosa Other [employer] Other 03-12-2023 13:30-0500 Body weight 84.73 kg Polina De La Rosa Other [employer] Other 03-12-2023 13:30-0500 Diastolic blood pressure 80 mm[Hg] Polina De La Rosa Other [employer] Other 03-12-2023 13:30-0500 SaO2% (BldA) [Mass fraction] 96 % Polina De La Rosa Other [employer] Other 03-12-2023 13:30-0500 Systolic blood pressure 132 mm[Hg] Polina De La Rosa Other [employer] Other 01-21-2023 13:29-0400 Blood Pressure Location George ARGUET[facility] [place] 10-17-2023 13:29-0400 Diastolic blood pressure 80 mm[Hg] George HAJIL [facility] [place] 01-21-2023 13:29-0400 Heart rate 72 /min George HAJIL [facility] [place] 01-21-2023 13:29-0400 Respiratory rate 16 /min George HAJIL [facility] [place] 01-21-2023 13:29-0400 Systolic blood pressure 138 mm[Hg] George HAJIL [facility] [place] 12-16-2022 14:00-0400 Body height 160.02 cm Polina De La Rosa Other [employer] Other 12-16-2022 14:00-0400 Body mass index (BMI) [Ratio] 31.92 kg/m2 Polina De La Rosa Other [employer] Other 12-16-2022 14:00-0400 Body weight 81.74 kg Polina De La Rosa Other [employer] Other 12-16-2022 14:00-0400 Diastolic blood pressure 72 mm[Hg] Polina De La Rosa Other [employer] Other 12-16-2022 14:00-0400 SaO2% (BldA) [Mass fraction] 96 % Polina De La Rosa Other [employer] Other 12-16-2022 14:00-0400 Systolic blood pressure 120 mm[Hg] Polina De La Rosa Other [employer] Other Encounters Encounter Date Encounter Type Care Provider Facility Start: 12-09-2023 End: 12-09-2023 [facility] Work Phone: Start: 12-09-2023 End: 12-09-2023 Patient encounter procedure [facility] Physician [facility] Work Phone: Start: 09-10-2023 End: 09-10-2023 ambulatory [facility] Work Phone: Start: 09-10-2023 End: 09-10-2023 Patient encounter procedure [facility] Physician [facility] Work Phone: Start: 08-07-2023 End: 08-07-2023 Patient encounter procedure [facility] Physician [facility] Work Phone: Start: 05-19-2023 End: 05-19-2023 ambulatory Polina Rj Other [employer] Other Start: 05-19-2023 Telephone encounter Polina Quinteros her [facility] Start: 03-12-2023 End: 03-12-2023 ambulatory Polina Rj Other [employer] Other Start: 03-12-2023 Office outpatient visit 25 minutes Polina Rj [facility] Start: 03-04-2023 End: 03-04-2023 ambulatory Polina De La Rosa Other [employer] Other Start: 03-04-2023 Telephone encounter Polina Quinteros her [facility] Start: 02-19-2023 End: 02-20-2023 ambulatory George ARGUETA Facility:CD:[id number] Start: 02-10-2023 End: 02-10-2023 ambulatory Polina Rj Other [employer] Other Start: 02-10-2023 Telephone encounter Polina Steelursulabrandi her [facility] Start: 01-21-2023 End: 01-22-2023 ambulatory George R NILL Facility:[facility] Start: 01-21-2023 End: 01-21-2023 Patient encounter procedure George ARGUETA [facility] Start: 01-09-2023 ambulatory George ARGUETA Facility:[facility] Start: 01-06-2023 End: 01-06-2023 ambulatory Polina Steelursulabarbra Other [employer] Other Start: 01-06-2023 Telephone encounter Polina Quinteros [facility] Start: 12-16-2022 End: 12-16-2022 ambulatory Polina Steeljaci Other [employer] Other Start: 12-16-2022 Patient encounter procedure Polina Steelnaseembalbina [facility] Start: 12-11-2022 End: 12-12-2022 ambulatory Héctor Estrada MD Facility:[facility] Start: 11-28-2022 End: 11-29-2022 ambulatory [facility] Start: 11-21-2022 ambulatory Héctor Estrada MD Fac ility:[facility] Start: 08-24-2021 End: 08-25-[address] DORIAN HORTON Facility:[facility] Start: 12-29-2020 Postop follow up vis it related to original px Dashawn Diallo [facility] Start: 11-03-2020 End: 11-04-[address] DORIAN HORTON Facility:[facility] Procedures Date Procedure Procedure Detail Performing Clinician Start: 11-07-2020 Antibody screen Comment on above: Result Comment: PERF ORMED BY: [facility] [address] [place] [address] PATHOLOGIST COGENERATION TECHNICIAN COLT MORENO M.D. Start: 05-10-2019 Cataract extraction and insertion of intraocular lens George ARGUETA Comment on above: LEFT Start: 03-22-2019 Cataract extraction and insertion of intraocular lens George ARGUETA Comment on above: CATARACT EXTRACTION W/ INTRAOCULAR LENS IMPLANTATION right Start: 10-02-2018 Colonoscopy George PULIDO LL section George HAJI L Cholecystectomy George ARGUETA Fracture of lower li mb (disorder) George ARGUETA Plan of Treatment Date Care Activity Detail Author Comprehensive metabo lic 2000 panel - Serum or Plasma [facility] Immunizations Immunization Date Immunization Notes Care Provider Fa cility 07-27-2020 SARS-CoV-2 (COVID-19 ) mRNA BNT-162b2 vax George ARGUETA [facility] [place] 07-05-2020 SARS-CoV-2 (COVID-19 ) mRNA BNT-162b2 vax George ARGUETA [facility] [place] NEGATED: Highlighted row has not occurred!01-21-2023 influenza virus vaccine, unspecified formulation George ARGUETA [facility] [place] Payers Date Payer Category Payer Self-pay [employer] 1959 Unknown [id number] 1950 Unknown [id number] 2.16.84 [id number] 1950 Unknown [id number] 2.16.84 [id number] 1950 Unknown [id number] 2.16.8 [id number] 1950 Unknown [id number] 2.16.8 [id number] 1949 Unknown [id number] 2.16.8 [id number] 1949 Unknown [id number] 2.16.8 [id number] 1950 Unknown [id number] 2.16.8 [id number] Medicare Medicare [id number] Medicare Anthem MCR PFFS [id number] Self-pay Self Pay [id number] Social History Date Type Detail Facility Sex Assigned At [facility] Start: 01-21-2023 End: 09-10-2023 Tobacco smoking status Never smoked tobacco (finding) [facility] Tobacco smoking status Never [facility] Start: 1950 Sex Assigned At Female F [facility] Medical Equipment Procedure Code Equipment Code Equipment Origin al Text Equipment Identifier Dates CATARACT EXTRACT ION W/ INTRAOCULAR LENS Sridevi Shankar MD 03/22/19 Non Biological Eye R {[id number] FDA Start: 03-22-2019 CATARACT EXTRACT ION W/ INTRAOCULAR LENS Sridevi Shankar MD 05/10/19 Non Biological Eye L [id number] FDA Start: 05-10-2019 Orthopaedic bone screw, non-bioabsorbable, non-sterile ()[id number] FDA Start: 11-07-2020 Femur nail, sterile ()[id number] FDA Start: 11-07-2020 Spiral blade ()[id number] FDA Start: 11-07-2020 Functional Status Date Assessment Result Facility 01-21-2023 Functional Status N/A [facility] Clinical Notes 12-29-2020 to 05-19-2023 Note Date & Type Note Facility 05-19-2023 Evaluation note Encounter Date Diagnosis Assessment Notes May, Other chronic pain (ICD-10 - G89.29) [employer] Other 12-06-2023 Evaluation note* Encounter Date Diagnosis [...] 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 Hydrocodone was refilled today opioid risk assessment was. Patient is compliant with opioid medication. The patient denies any opioid related side effects. Last filled on 02/10/2023. Controlled substance agreement signed at her previous appt. She well controlled on current therapy, continue present regimen Mar, Low back pain, unspecified (ICD-10 - M54.50) [employer] Other 11-06-2023 Evaluation note* Encounter Date Diagnosis Assessment Notes Treatment Notes Treatment Clinical Notes Feb, Low back pain, unspecified (ICD-10 - M54.50) Feb, Other chronic pain (ICD-10 - G89.29) [employer] Other 10-17-2023 NoteChief Complaint consultation for positive [...] Recorded SARS-CoV-2 (COVID-19) mRNA BNT-162b2 vax 07/05/2020 [facility]:Result Comment: Electronically Signed By: ELLIE NDIAYE, George Trinh\Date and Time Signed: 01/21/23 14:00 [id number] Evaluation note * Encounter Date Diagnosis Assessment [...] (ICD-10 - R73.01) Will obtain labs from [facility] Sugars reviewed and above normal values [...] pain management for furhter prescribing of the NORCO. She is not sure what she wants [...] each discussed. Patient opts for cologuard screening. [employer] Other 09-24-2021 Evaluation note* Encounter Date Diagnosis [...] Other specified postprocedural states (ICD-10 - Z98.890) [employer] Other Evaluation + Plan note No data available for this section [facility] [place] Evaluation noteNo InformationNort [employer] Other Evaluation note* Diagnosis Onset Date Resolution Status Back pain acute Contusion of left knee acute Contusion of rib on left side acute Fall acute Other chronic pain acute Pre-diabetes acute Back pain acute Other chronic pain [facility] Work Phone: Evaluation note* Diagnosis Onset Date Resolution Status Back pain acute Other chronic pain acute Back pain acute Other chronic pain acute Pre-diabetes acute Primary hypertension acute [facility] Work Phone: History general Narrative - Reported* Type Description Date Medical History HTN Medical History Pre-diabetes Medical History Back pain Surgical History x3 Surgical History Gallbladder Surgical History Leg surgery, jcarlos placement interclick [facility] [employer] Other Hospital Discharge instructions No data available for this section [facility] [place] Progress note No data available for this section [facility] [place] Reason for referral (narrative)* Reason *FU 02/17 needs ev aluation for chronic back pain Diagnosis 1 Low back pain, unspe cified (M54.50) Diagnosis 2 Other chronic pain ( G89.29) Referral Organization [facility] patti Referring Provider First Name Polina Referring Provider Last Name Rj Referring Provider Specialty Nurse Octaviot dianna Referred Organization [facility] Referred Address [address] [place], [place],[address] Referred Provider Specialty Pain Medicin e Referral Priority Routine General Notes Tracey Hancock 04:38:21 PM >received today, attachments made, notes locked, referral faxed Clinical Notes f: [id number] [facility] [employer] Other Summary Purpose Family History Relationship Condition Age at Onset Recorded Date/T bhargavi family member Diabetes mellitus Unknown father Unknown Not Specified Unknown Relationship Condition Age at Onset Recorded Date/T bhargavi family member Diabetes mellitus Unknown father Unknown mother Unknown Advance Directives Advance Directive Response Recorded Date/ Time Advance Directives No February 10, 2018 7:03am Chief Complaint and Reason for Visit Chief Complaint ER Follow up 3 month follow up Reason for Visit Back pain Contusion of left knee Contusion of rib on left side Fall Other chronic pain Pre-diabetes Back pain Other chronic pain Chief Complaint 3 month follow up 3 month follow up Reason for Visit Back pain Other chronic pain Back pain Other chronic pain Pre-diabetes Primary hypertension Additional Source Comments INFORMATION SOURCE (unrecogn ized section and content) DATE CREATED AUTHOR 04/15/2021 [facility] DATE CREATED AUTHOR AUTHOR'S ORGANIZ ATION 08/31/2021 [facility] DATE CREATED AUTHOR AUTHOR'S ORGANIZ ATION 12/12/2022 [facility] DATE CREATED AUTHOR AUTHOR'S ORGANIZ ATION 03/08/2023 Matthew Restrepo [facility] REASON FOR VISIT (unrecogniz ed section and content) Recheck Right FemurWellnessR efillrefillPain ManagementPain management discussionRefill Patient Care team informatio n (unrecognized section and content) Team Status: Active Member Role Status Dates Polina De La Rosa APRN [employer] Primary Care Provider Active Team Status: Inactive Member Role Status Dates Polina De La Rosa APRN [employer] Primary Care Provider, Attending Provider Active Start: August 07, 2023 End: August 07, 2023 Team Status: Inactive Member Role Status Dates Polina De La Roas APRN [employer] Primary Care Provider, Attending Provider Active Start: September 10, 2023 End: September 10, 2023 Team Status: Inactive Member Role Status Dates Polina De La Rosa APRN [employer] Primary Care Provider, Attending Provider Active Start: December 09, 2023 End: December 09, 2023 Goals (unrecognized section and content) Goals may be documented in a n alternate section FOR RECORDS PERTAINING TO PATIENTS WHO ARE [...] BE BASED ON THE PRIMARY CLINICAL RECORDS. [facility] [employer] [facility] provides no warranty or guarantee of the accuracy or completeness of information in this document.
[2024-04-06 08:43] LABS: Basophils Absolute Auto 0.1 10^3/uL (0.0-0.1); Basophils Percent Auto 0.6 % (0.2-2.0); Eosinophils Absolute Auto 0.7 10^3/uL (0.0-0.7); Eosinophils Percent Auto 8.1 % (0.9-7.0); Hematocrit 38.1 % (36.0-48.0); Hemoglobin 12.4 g/dL (12.0-16.0); Immature Granulocytes Abs Auto 0.02 10^3/uL (0.00-0.03); Immature Granulocytes Pct Auto 0.2 % (0.0-0.5); Lymphocytes Absolute Auto 2.6 10^3/uL (1.2-3.8); Lymphocytes Percent Auto 32.3 % (20.5-60.0); Mean Corpuscular HGB Conc 32.5 g/dL (29.9-35.2); Mean Corpuscular Hemoglobin 28.9 pg (26.7-34.0); Mean Corpuscular Volume 88.8 fL (81.0-99.0); Monocytes Absolute Auto 0.6 10^3/uL (0.3-0.8); Monocytes Percent Auto 7.9 % (1.7-12.0); Neutrophils Absolute Auto 4.1 10^3/uL (1.4-6.5); Neutrophils Percent Auto 50.9 % (43.0-75.0); Platelet Count 289 10^3/uL (150-450); Red Blood Count 4.29 10^6/uL (4.20-5.40); White Blood Count 8.1 10^3/uL (4.0-11.0)
[2024-04-06 09:42] LABS: Alanine Aminotransferase 24 U/L (14-59); Albumin Level 3.8 g/dL (3.4-5.0); Alkaline Phosphatase 137 U/L (46-116); Aspartate Amino Transferase 23 U/L (15-37); BUN Creatinine Ratio 23.1; Bilirubin Total 0.4 mg/dL (0.2-1.0); Calcium 8.9 mg/dL (8.5-10.1); Carbon Dioxide 25.1 mmol/L (21.0-32.0); Chloride 103 mmol/L (98-107); Chol HDL Ratio 5.2; Cholesterol 218 mg/dL (<=200); Estimated GFR (African America >60 (>=60 mL/min/1.73m^2); Estimated GFR (Non-African Ame >60 (>=60 mL/min/1.73m^2); Globulin 3.8 g/dL; Glucose 156 mg/dL (74-106); HDL Cholesterol 42 mg/dL (40-60); Potassium 4.1 mmol/L (3.5-5.1); Sodium 138 mmol/L (136-145); Total Protein 7.6 g/dL (6.4-8.2); Triglycerides 350 mg/dL (<=150)
[2024-04-06 10:06] LABS: Estimated Average Glucose 163 mg/dL; Glycohemoglobin A1C 7.3 % (4.5-6.2)
== END 2024-04-06 08:12 | disposition home or self-care (01) ==
LOC: LAB 08:13
PROVIDERS: PCP Nurse Practitioner Family; Visit Provider Nurse Practitioner Family
DX: R73.03 Prediabetes (principal); I10 Essential (primary) hypertension
CPT/HCPCS: 36415; 80053; 80061; 83036; 85025

== ENCOUNTER 2024-12-28 12:44 | Outpatient (OUT) | payer MEDICARE, SELFPAY ==
--- OUTSIDE RECORDS SUMMARY | 2024-12-21 10:04 | XMS_ITS | Continuity of Care Document ---
Author Organization [facility] Address [address] [place] [address] Phone Care Team Providers Care Automatic Operator Name Role Phone Polnia De La Rosa APRN Primary Care Provider Polina De La Rosa APRN Attending Provider [phone] Care Teams Patient Care Team Team Status: Active Member Role Status Dates Polina De La Rosa APRN TREE THINNER-C Primary Care Provider Active Visit Care Team Team Status: Active Member Role Status Dates Polina De La Rosa APRN [employer]REE [employer]IN[employer]-C Primary Care Provider Active Start: September 23, 2024 CHIKIS Mcmillan Attending Provider Act kathi Start: September 23, 2024 Patient Care Team Team Status: Inactive Member Role Status Dates Polina De La Rosa APRN [employer]REE [employer]IN[employer]-C Primary Care Provider Active Start: December 062024 End: December 21, 2024 Polina De La Rosa APRN [employer]REE THIN[employer]-C Attending Provider Active Start: December End: December 21, 2024 Chief Complaint and Reason for Visit Chief Complaint Admit Date Referral Order September 23, 2024 1:49 pm 3 month f/u December 21, 2024 1:18pm Reason for Visit Admit Date Degenerative arthritis of lumbar spine S eptember 2024 1:18pm Other chronic pain December 21, 2024 1:18pm Primary hypertension December 21 1:18pm Type 2 diabetes mellitus December 21, 2024 1:18pm Allergies, Adverse Reactions, Alerts Allergen Type Severity Reaction Last Updated Verified Status bee venom protein (honey bee) Allergy Unknown anaphylaxis December 21, 2024 1:17pm Yes Active Iodinated Contrast Media Allergy Unknown Anaphylaxis December 21, 2024 1:17pm Yes Active shellfish derived Allergy Unknown Unknown Reaction S eptember 2024 1:17pm Yes Active latex Allergy Unknown Rash December 1:17pm Yes Active Social History Smoking Status Status Start Date End Date Date of Observa tion Never smoked tobacco (finding) September 02, 2024 2:39pm Observation Status Observation Response Date of Response Legal Sex Female (finding) Sex Assigned At Female 1950 Family History Relationship Condition Age at Onset Recorded Date/T bhargavi family member Diabetes mellitus Unknown father Unknown mother Unknown Problems Active Problems Medical Problem Onset Date Status Comments Medicare annual wellness visit, subsequent Unknown Active Screening for osteoporosis Unknown Active Degenerative arthritis of lumbar spine Unknown Ac tive Type 2 diabetes mellitus Unknown Active Back pain Unknown Active Post-menopausal Unknown Active Other chronic pain Unknown Active Primary hypertension Unknown Active Screening for breast cancer Unknown Active Inactive/Resolved Problems Medical Problem Onset Date Status Comments Epistaxis Unknown Resolved Orthostatic hypotension Unknown Resolved Prob reinier List clean-up per request of Phys. EHR Cmte Closed fracture of proximal end of femur Unknown Resolved Problem List clean-u p per request of Phys. EHR Cmte Contusion of rib on left side Unknown Resolved Frequent nosebleeds Unknown Resolved Syncope Unknown Resolved Problem List cl abdulkadir-up per request of Phys. EHR Cmte Pre-diabetes Unknown Resolved UTI (urinary tract infection ), bacterial Unknown Resolved Problem List clean-u p per request of Phys. EHR Cmte Fall Unknown Resolved Contusion of left knee Unknown Resolved Medications Medication Status Dose Units Route Directions Qty Days St art Date Stop Date End Date Instructions Adherence Hydrocodone -Acetaminop hen 5-325 mg tablet Discont inued 1 TAB PO Every 8 hours as needed for pain July 17, 2023 August 14, 2023 1:36p m Hydrocodone -Acetaminop hen 5-325 mg tablet Discont inued 1 TAB PO Every 8 hours as needed for pain August 14, 2023 September 10, 2023 2:04p m Hydrocodone -Acetaminop hen 5-325 mg tablet Discont inued 1 TAB PO Every 8 hours as needed for pain 90 October 08, 2023 Augus t 2023 7:51a m Hydrocodone -Acetaminop hen 5-325 mg tablet Discont inued 1 TAB PO Every 8 hours as needed for pain 90 30 November 07, 2023 Augus t 2023 10:42 am Hydrocodone -Acetaminop hen 5-325 mg tablet Discont inued 1 TAB PO Every 8 hours as needed for pain 90 December 04, 2023 Septe mber 2023 4:26p m Hydrocodone -Acetaminop hen 5-325 mg tablet Discont inued 1 TAB PO Every 8 hours as needed for pain 90 30 Septem kamla 2023 Novem kamla 2023 9:01a m Hydrocodone -Acetaminop hen 5-325 mg tablet Discont inued 1 TAB PO Every 8 hours as needed for pain 90 30 Novemb er 2023 Decem kamla 2023 10:06 am Hydrocodone -Acetaminop hen 5-325 mg tablet Discont inued 1 TAB PO Every 8 hours as needed for pain 90 30 Decemb er 2023 Janua ry 2024 4:40p m Hydrocodone -Acetaminop hen 5-325 mg tablet Discont inued 1 TAB PO Every 8 hours as needed for pain 90 30 Januar y 2024June 07, 2024 5:40p m Hydrocodone -Acetaminop hen 5-325 mg tablet Discont inued 1 TAB PO Every 8 hours as needed for pain 90 June 07, 2024 July 28, 2024 7:54a m Hydrocodone -Acetaminop hen 5-325 mg tablet Discont inued 1 TAB PO Every 8 hours as needed for pain 90 July 28, 2024 September 15, 2024 2:11p m Hydrocodone -Acetaminop hen 5-325 mg tablet Discont inued 1 TAB PO Every 8 hours as needed for pain 90 October 20, 2024 Augus t 2024 1:37p m Hydrocodone -Acetaminop hen 5-325 mg tablet Discont inued 1 TAB PO Every 8 hours as needed for pain 90 November 22, 2024 Septe mber 2024 2:00p m Oxycodone-A cetaminophe n (Percocet) 5-325 mg tablet Discont inued 2 TAB PO Q4H as needed for pain 20 4 Novemb er 2017 Novem kamla 2017 1:00a m Novem kamla 2017 1:02a m Gabapentin 600 mg tablet Discont inued 600 MG PO Twice daily as needed for pain 14 7 Novemb er 2017 5:58pm Novem kamla 2017 1:00a m Novem kmala 2017 1:01a m Prednisone 50 mg tablet Discont inued 50 MG PO Daily 4 4 Novemb er 2017 1:00am Novem kamla 2017 1:00a m Novem kamla 2017 1:02a m Carvedilol (Coreg) 6.25 mg Tablet Discont inued [facility] kamla 2023 12:40 pm Gabapentin 600 mg Tablet Discont inued 400 MG PO Twice daily [facility] er 2017 1:00am 2020 12:01 am Aspirin (Aspir-81) 81 mg Tablet,Frida yed Release (Dr/Ec) Active 81 MG PO Daily [facility] er 2017 1:00am Complies with drug therapy Metformin 1,000 mg Tablet Discont inued 1000 MG PO Twice daily [facility] er 2017 1:00am [facility] 9:39a m Lisinopril 5 mg Tablet Discont inued 5 MG PO Daily [facility] er 2017 1:00am [facility] 2023 12:40 pm Metformin 1,000 mg tablet Discont inued 1000 MG PO Daily 2023 9:38am August 07, 2023 1:45p m Trazodone 50 mg Tablet Discont inued 50 MG PO Daily at bedtime [facility] er 2017 1:00am 2020 11:30 pm Hydrocodone -Acetaminop hen ([place]) 5-325 mg Tablet Discont inued 1 TAB PO every 6 to 8 hours as needed for Pain [facility] er 2017 1:00am 2018 11:32 am Acyclovir 400 mg Tablet Discont inued 400 MG PO Three times daily Novemb er 2017 1:00am ry 2018 11:29 am Pregabalin (Lyrica) 75 mg Capsule Discont inued 75 MG PO Twice daily Novemb er 2017 1:00am 2018 7:05p m Oxycodone-A cetaminophe n (Percocet) 5-325 mg tablet Discont inued 1 TAB PO EVERY 4-6 HOURS as needed for pain 14 3 Novemb er 2017 kamla 2017 1:00a m kamla 2017 1:01a m Cephalexin (Keflex) 500 mg capsule Discont inued 500 MG PO Q8H 12 2018 1:00am ry 2018 1:00a m ry 2018 1:02a m start 04/29/18 Hydrocodone -Acetaminop hen ([place]) 5-325 mg Tablet Discont inued 1 TAB PO Twice daily as needed for Pain 0 2018 11:32a m Augus t 2020 3:26p m Prednisone 10 mg tablet Discont inued 10 MG PO Once 15 July 14, 2018 12:00a m Augus t 2020 11:29 pm 3 pills daily X 5 days Cyclobenzap rine 10 mg tablet Discont inued 10 MG PO Q8H 63 November 09, 2020 12:00a m Febru 2023 9:38a m Aspirin 81 mg tablet,frida yed release (DR/EC) Discont inued 81 MG PO Twice daily 42 November 09, 2020 12:00a m Febru yvette2023 9:38a m Acetaminoph en (Tylenol Extra Strength) 500 mg tablet Discont inued 1000 MG PO Every 8 hours 180 November 09, 2020 12:00a m Febru yvette2023 9:38a m Docusate Sodium 100 mg tablet Discont inued 100 MG PO Twice daily 28 November 09, 2020 12:00a m Febru yvette2023 9:38a m Oxycodone (Roxicodone ) 5 mg tablet Discont inued 5 MG PO Q6H as needed for pain 40 7 November 09, 2020 Febru yvette 2023 9:38a m Hydrocodone -Acetaminop hen 5-325 mg tablet Discont inued 1 TAB PO Every 8 hours as needed for pain 90 September 10, 2023 October 08, 2023 2:21p m Carvedilol 3.125 mg tablet Active 3.125 MG PO Daily 90 September 15, 2024 2:06pm Complies with drug therapy Hydrocodone -Acetaminop hen 5-325 mg tablet Discont inued 1 TAB PO Every 8 hours as needed for pain 90 September 15, 2024 October 20, 2024 1:39p m Lisinopril 5 mg tablet Discont inued 5 MG PO Daily 90 September 15, 2024 2:06pm [facility] 2024 1:54p m Metformin 1,000 mg tablet Discont inued 1000 MG PO Daily 90 September 15, 2024 2:06pm [facility] 2024 1:54p m Hydrocodone -Acetaminop hen 5-325 mg tablet Discont inued 1 TAB PO Every 8 hours as needed Februa 2023 1:00am June 10, 2023 3:57p m Hydrocodone -Acetaminop hen 5-325 mg tablet Discont inued 1 TAB PO Every 8 hours as needed for pain 90 June 10, 2023 July 17, 2023 2:24p m Metformin 1,000 mg tablet Discont inued 1000 MG PO Daily 90 90 August 07, 2023 1:44pm [facility] kamla 2023 12:40 pm Lisinopril 5 mg tablet Discont inued 5 MG PO Daily 90 90 Decemb er 2023 12:39p m September 15, 2024 2:12p m Carvedilol 3.125 mg tablet Discont inued 3.125 MG PO Daily 90 90 Decemb er 2023 12:40p m September 15, 2024 2:12p m Metformin 1,000 mg tablet Discont inued 1000 MG PO Daily 90 90 Decemb er 2023 12:40p m September 15, 2024 2:12p m Lisinopril 5 mg tablet Active 5 MG PO Daily 90 90 2024 1:54pm Complies with drug therapy Metformin 1,000 mg tablet Active 1000 MG PO Daily 90 2024 1:54pm Complies with drug therapy Hydrocodone -Acetaminop hen 5-325 mg tablet Active 1 TAB PO Every 8 hours as needed for pain 90 30 2024 Complies with drug therapy Medical Equipment Device Date Implanted Device Details Orthopaedic bone screw, non-bioabsorbable, non-sterile November 07, 2020 JAIR: [id number] Issuing Agency: [facility] Device Id: [id number] Femur nail, sterile November 07, 2020 JAIR: [id number] Issuing Agency: [facility] Device Id: [id number] Expiration Date: 2030-07-05 Lot Number: [id number] Spiral blade November 07, 2020 JAIR: [id number] Issuing Agency: [facility] Device Id: [id number] Expiration Date: 2030-08-04 Lot Number: [id number] Vital Signs Vital Reading Result Reference Range Collection Date/Time Height 63 [in_i] December 21, 2024 1:20pm Weight 85.72 kg December 21, 2024 1:20pm Body Temperature 97.8 [degF] 97.6-99.0 December 062024 1:20pm Heart Rate 102 /min 60-100 December 21, 2024 1:20pm Oxygen saturation by Pulse oximetry 96 % 95-100 December 21, 2024 1:20pm BP Systolic 124 mm[Hg] 100-140 December 21, 2024 1:20pm BP Diastolic 72 mm[Hg] 60-100 December 21, 2024 1:20pm BMI (Body Mass Index) 33.5 kg/m2 2024 1:20pm Advance Directives Advance Directive Response Recorded Date/ Time Advance Directives No February 10, 2018 7:03am Insurance Providers Guarantor Clotilde Hare Address [address] [place] [id number] Contact Info. Home Phone: Payer Policy Id Subscriber's Name Subscriber Id Effectiv e Date Expiration Date Medicare [id number] Clotilde Hare [id number] Jose [facility] [id number] Clotilde Hare [id number] Encounters Encounter Location(s) Arrival/Admit Date Discharge/Depart Date Provider(s) Non-patient / Non-visit -[facility] September 23, 2024 1:49pm Polina De La Rosa APRN CNP Departed Physician/Prov ider Office Visit -[facility] December 21, 2024 1:18pm December 21, 2024 2:00pm Polina De La Rosa APRN CNP Recent Diagnosis Onset Date Admit Date Degenerative arthritis of lumbar spine Unknown December 21, 2024 1:18pm Other chronic pain Unknown December 1:18pm Primary hypertension Unknown December 062024 1:18pm Type 2 diabetes mellitus Unknown er 2024 1:18pm Assessments Diagnosis Onset Date Resolution Status Admit Date Degenerative arthritis of lumbar spine acute December 21, 2024 1:18pm Other chronic pain acute Septem kamla 2024 1:18pm Primary hypertension acute Dec ember 2024 1:18pm Type 2 diabetes mellitus acute December 21, 2024 1:18pm Plan of Treatment Author Polina De La Rosa [facility] Authored December 21, 2024 2:00pm To goal. Prior to your visit today we reviewed your chart and outlined the testing and treatment needed for your care. We discussed the possible complications of high blood pressure, including increased risk for heart disease, stroke, and kidney disease. Our goal is to keep your blood pressure below 130/85 (an preferably < 120/80) and maintain a healthy weight with a BMI less than 26. We are working together to achieve these goals with the following plan; healthier diet, increased activity and exercise, understanding your medications, and your compliance. You have been given relevant education handouts. Patient has continued need for hydrocodone. OARRS report processed and reviewed and shows no violations. Patient was educated on the risks and benefits of intermediate opioid use. Hydrocodone was refilled today, opioid risk assessment was done. Patient is compliant with opioid medication. The patient denies any opioid related side effects.Controlled substance agreement signed and in chart on 03/2024. see above under chronic pain A1c is 7.6 Continue Metformin Patient is advised to work on healthy diet choices and appropriate servings, weight control, regular exercise as directed, reduced fat intake, and salt avoidance. Patient voiced understanding of this and agrees to this plan. Will follow-up in 3 months Prior to your visit today we reviewed your chart and outlined the testing and treatment needed for your care. We discussed possible complications of diabetes including risk of heart disease, stroke, and kidney disease. Your goal is to keep your HgA1C below 7 (preferably <6.5) and your blood pressure less than 130/85 (and preferably < 120/80) and maintaining a healthy weight with a BMI less than 26. We are working together to achieve these goals with the following plan; healthier diet, understanding your medications, and your compliance. Barriers to these goals have been discussed. Future Tests Future scheduled test information is unavailable Pending Tests Pending diagnostic test information is unavailable Future Visits Future appointment information is unavailable Referrals to Other Providers Referral information is unavailable Future Procedures Future procedure information is unavailable Future Medications Future medication information is unavailable Patient Instructions Patient instructions are unavailable
--- OUTSIDE RECORDS SUMMARY | 2024-12-28 12:50 | XMS_ITS | Clinical Summary ---
Author Organization [facility] Address [address] [place] [address] Care Team Providers Care Construction Site Crossing Guard Name Role Phone House Sr., Kamari EUGENE Primary Care Provider + Social History Tobacco Use Types Packs/Day Years Used Date Smoking Tobacco: Never Assessed Comments Unknown Sex and Gender Information Value Date Recorded Sex Assigned at Not on file Legal Sex Female 9:23 AM EST Gender Identity Not on file Sexual Orientation Not on file Plan of Treatment Health Maintenance Due Date Last Done Comments Anxiety Screening 06/14/1967 Depression Screening 06/14/1967 Hepatitis C Screening 06/14/1967 DTaP,Tdap,Td Vaccine (1 - Tdap) 1968 CT Colonography 1994 Cologuard (FIT-DNA) 1994 Colonoscopy 1994 Colorectal Cancer Screening 1994 Diabetes Screening 1994 Fecal Occult Blood 1994 Lipid Screening 1994 Sigmoidoscopy 1994 Pneumococcal Vaccine: 50+ (1 of 1 - PCV) 06/14/1999 Shingrix Vaccine (1 of 2) 06/14/1999 Bone Density Screening 2014 Advance Directive Discussion 04/07/2024 RSV Vaccine (1 - 1-dose 75+ series) 2024 Influenza Vaccine (#1) 2024 Insurance BLUE CARD PPO OOS Member Subscriber Plan / Payer (Ef fective 2008-Present) Name:Clotilde Hare Relation to Subscriber:Self Name:Clotilde Hare Payer ID:[id number] ([facility]) Group ID:Not on file Type:PPO Address: [facility] [id number] [place] [id number] Care Teams Construction Site Crossing Guard Relationship Specialty Start Date End Date Kamari Jean Sr., DO PCP - General Family Medicine 05/17/10
--- OUTSIDE RECORDS SUMMARY | 2024-12-28 12:50 | XMS_ITS | Clinical Summary ---
Author Organization [facility] Address [id number] [address] [place] [address] Care Team Providers Care Polishing Wheel Repairer Name Role Phone Kamari Jean DO Primary Care Provider [phone] Allergies Active Allergy Reactions Criticality Noted Date Comments Bee Venom Protein (Honey Bee) 05/27/2019 Dye 05/27/2019 IVP CONTRAST DYE Unsure of reaction Medications metFORMIN (GLUCOPHAGE) 1000 mg tablet Take 1,000 mg by mouth 2 (two) times a day with meals. Active carvediloL (COREG) 6.25 mg tablet Take 6.25 mg by mouth 2 (two) times a day with meals. Active lisinopriL (PRINIVIL,ZESTRI L) 5 mg tablet Take 5 mg by mouth daily. Active aspirin 81 mg Take 81 mg by mouth daily. Active HYDROcodone-acet aminophen ([place]) 5-325 mg per tablet Take 1 tablet by mouth every 6 (six) hours as needed for pain. Active Social History Tobacco Use Types Packs/Day Years Used Date Smoking Tobacco: Never Smokeless Tobacco: Never Alcohol Use Standard Drinks/Week Comments Never 0 (1 standard drink = 0.6 oz pur e alcohol) AUDIT-C Answer Date Recorded Frequency of Alcohol Consumption Never 05/27/2019 Average Number of Drinks Not on file 020 Frequency of Binge Drinking Not on file 05/09 Childcare Answer Date Recorded Childcare Unknown 09/16/2018 Employment Answer Date Recorded Employment Unknown 09/16/2018 Purpose - Life Answer Date Recorded Purpose and direction in life Unknown Comments Unknown Sex and Gender Information Value Date Recorded Sex Assigned at Not on file Legal Sex Female 2:29 PM EDT Gender Identity Not on file Sexual Orientation Not on file Last Filed Vital Signs Vital Sign Reading Time Taken Comments Blood Pressure 152/72 06/02/2019 9:00 AM EST Pulse 67 06/02/2019 9:00 AM EST Temperature 36.5 C (97.7 F) 06/02/2019 6:31 AM EST Respiratory Rate 16 06/02/2019 6:31 AM EST Oxygen Saturation 93% 06/02/2019 9:00 AM EST Inhaled Oxygen Concentration - - Weight 85.3 kg (188 lb) 06/02/2019 6:31 AM EST Height 160 cm (5' 3 ) 06/02/2019 6:31 AM EST Body Mass Index 33.3 06/02/2019 6:31 AM EST Plan of Treatment Health Maintenance Due Date Last Done Comments Depression Screening 1961 Tobacco Screening 1961 DTaP,Tdap and Td Vaccines (1 - Tdap) 1968 Zoster (Shingles) Vaccine (1 of 2) 06/14/1999 Fall Risk Screening 2014 Influenza Vaccine 12/06/2024 Medical Devices Not on file Insurance [employer] Care Teams Polishing Wheel Repairer Relationship Specialty Start Date End Date Kamari Jean DO PCP - General Family Medicine 05/27/19
--- OUTSIDE RECORDS SUMMARY | 2024-12-28 12:50 | XMS_ITS | Clinical Summary ---
Author Organization [facility] Address [address] [place] [address] Care Team Providers Care Dye Tub Tender Name Role Phone Polina De La Rosa NP Primary Care Provider Allergies Active Allergy Reactions Criticality Noted Date Comments Bee Venom 10/22/2024 Other Reaction(s): Unknown Iodinated Contrast Media 10/22/2024 Other Reaction(s): Unknown Latex 10/22/2024 Medications carvedilol (Coreg) 6.25 MG tablet 1 (one) time each day at the same time Active HYDROcodone-toyin taminophen ([place]) 5-325 MG tablet every 6 (six) hours Active lisinopril 5 MG tablet 1 (one) time each day at the same time Active metFORMIN (Glucophage) 1000 MG tablet Take 1,000 mg by mouth in the morning and 1,000 mg in the evening. Take with meals. Active mupirocin (Bactroban) 2 % ointmentIndicat ions:Chronic rhinitis Apply to each side of the nose twice daily for 2 weeks 15 g 1 10/22/2024 Active Active Problems Problem Noted Date Diagnosed Date Arthritis of carpometacarpal (CMC) joint of left thumb 10/20/2024 Hypertension 10/20/2024 Impaired fasting glucose 10/20/2024 Carpal tunnel syndrome of right wrist 10/20/2024 BMI 31.0-31.9,adult 10/20/2024 Chronic pain syndrome 10/20/2024 Positive colorectal cancer screening using Colog uard test 10/20/2024 Encounters Date Type Department Care Team Description 10/22/2024 10:50 AM EDT Office Visit [facility] [address] [place] [address] Lisy Albrecht MD Recurrent epistaxis (Primary Dx); Chronic rhinitis; Hypertension, unspecified type 10/22/2024 Bamboo flowsheet [facility] [address] [place] [address] Lisy Albrecht MD 10/22/2024 Travel from Last 3 Months Family History Relation Name Status Comments Father Mother Social History Tobacco Use Types Packs/Day Years Used Date Smoking Tobacco: Never Smokeless Tobacco: Never Tobacco Cessation:Counseling Given: Not Answered Alcohol Use Standard Drinks/Week Comments Not Currently 0 (1 standard drink = 0.6 oz pur e alcohol) Comments Unknown Sex and Gender Information Value Date Recorded Sex Assigned at Not on file Legal Sex Female 8:33 PM EDT Gender Identity Not on file Sexual Orientation Not on file Last Filed Vital Signs Vital Sign Reading Time Taken Comments Blood Pressure 174/77 10/22/2024 10:55 AM EDT Pulse 71 10/22/2024 10:55 AM EDT Temperature - - Respiratory Rate - - Oxygen Saturation - - Inhaled Oxygen Concentration - - Weight 86.2 kg (190 lb) 10/22/2024 10:55 AM EDT Height 160 cm (5' 3 ) 10/22/2024 10:55 AM EDT Body Mass Index 33.66 10/22/2024 10:55 AM EDT Plan of Treatment Health Maintenance Due Date Last Done Comments CT Colonography 1949 FIT-DNA 1949 FIT 1950 FOBT 1950 Sigmoidoscopy 1950 Pneumococcal Vaccine: 65+ Ye ars (1 of 1 - PCV) 06/14/1999 Influenza Vaccine (#1) 2024 02/12/2024, 2022 Colonoscopy 10/02/2028 10/02/2018 Colorectal Cancer Screening 10/02/2028 Insurance [facility] MEDICARE ADVANTAGE Care Teams Dye Tub Tender Relationship Specialty Start Date End Date Polina De La Rosa NP [address] [place] [address] PCP - General Family Medicine 09/28/24
--- NOTE | 2024-12-28 12:54 | MM_ITS ---
Patient Name: EMILIANA WEBB MR#: [id number] : 1950 Exam Date: 12/28/2024 Ordering Doctor: MYRTLE BAILEY KNIFE GLAZER-[facility] RADIOLOGY REPORT PROCEDURE: MM TOMOSYNTHESIS SCREENING BI COMPARISON: MG MAMM SCREEN VALDEMAR W CAD, 03/30/2019. MAMMO POST BIOPSY LEFT, 08/23/2016. MG MAMM SCREEN VALDEMAR W CAD, 08/13/2016. INDICATIONS: screening for malignant neoplasm of breast Calculator Name NCI Breast Cancer Risk Assessment Tool 5 Year Breast Cancer Risk 1.90% Lifetime Breast Cancer Risk 4.10% Personal Breast Cancer No Personal Ovarian Cancer No Treatments None Family Cancers None LOCATION: [facility] BREAST COMPOSITION: There are scattered areas of fibroglandular density. FINDINGS: DIAGNOSTIC CATEGORY 1--NEGATIVE. RIGHT BREAST: No significant suspicious finding. LEFT BREAST: No significant suspicious finding. RECOMMENDATIONS: ROUTINE MAMMOGRAM AND CLINICAL EVALUATION IN 12 MONTHS. Dictated by: Tyron Martinez DO on 12/28/2024 at 15:36 Approved by: Tyron Martinez DO on 12/28/2024 at 15:37
--- OUTSIDE RECORDS SUMMARY | 2024-12-28 12:55 | XMS_ITS | CCD ---
Author Organization [facility] Care Team Providers Care Percussion Instructor Name Role Phone HOUSE, DR ALARCON Admitting [...] Unavailable Polina De La Rosa Unavailable VANESSA SAHNKAR Primary Care Physician [phone] Gabriela Garcia I Unavailable Unavailable George ARGUETA Attending Unavailable George ARGUETA Attending Unavailable Polina De La Rosa APRN Primary Care Provider Juan Luis Roblero MD Emergency Provider [phone] Juan Luis Roblero Attending Unavailable Juan Luis Roblero Admitting Unavailable Polina De La Rosa Primary Care Unavailable Rj GANDHI, Polina Cross Primary Care Provider LISY TEAGUE Attending Unavailable POLINA DE LA ROSA Referring Unavailab le Polina De La Rosa APRN Primary Care Provider Polina De La Rosa APRN Attending Provider Allergies Allergy Classification Reported Allergen(s) Allergy Type Date of Onset Reaction(s) Facility (1 source) bee venom Drug allergy (disorder) 7 [facility] Repository (8 sources) Latex Drug allergy (disorder) 4 Rash [facility] Repository (2 sources) Shellfish; Translations: [shellfish] Drug allergy (disorder) 4 [facility] Repository (1 source) Omniscan Drug allergy (disorder) 7 [facility] (7 sources) Bee Sting Drug allergy anaphylaxis [facility] [employer] Other (3 sources) Bee/Wasp/Ant venom; Translations: [Bee Stings] Propensity to adverse reactions to drug (disorder) Anaphylaxis (disorder) [facility] Repository (3 sources) Contrast media; Translations: [Contrast Dye] Propensity to adverse reactions to drug (disorder) Itching [facility] Repository (1 source) Iodine; Translations: [iodine] Drug Allergy [facility]ository (1 source) Seafood; Translations: [Seafood] Propensity to adverse reactions to drug (disorder) [facility] (7 sources) Shellfish; Translations: [shellfish] Drug allergy Unknown, Itching [facility] (6 sources) Contrast Allergy PreMed Pack Drug allergy Unknown [employer] [employer] Other (8 sources) Shellfish; Translations: [shellfish derived] Allergy to substance 4 Unknown Reaction [facility] (8 sources) bee venom protein (honey bee); Translations: [bee venom protein (honey bee)] Allergy to substance 4 anaphylaxis [facility] (10 sources) Iodinated Contrast Media; Translations: [Iodinated Contrast Media] Allergy to substance 4 Anaphylaxis [facility] (1 source) Latex Drug allergy (disorder) 5 [facility] Repository (2 sources) Honey bee venom Allergy to substance 5 [facility] (2 sources) Latex Propensity to adverse reactions 5 [facility] Medications Current Medications Medication Drug Class(es) Dates Sig (Normalized) Sig (Original) carvedilol 3.125 mg oral tablet (20 sources) alpha-Adrenergic Moises, beta-Adrenergic Moises Start: 03-22-2024 End: 09-15-2024 take 1 tablet by mouth once daily Carvedilol 3.125 mg tablet Active 3.125 MG PO Daily 90 90 September 15, 2024 2:06pm Complies with drug therapy Start: 02-18-2018 End: 03-22-2024 take 3.125 mg by mouth once daily Carvedilol (Coreg) 6.25 mg Tablet Discontinued 3.125 MG PO Daily February 18, 2018 1:00am March 22, 2024 12:40pm carvedilol (Core g) 6.25 MG tablet 1 (one) time each day at the same time Active take 0.5 tablet by m outh every twenty-four hours Carvedilol 6.25 MG 0.5 tablet Orally once a day Active HYDROcodone (1 source) Opioid Agonist Hydrocodone Claudia rtrate Active mupirocin 0.02 mg/mg topical ointment (2 sources) RNA Synthetase Inhibitor Antibacterial Start: 10-22-2024 mupirocin (Bactroban) 2 % ointment Indications: Chronic rhinitis Apply to each side of the nose twice daily for 2 weeks 15 g 10/22/2024 Active Start: 10-22-2024 mupirocin (Lois troban) 2 % ointment Indications: Chronic rhinitis Apply to each side of the nose twice daily for 2 weeks 15 g 10/22/2024 Active Completed/Discontinued Medications Medication Drug Class(es) Dates Sig (Normalized) Sig (Original) acetaminophen 500 mg oral tablet (7 sources) Start: 11-09-2020 End: 05-21-2023 take 2 tablets by mouth every eight hours Acetaminophen (Tylenol Extra Strength) 500 mg tablet Discontinued 1000 MG PO Every 8 hours 180 November 09, 2020 12:00am May 21, 2023 9:38am acetaminophen 325 mg / HYDROcodone bitartrate 5 mg oral tablet (20 sources) Opioid Agonist Start: 05-19-2023 End: 12-21-2024 take 1 tablet by mouth every eight hours as needed for pain Hydrocodone-Acetami nophen 5-325 mg tablet Discontinued 1 TAB PO Every 8 hours as [...] take 1 tablet by mouth twice daily as needed for pain Hydrocodone-Acetaminophen ([place]) 5-325 mg Tablet Discontinued 1 TAB PO Twice daily as needed for Pain 0 April 28, 2018 11:32am November 09, 2020 3:26pm Start: 02-28-2018 End: 04-28-2018 Hydrocodone-Acetaminophen (N orco) 5-325 mg Tablet Discontinued 1 TAB PO every 6 to 8 hours as needed for Pain February 28, 2018 1:00am April 28, 2018 11:32am acetaminophen 325 mg / oxyCODONE hydrochloride 5 mg oral tablet (14 sources) Opioid Agonist Start: 02-28-2018 End: 03-03-2018 take 1 tablet by mouth every four to six hours as needed for pain Oxycodone-Acetaminophen (Percocet) 5-325 mg tablet Discontinued 1 TAB PO EVERY 4-6 HOURS as needed for pain 14 3 February 28, 2018 March 02, 2018 1:00am March 03, 2018 1:01am Start: 02-10-2018 End: 02-14-2018 take 2 tablets by mouth every four hours as needed for pain Oxycodone-Acetaminophen (Percocet) 5-325 mg tablet Discontinued 2 TAB PO Q4H as needed for pain 20 4 February 10, 2018 February 13, 2018 1:00am February 14, 2018 1:02am acyclovir 400 mg oral tablet (7 sources) Herpesvirus Nucleoside Analog DNA Polymerase Inhibitor, Herpes Simplex Virus Nucleoside Analog DNA Polymerase Inhibitor, Herpes Zoster Virus Nucleoside Analog DNA Polymerase Inhibitor Start: 02-28-2018 End: 04-28-2018 take 1 tablet by mouth three times daily Acyclovir 400 mg Tablet Discontinued 400 MG PO Three times daily February 28, 2018 1:00am April 28, 2018 11:29am aspirin 81 mg delayed release oral tablet (20 sources) Platelet Aggregation Inhibitor, Nonsteroidal Anti-inflammatory Drug Start: 11-09-2020 End: 05-21-2023 take 1 tablet by mouth twice daily Aspirin 81 mg tablet,delayed release (DR/EC) Discontinued 81 MG PO Twice daily 42 November 09, 2020 12:00am May 21, 2023 9:38am Start: 02-18-2018 take 1 tablet by bony th once daily Aspirin (Aspir-81) 81 mg Tablet,Delayed Release (Dr/Ec) Active 81 MG PO Daily February 18, 2018 1:00am Complies with drug therapy take 1 tablet by bony th once daily Aspirin 81 81 MG 1 tablet Orally Once a day Active cephalexin 500 mg oral capsule (7 sources) Cephalosporin Antibacterial Start: 04-28-2018 End: 05-02-2018 take 1 capsule by mouth every eight hours Cephalexin (Keflex) 500 mg capsule Discontinued 500 MG PO Q8H 12 April 28, 2018 1:00am May 01, 2018 1:00am May 02, 2018 1:02am start 04/29/18 cyclobenzaprine hydrochloride 10 mg oral tablet (7 sources) Muscle Relaxant Start: 11-09-2020 End: 05-21-2023 take 1 tablet by mouth every eight hours Cyclobenzaprine 10 mg tablet Discontinued 10 MG PO Q8H 63 November 09, 2020 12:00am May 21, 2023 9:38am docusate sodium 100 mg oral tablet (7 sources) Start: 11-09-2020 End: 05-21-2023 take 1 tablet by mouth twice daily Docusate Sodium 100 mg tablet Discontinued 100 MG PO Twice daily November 09, 2020 12:00am May 21, 2023 9:38am gabapentin 600 mg oral tablet (14 sources) Anti-epileptic Agent Start: 02-18-2018 End: 11-07-2020 Gabapentin 600 mg Tablet Discontinued 400 MG PO Twice daily February 18, 2018 1:00am November 07, 2020 12:01am Start: 02-18-2018 End: 11-07-2020 take 400 mg by mouth twice daily Gabapentin Discontinued 400 MG PO Twice daily February 18, 2018 1:00am November 07, 2020 12:01am Start: 02-11-2018 End: 02-18-2018 take 1 tablet by mouth twice daily as needed for pain Gabapentin 600 mg tablet Discontinued 600 MG PO Twice daily as needed for pain 14 February 11, 2018 5:58pm February 17, 2018 1:00am February 18, 2018 1:01am lisinopril 5 mg oral tablet (20 sources) Angiotensin Converting Enzyme Inhibitor Start: 02-18-2018 End: 12-21-2024 take 1 tablet by mouth once daily Lisinopril 5 mg tablet Discontinued 5 MG PO Daily 90 March 22, 2024 12:39pm September 15, 2024 2:12pm metFORMIN hydrochloride 1000 mg oral tablet (20 sources) Biguanide Start: 03-19-2019 End: 12-21-2024 take 1 tablet by mouth once daily Metformin 1,000 mg tablet Discontinued 1000 MG PO Daily 90 March 22, 2024 12:40pm September 15, 2024 2:12pm Start: 02-18-2018 End: 05-21-2023 take 1 tablet by mouth twice daily Metformin 1,000 mg Tablet Discontinued 1000 MG PO Twice daily February 18, 2018 1:00am May 21, 2023 9:39am oxyCODONE hydrochloride 5 mg oral tablet (7 sources) Opioid Agonist Start: 11-09-2020 End: 05-21-2023 take 1 tablet by mouth every six hours as needed for pain Oxycodone (Roxicodone) 5 mg tablet Discontinued 5 MG PO Q6H as needed for pain 40 7 November 09, 2020 May 21, 2023 9:38am predniSONE 10 mg oral tablet (14 sources) Start: 07-14-2018 End: 11-06-2020 take 3 tablets by mouth once daily Prednisone 10 mg tablet Discontinued 10 MG PO Once 15 July 14, 2018 12:00am November 06, 2020 11:29pm 3 pills daily X 5 days Start: 02-11-2018 End: 02-15-2018 take 1 tablet by mouth once daily Prednisone 50 mg tablet Discontinued 50 MG PO Daily 4 4 February 11, 2018 1:00am February 14, 2018 1:00am February 15, 2018 1:02am pregabalin 75 mg oral capsule (7 sources) Start: 02-28-2018 End: 04-27-2018 take 1 capsule by mouth twice daily Pregabalin (Lyrica) 75 mg Capsule Discontinued 75 MG PO Twice daily February 28, 2018 1:00am April 27, 2018 7:05pm traZODone hydrochloride 50 mg oral tablet (7 sources) Serotonin Reuptake Inhibitor Start: 02-28-2018 End: 11-06-2020 take 1 tablet by mouth once daily at bedtime Trazodone 50 mg Tablet Discontinued 50 MG PO Daily at bedtime February 28, 2018 1:00am November 06, 2020 11:30pm Problems Active Problems Problem Classification Problem Date Documented Da te Episodic/Chronic Diabetes mellitus without complication (6 sources) Type 2 diabetes mellitus without complications; Translations: [Type 2 diabetes mellitus] Onset: 08-24-2021 Chronic Diabetes mellitus without complication (19 sources) Impaired fasting glucose; Translations: [Impaired fasting glycemia] Onset: 10-20-2024 Episodic E Codes: Fall (8 sources) Fall; Translations: [Unspecified fall, initial encounter] 08-07-2023 Episodic Essential hypertension (20 sources) Essential (primary) hypertension; Translations: [Essential hypertension] Onset: 08-30-2021 Chronic Fracture of neck of femur (hip) (8 sources) Displaced subtrochanteric fracture of right femur, subsequent encounter for closed fracture with routine healing; Translations: [Fracture of proximal end of femur] Onset: 12-29-2020 Resolved: 12-29-2020 Episodic Comment on above: Problem List clean-u p per request of Phys. EHR Cmte Osteoarthritis (8 sources) Unspecified osteoarthritis, unspecified site; Translations: [Arthritis of first carpometacarpal joint of left hand] Onset: 11-03-2020 Chronic Other circulatory disease (7 sources) Orthostatic hypotension; Translations: [Orthostatic hypotension] 03-19-2023 Episodic Comment on above: Problem List clean-u p per request of Phys. EHR Cmte Other gastrointestinal disorders (1 source) Abnormal feces; Translations: [Other fecal abnormalities] Onset: 01-21-2023 Episodic Other gastrointestinal disorders (3 sources) Stool DNA-based colorectal cancer screening positive; Translations: [Other fecal abnormalities] Onset: 10-20-2024 10-20-2024 Episodic Other injuries and conditions due to external causes (1 source) Other specified injuries of thorax, initial encounter; Translations: [Contusion of rib on left side] 12-21-2024 Episodic Other nervous system disorders (1 source) Other specified mononeuropathies; Translations: [OTHER SPECIFIED MONONEUROPATHIES] Onset: 11-10-2020 Chronic Other nervous system disorders (14 sources) Chronic pain; Translations: [Other chronic pain] 05-21-2023 Chronic Other nervous system disorders (15 sources) Other chronic pain; Translations: [Other chronic pain] Chronic Other nervous system disorders (3 sources) Carpal tunnel syndrome of right wrist; Translations: [Carpal tunnel syndrome, right upper limb] Onset: 10-20-2024 10-20-2024 Chronic Other nervous system disorders (3 sources) Chronic pain syndrome; Translations: [Chronic pain syndrome] Onset: 10-20-2024 10-20-2024 Chronic Other nutritional; endocrine; and metabolic disorders (1 source) Obese class I; Translations: [Body mass index (BMI) 31.0-31.9, adult] Onset: 01-21-2023 Chronic Other nutritional; endocrine; and metabolic disorders (4 sources) Body mass index 30+ - obesity; Translations: [Body mass index (BMI) 31.0-31.9, adult] Onset: 10-20-2024 01-21-2023 Chronic Other nutritional; endocrine; and metabolic disorders (1 source) Obesity 01-21-2023 Chronic Other screening for suspected conditions (not mental disorders or infectious disease) (14 sources) Encounter for screening for malignant neoplasm of colon; Translations: [Stool DNA-based colorectal cancer screening positive] Episodic Other upper respiratory disease (2 sources) Chronic rhinitis; Translations: [Chronic rhinitis] 10-22-2024 Chronic Other upper respiratory disease (5 sources) Bleeding from nose; Translations: [Epistaxis] 09-02-2024 Episodic Other upper respiratory disease (5 sources) Epistaxis; Translations: [Epistaxis] Onset: 09-02-2024 09-06-2024 Episodic Residual codes; unclassified (1 source) Chronic back pain 01-13-2023 Episodic Residual codes; unclassified (5 sources) Postmenopausal state; Translations: [Asymptomatic menopausal state] 03-22-2024 Episodic Residual codes; unclassified (1 source) Asymptomatic menopausal state; Translations: [Asymptomatic postmenopausal status (age-related) (natural)] 03-22-2024 Episodic Spondylosis; intervertebral disc disorders; other back problems (13 sources) Lumbar spondylosis; Translations: [Spondylosis without myelopathy or radiculopathy, lumbar region] 03-22-2024 Chronic Spondylosis; intervertebral disc disorders; other back problems (18 sources) Backache; Translations: [Dorsalgia, unspecified] 05-21-2023 Episodic Superficial injury; contusion (15 sources) Contusion of rib; Translations: [Contusion of left front wall of thorax, initial encounter] 08-07-2023 Episodic Syncope (7 sources) Syncope; Translations: [Syncope and collapse] 03-19-2023 Episodic Comment on above: Problem List clean-u p per request of Phys. EHR Cmte Urinary tract infections (7 sources) Bacterial urinary infection; Translations: [Urinary tract infection, site not specified] 03-19-2023 Episodic Comment on above: Problem List clean-u p per request of Phys. EHR Cmte Past or Other Problems Problem Classification Problem Date Documented Date Episodic/Chronic Residual codes; unclassified (1 source) Other specified postprocedural states; Translations: [Other specified postprocedural states Z98.890] Onset: 12-29-2020 Resolved: 12-29-2020 Episodic Unclassified (3 sources) Low back pain, unspecified M54.50 Results Test Name Value Interpretation Reference Range Facility Basic Metabolic Panelon 05 Anion gap [Moles/Vol] 11.8 mmol/L Normal 6.0-15.0 [facility] Comment on above: Performed By: #### C BC, BMP #### [facility] [address] [place] [address] [place] Calcium [Mass/Vol] 9.6 mg/dL Normal 8.6-10.3 [facility] Comment on above: Performed By: #### C BC, BMP #### [facility] [address] [place] [id number] [place] Chloride [Moles/Vol] 105 mmol/L Normal 98-107 [facility] Comment on above: Performed By: #### C BC, BMP #### [facility] [address] [place] [id number] [place] CO2 [Moles/Vol] 25.5 mmol/L Normal 21.0-31.0 [facility] Comment on above: Performed By: #### C BC, BMP #### [address] Creatinine [Mass/Vol] 0.62 mg/dL Normal 0.60-1.20 [facility] Comment on above: Performed By: #### C BC, BMP #### [place] [address] [place] Creatinine Clr Calc Pharmacy 63.19 Normal [facility] Comment on above: Result Comment: PERF ORMED BY: [place] [address] PATHOLOGIST INSTITUTIONAL RESEARCH DIRECTOR JERMAINE RAMIREZ M.D. Performed By: #### C BC, BMP #### [place] [address] [place] GFR/1.73 sq M.predicted MDRD (S/P/Bld) [Vol rate/Area] mL/min/{1.73_m2} Normal [facility] Comment on above: Performed By: #### C BC, BMP #### [address] Glucose [Mass/Vol] 143 mg/dL High 70-100 [facility] Comment on above: Result Comment: [place] Glucose Reference Range is dependent on time and content of last meal. Glucose of more than 200 mg/dL in a nonstressed, ambulatory subject supports the diagnosis of Diabetes Mellitus. ADA recommended reference range Performed By: #### C BC, BMP #### [place] [address] [place] Potassium [Moles/Vol] 4.3 mmol/L Normal 3.5-5.1 [facility] Comment on above: Performed By: #### C BC, BMP #### [address] Sodium [Moles/Vol] 138 mmol/L Normal 136-145 [facility] Comment on above: Performed By: #### C BC, BMP #### [place] [address] [place] Urea nitrogen [Mass/Vol] 16 mg/dL Normal 7-25 [facility] Comment on above: Performed By: #### C BC, BMP #### [facility] [address] [place] [address] [place] Basophils Auto (Bld) [#/Vol] Ordered By: Juan Luis Roblero on 09-02-2024 Basophils (Bld) [#/Vol] Automated basoph il count 0.0-0.2 [facility] Basophils/100 WBC Auto (Bld) Ordered By: Juan Luis Roblero on 09-02-2024 Basophils/100 WBC (Bld) Automated basoph il % . [facility] Calcium [Mass/volume] in Ser um or PlasmaOrdered By: Juan Luis Roblero on 09-02-2024 Calcium [Mass/Vol] Calcium [Mass/volume] in Serum or Plasma 8.6-10.3 [facility] Carbon dioxide, total [Moles /volume] in Serum or PlasmaOrdered By: Juan Luis Roblero on 09-02-2024 CO2 [Moles/Vol] Carbon dioxide, total [Moles/volume] in Serum or Plasma 21.0-31.0 [facility] Chloride [Moles/volume] in S lanette or PlasmaOrdered By: Juan Luis Roblero on 09-02-2024 Chloride [Moles/Vol] Chloride [Moles/volume] in Serum or Plasma 98-107 [facility] Complete Blood Count Auto Di ffon 09-02-2024 Basophils (Bld) [#/Vol] 0.0 10*3/uL Normal 0.0-0.2 [facility] Comment on above: Result Comment: PERF ORMED BY: [facility] [address] [place] [address] PATHOLOGIST INSTITUTIONAL RESEARCH DIRECTOR JERMAINE RAMIREZ M.D. Performed By: #### C BC, BMP #### [facility] [address] [place] [address] [place] Basophils/100 WBC (Bld) 0.6 % Normal . [facility] Comment on above: Performed By: #### C BC, BMP #### [facility] [address] [place] [address] [place] Eosinophils (Bld) [#/Vol] 0.6 10*3/uL High 0.0-0.45 [facility] Comment on above: Performed By: #### C BC, BMP #### [address] Eosinophils/100 WBC (Bld) 9.1 % Normal . [facility] Comment on above: Performed By: #### C BC, BMP #### [address] Erythrocyte distribution width (RBC) [Ratio] 13.3 % Normal 11.9-15.3 [facility] Comment on above: Performed By: #### C BC, BMP #### [address] Hematocrit (Bld) [Volume fraction] 37.5 % Normal 34.0-46.4 [facility] Comment on above: Performed By: #### C BC, BMP #### [address] Hemoglobin (Bld) [Mass/Vol] 12.5 g/dL Normal 11.8-15.4 [facility] Comment on above: Performed By: #### C BC, BMP #### [address] Lymphocytes (Bld) [#/Vol] 2.3 10*3/uL Normal 1.00-4.8 [facility] Comment on above: Performed By: #### C BC, BMP #### [address] Lymphocytes/100 WBC (Bld) 33.7 % Normal . [facility] Comment on above: Performed By: #### C BC, BMP #### [address] MCH (RBC) [Entitic mass] 28.0 pg Normal 24.7-34.3 [facility] Comment on above: Performed By: #### C BC, BMP #### [address] MCV (RBC) [Entitic vol] 83.9 fL Normal 80-100 [facility] Comment on above: Performed By: #### C BC, BMP #### [address] Mean Corpuscular HGB Conc 33.4 g/dL Normal 32.0-35.0 [facility] Comment on above: Performed By: #### C BC, BMP #### [place] [address] [place] Monocytes (Bld) [#/Vol] 0.5 10*3/uL Normal 0.0-0.8 [facility] Comment on above: Performed By: #### C BC, BMP #### [place] [address] [place] Monocytes/100 WBC (Bld) 18.42 % Normal 0.00-20.00 [facility] Comment on above: Performed By: #### C BC, BMP #### [place] [address] [place] Monocytes/100 WBC (Bld) 6.6 % Normal . [facility] Comment on above: Performed By: #### C BC, BMP #### [place] [address] [place] Neutrophils (Bld) [#/Vol] 3.4 10*3/uL Normal 1.8-7.7 [facility] Comment on above: Performed By: #### C BC, BMP #### [place] [address] [place] Neutrophils/100 WBC (Bld) 50.0 % Normal . [facility] Comment on above: Performed By: #### C BC, BMP #### [place] [address] [place] NRBC% 0.1 /100{WBC} Normal 0-0.5 [facility] Comment on above: Performed By: #### C BC, BMP #### [address] Platelet mean volume (Bld) [Entitic vol] 9.2 fL Normal 6.3-10.7 [facility] Comment on above: Performed By: #### C BC, BMP #### [facility] [address] Platelets (Bld) [#/Vol] 285 10*3/uL Normal 150-450 [facility] Comment on above: Performed By: #### C BC, BMP #### [facility] [address] RBC (Bld) [#/Vol] 4.47 10*6/uL Normal 3.60-5.00 [facility] Comment on above: Performed By: #### C BC, BMP #### [facility] [address] [place] [id number] [place] WBC (Bld) [#/Vol] 6.8 10*3/uL Normal 3.8-11.6 [facility] Comment on above: Performed By: #### C BC, BMP #### [facility] [address] Creatinine [Mass/volume] in Serum or PlasmaOrdered By: Juan Luis Roblero on 09-02-2024 Creatinine [Mass/Vol] Creatinine [Mass/volume] in Serum or Plasma 0.60-1.20 [facility] Eosinophils Auto (Bld) [#/Vo l]Ordered By: Juan Luis Roblero on 09-02-2024 Eosinophils (Bld) [#/Vol] Automated eosinophil count High 0.0-0.45 [facility] Eosinophils/100 WBC Auto (Bl d)Ordered By: Juan Luis Roblero on 09-02-2024 Eosinophils/100 WBC (Bld) Automated eosinophil % . [facility] Erythrocyte distribution wid th Auto (RBC) [Ratio]Ordered By: Juan Luis Roblero on 09-02-2024 Erythrocyte distribution width (RBC) [Ratio] Erythrocyte distribution width [Ratio] by Automated count 11.9-15.3 [facility] Glucose [Mass/volume] in Ser um or PlasmaOrdered By: Juan Luis Roblero on 09-02-2024 Glucose [Mass/Vol] Glucose [Mass/volume] in Serum or Plasma High 70-100 [facility] Comment on above: ADA recommended refe rence rangeRandom Glucose Reference Range is dependent on time and content of last meal. Glucose of more than 200 mg/dL in a nonstressed, ambulatory subject supports the diagnosis of Diabetes Mellitus. Hematocrit Auto (Bld) [Volum e fraction]Ordered By: Juan Luis Roblero on 09-02-2024 Hematocrit (Bld) [Volume fraction] Hematocrit [Volume Fraction] of Blood by Automated count 34.0-46.4 [facility] Hemoglobin [Mass/volume] in BloodOrdered By: Juan Luis Roblero on 09-02-2024 Hemoglobin (Bld) [Mass/Vol] Hemoglobin [Mass/volume] in Blood 11.8-15.4 [facility] Leukocytes [#/volume] correc augustina for nucleated erythrocytes in Blood by Automated counOrdered By: Juan Luis Roblero on 09-02-2024 WBC corrected for nucl RBC Auto (Bld) [#/Vol] Leukocytes [#/volume] corrected for nucleated erythrocytes in Blood by Automated coun 3.8-11.6 [facility] Lymphocytes Auto (Bld) [#/Vo l]Ordered By: Juan Luis Roblero on 09-02-2024 Lymphocytes (Bld) [#/Vol] Lymphocytes [#/volume] in Blood by Automated count 1.00-4.8 [facility] Lymphocytes/100 WBC Auto (Bl d)Ordered By: Juan Luis Roblero on 09-02-2024 Lymphocytes/100 WBC (Bld) Lymphocytes/100 leukocytes in Blood by Automated count . [facility] MCH Auto (RBC) [Entitic mass ]Ordered By: Juan Luis Roblero on 09-02-2024 MCH (RBC) [Entitic mass] MCH [Entitic ma ss] by Automated count 24.7-34.3 [facility] MCHC Auto (RBC) [Mass/Vol]Or dered By: Juan Luis Roblero on 09-02-2024 MCHC (RBC) [Mass/Vol] MCHC [Mass/volume] by Automated count 32.0-35.0 [facility] MCV Auto (RBC) [Entitic vol] Ordered By: Juan Luis Roblero on 09-02-2024 MCV (RBC) [Entitic vol] MCV [Entitic volume] by Automated count 80-100 [facility] Monocyte distribution width [Entitic volume] in Blood by AutomatedOrdered By: Juan Luis Roblero on 09-02-2024 Monocyte distribution width Auto (Bld) [Entitic vol] Monocyte distribution width [Entitic volume] in Blood by Automated 0.00-20.00 [facility] Monocytes Auto (Bld) [#/Vol] Ordered By: Juan Luis Roblero on 09-02-2024 Monocytes (Bld) [#/Vol] Automated blood monocyte count 0.0-0.8 [facility] Monocytes/100 WBC Auto (Bld) Ordered By: Juan Luis Roblero on 09-02-2024 Monocytes/100 WBC (Bld) Automated monocy te % . [facility] Neutrophils Auto (Bld) [#/Vo l]Ordered By: Juan Luis Roblero on 09-02-2024 Neutrophils (Bld) [#/Vol] Neutrophils [#/volume] in Blood by Automated count 1.8-7.7 [facility] Neutrophils/100 WBC Auto (Bl d)Ordered By: Juan Luis Roblero on 09-02-2024 Neutrophils/100 WBC (Bld) Automated neutrophil % . [facility] No Panel InformationOrdered By: Juan Luis Roblero on 09-02-2024 Estimated GFR (CKD-EPI) > 60.0 mL/Min [facility] Creatinine Clearance (Chem 63.19 [facility] Nucleated erythrocytes [Pres ence] in Blood by Automated countOrdered By: Juan Luis Roblero on 09-02-2024 Nucleated RBC Auto Ql (Bld) Nucleated erythrocytes [Presence] in Blood by Automated count 0-0.5 [facility] Platelet mean volume Auto (B ld) [Entitic vol]Ordered By: Juan Luis Roblero on 09-02-2024 Platelet mean volume (Bld) [Entitic vol] Platelet mean volume [Entitic volume] in Blood by Automated count 6.3-10.7 [facility] Platelets Auto (Bld) [#/Vol] Ordered By: Juan Luis Roblero on 09-02-2024 Platelets (Bld) [#/Vol] Platelets [#/volume] in Blood by Automated count 150-450 [facility] Potassium [Moles/volume] in Serum or PlasmaOrdered By: Juan Luis Roblero on 09-02-2024 Potassium [Moles/Vol] Potassium [Moles/volume] in Serum or Plasma 3.5-5.1 [facility] RBC Auto (Bld) [#/Vol]Ordere d By: Juan Luis Roblero on 09-02-2024 RBC (Bld) [#/Vol] Erythrocytes [#/volume] in Blood by Automated count 3.60-5.00 [facility] Serum or plasma anion gap de terminationOrdered By: Juan Luis Roblero on 09-02-2024 Anion gap [Moles/Vol] Serum or plasma anion gap determination 6.0-15.0 [facility] Sodium [Moles/volume] in Ser um or PlasmaOrdered By: Juan Luis Roblero on 09-02-2024 Sodium [Moles/Vol] Sodium [Moles/volume] in Serum or Plasma 136-145 [facility] Urea nitrogen [Mass/volume] in Serum or PlasmaOrdered By: Juan Luis Roblero on 09-02-2024 Urea nitrogen [Mass/Vol] Urea nitrogen [Mass/volume] in Serum or Plasma 7-25 [facility] WBC Auto (Bld) [#/Vol]Ordere d By: Juan Luis Roblero on 09-02-2024 WBC (Bld) [#/Vol] Leukocytes [#/volume] in Blood by Automated count 3.8-11.6 [facility] HbA1c HPLC (Bld) [Mass fract ion]on 06-14-2024 HbA1c (Bld) [Mass fraction] Hemoglobin A1c/Hemoglobin.tot al in Blood by HPLC [facility] Basophils Auto (Bld) [#/Vol] on 04-06-2024 Basophils (Bld) [#/Vol] Automated basoph il count 0.0-0.1 [facility] Basophils/100 WBC Auto (Bld) on 04-06-2024 Basophils/100 WBC (Bld) Automated basoph il % 0.2-2.0 [facility] Cholesterol in LDL Calc [Mas s/Vol]on 04-06-2024 Cholesterol in LDL [Mass/Vol] Cholesterol in LDL [Mass/volume] in Serum or Plasma by calculation [facility] Comment on above: <100 mg/dl [id number] 0-129 mg/dl NEAR OR ABOVE [id number] mg/dl BORDERLINE [id number] mg/dl HIGH>190 mg/dl VERY HIGH Cholesterol in VLDL Calc [Ma ss/Vol]on 04-06-2024 Cholesterol in VLDL [Mass/Vol] Cholesterol in VLDL [Mass/volume] in Serum or Plasma by calculation [facility] Eosinophils/100 WBC Auto (Bl d)on 04-06-2024 Eosinophils/100 WBC (Bld) Automated eosinophil % High 0.9-7.0 [facility] Erythrocyte distribution wid th Auto (RBC) [Ratio]on 04-06-2024 Erythrocyte distribution width (RBC) [Ratio] Erythrocyte distribution width [Ratio] by Automated count 11.0-15.0 [facility] Estimated glomerular filtrat ion rate (GFR) non- Americanon 04-06-2024 GFR/1.73 sq M.predicted among non-blacks MDRD (S/P/Bld) [Vol rate/Area] Estimated glomerular filtration rate (GFR) non- >=60 mL/min/1.73m 2 [facility] Globulin Calc (S) [Mass/Vol] on 04-06-2024 Globulin (S) [Mass/Vol] Serum globulin measurement by calculation (mass/volume) [facility] Glucose mean value [Mass/vol ume] in Blood Estimated from glycated hemoglobinon 04-06-2024 Average glucose Estimated from glycated hemoglobin (Bld) [Mass/Vol] Glucose mean value [Mass/volume] in Blood Estimated from glycated hemoglobin [facility] Hematocrit Auto (Bld) [Volum e fraction]on 04-06-2024 Hematocrit (Bld) [Volume fraction] Hematocrit [Volume Fraction] of Blood by Automated count 36.0-48.0 [facility] Hemoglobin [Mass/volume] in Bloodon 04-06-2024 Hemoglobin (Bld) [Mass/Vol] Hemoglobin [Mass/volume] in Blood 12.0-16.0 [facility] Laboratory - Chemistry and C hemistry - challengeon 04-06-2024 Albumin [Mass/Vol] 3.8 g/dL 3.4-5.0 [facility] ALP [Catalytic activity/Vol] 137 U/L High 46-116 [facility] ALT [Catalytic activity/Vol] 24 U/L 14-59 [facility] AST [Catalytic activity/Vol] 23 U/L 15-37 [facility] Bilirubin [Mass/Vol] 0.4 mg/dL 0.2-1.0 [facility] Calcium [Mass/Vol] 8.9 mg/dL 8.5-10.1 [facility] Chloride [Moles/Vol] 103 mmol/L 98-107 [facility] Cholesterol [Mass/Vol] 218 mg/dL High <=200 [facility] Cholesterol in HDL [Mass/Vol] 42 mg/dL 40-60 [facility] Comment on above: > or =60 mg/dl - LOW CARDIOVASCULAR RISK<40 mg/dl - HIGH CARDIOVASCULAR RISK CO2 [Moles/Vol] 25.1 mmol/L 21.0-32.0 [facility] Creatinine [Mass/Vol] 0.78 mg/dL 0.55-1.02 [facility] GFR/1.73 sq M.predicted MDRD (S/P/Bld) [Vol rate/Area] mL/min/{1.73_m2} >=60 mL/min/1.73m 2 [facility] Glucose [Mass/Vol] 156 mg/dL High 74-106 [facility] Potassium [Moles/Vol] 4.1 mmol/L 3.5-5.1 [facility] Protein [Mass/Vol] 7.6 g/dL 6.4-8.2 [facility] Sodium [Moles/Vol] 138 mmol/L 136-145 [facility] Triglyceride [Mass/Vol] 350 mg/dL High <=150 [facility] Urea nitrogen [Mass/Vol] 18.0 mg/dL 7.0-18.0 [facility] Urea nitrogen/Creatinine [Mass ratio] 23.1 mg/mg [facility] Laboratory - Hematology and Cell countson 04-06-2024 HbA1c (Bld) [Mass fraction] 7.3 % High 4.5-6.2 [facility] Comment on above: ADA RECOMMENDED LIMI T 4.0 - 6.0ADA THERAPEUTIC TARGET < 7.0ACTION SUGGESTED> 7.0 Immature granulocytes/100 WBC (Bld) 0.2 % 0.0-0.5 [facility] Leukocytes [#/volume] correc augustina for nucleated erythrocytes in Blood by Automated counon 04-06-2024 WBC corrected for nucl RBC Auto (Bld) [#/Vol] Leukocytes [#/volume] corrected for nucleated erythrocytes in Blood by Automated coun 4.0-11.0 [facility] Lymphocytes Auto (Bld) [#/Vo l]on 04-06-2024 Lymphocytes (Bld) [#/Vol] Lymphocytes [#/volume] in Blood by Automated count 1.2-3.8 [facility] Lymphocytes/100 WBC Auto (Bl d)on 04-06-2024 Lymphocytes/100 WBC (Bld) Lymphocytes/100 leukocytes in Blood by Automated count 20.5-60.0 [facility] MCH Auto (RBC) [Entitic mass ]on 04-06-2024 MCH (RBC) [Entitic mass] MCH [Entitic ma ss] by Automated count 26.7-34.0 [facility] MCHC Auto (RBC) [Mass/Vol]on 04-06-2024 MCHC (RBC) [Mass/Vol] MCHC [Mass/volume] by Automated count 29.9-35.2 [facility] MCV Auto (RBC) [Entitic vol] on 04-06-2024 MCV (RBC) [Entitic vol] MCV [Entitic volume] by Automated count 81.0-99.0 [facility] Monocytes Auto (Bld) [#/Vol] on 04-06-2024 Monocytes (Bld) [#/Vol] Automated blood monocyte count 0.3-0.8 [facility] Monocytes/100 WBC Auto (Bld) on 04-06-2024 Monocytes/100 WBC (Bld) Automated monocy te % 1.7-12.0 [facility] Neutrophils Auto (Bld) [#/Vo l]on 04-06-2024 Neutrophils (Bld) [#/Vol] Neutrophils [#/volume] in Blood by Automated count 1.4-6.5 [facility] Neutrophils/100 WBC Auto (Bl d)on 04-06-2024 Neutrophils/100 WBC (Bld) Automated neutrophil % 43.0-75.0 [facility] No Panel Informationon 04-06 Eosinophils # (Auto) 0.7 10 3/uL 0.0-0.7 [facility] Immature Granulocyte # (Auto) 0.02 10 3/uL 0.00-0.03 [facility] Platelet mean volume Auto (B ld) [Entitic vol]on 04-06-2024 Platelet mean volume (Bld) [Entitic vol] Platelet mean volume [Entitic volume] in Blood by Automated count 9.5-13.5 [facility] Platelets Auto (Bld) [#/Vol] on 04-06-2024 Platelets (Bld) [#/Vol] Platelets [#/volume] in Blood by Automated count 150-450 [facility] RBC Auto (Bld) [#/Vol]on RBC (Bld) [#/Vol] Erythrocytes [#/volume] in Blood by Automated count 4.20-5.40 [facility] Serum or plasma albumin/glob ulin mass ratioon 04-06-2024 Albumin/Globulin [Mass ratio] Serum or plasma albumin/globulin mass ratio [facility] Serum or plasma anion gap de terminationon 04-06-2024 Anion gap [Moles/Vol] Serum or plasma anion gap determination [facility] Serum or plasma total choles terol/high density lipoprotein (HDL) cholesterol mass doyle 04-06-2024 Cholesterol.total/Choles terol in HDL [Mass ratio] Serum or plasma total cholesterol/high density lipoprotein (HDL) cholesterol mass rat [facility] Comment on above: 3.3 - 4.4 LOW RISK4. 4 - 7.1 AVERAGE RISK7.1 - 11.0 MODERATE RISK>11.0 HIGH RISK Outside Colonoscopyon 2022 Outside Colonoscopy [id number] CEF#1.00TIFF Normal [facility] Insurance Correspondenceon Insurance Correspondence [id number]#1.00TIFF Normal [facility] Consent for Procedure/Surger yon 01-22-2023 Consent for Procedure/Surgery [id number]#1.00TIFF Normal [facility] Ambulatory Visit Summaryon Ambulatory Visit Summary EMILIANA WEBB :1950 Visit Date:01/21/2023 Ambulatory Visit Instructions Your Diagnosis Positive colorectal cancer screening using Cologuard test BMI 31.0-31.9,adult Your Care Team Attending Physician - ELLIE NDIAYE, George Poe Primary Care Physician - RENU NDIAYE, VANESSA Bar This Is Your Medications List Contact prescribing physician if questions or concerns acetaminophen-hydr ocodone (acetaminophen-hyd rocodone 325 mg-5 mg oral tablet) aspirin (aspirin [...] Medications What How Much When Instructions Unchanged acetaminophen-hydr ocodone (acetaminophen-hyd rocodone 325 mg-5 mg oral tablet) 1 Tablets [...] Positive colorectal cancer screening using Cologuard test [facility] Formson 01-21-2023 Forms [id number]#1.00TIFF [facility] Physician Referralon 023 Physician Referral [id number]#1.00TIFF [facility] Patient Handouton 11-28-2022 Patient Handout [id number]#1.00OTGTIFF Normal [facility] Patient Handouton 11-27-2022 Patient Handout [id number]#1.00OTGTIFF Normal [facility] CBC AUTO DIFFon 08-24-2021 BASO # 0.0 103/ul Normal 0.0-0.1 [facility] Comment on above: Performed By: #### C BC #### [facility] [address] [address] [address] Sugar Givens Basophils/100 WBC (Bld) 0.6 % Normal 0.2-2.0 [facility] Comment on above: Performed By: #### C BC #### [facility] [address] [address] [address] Sugar Givens EO # 0.8 103/ul Critically high 0.0-0.7 [facility] Comment on above: Performed By: #### C BC #### [facility] [address] [address] [address] Sugar Givens Eosinophils/100 WBC (Bld) 12.3 % Critically high 0.9-7.0 [facility] Comment on above: Performed By: #### C BC #### [facility] [address] [address] [address] Sugar Givens Erythrocyte distribution width (RBC) [Ratio] 12.8 % Normal 11.0-15.0 [facility] Comment on above: Performed By: #### C BC #### [facility] [address] [address] [address] Sugar Givens Hematocrit (Bld) [Volume fraction] 35.1 % Critically low 36.0-48.0 [facility] Comment on above: Performed By: #### C BC #### [facility] [address] [address] [address] Sugar Givens Hemoglobin (Bld) [Mass/Vol] 11.0 g/dL Critically low 12.0-16.0 [facility] Comment on above: Performed By: #### C BC #### [facility] [address] [address] [address] Sugar Givens IG # 0.03 10e3/ul Normal 0.00-0.03 [facility] Comment on above: Performed By: #### C BC #### [facility] [address] [address] [address] Sugar Givens IG % 0.4 % Normal 0.0-0.5 [facility] Comment on above: Performed By: #### C BC #### [facility] [address] [place] [address] Dr. Sugar Givens LYMPH # 2.1 103/ul Normal 1.2-3.8 [facility] Comment on above: Performed By: #### C BC #### [facility] [address] [place] [address] Dr. Sugar Givens Lymphocytes/100 WBC (Bld) 31.4 % Normal 20.5-60.0 [facility] Comment on above: Performed By: #### C BC #### [facility] [address] [place] [address] Dr. Sugar Givens MANUAL DIFF REQ NO Normal [facility] Comment on above: Performed By: #### C BC #### [facility] [address] [place] [address] Dr. Sugar Givens MCH (RBC) [Entitic mass] 27.4 pg Normal 26.7-34.0 [facility] Comment on above: Performed By: #### C BC #### [facility] [address] [place] [address] Dr. Sugar Givens MCHC (RBC) [Mass/Vol] 31.3 g/dL Normal 29.9-35.2 [facility] Comment on above: Performed By: #### C BC #### [facility] [address] [place] [address] Dr. Sugar Givens MCV (RBC) [Entitic vol] 87.3 fL Normal 81.0-99.0 [facility] Comment on above: Performed By: #### C BC #### [facility] [address] [place] [address] Dr. Sugar Givens MONO # 0.4 103/ul Normal 0.3-0.8 [facility] Comment on above: Performed By: #### C BC #### [facility] [address] [address] [address] Sugar Givens Monocytes/100 WBC (Bld) 5.8 % Normal 1.7-12.0 [facility] Comment on above: Performed By: #### C BC #### [facility] [address] [place] [address] Dr. Sugar Givens NEUT # 3.3 103/ul Normal 1.4-6.5 [facility] Comment on above: Performed By: #### C BC #### [facility] [address] [place] [address] Dr. Sugar Givens Neutrophils/100 WBC (Bld) 49.5 % Normal 43.0-75.0 [facility] Comment on above: Performed By: #### C BC #### [facility] [address] [place] [address] Dr. Sugar Givens Platelet mean volume (Bld) [Entitic vol] 10.4 fL Normal 9.5-13.5 [facility] Comment on above: Performed By: #### C BC #### [facility] [address] [place] [address] Dr. Sugar Givens PLT 320 103/ul Normal 150-450 [facility] Comment on above: Performed By: #### C BC #### [facility] [address] [place] [address] Dr. Sugar Givens RBC 4.02 106/ul Critically low 4.20-5.40 [facility] Comment on above: Performed By: #### C BC #### [facility] [address] [place] [address] Dr. Sugar Givens WBC 6.8 103/ul Normal 4.0-11.0 [facility] Comment on above: Performed By: #### C BC #### [facility] [address] [place] [address] Dr. Sugar Givens GLYCOHEMOGLOBIN A1Con 2021 ADA RECOMMENDATION SEE BELOW Normal [facility] Comment on above: Result Comment: ADA RECOMMENDED LIMIT 4.0 - 6.0 ADA THERAPEUTIC TARGET < 7.0 ACTION SUGGESTED > 7.0 Performed By: #### A 1C #### [facility] [address] [place] [address] Dr. Sugar Givens Glucose [Mass/Vol] 151 mg/dL Normal [facility] Comment on above: Performed By: #### A 1C #### [facility] [address] [place] [address] Dr. Sugar Givens HbA1c (Bld) [Mass fraction] 6.9 % Critically high 4.5-6.2 [facility] Comment on above: Performed By: #### A 1C #### [facility] [address] [place] [address] Dr. Sugar Givens LIPID PROFILEon 08-24-2021 CHOL-HDL RATIO NORM SEE BELOW Normal [facility] Comment on above: Result Comment: 3.3 - 4.4 LOW RISK 4.4 - 7.1 AVERAGE RISK 7.1 - 11.0 MODERATE RISK >11.0 HIGH RISK Performed By: #### C MP, LIPID #### [facility] [address] [place] [address] Dr. Sguar Givens Cholesterol [Mass/Vol] 194 mg/dL Normal <=200 Th [facility] Comment on above: Performed By: #### C MP, LIPID #### [facility] [address] [place] [address] Dr. Sugar Givens Cholesterol in HDL [Mass/Vol] 38 mg/dL Critically low 40-60 [facility] Comment on above: Performed By: #### C MP, LIPID #### [facility] [address] [place] [address] Dr. Sugar Givens Cholesterol in LDL [Mass/Vol] 100.2 mg/dL Normal [facility] Comment on above: Performed By: #### C MP, LIPID #### [facility] [address] [place] [address] Dr. Sugar Givens Cholesterol.total/Choles terol in HDL [Mass ratio] 5.1 {ratio} Normal [facility] Comment on above: Performed By: #### C MP, LIPID #### [facility] [address] [address] [address] Sugar Givens HDL NORMAL > or = 60 mg/dl - LOW CARDIOVASCULAR RISK <40 mg/dl - HIGH CARDIOVASCULAR RISK Normal [facility] Comment on above: Performed By: #### C MP, LIPID #### [facility] [address] [address] [address] Sugar Givens LDL CALC NORMAL SEE BELOW Normal [facility] Comment on above: Result Comment: <100 mg/dl OPTIMAL 100 - 129 mg/dl NEAR OR ABOVE OPTIMAL 130 - 159 mg/dl BORDERLINE HIGH 160 - 189 mg/dl HIGH >190 mg/dl VERY HIGH Performed By: #### C MP, LIPID #### [facility] [address] [place] [address] Dr. Sugar Givens Triglyceride [Mass/Vol] 279 mg/dL Critically high <=150 [facility] Comment on above: Performed By: #### C MP, LIPID #### [facility] [address] [address] [address] Sugar Givens VLDL CALC 55.8 mg/dL Normal [facility] Comment on above: Performed By: #### C MP, LIPID #### [facility] [address] [place] [address] Dr. Sugar Givens MICROALBUMIN, RAND URon 08-06 mALB <1.3 Normal <=30.0 [facility] Comment on above: Performed By: #### M ALBR #### [facility] [address] [address] [address] Sugar Givens PROF 14(COMP METB)on 022 Albumin [Mass/Vol] 3.6 g/dL Normal 3.4-5.0 [facility] Comment on above: Performed By: #### C MP, LIPID #### [facility] [address] [place] [address] Dr. Sugar Givens Albumin/Globulin [Mass ratio] 0.9 {ratio} Normal [facility] Comment on above: Performed By: #### C MP, LIPID #### [facility] [address] [address] [address] Sugar Givens ALP [Catalytic activity/Vol] 122 U/L Critically high 46-116 [facility] Comment on above: Performed By: #### C MP, LIPID #### [facility] [address] [address] [address] Sugar Givens ALT [Catalytic activity/Vol] 26 U/L Normal 14-59 [facility] Comment on above: Performed By: #### C MP, LIPID #### [facility] [address] [address] [address] Sugar Givens Anion gap [Moles/Vol] 12.0 mmol/L Normal [facility] Comment on above: Performed By: #### C MP, LIPID #### [facility] [address] [place] [address] Dr. Sugar Givens AST [Catalytic activity/Vol] 28 U/L Normal 15-37 [facility] Comment on above: Performed By: #### C MP, LIPID #### [facility] [address] [address] [address] Sugar Givens Bilirubin [Mass/Vol] 0.4 mg/dL Normal 0.2-1.0 [facility] Comment on above: Performed By: #### C MP, LIPID #### [facility] [address] [address] [address] Sugar Givens Calcium [Mass/Vol] 9.2 mg/dL Normal 8.5-10.1 [facility] Comment on above: Performed By: #### C MP, LIPID #### [facility] [address] [address] [address] Sugar Givens Chloride [Moles/Vol] 104 mmol/L Normal 98-107 [facility] Comment on above: Performed By: #### C MP, LIPID #### [facility] [address] [address] [address] Sugar Givens CO2 [Moles/Vol] 27.5 mmol/L Normal 21.0-32.0 [facility] Comment on above: Performed By: #### C MP, LIPID #### [facility] [address] [address] [address] Sugar Givens Creatinine [Mass/Vol] 0.82 mg/dL Normal 0.55-1.02 [facility] Comment on above: Performed By: #### C MP, LIPID #### [facility] [address] [address] [address] Sugar Givens EGFR-AF BAHRAINI >60 Normal >=60 [facility] Comment on above: Performed By: #### C MP, LIPID #### [facility] [address] [address] [address] Sugar Givens EGFR-NON AF BAHRAINI >60 Normal >=60 [facility] Comment on above: Performed By: #### C MP, LIPID #### [facility] [address] [address] [address] Sugar Givens Globulin (S) [Mass/Vol] 4.1 g/dL Normal [facility] [facility] Comment on above: Performed By: #### C MP, LIPID #### [facility] [address] [address] [address] Sugar Givnes Glucose [Mass/Vol] 121 mg/dL Critically high 74-106 [facility] [place] [facility] Comment on above: Performed By: #### C MP, LIPID #### [facility] [address] [address] [address] Sugar Givens Potassium [Moles/Vol] 4.5 mmol/L Normal 3.5-5.1 [facility] Comment on above: Performed By: #### C MP, LIPID #### [facility] [address] [address] [address] Sugar Givens Protein [Mass/Vol] 7.7 g/dL Normal 6.4-8.2 [facility] Comment on above: Performed By: #### C MP, LIPID #### [facility] [address] [address] [address] Sugar Givens Sodium [Moles/Vol] 139 mmol/L Normal 136-145 [facility] Comment on above: Performed By: #### C MP, LIPID #### [facility] [address] [place], [place] [address] Dr. Sugar Givens Urea nitrogen [Mass/Vol] 16.0 mg/dL Normal 7.0-18.0 [facility] Comment on above: Performed By: #### C MP, LIPID #### [facility] [address], [place] [address] Dr. Sugar Givens Urea nitrogen/Creatinine [Mass ratio] 19.5 mg/mg Normal [facility] Comment on above: Performed By: #### C MP, LIPID #### [facility] [address], [place] [address] Dr. Sugar Givens XR femur RT 2V*on 12-29-2020 XR femur RT 2V* [facility] [employer] Other XR femur RT 2V* [facility] [employer] Other XR femur RT 2V* [address] [place] [address] [employer] Other XR femur RT 2V* [place] [id number] [facility] [employer] Other XR femur RT 2V* XRay Report [employer] Other XR femur RT 2V* Signed Narrative Other XR femur RT 2V* Patient: Emiliana Webb MR#: [id number] [place] [employer] Other XR femur RT 2V* 3564 Narrative Other XR femur RT 2V* : 1950 Acct:[id number] [employer] Other XR femur RT 2V* Age/Sex: 70 / F ADM Date: 12/29/20 [employer] Other XR femur RT 2V* Loc: [facility] Room: Type: [facility] [employer] Other XR femur RT 2V* Attending Dr: Dashawn Diallo DO [employer] Other XR femur RT 2V* Ordering Provider: Dashawn Diallo, DO [employer] Other XR femur RT 2V* Date of Service: 12/29/20 [employer] Other XR femur RT 2V* XR/XR femur RT 2V*: Closed displaced subtrochanteric fracture of right [employer] Other XR femur RT 2V* femur wit [facility] [employer] Other XR femur RT 2V* Copies to: Dashawn Diallo, DO [employer] Other XR femur RT 2V* RIGHT FEMUR - 2 views [employer] Other XR femur RT 2V* COMPARISON: 11/29/2020 [employer] Other XR femur RT 2V* CLINICAL DATA: Follow-up femur fracture. [employer] Other XR femur RT 2V* AP and lateral views were obtained. There is osteopenia. There is a dynamic hip screw with long [employer] Other XR femur RT 2V* intramedullary jcarlos. The fracture at the proximal femoral shaft is in satisfactory alignment. There i [employer] Other XR femur RT 2V* s a small amount of developing callus formation. No new fractures or dislocation are noted. There [employer] Other XR femur RT 2V* are degenerative changes at the knee with joint space narrowing and marginal spurring. No soft [employer] Other XR femur RT 2V* tissue abnormalities are present. [employer] Other XR femur RT 2V* XR/XR femur RT 2V* [employer] Other XR femur RT 2V* IMPRESSION: [facility] [employer] Other XR femur RT 2V* STABLE HEALING PROXIMAL FEMUR FRACTURE. [employer] Other XR femur RT 2V* Impression dictated by: Elicia Collier M.D.12/29/2020 11:37 AM [employer] Other XR femur RT 2V* Dictation Location: [place] [address] [employer] Other XR femur RT 2V* Transcribed By: PWS 12/29/20 1137 [employer] Other XR femur RT 2V* Dictated By: Elicia Collier MD 12/29/20 1120 [employer] Other XR femur RT 2V* Signed By: Tamtron [facility] [employer] Other XR femur RT 2V* 12/29/20 1136 [employer] Other CBC AUTO DIFFon 11-03-2020 BASO # 0.1 103/ul Normal 0.0-0.1 [facility] Comment on above: Performed By: #### C BC #### [facility] [address] [place] [address] [place] Elicia Basophils/100 WBC (Bld) 0.9 % Normal 0.2-2.0 [facility] [place] [facility] Comment on above: Performed By: #### C BC #### [facility] [address] [place] [address] [place] Elicia EO # 0.3 103/ul Normal 0.0-0.7 [facility] Comment on above: Performed By: #### C BC #### [facility] [address], [place] [address] [place] Elicia Eosinophils/100 WBC (Bld) 4.8 % Normal 0.9-7.0 [facility] Comment on above: Performed By: #### C BC #### [facility] [address] [place] [address] [place] Elicia Erythrocyte distribution width (RBC) [Ratio] 13.0 % Normal 11.0-15.0 [facility] Comment on above: Performed By: #### C BC #### [facility] [address] [place], [place] [id number] Carolina Elicia Hematocrit (Bld) [Volume fraction] 34.9 % Critically low 36.0-48.0 [facility] Comment on above: Performed By: #### C BC #### [facility] [address] [place] [address] Carolina Elicia Hemoglobin (Bld) [Mass/Vol] 10.9 g/dL Critically low 12.0-16.0 [facility] Comment on above: Performed By: #### C BC #### [facility] [address] [place] [address] Carolina Elicia IG # 0.02 10e3/ul Normal 0.00-0.03 [facility] Comment on above: Performed By: #### C BC #### [facility] [address] [place] [address] Carolina Elicia IG % 0.3 % Normal 0.0-0.5 [facility] Comment on above: Performed By: #### C BC #### [facility] [address] [place] [address] Carolina Elicia LYMPH # 2.3 103/ul Normal 1.2-3.8 [facility] Comment on above: Performed By: #### C BC #### [facility] [address] [place] [address] Carolina Rubi Lymphocytes/100 WBC (Bld) 35.2 % Normal 20.5-60.0 [facility] Comment on above: Performed By: #### C BC #### [facility] [address] [place], [place] [id number] Carolina Rubi MANUAL DIFF REQ NO Normal [facility] Comment on above: Performed By: #### C BC #### [facility] [address] [place], [place] [id number] [place] Elicia MCH (RBC) [Entitic mass] 28.0 pg Normal 26.7-34.0 [facility] Comment on above: Performed By: #### C BC #### [facility] [address] [place] [address] Carolina Rubi MCHC (RBC) [Mass/Vol] 31.2 g/dL Normal 29.9-35.2 [facility] Comment on above: Performed By: #### C BC #### [facility] [address] [place], [place] [id number] Carolina Rubi MCV (RBC) [Entitic vol] 89.7 fL Normal 81.0-99.0 [facility] [place] [facility] Comment on above: Performed By: #### C BC #### [facility] [address] [place], [place] [address] Carolina Elicia MONO # 0.4 103/ul Normal 0.3-0.8 [facility] Comment on above: Performed By: #### C BC #### [facility] [address] [place], [place] [address] Carolina Rubi Monocytes/100 WBC (Bld) 6.3 % Normal 1.7-12.0 [facility] [place] [facility] Comment on above: Performed By: #### C BC #### [facility] [address] [place], [place] [address] Carolina Elicia NEUT # 3.4 103/ul Normal 1.4-6.5 [facility] Comment on above: Performed By: #### C BC #### [facility] [address] [place], [place] [address] Carolina Rubi Neutrophils/100 WBC (Bld) 52.5 % Normal 43.0-75.0 [facility] Comment on above: Performed By: #### C BC #### [facility] [address] [place], [place] [phone] Carolina Rubi Platelet mean volume (Bld) [Entitic vol] 11.0 fL Normal 9.5-13.5 [facility] Comment on above: Performed By: #### C BC #### [facility] [address] [place], [place] [address] Carolina Elicia PLT 262 103/ul Normal 150-450 [facility] Comment on above: Performed By: #### C BC #### [facility] [address] [place], [place] [id number] Carolina Elicia RBC 3.89 106/ul Critically low 4.20-5.40 [facility] Comment on above: Performed By: #### C BC #### [facility] [address] [place], [place] [address] Carolinasurekha Rubi WBC 6.5 103/ul Normal 4.0-11.0 [facility] Comment on above: Performed By: #### C BC #### [facility] [address] [place], [place] [id number] Carolina Elicia PROF 14(COMP METB)on 021 Albumin [Mass/Vol] 3.7 g/dL Normal 3.5-5.0 [facility] Comment on above: Performed By: #### T SH, T4, CMP #### [facility] [address] [place] [address] Carolina Elicia Albumin/Globulin [Mass ratio] 1.0 {ratio} Normal [facility] Comment on above: Performed By: #### T SH, T4, CMP #### [facility] [address] [place] [address] Carolina Elicia ALP [Catalytic activity/Vol] 98 U/L Normal 38-126 [facility] Comment on above: Performed By: #### T SH, T4, CMP #### [facility] [address] [place] [address] Carolina Elicia ALT [Catalytic activity/Vol] 29 U/L Normal 9-52 [facility] Comment on above: Performed By: #### T SH, T4, CMP #### [facility] [address] [place] [address] Carolinasurekha Rubi Anion gap [Moles/Vol] 11.6 mmol/L Normal [facility] Comment on above: Performed By: #### T SH, T4, CMP #### [facility] [address] [place], [place] [id number] Carolina Elicia AST [Catalytic activity/Vol] 29 U/L Normal 14-36 [facility] Comment on above: Performed By: #### T SH, T4, CMP #### [facility] [address] [place], [place] [address] Carolina Elicia Bilirubin [Mass/Vol] 0.3 mg/dL Normal 0.2-1.3 [facility] Comment on above: Performed By: #### T SH, T4, CMP #### [facility] [address] [place] [address] Carolina Elicia Calcium [Mass/Vol] 9.2 mg/dL Normal 8.4-10.2 [facility] Comment on above: Performed By: #### T SH, T4, CMP #### [facility] [address] [place] [address] Carolina Elicia Chloride [Moles/Vol] 107 mmol/L Normal 98-107 [facility] Comment on above: Performed By: #### T SH, T4, CMP #### [facility] [address] [place] [address] Carolina Elicia CO2 [Moles/Vol] 27.1 mmol/L Normal 22.0-30.0 [facility] Comment on above: Performed By: #### T SH, T4, CMP #### [facility] [address] [place] [address] Carolina Elicia Creatinine [Mass/Vol] 0.80 mg/dL Normal 0.52-1.04 [facility] Comment on above: Performed By: #### T CHELSEA, T4, CMP #### [facility] [address] [place], [place] [id number] [place] Elicia EGFR-AF BAHRAINI >60 Normal >=60 [facility] Comment on above: Performed By: #### T SH, T4, CMP #### [facility] [address] [place] [address] Carolina Elicia EGFR-NON AF BAHRAINI >60 Normal >=60 [facility] Comment on above: Performed By: #### T SH, T4, CMP #### [facility] [address] [place] [address] Carolina Elicia Globulin (S) [Mass/Vol] 3.6 g/dL Normal [facility] [place] [facility] Comment on above: Performed By: #### T SH, T4, CMP #### [facility] [address] [place] [address] Carolina Elicia Glucose [Mass/Vol] 112 mg/dL Critically high 74-106 [facility] [place] [facility] Comment on above: Performed By: #### T CHELSEA T4, CMP #### [facility] [address] [place] [address] Carolina Elicia Potassium [Moles/Vol] 4.7 mmol/L Normal 3.4-5.0 [facility] Comment on above: Performed By: #### T SH, T4, CMP #### [facility] [address] [place] [address] Carolina Elicia Protein [Mass/Vol] 7.3 g/dL Normal 6.1-8.2 [facility] Comment on above: Performed By: #### T CHELSEA T4, CMP #### [facility] [address] [place] [address] Carolina Elicia Sodium [Moles/Vol] 141 mmol/L Normal 137-145 [facility] Comment on above: Performed By: #### T CHELSEA T4, CMP #### [facility] [address] [place] [address] Carolina Elicia Urea nitrogen [Mass/Vol] 9.0 mg/dL Normal 7.0-17.0 [facility] Comment on above: Performed By: #### T CHELSEA T4, CMP #### [facility] [address] [place] [address] Carolina Elicia Urea nitrogen/Creatinine [Mass ratio] 11.2 mg/mg Normal [facility] Comment on above: Performed By: #### T CHELSEA T4, CMP #### [facility] [address] [place] [address] Carolina Elicia T4on 11-03-2020 T4 [Mass/Vol] 7.60 ug/dL Normal 5.53-11.00 [facility] Comment on above: Performed By: #### T CHELSEA T4, CMP #### [facility] [address] [place], [place] [id number] [place] Elicia TSHon 11-03-2020 TSH 0.955 uIU/mL Normal 0.470-4.680 [facility] Comment on above: Performed By: #### T SH, T4, CMP #### [facility] [address], [place] [address] Carolina Rubi TSH RANGE SEE BELOW Normal [facility] Comment on above: Result Comment: <0.3 4 UIU/ml HYPERTHYROID 0.34-5.60 UIU/ml EUTHYROID >5.60 UIU/ml HYPOTHYROID Performed By: #### T SH, T4, CMP #### [facility] [address], [place] [address] Carolina Rubi Vital Signs Date Time Vital Sign Value Performing Clinician Facility 12-21-2024 13:20-0400 Body height 160.02 cm Polina De La Rosa APRN Work Phone: [facility] 12-21-2024 13:20-0400 Body mass index (BMI) [Ratio] 33.5 kg/m2 Polina De La Rosa APRN Work Phone: [facility] 12-21-2024 13:20-0400 Body temperature 97.8 [degF] Polina De La Rosa APRN Work Phone: [facility] 12-21-2024 13:20-0400 Body weight 85.72 kg Polina De La Rosa APRN Work Phone: [facility] 12-21-2024 13:20-0400 Diastolic blood pressure 72 mm[Hg] Polina De La Rosa APRN Work Phone: [facility] 12-21-2024 13:20-0400 Heart rate 102 /min Polina De La Rosa APRN Work Phone: [facility] 12-21-2024 13:20-0400 SaO2% (BldA) [Mass fraction] 96 % Polina De La Rosa APRN Work Phone: [facility] 12-21-2024 13:20-0400 Systolic blood pressure 124 mm[Hg] Polina De La Rosa APRN Work Phone: [facility] 10-22-2024 10:55-0400 Body height 160 cm Lisy Teague MD Work Phone: [facility] 10-22-2024 10:55-0400 Body mass index (BMI) [Ratio] 33.66 kg/m2 Lisy Teague MD Work Phone: [facility] 10-22-2024 10:55-0400 Body weight 86.18 kg Lisy Teague MD Work Phone: [facility] 10-22-2024 10:55-0400 Diastolic blood pressure 77 mm[Hg] Lisy Teague MD Work Phone: [facility] 10-22-2024 10:55-0400 Heart rate 71 /min Lisy Teague MD Work Phone: [facility] 10-22-2024 10:55-0400 Systolic blood pressure 174 mm[Hg] Lisy Teague MD Work Phone: [facility] 09-15-2024 13:35-0400 Body height 160.02 cm Polina De La Rosa APRN Work Phone: [facility] 09-15-2024 13:35-0400 Body mass index (BMI) [Ratio] 33.6 kg/m2 Polina De La Rosa [employer] Work Phone: [facility] 09-15-2024 13:35-0400 Body temperature 96.9 [degF] Polina De La Rosa [employer] Work Phone: [facility] 09-15-2024 13:35-0400 Body weight 86.18 kg Polina De La Rosa [employer] Work Phone: [facility] 09-15-2024 13:35-0400 Diastolic blood pressure 82 mm[Hg] Polina De La Rosa [employer] Work Phone: [facility] 09-15-2024 13:35-0400 Heart rate 86 /min Polina De La Rosa APRN Work Phone: [facility] 09-15-2024 13:35-0400 SaO2% (BldA) [Mass fraction] 96 % Polina Rj [employer] Work Phone: [facility] 09-15-2024 13:35-0400 Systolic blood pressure 126 mm[Hg] Polina Rj [employer] Work Phone: [facility] 09-06-2024 15:11-0400 Body height 160.02 cm Polina De La Rosa [employer] Work Phone: [facility] 09-06-2024 15:11-0400 Body mass index (BMI) [Ratio] 33.6 kg/m2 Polina Rj [employer] Work Phone: [facility] 09-06-2024 15:11-0400 Body temperature 98.2 [degF] Polina De La Rosa [employer] Work Phone: [facility] 09-06-2024 15:11-0400 Body weight 86.18 kg Polina De La Rosa [employer] Work Phone: [facility] 09-06-2024 15:11-0400 Diastolic blood pressure 80 mm[Hg] Polina De La Rosa [employer] Work Phone: [facility] 09-06-2024 15:11-0400 Heart rate 81 /min Polina De La Rosa APRN Work Phone: [facility] 09-06-2024 15:11-0400 SaO2% (BldA) [Mass fraction] 96 % Polina De La Rosa [employer] Work Phone: [facility] 09-06-2024 15:11-0400 Systolic blood pressure 144 mm[Hg] Polina De La Rosa [employer] Work Phone: [facility] 09-02-2024 15:45-0400 Diastolic blood pressure 87 mm[Hg] Polina De La Rosa APRN Work Phone: [facility] 09-02-2024 15:45-0400 Heart rate 70 /min Polina De La Rosa [employer] Work Phone: [facility] 09-02-2024 15:45-0400 Respiratory rate 18 /min Polina De La Rosa [employer] Work Phone: [facility] 09-02-2024 15:45-0400 SaO2% (BldA) [Mass fraction] 96 % Polina De La Rosa [employer] Work Phone: [facility] 09-02-2024 15:45-0400 Systolic blood pressure 175 mm[Hg] Polina De La Rosa [employer] Work Phone: [facility] 09-02-2024 14:25-0400 Body height 160.02 cm Polina De La Rosa [employer] Work Phone: [facility] 09-02-2024 14:25-0400 Body temperature 97.8 [degF] Polina De La Rosa [employer] Work Phone: [facility] 09-02-2024 14:25-0400 Body weight 86.1 kg Polina De La Rosa [employer] Work Phone: [facility] 06-14-2024 13:04-0400 Body height 160.02 cm [facility] 06-14-2024 13:04-0400 Body mass index (BMI) [Ratio] 35.2 kg/m2 [facility] 06-14-2024 13:04-0400 Body temperature 98.3 [degF] [facility] 06-14-2024 13:04-0400 Body weight 90.03 kg [facility] 06-14-2024 13:04-0400 Diastolic blood pressure 88 mm[Hg] [facility] 06-14-2024 13:04-0400 Heart rate 88 /min [facility] 06-14-2024 13:04-0400 SaO2% (BldA) [Mass fraction] 98 % [facility] 06-14-2024 13:04-0400 Systolic blood pressure 142 mm[Hg] [facility] 03-22-2024 11:08-0500 Body height 160.02 cm [facility] 03-22-2024 11:08-0500 Body mass index (BMI) [Ratio] 33.6 kg/m2 [facility] 03-22-2024 11:08-0500 Body weight 86.18 kg [facility] 03-22-2024 11:08-0500 Diastolic blood pressure 84 mm[Hg] [facility] 03-22-2024 11:08-0500 Heart rate 80 /min [facility] 03-22-2024 11:08-0500 SaO2% (BldA) [Mass fraction] 97 % [facility] 03-22-2024 11:08-0500 Systolic blood pressure 132 mm[Hg] [facility] 12-09-2023 13:13-0400 Body height 160.02 cm [facility] 12-09-2023 13:13-0400 Body mass index (BMI) [Ratio] 32.6 kg/m2 [facility] 12-09-2023 13:13-0400 Body weight 83.57 kg [facility] 12-09-2023 13:13-0400 Diastolic blood pressure 70 mm[Hg] [facility] 12-09-2023 13:13-0400 Heart rate 63 /min [facility] 12-09-2023 13:13-0400 Respiratory rate 18 /min [facility] 12-09-2023 13:13-0400 SaO2% (BldA) [Mass fraction] 98 % [facility] 12-09-2023 13:13-0400 Systolic blood pressure 120 mm[Hg] [facility] 09-10-2023 13:28-0400 Body height 160.02 cm [facility] 09-10-2023 13:28-0400 Body mass index (BMI) [Ratio] 33.1 kg/m2 [facility] 09-10-2023 13:28-0400 Body weight 84.82 kg [facility] 09-10-2023 13:28-0400 Diastolic blood pressure 70 mm[Hg] [facility] 09-10-2023 13:28-0400 Heart rate 73 /min [facility] 09-10-2023 13:28-0400 SaO2% (BldA) [Mass fraction] 98 % [facility] 09-10-2023 13:28-0400 Systolic blood pressure 110 mm[Hg] [facility] 08-07-2023 13:24-0400 Body height 160.02 cm [facility] 08-07-2023 13:24-0400 Body mass index (BMI) [Ratio] 33.8 kg/m2 [facility] 08-07-2023 13:24-0400 Body weight 86.63 kg [facility] 08-07-2023 13:24-0400 Diastolic blood pressure 64 mm[Hg] [facility] 08-07-2023 13:24-0400 Heart rate 78 /min [facility] 08-07-2023 13:24-0400 SaO2% (BldA) [Mass fraction] 97 % [facility] 08-07-2023 13:24-0400 Systolic blood pressure 116 mm[Hg] [facility] 03-12-2023 13:30-0500 Body height 160.02 cm Polina De La Rosa Other [facility] Other 03-12-2023 13:30-0500 Body mass index (BMI) [Ratio] 33.09 kg/m2 Polina De La Rosa Other [employer] Other 03-12-2023 13:30-0500 Body weight 84.73 kg Polina De La Rosa Other [facility] Other 03-12-2023 13:30-0500 Diastolic blood pressure 80 mm[Hg] Polina De La Rosa Other [facility] Other 03-12-2023 13:30-0500 SaO2% (BldA) [Mass fraction] 96 % Polina De La Rosa Other [facility] Other 03-12-2023 13:30-0500 Systolic blood pressure 132 mm[Hg] Polina De La Rosa Other [facility] Other 01-21-2023 13:29-0400 Blood Pressure Location [facility] [place] 01-21-2023 13:29-0400 Diastolic blood pressure 80 mm[Hg] George N[facility] [place] 01-21-2023 13:29-0400 Heart rate 72 /min [facility] [place] 01-21-2023 13:29-0400 Respiratory rate 16 /min [facility] [place] 01-21-2023 13:29-0400 Systolic blood pressure 138 mm[Hg] [facility] [place] 12-16-2022 14:00-0400 Body height 160.02 cm Polina De La Rosa Other [facility] Other 12-16-2022 14:00-0400 Body mass index (BMI) [Ratio] 31.92 kg/m2 Polina De La Rosa Other [facility] Other 12-16-2022 14:00-0400 Body weight 81.74 kg Polina De La Rosa Other [facility] Other 12-16-2022 14:00-0400 Diastolic blood pressure 72 mm[Hg] Polina De La Rosa Other [facility] Other 12-16-2022 14:00-0400 SaO2% (BldA) [Mass fraction] 96 % Polina De La Rosa Other [facility] Other 12-16-2022 14:00-0400 Systolic blood pressure 120 mm[Hg] Polina De La Rosa Other [employer] Other Encounters Encounter Date Encounter Type Care Provider Facility Start: 12-21-2024 End: 12-21-2024 ambulatory Polina De La Rosa APRN Work Phone: [facility] Work Phone: Start: 12-21-2024 End: 12-21-2024 Patient encounter procedure Polina De La Rosa APRN [facility] Work Phone: Start: 10-22-2024 End: 10-22-2024 Bamboo flowsyang Teague MD Work Phone: [facility] Start: 10-22-2024 End: 10-22-2024 Lurdes Teague MD Work Phone: [facility] Start: 10-22-2024 End: 10-22-2024 ambulatory LISY TEAGUE Not Available Start: 10-22-2024 End: 10-22-2024 Office outpatient new 45 minutes Lisy Teague MD Work Phone: [facility] Comment on above: Recurrent epistaxis (Primary Dx); Chronic rhinitis; Hypertension, unspecified type Start: 09-23-2024 Non-patient / Non-visit Nikkie De La Rosa APRN [facility] [employer] Work Phone: Start: 09-15-2024 End: 09-15-2024 ambulatory Polina De La Rosa APRN Work Phone: [facility] Work Phone: Start: 09-15-2024 End: 09-15-2024 Patient encounter procedure Polina eD La Rosa CELERY PACKER Work Phone: [facility] Work Phone: Start: 09-06-2024 End: 09-06-2024 ambulatory Polina De La Rosa CELERY PACKER Work Phone: [facility] Work Phone: Start: 09-06-2024 End: 09-06-2024 Patient encounter procedure Polina De La Rosa CELERY PACKER Work Phone: [facility] Work Phone: Start: 09-02-2024 End: 09-02-2024 Emergency department patient visit Polina Steeljaci LAZON Work Phone: [facility] Work Phone: Start: 06-14-2024 End: 06-14-2024 ambulatory [facility] Work Phone: Start: 06-14-2024 End: 06-14-2024 Patient encounter procedure [facility] Work Phone: Start: 04-06-2024 Non-patient / Non-visit [facility] Work Phone: Start: 03-22-2024 Patient encounter procedure [facility] Start: 03-22-2024 End: 03-22-2024 Patient encounter procedure [facility] Work Phone: Start: 03-19-2024 Non-patient / Non-visit [facility] Work Phone: Start: 12-09-2023 End: 12-09-2023 ambulatory [facility] Work Phone: Start: 12-09-2023 End: 12-09-2023 Patient encounter procedure [facility] Work Phone: Start: 09-10-2023 End: 09-10-2023 ambulatory [facility] Work Phone: Start: 09-10-2023 End: 09-10-2023 Patient encounter procedure [facility] Work Phone: Start: 08-07-2023 End: 08-07-2023 Patient encounter procedure [facility] Work Phone: Start: 05-19-2023 End: 05-19-2023 ambulatory Polina De La Rosa Other [facility] Other Start: 05-19-2023 Telephone encounter Polina Steelursulabrandi her [facility] Start: 03-12-2023 End: 03-12-2023 ambulatory Polina De La Rosa Other [facility] Other Start: 03-12-2023 Office outpatient vi sit 25 minutes Polina De La Rosa [facility] Start: 03-04-2023 End: 03-04-2023 ambulatory Polina De La Rosa Other [facility] Other Start: 03-04-2023 Telephone encounter Polina Steelmike her [facility] Start: 02-19-2023 End: 02-20-2023 ambulatory George ARGUETA Facility:CD:[id number] Start: 02-10-2023 End: 02-10-2023 ambulatory Polina De La Rosa Other [facility] Other Start: 02-10-2023 Telephone encounter Polina Steelmike her [facility] Start: 01-21-2023 End: 01-22-2023 ambulatory George ARGUETA Facility:[facility] Start: 01-21-2023 End: 01-21-2023 Patient encounter procedure George R NILL [facility] Start: 01-09-2023 ambulatory George ARGUETA Facility:[facility] Start: 01-06-2023 End: 01-06-2023 ambulatory Polina De La Rosa Other [facility] Other Start: 01-06-2023 Telephone encounter Polina fong [facility] Start: 12-16-2022 End: 12-16-2022 ambulatory Polina De La Rosa Other [facility] Other Start: 12-16-2022 Patient encounter procedure Polina De La Rosa [facility] Start: 12-11-2022 End: 12-12-2022 ambulatory Héctor Estrada MD Facility:[facility] Start: 11-28-2022 End: 11-29-2022 ambulatory Héctor Estrada MD Facility:[facility] Start: 11-21-2022 ambulatory Héctor Estrada MD Fac ility:[facility] Start: 08-24-2021 End: 08-25-[address] DORIAN HORTON Facility:[facility] Start: 12-29-2020 Postop follow up vis it related to original px Dashawn Diallo [facility] Start: 11-03-2020 End: 11-04-[address] DORIAN HORTON Facility:[facility] Procedures Date Procedure Procedure Detail Performing Clinician Start: 05-10-2019 Cataract extraction and insertion of intraocular lens George ARGUETA Comment on above: LEFT Start: 03-22-2019 Cataract extraction and insertion of intraocular lens George HAJIL Comment on above: CATARACT EXTRACTION W/ INTRAOCULAR LENS IMPLANTATION right Start: 10-02-2018 Colonoscopy Lisy roldan MD Work Phone: Start: 10-02-2018 Colonoscopy George RODRIGUEZ section George NIL L Cholecystectomy George NILL Fracture of lower li mb (disorder) George ARGUETA Plan of Treatment Date Care Activity Detail Author Start: 10-02-2028 Screening for malignant neoplasm of colon [facility] Start: 12-06-2024 Influenza vaccination Influenza Vaccine (#1) [facility] Start: 06-14-1999 Pneumococcal Vaccine: 65+ Years (1 of 1 - PCV) Pneumococcal Vaccine: 65+ Years (1 of 1 - PCV) [facility] Start: 1950 Screening for malignant neoplasm of colon [facility] Comprehensive metabo lic 1999 panel - Serum or Plasma [facility] DXA Skeletal system. axial Views for bone density [facility] MG Breast - bilatera l Screening [facility] Patient Education Nosebleeds [facility] Work Phone: Patient referral [facility] Work Phone: [facility] Immunizations Immunization Date Immunization Notes Care Provider Fa cility 02-12-2024 influenza virus vaccine, unspecified formulation Lisy Teague MD Work Phone: [facility] 07-27-2020 SARS-CoV-2 (COVID-19 ) mRNA BNT-162b2 vax George ARGUETA [facility] 07-05-2020 SARS-CoV-2 (COVID-19 ) mRNA BNT-162b2 vax George HAJIL [facility] NEGATED: Highlighted row has not occurred!01-21-2023 influenza virus vaccine, unspecified formulation George ARGUETA [facility] Payers Date Payer Category Payer Self-pay [id number] 2024 Medicare (Managed Care) KARRIE PALUMBO [id number] 2024 Medicare [id number] 2017 Self-pay ABC 1959 Unknown [id number] 1949 Unknown [id number] [id number] 1949 Unknown [id number]. [id number] 1949 Unknown [id number]. [id number] 1949 Unknown [id number] [id number]. [id number] 1949 Unknown [id number] [id number] 1949 Unknown [id number] [id number]. 2.727 1949 Unknown [id number] [id number]. [id number] 1949 Unknown [id number] [id number] Medicare Medicare [id number] Unknown [id number] [id number] Social History Date Type Detail Facility Start: 10-22-2024 Sex Assigned At F [facility] Start: 01-21-2023 End: 09-02-2024 Tobacco smoking status Never smoked tobacco (finding) [facility] Tobacco smoking status Never [facility] Start: 1950 Sex Assigned At Female F [facility] Start: 06-14-2024 End: 09-15-2024 Sex Female (finding) [facility] Tobacco smoking stat NHIS Tobacco smoking consumption unknown [facility] Start: 1950 Sex assigned at Not on file [facility] Start: 10-22-2024 Tobacco use and exposure Smokeless tobacco non-user [facility] Start: 10-22-2024 Alcoholic beverage intake Ex-drinker (finding) [facility] Start: 10-22-2024 History of Social function [facility] Medical Equipment Procedure Code Equipment Code Equipment Origin al Text Equipment Identifier Dates CATARACT EXTRACT ION W/ INTRAOCULAR LENS Sridevi Shankar MD 03/22/19 Non Biological Eye R {[id number] FDA Start: 03-22-2019 CATARACT EXTRACT ION W/ INTRAOCULAR LENS Sridevi Shankar MD 05/10/19 Non Biological Eye L {[id number] FDA Start: 05-10-2019 Orthopaedic bone screw, non-bioabsorbable, non-sterile [id number] FDA Start: 11-07-2020 Femur nail, sterile ()[id number] FDA Start: 11-07-2020 Spiral blade [id number] FDA Start: 11-07-2020 Functional Status Date Assessment Result Facility 01-21-2023 Functional Status N/A [facility] Clinical Notes 12-29-2020 to 10-22-2024 Lisy Teague MD - 10/22/2024 10:50 AM EDT Note Date & Type Note Facility 10-22-2024 History of Presen t illness Narrative Images from the original note were not included. Subjective Patient ID: Emiliana Webb is a 74 y.o. female who presents for Epistaxis (Nose Bleed) Pt reports recurrent epistaxis on the left. No blood thinners. Bleeds ant and post. Last bled a few days ago. Nose has not needed to be packed. Review of Systems All other systems reviewed and are negative. No family history on file. Active Ambulatory Problems Diagnosis Date Noted Arthritis of carpometacarpal (CMC) joint of left thumb 10/20/2024 Hypertension 10/20/2024 Impaired fasting glucose 10/20/2024 Carpal tunnel syndrome of right wrist 10/20/2024 BMI 31.0-31.9,adult 10/20/2024 Chronic pain syndrome 10/20/2024 Positive colorectal cancer screening using Cologuard test 10/20/2024 Resolved Ambulatory Problems Diagnosis Date Noted No Resolved Ambulatory Problems Past Medical History: Diagnosis Date Nosebleed Past Surgical History: Procedure Laterality Date APPENDECTOMY SECTION, CLASSIC X 3 CHOLECYSTECTOMY Allergies Allergen Reactions Bee Venom Other Reaction(s): Unknown Iodinated Contrast Media Other Reaction(s): Unknown Latex Current Outpatient Medications on File Prior to Visit Medication Sig Dispense Refill carvedilol (Coreg) 6.25 MG tablet 1 (one) time each day at the same time HYDROcodone-acetaminophen ([place]) 5-325 MG tablet every 6 (six) hours lisinopril 5 MG tablet 1 (one) time each day at the same time metFORMIN (Glucophage) 1000 MG tablet Take 1,000 mg by mouth in the morning and 1,000 mg in the evening. Take with meals. No current facility-administered medications on file prior to visit. Objective Last Recorded Vitals Vitals: 10/22/24 1055 BP: 174/77 Pulse: 71 ENT Physical Exam Constitutional Appearance: patient appears well-developed, well-nourished and well-groomed, Head and Face Appearance: head appears normal and face appears atraumatic; Ear Ear Canals: right ear canal normal; left ear canal normal; Tympanic Membranes: right tympanic membrane normal; left tympanic membrane normal; Nose External Nose: nares patent bilaterally; external nose normal; Internal Nose: septum normal; Oral Cavity/Oropharynx Tongue: normal; Oral mucosa: normal; Hard palate: normal; Soft palate: normal; Tonsils: normal; Neck Neck: neck normal; neck palpation normal; Thyroid: thyroid normal; Respiratory Inspection: breathing unlabored; normal breathing rate; Auscultation: breath sounds are clear; Cardiovascular Inspection: extremities are warm and well perfused; no peripheral edema present; Auscultation: regular rate and rhythm; \Patient ID: Emiliana Webb is a 74 y.o. female. Procedures After nasal decongestion, a diagnostic nasal endoscopy was performed bilaterally. The endoscope was placed into the nose and a thorough inspection of internal nose including the septum skull base lateral nasal wall structures was performed. There is no polypoisis sinus drainage mup Assessment/Plan Diagnoses and all orders for this visit: Recurrent epistaxis Chronic rhinitis - mupirocin (Bactroban) 2 % ointment; Apply to each side of the nose twice daily for 2 weeks Hypertension, unspecified type No bleeding site evident. Bactroban ointment to each side of the nose BID x 2 weeks. F/U if recurs. BP elevated today. F/U with PCP to consider increased BP meds documented in this encounter [facility] 09-23-2024 Chief complaint+R leatha for visit Narrative Referral Order September 23, 2024 1:49 pm 3 month f/u December 21, 2024 1:18pm Reason for Visit Admit Date Degenerative arthritis of lumbar spine S eptember 2024 1:18pm Other chronic pain December 21, 2024 1:18pm Primary hypertension December 21 1:18pm Type 2 diabetes mellitus December 21, 2024 1:18pm [facility] Work Phone: 1(854) 698-229906-02-2025 Evaluation note* Diagnosis Onset Date Resolution Status Admit Date Back pain acute September 06, 2024 3:00pm Degenerative arthritis of lumbar spine acute September 06, 2024 3 :00pm Other chronic pain acute September 062024 3:00pm Primary hypertension acute September 06, 2024 3:00pm Epistaxis inactive September 06, 2024 3:00pm Back pain acute September 15 1:30pm Degenerative arthritis of lumbar spine acute September 15, 2024 1:30pm Other chronic pain acute September 052024 1:30pm Pre-diabetes acute September 15, 2 025 1:30pm Primary hypertension acute September 15, 2024 1:30pm [facility] Work Phone: 1(688) 691-705303-10-2025 Evaluation note* Diagnosis Onset Date Resolution Status Admit Date Back pain acute June 14 1:01pm Degenerative arthritis of alia mbar spine acute June 14, 2024 1:01pm Other chronic pain acute June 14, 2024 1:01pm Pre-diabetes acute June 14, 2024 1:01pm Primary hypertension acute [facility] 2024 1:01pm [facility] Work Phone: 1(423) 572-407403-10-2025 Evaluation note* Diagnosis Onset Date Resolution Status Admit Date Back pain acute June 14 1:01pm Degenerative arthritis of alia mbar spine acute June 14, 2024 1:01pm Other chronic pain acute June 14, 2024 1:01pm Pre-diabetes acute June 14, 2024 1:01pm Primary hypertension acute [facility] h 2024 1:01pm Back pain acute September 06, 2024 3:00pm Degenerative arthritis of alia mbar spine acute September 06, 2024 3 :00pm Epistaxis acute September 06, 2024 3:00pm Other chronic pain acute September 062024 3:00pm [facility] Work Phone: 1(729) 107-343912-16-2024 Evaluation note* Diagnosis Onset Date Resolution Status Admit Date Back pain acute March 22, 2024 10:54am Degenerative arthritis of lumbar spine acute March 22, 10:54am Medicare annual wellness visit, subsequent acute March 22, 2024 10:54am Other chronic pain acute [facility] er 2023 10:54am Post-menopausal acute March 22, 2024 10:54am Pre-diabetes acute March 10:54am Primary hypertension acute Dece er 2023 10:54am Screening for breast cancer acute March 22, 2024 10:54am Screening for osteoporosis acute March 22, 2024 10:54am Back pain acute June 14 1:01pm Degenerative arthritis of lumbar spine acute June 14, 2024 1:01pm Other chronic pain acute June 14, 2024 1:01pm Pre-diabetes acute June 14, 2024 1:01pm Primary hypertension acute [facility] h 2024 1:01pm [facility] Work Phone: 1(272) 684-193902-12-2024 Evaluation note* Encounter Date Diagnosis Assessment Notes Treatment Notes Treatment Clinical Notes May, Other chronic pain (ICD-10 - G89.29) [facility] Other 12-06-2023 Evaluation note* Encounter Date Diagnosis [...] educated on the risks and benefits of fci opioid use. Hydrocodone was refilled today opioid risk assessment was. Patient is compliant with opioid medication. The patient denies any opioid related side effects. Last filled on 02/10/2023. Controlled substance agreement signed at her previous appt. She well controlled on current therapy, continue present regimen Mar, Low back pain, unspecified (ICD-10 - M54.50) [facility] Other 11-06-2023 Evaluation note* Encounter Date Diagnosis Assessment Notes Treatment Notes Treatment Clinical Notes Feb, Low back pain, unspecified (ICD-10 - M54.50) Feb, Other chronic pain (ICD-10 - G89.29) [facility] Other 10-17-2023 NoteChief Complaint consultation for positive [...] Recorded SARS-CoV-2 (COVID-19) mRNA BNT-162b2 vax 07/05/2020 [facility] CenterComment on above:Result Comment: Electronically Signed By: ELLIE NIDAYE, George Trinh\Date and Time Signed: 01/21/23 14:00 [id number] Evaluation note * Encounter Date Diagnosis Assessment [...] - R73.01) Will obtain labs from [facility] Sugars reviewed and above normal values [...] each discussed. Patient opts for cologuard screening. [facility] Other 09-24-2021 Evaluation note* Encounter Date Diagnosis [...] Other specified postprocedural states (ICD-10 - Z98.890) [facility] Other Evaluation + Plan note No data available for this section [facility] Evaluation noteNo InformationNort Jusp Other Evaluation note* Diagnosis Onset Date Resolution Status Back pain acute Contusion of left knee acute Contusion of rib on left side acute Fall acute Other chronic pain acute Pre-diabetes acute Back pain acute Other chronic pain acute [facility] Work Phone: Evaluation note* Diagnosis Onset Date Resolution Status Back pain acute Other chronic pain acute Back pain acute Other chronic pain acute Pre-diabetes acute Primary hypertension acute [facility] Work Phone: Evaluation note* Diagnosis Recurrent epistaxis- Primary Chronic rhinitis Hypertension, unspecified type [facility] Diagnosis Onset Date Resolution Status Admit Date Degenerative arthritis of lumbar spine acute December 21, 2024 1:18pm Other chronic pain acute 2024 1:18pm Primary hypertension acute Dec 1:18pm Type 2 diabetes mellitus acute December 21, 2024 1:18pm [facility] Work Phone: History general Narrative - Reported* Type Description Date Medical History HTN Medical History Pre-diabetes Medical History Back pain Surgical History x3 Surgical History Gallbladder Surgical History Leg surgery, jcarlos placement [facility] Other Hospital Discharge instructions No data available for this section [facility] Discharge instructions Additional Instructions Take your meds as prescribed [facility] note No data available for this section [facility] Reason for referral (narrative)* Reason *FU 02/17 needs ev aluation for chronic back pain Diagnosis 1 Low back pain, unspe cified (M54.50) Diagnosis 2 Other chronic pain ( G89.29) Referral Organization [facility] malia Referring Provider First Name Polina Referring Provider Last Name Rj Referring Provider Specialty Nurse Pract dianna Referred Organization [facility] Referred Address [address], [place],[address] Referred Provider Specialty Pain Medicin e Referral Priority Routine General Notes Tracey Hancock 04:38:21 PM >received today, attachments made, notes locked, referral faxed Clinical Notes f: [id number] [facility] Other Reason for referral (narrative)No reason for referral [facility] Work Phone: Summary Purpose Family History Relationship Condition Age [...] pain Other chronic pain Pre-diabetes Primary hypertension Chief Complaint Admit Date CC Adult Risk Stratification March 192023 1:43pm Wellness March 22, 2024 10:54am 3 month f/u June 14, 2024 1:0 1pm Reason for Visit Admit Date Back pain March 22, 2024 10:54am Degenerative arthritis of lumbar spine D ecember 2023 10:54am Medicare annual wellness visit, subseque nt March 22, 2024 10:54am Other chronic pain March 22, 2024 10:54am Post-menopausal March 22, 2024 10:54am Pre-diabetes March 22, 2024 10:54am Primary hypertension March 22, 2024 10:54am Screening for breast cancer March 10:54am Screening for osteoporosis March 10:54am Back pain June 14, 2024 1:0 1pm Degenerative arthritis of lumbar spine M 2024 1:01pm Other chronic pain June 14, 2024 1:0 1pm Pre-diabetes June 14, 2024 1:0 1pm Primary hypertension June 14, 2024 1: 01pm Chief Complaint Admit Date 3 month f/u June 14, 2024 1:0 1pm nosebleed September 02, 2024 2:15p m Reason for Visit Admit Date Back pain June 14, 2024 1:0 1pm Degenerative arthritis of lumbar spine M arch 2024 1:01pm Other chronic pain June 14, 2024 1:0 1pm Pre-diabetes June 14, 2024 1:0 1pm Primary hypertension June 14, 2024 1: 01pm Chief Complaint Admit Date 3 month f/u June 14, 2024 1:0 1pm nosebleed September 02, 2024 2:15p m nosebleed/[facility] follow up September 06, 2024 3:00pm Reason for Visit Admit Date Back pain June 14, 2024 1:0 1pm Degenerative arthritis of lumbar spine M arch 2024 1:01pm Other chronic pain June 14, 2024 1:0 1pm Pre-diabetes June 14, 2024 1:0 1pm Primary hypertension June 14, 2024 1: 01pm Back pain September 06, 2024 3:00p m Degenerative arthritis of lumbar spine J [facility] 2024 3:00pm Epistaxis September 06, 2024 3:00p m Other chronic pain September 06, 2024 3:00p m Chief Complaint Admit Date nosebleed September 02, 2024 2:15p m nosebleed/[facility] follow up September 06, 2024 3:00pm 3 month f/u September 15, 2024 1:30 pm Reason for Visit Admit Date Back pain September 06, 2024 3:00p m Degenerative arthritis of lumbar spine J une 2024 3:00pm Other chronic pain September 06, 2024 3:00p m Primary hypertension September 06, 2024 3:00 pm Epistaxis September 06, 2024 3:00p m Back pain September 15, 2024 1:30 pm Degenerative arthritis of lumbar spine J une 2024 1:30pm Other chronic pain September 15, 2024 1:30 pm Pre-diabetes September 15, 2024 1:30 pm Primary hypertension September 15, 2024 1:3 0pm Additional Source Comments INFORMATION SOURCE (unrecogn ized section and content) DATE CREATED AUTHOR 08/31/2021 [facility] DATE CREATED AUTHOR AUTHOR'S ORGANIZ ATION [facility]/12/2022 [facility] DATE CREATED AUTHOR AUTHOR'S ORGANIZ ATION 03/08/2023 [facility] DATE CREATED AUTHOR AUTHOR'S ORGANIZ ATION 09/27/2024 [facility] DATE CREATED AUTHOR AUTHOR'S ORGANIZ ATION 10/25/2024 [facility] EPIC REASON FOR VISIT (unrecogniz ed section and content) Reason Comments Epistaxis (Nose Bleed) Patient Care team informatio n (unrecognized section and content) Team Status: Active Member Role Status Dates Polina De La Rosa APRN MAP MAKER-C Primary Care Provider Active Team Status: Inactive Member Role Status Dates Polina De La Rosa APRN MAP [employer]-C Primary Care Provider, Attending Provider Active Start: August 07, 2023 End: August 07, 2023 Team Status: Inactive Member Role Status Dates Polina De La Rosa APRN MAP [employer]-C Primary Care Provider, Attending Provider Active Start: September 10, 2023 End: September 10, 2023 Team Status: Inactive Member Role Status Dates Polina De La Rosa APRN MAP [employer]KER-C Primary Care Provider, Attending Provider Active Start: December 09, 2023 End: December 09, 2023 Team Status: Active Member Role Status Dates Polina De La Rosa APRN MAP [employer]-C Primary Care Provider, Attending Provider Active Start: March 19, 2024 Team Status: Inactive Member Role Status Dates Polina De La Rosa APRN MAP [employer]-C Primary Care Provider, Attending Provider Active Start: March 22, 2024 End: March 22, 2024 Team Status: Active Member Role Status Dates Polina De La Rosa APRN MAP [employer]-C Primary Care Provider, Attending Provider Active Start: April 06, 2024 Team Status: Inactive Member Role Status Dates Polina De La Rosa APRN MAP [employer]-C Primary Care Provider, Attending Provider Active Start: June 14, 2024 End: June 14, 2024 Team Status: Inactive Member Role Status Dates Polina De La Rosa APRN MAP [employer]-C Primary Care Provider Active Start: September 02, 2024 End: September 02, 2024 Juan Luis Roblero MD Emergency Provider Active Star t: September 02, 2024 End: September 02, 2024 Team Status: Inactive Member Role Status Dates Polina De La Rosa APRN MAP [employer]-C Primary Care Provider, Attending Provider Active Start: September 06, 2024 End: September 06, 2024 Team Status: Inactive Member Role Status Dates Polina De La Rosa APRN NP-C Primary Care Provider, Attending Provider Active Start: September 15, 2024 End: September 15, 2024 Percussion Instructor Relationship Specialty Start Date End Date Polina De La [facility] [address] [place] [id number] PCP - General Family Medicine 09/28/24 Percussion Instructor Relationship Specialty Start Date End Date RealYahaira poePolinadiego Cross NP [address] [place] [id number] PCP - General Family Medicine 09/28/24 Team Status: Active Member Role Status Dates Polina De La Rosa APRN MAP MAKER-C Primary Care Provider Active Start: September 23, 2024 CHIKIS Mcmillan Attending Provider Act kathi Start: September 23, 2024 Team Status: Inactive Member Role Status Dates Polina De La Rosa APRN NP-C Primary Care Provider Active Start: December [id number] End: December 21, 2024 CHIKIS Mcmillan Attending Provider Active Start: December End: December 21, 2024 Goals (unrecognized section and content) Goals may [...] BE BASED ON THE PRIMARY CLINICAL RECORDS. [email or web address] [facility]. provides no warranty or guarantee of the accuracy or completeness of information in this document.
== END 2024-12-28 12:45 | disposition home or self-care (01) ==
PROVIDERS: PCP Nurse Practitioner Family; Visit Provider Nurse Practitioner Family
DX: Z12.31 Encounter for screening mammogram for malignant neoplasm of breast (principal); Z13.820 Encounter for screening for osteoporosis; Z78.0 Asymptomatic menopausal state; M85.88 Other specified disorders of bone density and structure, other site
CPT/HCPCS: 77063; 77067; 77080

== ENCOUNTER 2025-01-24 13:21 | Emergency (ER) | payer MEDICARE, SELFPAY ==
[2025-01-24 13:24] VITALS: BP 135/84; PULSE 105; TEMP 36.9; O2SAT 95; BMI 29.2
--- OUTSIDE RECORDS SUMMARY | 2025-01-24 13:33 | XMS_ITS | CCD ---
Author Organization [facility] CliniSymn Care Team Providers Care Critical Care Educator Name Role Phone HOUSE, DR ALARCON Admitting [...] Care Unavailable Polina De La Rosa Unavailable [phone] VANESSA SHANKAR Primary Care Physician Gabriela Garcia I Unavailable Unavailable George ARGUETA Attending Unavailable George ARGUETA Attending Unavailable Polina De La Rosa APRN Primary Care Provider Juan Luis Roblero MD Emergency Provider [phone] Juan Luis Roblero Attending Unavailable Juan Luis Roblero Admitting Unavailable Polina De La Rosa Primary Care Unavailable Rj HYDRAULIC PILE HAMMER OPERATOR, Polina Cross Primary Care Provider LISY TEAGUE Attending Unavailable POLINA DE LA ROSA Referring Unavailab le Polina De La Rosa APRN Primary Care Provider Polina De La Rosa APRN Attending Provider Polina De La Rosa APRN Primary Care Provider Polina De La Rosa APRN Attending Provider Allergies Allergy Classification Reported Allergen(s) Allergy Type Date of Onset Reaction(s) Facility (1 source) bee venom Drug allergy (disorder) 7 [facility] Repository (9 sources) Latex Drug allergy (disorder) 4 Rash [facility] Repository (2 sources) Shellfish; Translations: [shellfish] Drug allergy (disorder) 4 [facility] Repository (1 source) Omniscan Drug allergy (disorder) 7 [facility] Repository (7 sources) Bee Sting Drug allergy anaphylaxis [email or web address] Other (3 sources) Bee/Wasp/Ant venom; Translations: [Bee Stings] Propensity to adverse reactions to drug (disorder) Anaphylaxis (disorder) [facility] Repository (3 sources) Contrast media; Translations: [Contrast Dye] Propensity to adverse reactions to drug (disorder) Itching [facility] Repository (1 source) Iodine; Translations: [iodine] Drug Allergy [facility] Repository (1 source) Seafood; Translations: [Seafood] Propensity to adverse reactions to drug (disorder) [facility] Repository (7 sources) Shellfish; Translations: [shellfish] Drug allergy Unknown, Itching [facility] (6 sources) Contrast Allergy PreMed Pack Drug allergy Unknown [email or web address] Other (9 sources) Shellfish; Translations: [shellfish derived] Allergy to substance 4 Unknown Reaction [facility] (9 sources) bee venom protein (honey bee); Translations: [bee venom protein (honey bee)] Allergy to substance 4 anaphylaxis [facility] (11 sources) Iodinated Contrast Media; Translations: [Iodinated Contrast Media] Allergy to substance 4 Anaphylaxis [facility] (1 source) Latex Drug allergy (disorder) 5 [facility] Repository (2 sources) Honey bee venom Allergy to substance 5 [facility] (2 sources) Latex Propensity to adverse reactions 5 [facility] Medications Current Medications Medication Drug Class(es) Dates Sig (Normalized) Sig (Original) carvedilol 3.125 mg oral tablet (20 sources) alpha-Adrenergic Moises, beta-Adrenergic Moises Start: 03-22-2024 End: 09-15-2024 take 1 tablet by mouth once daily Start: 02-18-2018 End: 03-22-2024 take 3.125 mg [...] 2 weeks 15 g 1 10/22/2024 Active Start: 10-22-2024 mupirocin (Lois troban) 2 % ointment Indications: Chronic rhinitis Apply to each side of the nose twice daily for 2 weeks 15 g 1 10/22/2024 Active Completed/Discontinued Medications Medication Drug Class(es) Dates Sig (Normalized) Sig (Original) acetaminophen 500 mg oral tablet (8 sources) Start: 11-09-2020 End: 05-21-2023 take 2 [...] twice daily as needed for pain Hydrocodone-Acetaminophen ([place]) 5-325 mg Tablet Discontinued 1 TAB PO Twice daily as needed for Pain 0 April 28, 2018 11:32am November 09, 2020 3:26pm Start: 02-28-2018 End: 04-28-2018 Hydrocodone-Acetaminophen ([place]) 5-325 mg Tablet Discontinued 1 TAB PO every 6 to 8 hours as needed for Pain February 28, 2018 1:00am April 28, 2018 11:32am acetaminophen 325 mg / oxyCODONE hydrochloride 5 mg oral tablet (16 sources) Opioid Agonist Start: 02-28-2018 End: 03-03-2018 [...] 2018 1:02am acyclovir 400 mg oral tablet (8 sources) Herpesvirus Nucleoside Analog DNA Polymerase Inhibitor, [...] 9:38am Start: 02-18-2018 take 1 tablet by mouth once da kaylin take 1 tablet by mouth once andrews y Aspirin 81 81 MG 1 tablet Orally Once a day Active cephalexin 500 mg oral capsule (8 sources) Cephalosporin Antibacterial Start: 04-28-2018 End: 05-02-2018 take 1 capsule by mouth every eight hours Cephalexin (Keflex) 500 mg capsule Discontinued 500 MG PO Q8H 12 April 28, 2018 1:00am May 01, 2018 1:00am May 02, 2018 1:02am start 04/29/18 cyclobenzaprine hydrochloride 10 mg oral tablet (8 sources) Muscle Relaxant Start: 11-09-2020 End: 05-21-2023 take 1 tablet by mouth every eight hours Cyclobenzaprine 10 mg tablet Discontinued 10 MG PO Q8H 63 November 09, 2020 12:00am May 21, 2023 9:38am docusate sodium 100 mg oral tablet (8 sources) Start: 11-09-2020 End: 05-21-2023 take 1 tablet by mouth twice daily Docusate Sodium 100 mg tablet Discontinued 100 MG PO Twice daily November 09, 2020 12:00am May 21, 2023 9:38am gabapentin 600 mg oral tablet (16 sources) Anti-epileptic Agent Start: 02-18-2018 End: 11-07-2020 [...] 9:39am oxyCODONE hydrochloride 5 mg oral tablet (8 sources) Opioid Agonist Start: 11-09-2020 End: 05-21-2023 take 1 tablet by mouth every six hours as needed for pain Oxycodone (Roxicodone) 5 mg tablet Discontinued 5 MG PO Q6H as needed for pain 40 7 November 09, 2020 May 21, 2023 9:38am predniSONE 10 mg oral tablet (16 sources) Start: 07-14-2018 End: 11-06-2020 take 3 [...] 2018 1:02am pregabalin 75 mg oral capsule (8 sources) Start: 02-28-2018 End: 04-27-2018 take 1 capsule by mouth twice daily Pregabalin (Lyrica) 75 mg Capsule Discontinued 75 MG PO Twice daily February 28, 2018 1:00am April 27, 2018 7:05pm traZODone hydrochloride 50 mg oral tablet (8 sources) Serotonin Reuptake Inhibitor Start: 02-28-2018 End: 11-06-2020 take 1 tablet by mouth once daily at bedtime Trazodone 50 mg Tablet Discontinued 50 MG PO Daily at bedtime February 28, 2018 1:00am November 06, 2020 11:30pm Problems Active Problems Problem Classification Problem Date Documented Da te Episodic/Chronic Diabetes mellitus without complication (8 sources) Type 2 diabetes mellitus without complications; Translations: [Type 2 diabetes mellitus] Onset: 08-24-2021 Chronic Diabetes mellitus without complication (20 sources) Impaired fasting glucose; Translations: [Impaired fasting glycemia] Onset: 10-20-2024 Episodic E Codes: Fall (9 sources) Fall; Translations: [Unspecified fall, initial encounter] 08-07-2023 Episodic Essential hypertension (20 sources) Essential (primary) hypertension; Translations: [Essential hypertension] Onset: 08-30-2021 Chronic Fracture of neck of femur (hip) (9 sources) Displaced subtrochanteric fracture of right femur, subsequent encounter for closed fracture with routine healing; Translations: [Fracture of proximal end of femur] Onset: 12-29-2020 Resolved: 12-29-2020 Episodic Comment on above: Problem List clean-u p per request of Phys. EHR Cmte Osteoarthritis (8 sources) Unspecified osteoarthritis, unspecified site; Translations: [Arthritis of first carpometacarpal joint of left hand] Onset: 11-03-2020 Chronic Other circulatory disease (8 sources) Orthostatic hypotension; Translations: [Orthostatic hypotension] 03-19-2023 Episodic Comment on above: Problem List clean-u p per request of Phys. EHR Cmte Other gastrointestinal disorders (1 source) Abnormal feces; Translations: [Other fecal abnormalities] Onset: 01-21-2023 Episodic Other gastrointestinal disorders (3 sources) Stool DNA-based colorectal cancer screening positive; Translations: [Other fecal abnormalities] Onset: 10-20-2024 10-20-2024 Episodic Other injuries and conditions due to external causes (2 sources) Other specified injuries of thorax, initial encounter; Translations: [Contusion of rib on left side] 12-21-2024 Episodic Other nervous system disorders (1 source) Other specified mononeuropathies; Translations: [OTHER SPECIFIED MONONEUROPATHIES] Onset: 11-10-2020 Chronic Other nervous system disorders (16 sources) Chronic pain; Translations: [Other chronic pain] [...] conditions (not mental disorders or infectious disease) (16 sources) Encounter for screening for malignant neoplasm of colon; Translations: [Stool DNA-based colorectal cancer screening positive] Episodic Other upper respiratory disease (2 sources) Chronic rhinitis; Translations: [Chronic rhinitis] 10-22-2024 Chronic Other upper respiratory disease (7 sources) Bleeding from nose; Translations: [Epistaxis] 09-02-2024 Episodic Other upper respiratory disease (5 sources) Epistaxis; Translations: [Epistaxis] Onset: 09-02-2024 09-06-2024 Episodic Residual codes; unclassified (1 source) Chronic back pain 01-13-2023 Episodic Residual codes; unclassified (6 sources) Postmenopausal state; Translations: [Asymptomatic menopausal state] 03-22-2024 Episodic Residual codes; unclassified (1 source) Asymptomatic menopausal state; Translations: [Asymptomatic postmenopausal status (age-related) (natural)] 03-22-2024 Episodic Spondylosis; intervertebral disc disorders; other back problems (15 sources) Lumbar spondylosis; Translations: [Spondylosis without myelopathy or radiculopathy, lumbar region] 03-22-2024 Chronic Spondylosis; intervertebral disc disorders; other back problems (19 sources) Backache; Translations: [Dorsalgia, unspecified] 05-21-2023 Episodic Superficial injury; contusion (16 sources) Contusion of rib; Translations: [Contusion of left front wall of thorax, initial encounter] 08-07-2023 Episodic Syncope (8 sources) Syncope; Translations: [Syncope and collapse] 03-19-2023 Episodic Comment on above: Problem List clean-u p per request of Phys. EHR Cmte Urinary tract infections (8 sources) Bacterial urinary infection; Translations: [Urinary tract [...] Test Name Value Interpretation Reference Range Facility HbA1c HPLC (Bld) [Mass fract ion]Ordered By: Polina De La Rosa on 12-21-2024 HbA1c (Bld) [Mass fraction] 7.6 % [facility] Basic Metabolic Panelon 05-2 Anion gap [Moles/Vol] 11.8 mmol/L Normal 6.0-15.0 [facility] Comment on above: Performed By: #### C BC, BMP #### [place] [address] [place] Calcium [Mass/Vol] 9.6 mg/dL Normal 8.6-10.3 [facility] Comment on above: Performed By: #### C BC, BMP #### [facility] [address] [id number] [place] Chloride [Moles/Vol] 105 mmol/L Normal 98-107 [facility] Comment on above: Performed By: #### C BC, BMP #### [facility] [address] [place] [address] CO2 [Moles/Vol] 25.5 mmol/L Normal 21.0-31.0 [facility] Comment on above: Performed By: #### C BC, BMP #### [address] Creatinine [Mass/Vol] 0.62 mg/dL Normal 0.60-1.20 [facility] Comment on above: Performed By: #### C BC, BMP #### [address] Creatinine Clr Calc Pharmacy 63.19 Normal [facility] Comment on above: Result Comment: PERF ORMED BY: [place] [address] PATHOLOGIST GOLD BURNISHER JERMAIEN RAMIREZ M.D. Performed By: #### C BC, BMP #### [address] GFR/1.73 sq M.predicted MDRD (S/P/Bld) [Vol rate/Area] mL/min/{1.73_m2} Normal [facility] Comment on above: Performed By: #### C BC, BMP #### [address] Glucose [Mass/Vol] 143 mg/dL High 70-100 [facility] Comment on above: Result Comment: [place] Glucose Reference Range is dependent on time and content of last meal. Glucose of more than 200 mg/dL in a nonstressed, ambulatory subject supports the diagnosis of Diabetes Mellitus. ADA recommended reference range Performed By: #### C BC, BMP #### [address] Potassium [Moles/Vol] 4.3 mmol/L Normal 3.5-5.1 [facility] Comment on above: Performed By: #### C BC, BMP #### [address] Sodium [Moles/Vol] 138 mmol/L Normal 136-145 [facility] Comment on above: Performed By: #### C BC, BMP #### [facility] [address] Urea nitrogen [Mass/Vol] 16 mg/dL Normal 7-25 [facility] Comment on above: Performed By: #### C MARIA LUISA, BMP #### [facility] [address] Basophils Auto (Bld) [#/Vol] Ordered By: Juan Luis Roblero on 09-02-2024 Basophils (Bld) [#/Vol] Automated basoph il count 0.0-0.2 [facility] Basophils/100 WBC Auto (Bld) Ordered By: Juan Luis Roblero on 09-02-2024 Basophils/100 WBC (Bld) Automated basoph il % . [facility] Calcium [Mass/volume] in Ser um or PlasmaOrdered By: Juan Luis Roblero on 09-02-2024 Calcium [Mass/Vol] Calcium [Mass/volume] in Serum or Plasma 8.6-10.3 [facility] Carbon dioxide, total [Moles /volume] in Serum or PlasmaOrdered By: Juan Luis Roblero on 09-02-2024 CO2 [Moles/Vol] Carbon dioxide, total [Moles/volume] in Serum or Plasma 21.0-31.0 [facility] Chloride [Moles/volume] in S lanette or PlasmaOrdered By: Juan Luis Roblero on 09-02-2024 Chloride [Moles/Vol] Chloride [Moles/volume] in Serum or Plasma 98-107 [facility] Complete Blood Count Auto Di ffon 09-02-2024 Basophils (Bld) [#/Vol] 0.0 10*3/uL Normal 0.0-0.2 [facility] Comment on above: Result Comment: PERF ORMED BY: [facility] [address] [place] [address] PATHOLOGIST GOLD BURNISHER JERMAINE RAMIREZ M.D. Performed By: #### C MARIA LUISA, BMP #### [facility] [address] Basophils/100 WBC (Bld) 0.6 % Normal . T [facility] Comment on above: Performed By: #### C MARIA LUISA, BMP #### [address] Eosinophils (Bld) [#/Vol] 0.6 10*3/uL High 0.0-0.45 [facility] Comment on above: Performed By: #### C BC, BMP #### [address] Eosinophils/100 WBC (Bld) 9.1 % Normal . [facility] Comment on above: Performed By: #### C BC, BMP #### [address] Erythrocyte distribution width (RBC) [Ratio] 13.3 % Normal 11.9-15.3 [facility] Comment on above: Performed By: #### C BC, BMP #### [address] Hematocrit (Bld) [Volume fraction] 37.5 % Normal 34.0-46.4 [facility] Comment on above: Performed By: #### C BC, BMP #### [address] Hemoglobin (Bld) [Mass/Vol] 12.5 g/dL Normal 11.8-15.4 [facility] Comment on above: Performed By: #### C BC, BMP #### [address] Lymphocytes (Bld) [#/Vol] 2.3 10*3/uL Normal 1.00-4.8 [facility] Comment on above: Performed By: #### C BC, BMP #### [place] [address] [place] Lymphocytes/100 WBC (Bld) 33.7 % Normal . [facility] Comment on above: Performed By: #### C BC, BMP #### [address] MCH (RBC) [Entitic mass] 28.0 pg Normal 24.7-34.3 [facility] Comment on above: Performed By: #### C BC, BMP #### [address] MCV (RBC) [Entitic vol] 83.9 fL Normal 80-100 [facility] Comment on above: Performed By: #### C BC, BMP #### [address] Mean Corpuscular HGB Conc 33.4 g/dL Normal 32.0-35.0 [facility] Comment on above: Performed By: #### C BC, BMP #### [address] Monocytes (Bld) [#/Vol] 0.5 10*3/uL Normal 0.0-0.8 [facility] Comment on above: Performed By: #### C BC, BMP #### [address] Monocytes/100 WBC (Bld) 18.42 % Normal 0.00-20.00 [facility] Comment on above: Performed By: #### C BC, BMP #### [address] Monocytes/100 WBC (Bld) 6.6 % Normal . [facility] Comment on above: Performed By: #### C BC, BMP #### [address] Neutrophils (Bld) [#/Vol] 3.4 10*3/uL Normal 1.8-7.7 [facility] Comment on above: Performed By: #### C BC, BMP #### [address] Neutrophils/100 WBC (Bld) 50.0 % Normal . [facility] Comment on above: Performed By: #### C BC, BMP #### [address] NRBC% 0.1 /100{WBC} Normal 0-0.5 [facility] Comment on above: Performed By: #### C BC, BMP #### [address] Platelet mean volume (Bld) [Entitic vol] 9.2 fL Normal 6.3-10.7 [facility] Comment on above: Performed By: #### C BC, BMP #### [facility] [address] Platelets (Bld) [#/Vol] 285 10*3/uL Normal 150-450 [facility] Comment on above: Performed By: #### C BC, BMP #### [facility] [address] RBC (Bld) [#/Vol] 4.47 10*6/uL Normal 3.60-5.00 [facility] Comment on above: Performed By: #### C BC, BMP #### [facility] [address] WBC (Bld) [#/Vol] 6.8 10*3/uL Normal 3.8-11.6 [facility] Comment on above: Performed By: #### C BC, BMP #### [facility] [address] Creatinine [Mass/volume] in Serum or PlasmaOrdered By: Juan Luis Roblero on 09-02-2024 Creatinine [Mass/Vol] Creatinine [Mass/volume] in Serum or Plasma 0.60-1.20 [facility] Eosinophils Auto (Bld) [#/Vo l]Ordered By: Juan Luis Roblero on 09-02-2024 Eosinophils (Bld) [#/Vol] Automated eosinophil count High 0.0-0.45 [facility] Eosinophils/100 WBC Auto (Bl d)Ordered By: Juan Luis Roblero on 09-02-2024 Eosinophils/100 WBC (Bld) Automated eosinophil % . [facility] Erythrocyte distribution wid th Auto (RBC) [Ratio]Ordered By: Juan Luis Roblero on 09-02-2024 Erythrocyte distribution width (RBC) [Ratio] Erythrocyte distribution width [Ratio] by Automated count 11.9-15.3 [facility] Glucose [Mass/volume] in Ser um or PlasmaOrdered By: Juan Luis Roblero on 09-02-2024 Glucose [Mass/Vol] Glucose [Mass/volume] in Serum or Plasma High 70-100 [facility] Comment on above: ADA recommended refe rence rangeRandom Glucose Reference Range is dependent on time and content of last meal. Glucose of more than 200 mg/dL in a nonstressed, ambulatory subject supports the diagnosis of Diabetes Mellitus. Hematocrit Auto (Bld) [Volum e fraction]Ordered By: Juan Luis Roblero on 09-02-2024 Hematocrit (Bld) [Volume fraction] Hematocrit [Volume Fraction] of Blood by Automated count 34.0-46.4 [facility] Hemoglobin [Mass/volume] in BloodOrdered By: Juan Luis Roblero on 09-02-2024 Hemoglobin (Bld) [Mass/Vol] Hemoglobin [Mass/volume] in Blood 11.8-15.4 [facility] Leukocytes [#/volume] correc augustina for nucleated erythrocytes in Blood by Automated counOrdered By: Juan Luis Roblero on 09-02-2024 WBC corrected for nucl RBC Auto (Bld) [#/Vol] Leukocytes [#/volume] corrected for nucleated erythrocytes in Blood by Automated coun 3.8-11.6 [facility] Lymphocytes Auto (Bld) [#/Vo l]Ordered By: Juna Luis Roblero on 09-02-2024 Lymphocytes (Bld) [#/Vol] Lymphocytes [#/volume] in Blood by Automated count 1.00-4.8 [facility] Lymphocytes/100 WBC Auto (Bl d)Ordered By: Juan Luis Roblero on 09-02-2024 Lymphocytes/100 WBC (Bld) Lymphocytes/100 leukocytes in Blood by Automated count . [facility] MCH Auto (RBC) [Entitic mass ]Ordered By: Juan Luis Roblero on 09-02-2024 MCH (RBC) [Entitic mass] MCH [Entitic ma ss] by Automated count 24.7-34.3 [facility] MCHC Auto (RBC) [Mass/Vol]Or dered By: Juan Luis Roblero on 09-02-2024 MCHC (RBC) [Mass/Vol] MCHC [Mass/volume] by Automated count 32.0-35.0 [facility] MCV Auto (RBC) [Entitic vol] Ordered By: Juan Luis Roblero on 09-02-2024 MCV (RBC) [Entitic vol] MCV [Entitic volume] by Automated count 80-100 [facility] Monocyte distribution width [Entitic volume] in Blood by AutomatedOrdered By: Juan Luis Roblero on 09-02-2024 Monocyte distribution width Auto (Bld) [Entitic vol] Monocyte distribution width [Entitic volume] in Blood by Automated 0.00-20.00 [facility] Monocytes Auto (Bld) [#/Vol] Ordered By: Juan Luis Roblero on 09-02-2024 Monocytes (Bld) [#/Vol] Automated blood monocyte count 0.0-0.8 [facility] Monocytes/100 WBC Auto (Bld) Ordered By: Juan Luis Roblero on 09-02-2024 Monocytes/100 WBC (Bld) Automated monocy te % . [facility] Neutrophils Auto (Bld) [#/Vo l]Ordered By: Juan Luis Roblero on 09-02-2024 Neutrophils (Bld) [#/Vol] Neutrophils [#/volume] in Blood by Automated count 1.8-7.7 [facility] Neutrophils/100 WBC Auto (Bl d)Ordered By: Juan Luis Roblero on 09-02-2024 Neutrophils/100 WBC (Bld) Automated neutrophil % . [facility] No Panel InformationOrdered By: Juan Luis Roblero on 09-02-2024 Estimated GFR (CKD-EPI) > 60.0 mL/Min [facility] Creatinine Clearance (Chem 63.19 [facility] Nucleated erythrocytes [Pres ence] in Blood by Automated countOrdered By: Juan Luis Roblero on 09-02-2024 Nucleated RBC Auto Ql (Bld) Nucleated erythrocytes [Presence] in Blood by Automated count 0-0.5 [facility] Platelet mean volume Auto (B ld) [Entitic vol]Ordered By: Juan Luis Roblero on 09-02-2024 Platelet mean volume (Bld) [Entitic vol] Platelet mean volume [Entitic volume] in Blood by Automated count 6.3-10.7 [facility] Platelets Auto (Bld) [#/Vol] Ordered By: Juan Luis Roblero on 09-02-2024 Platelets (Bld) [#/Vol] Platelets [#/volume] in Blood by Automated count 150-450 [facility] Potassium [Moles/volume] in Serum or PlasmaOrdered By: Juan Luis Roblero on 09-02-2024 Potassium [Moles/Vol] Potassium [Moles/volume] in Serum or Plasma 3.5-5.1 [facility] RBC Auto (Bld) [#/Vol]Ordere d By: Juan Luis Roblero on 09-02-2024 RBC (Bld) [#/Vol] Erythrocytes [#/volume] in Blood by Automated count 3.60-5.00 [facility] Serum or plasma anion gap de terminationOrdered By: Juan Luis Roblero on 09-02-2024 Anion gap [Moles/Vol] Serum or plasma anion gap determination 6.0-15.0 [facility] Sodium [Moles/volume] in Ser um or PlasmaOrdered By: Juan Luis Roblero on 09-02-2024 Sodium [Moles/Vol] Sodium [Moles/volume] in Serum or Plasma 136-145 [facility] Urea nitrogen [Mass/volume] in Serum or PlasmaOrdered By: Juan Luis Roblero on 09-02-2024 Urea nitrogen [Mass/Vol] Urea nitrogen [Mass/volume] in Serum or Plasma 7-25 [facility] WBC Auto (Bld) [#/Vol]Ordere d By: Juan Luis Roblero on 09-02-2024 WBC (Bld) [#/Vol] Leukocytes [#/volume] in Blood by Automated count 3.8-11.6 [facility] HbA1c HPLC (Bld) [Mass fract ion]on 06-14-2024 HbA1c (Bld) [Mass fraction] Hemoglobin A1c/Hemoglobin.tot al in Blood by HPLC [facility] Basophils Auto (Bld) [#/Vol] on 04-06-2024 Basophils (Bld) [#/Vol] Automated basoph il count 0.0-0.1 [facility] Basophils/100 WBC Auto (Bld) on 04-06-2024 Basophils/100 WBC (Bld) Automated basoph il % 0.2-2.0 [facility] Cholesterol in LDL Calc [Mas s/Vol]on 04-06-2024 Cholesterol in LDL [Mass/Vol] Cholesterol in LDL [Mass/volume] in Serum or Plasma by calculation [facility] Comment on above: <100 mg/dl [id number] 0-129 mg/dl NEAR OR ABOVE [id number] mg/dl BORDERLINE [id number] mg/dl HIGH>190 mg/dl VERY HIGH Cholesterol in VLDL Calc [Ma ss/Vol]on 04-06-2024 Cholesterol in VLDL [Mass/Vol] Cholesterol in VLDL [Mass/volume] in Serum or Plasma by calculation [facility] Eosinophils/100 WBC Auto (Bl d)on 04-06-2024 Eosinophils/100 WBC (Bld) Automated eosinophil % High 0.9-7.0 [facility] Erythrocyte distribution wid th Auto (RBC) [Ratio]on 04-06-2024 Erythrocyte distribution width (RBC) [Ratio] Erythrocyte distribution width [Ratio] by Automated count 11.0-15.0 [facility] Estimated glomerular filtrat ion rate (GFR) non- Americanon 04-06-2024 GFR/1.73 sq M.predicted among non-blacks MDRD (S/P/Bld) [Vol rate/Area] Estimated glomerular filtration rate (GFR) non- >=60 mL/min/1.73m 2 [facility] Globulin Calc (S) [Mass/Vol] on 04-06-2024 Globulin (S) [Mass/Vol] Serum globulin measurement by calculation (mass/volume) [facility] Glucose mean value [Mass/vol ume] in Blood Estimated from glycated hemoglobinon 04-06-2024 Average glucose Estimated from glycated hemoglobin (Bld) [Mass/Vol] Glucose mean value [Mass/volume] in Blood Estimated from glycated hemoglobin [facility] Hematocrit Auto (Bld) [Volum e fraction]on 04-06-2024 Hematocrit (Bld) [Volume fraction] Hematocrit [Volume Fraction] of Blood by Automated count 36.0-48.0 [facility] Hemoglobin [Mass/volume] in Bloodon 04-06-2024 Hemoglobin (Bld) [Mass/Vol] Hemoglobin [Mass/volume] in Blood 12.0-16.0 [facility] Laboratory - Chemistry and C hemistry - challengeon 04-06-2024 Albumin [Mass/Vol] 3.8 g/dL 3.4-5.0 [facility] ALP [Catalytic activity/Vol] 137 U/L High 46-116 [facility] ALT [Catalytic activity/Vol] 24 U/L 14-59 [facility] AST [Catalytic activity/Vol] 23 U/L 15-37 [facility] Bilirubin [Mass/Vol] 0.4 mg/dL 0.2-1.0 [facility] Calcium [Mass/Vol] 8.9 mg/dL 8.5-10.1 [facility] Chloride [Moles/Vol] 103 mmol/L 98-107 [facility] Cholesterol [Mass/Vol] 218 mg/dL High <=200 [facility] Cholesterol in HDL [Mass/Vol] 42 mg/dL 40-60 [facility] Comment on above: > or =60 mg/dl - LOW CARDIOVASCULAR RISK<40 mg/dl - HIGH CARDIOVASCULAR RISK CO2 [Moles/Vol] 25.1 mmol/L 21.0-32.0 [facility] Creatinine [Mass/Vol] 0.78 mg/dL 0.55-1.02 [facility] GFR/1.73 sq M.predicted MDRD (S/P/Bld) [Vol rate/Area] mL/min/{1.73_m2} >=60 mL/min/1.73m 2 [facility] Glucose [Mass/Vol] 156 mg/dL High 74-106 [facility] Potassium [Moles/Vol] 4.1 mmol/L 3.5-5.1 [facility] Protein [Mass/Vol] 7.6 g/dL 6.4-8.2 [facility] Sodium [Moles/Vol] 138 mmol/L 136-145 [facility] Triglyceride [Mass/Vol] 350 mg/dL High <=150 [facility] Urea nitrogen [Mass/Vol] 18.0 mg/dL 7.0-18.0 [facility] Urea nitrogen/Creatinine [Mass ratio] 23.1 mg/mg [facility] Laboratory - Hematology and Cell countson 04-06-2024 HbA1c (Bld) [Mass fraction] 7.3 % High 4.5-6.2 [facility] Comment on above: ADA RECOMMENDED LIMI T 4.0 - 6.0ADA THERAPEUTIC TARGET < 7.0ACTION SUGGESTED> 7.0 Immature granulocytes/100 WBC (Bld) 0.2 % 0.0-0.5 [facility] Leukocytes [#/volume] correc augustina for nucleated erythrocytes in Blood by Automated counon 04-06-2024 WBC corrected for nucl RBC Auto (Bld) [#/Vol] Leukocytes [#/volume] corrected for nucleated erythrocytes in Blood by Automated coun 4.0-11.0 [facility] Lymphocytes Auto (Bld) [#/Vo l]on 04-06-2024 Lymphocytes (Bld) [#/Vol] Lymphocytes [#/volume] in Blood by Automated count 1.2-3.8 [facility] Lymphocytes/100 WBC Auto (Bl d)on 04-06-2024 Lymphocytes/100 WBC (Bld) Lymphocytes/100 leukocytes in Blood by Automated count 20.5-60.0 [facility] MCH Auto (RBC) [Entitic mass ]on 04-06-2024 MCH (RBC) [Entitic mass] MCH [Entitic ma ss] by Automated count 26.7-34.0 [facility] MCHC Auto (RBC) [Mass/Vol]on 04-06-2024 MCHC (RBC) [Mass/Vol] MCHC [Mass/volume] by Automated count 29.9-35.2 [facility] MCV Auto (RBC) [Entitic vol] on 04-06-2024 MCV (RBC) [Entitic vol] MCV [Entitic volume] by Automated count 81.0-99.0 [facility] Monocytes Auto (Bld) [#/Vol] on 04-06-2024 Monocytes (Bld) [#/Vol] Automated blood monocyte count 0.3-0.8 [facility] Monocytes/100 WBC Auto (Bld) on 04-06-2024 Monocytes/100 WBC (Bld) Automated monocy te % 1.7-12.0 [facility] Neutrophils Auto (Bld) [#/Vo l]on 04-06-2024 Neutrophils (Bld) [#/Vol] Neutrophils [#/volume] in Blood by Automated count 1.4-6.5 [facility] Neutrophils/100 WBC Auto (Bl d)on 04-06-2024 Neutrophils/100 WBC (Bld) Automated neutrophil % 43.0-75.0 [facility] No Panel Informationon 04-06 Eosinophils # (Auto) 0.7 10 3/uL 0.0-0.7 [facility] Immature Granulocyte # (Auto) 0.02 10 3/uL 0.00-0.03 [facility] Platelet mean volume Auto (B ld) [Entitic vol]on 04-06-2024 Platelet mean volume (Bld) [Entitic vol] Platelet mean volume [Entitic volume] in Blood by Automated count 9.5-13.5 [facility] Platelets Auto (Bld) [#/Vol] on 04-06-2024 Platelets (Bld) [#/Vol] Platelets [#/volume] in Blood by Automated count 150-450 [facility] RBC Auto (Bld) [#/Vol]on RBC (Bld) [#/Vol] Erythrocytes [#/volume] in Blood by Automated count 4.20-5.40 [facility] Serum or plasma albumin/glob ulin mass ratioon 04-06-2024 Albumin/Globulin [Mass ratio] Serum or plasma albumin/globulin mass ratio [facility] Serum or plasma anion gap de terminationon 04-06-2024 Anion gap [Moles/Vol] Serum or plasma anion gap determination [facility] Serum or plasma total choles terol/high density lipoprotein (HDL) cholesterol mass doyle 04-06-2024 Cholesterol.total/Choles terol in HDL [Mass ratio] Serum or plasma total cholesterol/high density lipoprotein (HDL) cholesterol mass rat [facility] Comment on above: 3.3 - 4.4 LOW RISK4. 4 - 7.1 AVERAGE RISK7.1 - 11.0 MODERATE RISK>11.0 HIGH RISK Outside Colonoscopyon 2022 Outside Colonoscopy [id number] CEF#1.00TIFF Normal [facility] Insurance Correspondenceon Insurance Correspondence [id number]#1.00TIFF Normal [facility] Consent for Procedure/Surger yon 01-22-2023 Consent for Procedure/Surgery [id number]#1.00TIFF Normal [facility] Ambulatory Visit Summaryon Ambulatory Visit Summary [...] Positive colorectal cancer screening using Cologuard test [facility] Formson 01-21-2023 Forms [id number]#1.00TIFF [facility] Physician Referralon 023 Physician Referral [id number]#1.00TIFF Normal [facility] Patient Handouton 11-28-2022 Patient Handout [id number]#1.00OTGTIFF Normal [facility] Patient Handouton 11-27-2022 Patient Handout [id number][facility] AUTO DIFFon 08-24-2021 BASO # 0.0 103/ul Normal 0.0-0.1 [facility] Comment on above: Performed By: #### C BC #### [facility] [address] [place] [address] Dr. Sugar Givens Basophils/100 WBC (Bld) 0.6 % Normal 0.2-2.0 [facility] Comment on above: Performed By: #### C BC #### [facility] [address] [place] [address] Dr. Sugar Givens EO # 0.8 103/ul Critically high 0.0-0.7 [facility] Comment on above: Performed By: #### C BC #### [facility] [address] [place] [address] Dr. Sugar Givens Eosinophils/100 WBC (Bld) 12.3 % Critically high 0.9-7.0 [facility] Comment on above: Performed By: #### C BC #### [facility] [address] [place] [address] Dr. Sugar Givens Erythrocyte distribution width (RBC) [Ratio] 12.8 % Normal 11.0-15.0 [facility] Comment on above: Performed By: #### C BC #### [facility] [address] [place] [address] Dr. Sugar Givens Hematocrit (Bld) [Volume fraction] 35.1 % Critically low 36.0-48.0 [facility] Comment on above: Performed By: #### C BC #### [facility] [address] [place] [address] Dr. Sugar Givens Hemoglobin (Bld) [Mass/Vol] 11.0 g/dL Critically low 12.0-16.0 [facility] Comment on above: Performed By: #### C BC #### [facility] [address] [place] [address] Dr. Sugar Givens IG # 0.03 10e3/ul Normal 0.00-0.03 [facility] Comment on above: Performed By: #### C BC #### [facility] [address] [place] [address] Dr. Sugar Givens IG % 0.4 % Normal 0.0-0.5 [facility] Comment on above: Performed By: #### C BC #### [facility] [address] [place] [address] Dr. Sugar Givens LYMPH # 2.1 103/ul Normal 1.2-3.8 [facility] Comment on above: Performed By: #### C BC #### [facility] [address] [place] [address] Dr. Sugar Givens Lymphocytes/100 WBC (Bld) 31.4 % Normal 20.5-60.0 [facility] Comment on above: Performed By: #### C BC #### [facility] [address] [place] [address] Dr. Sugar Givens MANUAL DIFF REQ NO Normal [facility] Comment on above: Performed By: #### C BC #### [facility] [address] [place] [address] Dr. Sugar Givens MCH (RBC) [Entitic mass] 27.4 pg Normal 26.7-34.0 [facility] Comment on above: Performed By: #### C BC #### [facility] [address] [place] [address] Dr. Sugar Givens MCHC (RBC) [Mass/Vol] 31.3 g/dL Normal 29.9-35.2 [facility] Comment on above: Performed By: #### C BC #### [facility] [address] [place] [address] Dr. Sugar Givens MCV (RBC) [Entitic vol] 87.3 fL Normal 81.0-99.0 [facility] Comment on above: Performed By: #### C BC #### [facility] [address] [place] [address] Dr. Sugar Givens MONO # 0.4 103/ul Normal 0.3-0.8 [facility] Comment on above: Performed By: #### C BC #### [facility] [address] [place] [address] Dr. Sugar Givens Monocytes/100 WBC (Bld) 5.8 % Normal 1.7-12.0 [facility] Comment on above: Performed By: #### C BC #### [facility] [address] [place] [address] Dr. Sugar Givens NEUT # 3.3 103/ul Normal 1.4-6.5 [facility] Comment on above: Performed By: #### C BC #### [facility] [address] [place] [address] Dr. Sugar Givens Neutrophils/100 WBC (Bld) 49.5 % Normal 43.0-75.0 [facility] Comment on above: Performed By: #### C BC #### [facility] [address] [place] [address] Dr. Sugar Givens Platelet mean volume (Bld) [Entitic vol] 10.4 fL Normal 9.5-13.5 [facility] Comment on above: Performed By: #### C BC #### [facility] [address] [place] [address] Dr. Sugar Givens PLT 320 103/ul Normal 150-450 [facility] Comment on above: Performed By: #### C BC #### [facility] [address] [place] [address] Dr. Sugar Givens RBC 4.02 106/ul Critically low 4.20-5.40 [facility] Comment on above: Performed By: #### C BC #### [facility] [address] [place] [address] Dr. Sugar Givens WBC 6.8 103/ul Normal 4.0-11.0 [facility] Comment on above: Performed By: #### C BC #### [facility] [address] [address] [address] Sugar Givens GLYCOHEMOGLOBIN A1Con 2021 ADA RECOMMENDATION SEE BELOW Normal [facility] Comment on above: Result Comment: ADA RECOMMENDED LIMIT 4.0 - 6.0 ADA THERAPEUTIC TARGET < 7.0 ACTION SUGGESTED > 7.0 Performed By: #### A 1C #### [facility] [address] [place] [address] Dr. Sugar Givens Glucose [Mass/Vol] 151 mg/dL Normal [facility] Comment on above: Performed By: #### A 1C #### [facility] [address] [place] [address] Dr. Sugar Givens HbA1c (Bld) [Mass fraction] 6.9 % Critically high 4.5-6.2 [facility] Comment on above: Performed By: #### A 1C #### [facility] [address] [place] [address] Dr. Sugar Givens LIPID PROFILEon 08-24-2021 CHOL-HDL RATIO NORM SEE BELOW Normal [facility] Comment on above: Result Comment: 3.3 - 4.4 LOW RISK 4.4 - 7.1 AVERAGE RISK 7.1 - 11.0 MODERATE RISK >11.0 HIGH RISK Performed By: #### C MP, LIPID #### [facility] [address] [place] [address] Dr. Sugar Givens Cholesterol [Mass/Vol] 194 mg/dL Normal <=200 [facility] Comment on above: Performed By: #### C MP, LIPID #### [facility] [address] [place] [address] Dr. Sugar Givens Cholesterol in HDL [Mass/Vol] 38 mg/dL Critically low 40-60 [facility] Comment on above: Performed By: #### C MP, LIPID #### [facility] [address] [place] [address] Dr. Sugar Givens Cholesterol in LDL [Mass/Vol] 100.2 mg/dL Normal [facility] Comment on above: Performed By: #### C MP, LIPID #### [facility] [address] [address] [address] Sugar Givens Cholesterol.total/Choles terol in HDL [Mass ratio] 5.1 {ratio} Normal [facility] Comment on above: Performed By: #### C MP, LIPID #### [facility] [address] [address] [address] Sugar Givens HDL NORMAL > or = 60 mg/dl - LOW CARDIOVASCULAR RISK <40 mg/dl - HIGH CARDIOVASCULAR RISK Normal [facility] Comment on above: Performed By: #### C MP, LIPID #### [facility] [address] [place] [address] Dr. Sugar Givens LDL CALC NORMAL SEE BELOW Normal [facility] Comment on above: Result Comment: <100 mg/dl OPTIMAL 100 - 129 mg/dl NEAR OR ABOVE OPTIMAL 130 - 159 mg/dl BORDERLINE HIGH 160 - 189 mg/dl HIGH >190 mg/dl VERY HIGH Performed By: #### C MP, LIPID #### [facility] [address] [place] [address] Dr. Sugar Givens Triglyceride [Mass/Vol] 279 mg/dL Critically high <=150 [facility] Comment on above: Performed By: #### C MP, LIPID #### [facility] [address] [place] [address] Dr. Sugar Givens VLDL CALC 55.8 mg/dL Normal [facility] Comment on above: Performed By: #### C MP, LIPID #### [facility] [address] [place] [address] Dr. Sugar Givens MICROALBUMIN, RAND URon 08-06 mALB <1.3 Normal <=30.0 [facility] Comment on above: Performed By: #### M ALBR #### [facility] [address] [place] [address] Dr. Sugar Givens PROF 14(COMP METB)on 022 Albumin [Mass/Vol] 3.6 g/dL Normal 3.4-5.0 [facility] Comment on above: Performed By: #### C MP, LIPID #### [facility] [address] [place] [address] Dr. Sugar Givens Albumin/Globulin [Mass ratio] 0.9 {ratio} Normal [facility] Comment on above: Performed By: #### C MP, LIPID #### [facility] [address] [place] [address] Dr. Sugar Givens ALP [Catalytic activity/Vol] 122 U/L Critically high 46-116 [facility] Comment on above: Performed By: #### C MP, LIPID #### [facility] [address] [place] [address] Dr. Sugar Givens ALT [Catalytic activity/Vol] 26 U/L Normal 14-59 [facility] Comment on above: Performed By: #### C MP, LIPID #### [facility] [address] [place] [address] Dr. Sugar Givens Anion gap [Moles/Vol] 12.0 mmol/L Normal [facility] Comment on above: Performed By: #### C MP, LIPID #### [facility] [address] [place] [address] Dr. Sugar Givens AST [Catalytic activity/Vol] 28 U/L Normal 15-37 [facility] Comment on above: Performed By: #### C MP, LIPID #### [facility] [address] [place] [address] Dr. Sugar Givens Bilirubin [Mass/Vol] 0.4 mg/dL Normal 0.2-1.0 [facility] Comment on above: Performed By: #### C MP, LIPID #### [facility] [address] [place] [address] Dr. Sugar Givens Calcium [Mass/Vol] 9.2 mg/dL Normal 8.5-10.1 [facility] Comment on above: Performed By: #### C MP, LIPID #### [facility] [address] [place] [address] Dr. Sugar Givens Chloride [Moles/Vol] 104 mmol/L Normal 98-107 [facility] Comment on above: Performed By: #### C MP, LIPID #### [facility] [address] [place] [address] Dr. Sugar Givens CO2 [Moles/Vol] 27.5 mmol/L Normal 21.0-32.0 [facility] Comment on above: Performed By: #### C MP, LIPID #### [facility] [address] [place] [address] Dr. Sugar Givens Creatinine [Mass/Vol] 0.82 mg/dL Normal 0.55-1.02 [facility] Comment on above: Performed By: #### C MP, LIPID #### [facility] [address] [place] [address] Dr. Sugar Givens EGFR-AF [place] >60 Normal >=60 [facility] Comment on above: Performed By: #### C MP, LIPID #### [facility] [address] [place] [address] Dr. Sugar Givens EGFR-NON AF [place] >60 Normal >=60 [facility] Comment on above: Performed By: #### C MP, LIPID #### [facility] [address] [place] [address] Dr. Sugar Givens Globulin (S) [Mass/Vol] 4.1 g/dL Normal [facility] Comment on above: Performed By: #### C MP, LIPID #### [facility] [address] [place] [address] Dr. Sugar Givens Glucose [Mass/Vol] 121 mg/dL Critically high 74-106 [facility] Comment on above: Performed By: #### C MP, LIPID #### [facility] [address] [place] [address] Dr. Sugar Givens Potassium [Moles/Vol] 4.5 mmol/L Normal 3.5-5.1 [facility] Comment on above: Performed By: #### C MP, LIPID #### [facility] [address] [place] [address] Dr. Sugar Givens Protein [Mass/Vol] 7.7 g/dL Normal 6.4-8.2 [facility] Comment on above: Performed By: #### C MP, LIPID #### [facility] [address] [place] [address] Dr. Sugar Givens Sodium [Moles/Vol] 139 mmol/L Normal 136-145 [facility] Comment on above: Performed By: #### C MP, LIPID #### [facility] [address] [place], [place] [address] Dr. Sugar Givens Urea nitrogen [Mass/Vol] 16.0 mg/dL Normal 7.0-18.0 [facility] Comment on above: Performed By: #### C MP, LIPID #### [facility] [address] [place], [place] [address] Dr. Sugar Givens Urea nitrogen/Creatinine [Mass ratio] 19.5 mg/mg Normal [facility] Comment on above: Performed By: #### C MP, LIPID #### [facility] [address] [place], [place] [address] Dr. Sugar Givens XR femur RT 2V*on 12-29-2020 XR femur RT 2V* [facility] [email or web address] Other XR femur RT 2V* [facility] [employer] Other XR femur RT 2V* [address] [place] [address] [employer] Other XR femur RT 2V* [place] [address] [facility] [employer] Other XR femur RT 2V* XRay Report [employer] Other XR femur RT 2V* Signed [employer] Other XR femur RT 2V* Patient: Emiliana Webb MR#: [id number] [email or web address] Other XR femur RT 2V* [address] [employer] Other XR femur RT 2V* : 1950 Acct:[id number] [email or web address] Other XR femur RT 2V* Age/Sex: 70 / F ADM Date: 12/29/20 [email or web address] Other XR femur RT 2V* Loc: [facility]XD Room: Type: REG CLI [email or web address] Other XR femur RT 2V* Attending Dr: Dashawn Diallo DO [email or web address] Other XR femur RT 2V* Ordering Provider: Dashawn Diallo DO [email or web address] Other XR femur RT 2V* Date of Service: 12/29/20 [email or web address] Other XR femur RT 2V* XR/XR femur RT 2V*: Closed displaced subtrochanteric fracture of right [email or web address] Other XR femur RT 2V* femur wit [facility] [employer] Other XR femur RT 2V* Copies to: Dashawn Diallo DO [email or web address] Other XR femur RT 2V* RIGHT FEMUR - 2 views [email or web address] Other XR femur RT 2V* COMPARISON: 11/29/2020 [email or web address] Other XR femur RT 2V* CLINICAL DATA: Follow-up femur fracture. [email or web address] Other XR femur RT 2V* AP and lateral views were obtained. There is osteopenia. There is a dynamic hip screw with long [email or web address] Other XR femur RT 2V* intramedullary jcarlos. The fracture at the proximal femoral shaft is in satisfactory alignment. There i [email or web address] Other XR femur RT 2V* s a small amount of developing callus formation. No new fractures or dislocation are noted. There [email or web address] Other XR femur RT 2V* are degenerative changes at the knee with joint space narrowing and marginal spurring. No soft [email or web address] Other XR femur RT 2V* tissue abnormalities are present. [email or web address] Other XR femur RT 2V* XR/XR femur RT 2V* [email or web address] Other XR femur RT 2V* IMPRESSION: [facility] [employer] Other XR femur RT 2V* STABLE HEALING PROXIMAL FEMUR FRACTURE. [email or web address] Other XR femur RT 2V* Impression dictated by: Elicia Collier M.D.12/29/2020 11:37 AM [email or web address] Other XR femur RT 2V* Dictation Location: RADIO-PC-11 [email or web address] Other XR femur RT 2V* Transcribed By: PWS 12/29/20 1137 [email or web address] Other XR femur RT 2V* Dictated By: Elicia Collier MD 12/29/20 1120 [email or web address] Other XR femur RT 2V* Signed By: [facility] [employer] Other XR femur RT 2V* 12/29/20 1136 [email or web address] Other CBC AUTO DIFFon 11-03-2020 BASO # 0.1 103/ul Normal 0.0-0.1 [facility] Comment on above: Performed By: #### C BC #### [facility] [address] [place] [address] [place] Elicia Basophils/100 WBC (Bld) 0.9 % Normal 0.2-2.0 [facility] Comment on above: Performed By: #### C BC #### [facility] [address] [place] [address] [place] Elicia EO # 0.3 103/ul Normal 0.0-0.7 [facility] Comment on above: Performed By: #### C BC #### [facility] [address] [place] [id number] Carolina Elicia Eosinophils/100 WBC (Bld) 4.8 % Normal 0.9-7.0 [facility] Comment on above: Performed By: #### C BC #### [facility] [address] [place] [id number] Carolina Elicia Erythrocyte distribution width (RBC) [Ratio] 13.0 % Normal 11.0-15.0 [facility] Comment on above: Performed By: #### C BC #### [facility] [address] [place] [address] Carolina Rubi Hematocrit (Bld) [Volume fraction] 34.9 % Critically low 36.0-48.0 [facility] Comment on above: Performed By: #### C BC #### [facility] [address] [place] [address] Carolina Rubi Hemoglobin (Bld) [Mass/Vol] 10.9 g/dL Critically low 12.0-16.0 [facility] Comment on above: Performed By: #### C BC #### [facility] [address] [place] [address] Carolina Rubi IG # 0.02 10e3/ul Normal 0.00-0.03 [facility] Comment on above: Performed By: #### C BC #### [facility] [address] [place] [address] Carolina Rubi IG % 0.3 % Normal 0.0-0.5 [facility] Comment on above: Performed By: #### C BC #### [facility] [address] [place] [address] Carolina Rubi LYMPH # 2.3 103/ul Normal 1.2-3.8 [facility] Comment on above: Performed By: #### C BC #### [facility] [address] [place] [address] Carolina Rubi Lymphocytes/100 WBC (Bld) 35.2 % Normal 20.5-60.0 [facility] Comment on above: Performed By: #### C BC #### [facility] [address] [place] [address] Carolina Rubi MANUAL DIFF REQ NO Normal [facility] Comment on above: Performed By: #### C BC #### [facility] [address] [place] [address] Carolina Rubi MCH (RBC) [Entitic mass] 28.0 pg Normal 26.7-34.0 [facility] Comment on above: Performed By: #### C BC #### [facility] [address] [place], [place] [address] Carolinasurekha Rubi MCHC (RBC) [Mass/Vol] 31.2 g/dL Normal 29.9-35.2 [facility] Comment on above: Performed By: #### C BC #### [facility] [address] [place], [place] [address] Carolinasurekha Rubi MCV (RBC) [Entitic vol] 89.7 fL Normal 81.0-99.0 [facility] Comment on above: Performed By: #### C BC #### [facility] [address] [place] [id number] Carolina Elicia MONO # 0.4 103/ul Normal 0.3-0.8 [facility] Comment on above: Performed By: #### C BC #### [facility] [address] [place] [id number] Carolina Elicia Monocytes/100 WBC (Bld) 6.3 % Normal 1.7-12.0 [facility] Comment on above: Performed By: #### C BC #### [facility] [address] [place] [id number] Carolina Elicia NEUT # 3.4 103/ul Normal 1.4-6.5 [facility] Comment on above: Performed By: #### C BC #### [facility] [address] [id number] Carolina Elicia Neutrophils/100 WBC (Bld) 52.5 % Normal 43.0-75.0 [facility] Comment on above: Performed By: #### C BC #### [facility] [address] [place], [place] [address] Carolina Elicia Platelet mean volume (Bld) [Entitic vol] 11.0 fL Normal 9.5-13.5 [facility] Comment on above: Performed By: #### C BC #### [facility] [address] [place], [place] [address] Carolina Elicia PLT 262 103/ul Normal 150-450 [facility] Comment on above: Performed By: #### C BC #### [facility] [address] [place], [place] [address] Carolina Elicia RBC 3.89 106/ul Critically low 4.20-5.40 [facility] Comment on above: Performed By: #### C BC #### [facility] [address] [place], [place] [id number] Carolina Elicia WBC 6.5 103/ul Normal 4.0-11.0 [facility] Comment on above: Performed By: #### C BC #### [facility] [address] [place] [id number] Carolina Elicia PROF 14(COMP METB)on 021 Albumin [Mass/Vol] 3.7 g/dL Normal 3.5-5.0 [facility] Comment on above: Performed By: #### T SH, T4, CMP #### [facility] [address] [place], [place] [phone] Carolina Elicia Albumin/Globulin [Mass ratio] 1.0 {ratio} Normal [facility] Comment on above: Performed By: #### T SH, T4, CMP #### [facility] [address] [place], [place] [id number] Carolina Elicia ALP [Catalytic activity/Vol] 98 U/L Normal 38-126 [facility] Comment on above: Performed By: #### T SH, T4, CMP #### [facility] [address] [place], [place] [phone] Carolina Elicia ALT [Catalytic activity/Vol] 29 U/L Normal 9-52 [facility] Comment on above: Performed By: #### T SH, T4, CMP #### [facility] [address] [place], [place] [id number] Carolina Elicia Anion gap [Moles/Vol] 11.6 mmol/L Normal [facility] Comment on above: Performed By: #### T SH, T4, CMP #### [facility] [address] [place], [place] [phone] Carolina Elicia AST [Catalytic activity/Vol] 29 U/L Normal 14-36 [facility] Comment on above: Performed By: #### T SH, T4, CMP #### [facility] [address] [place] [address] Carolina Elicia Bilirubin [Mass/Vol] 0.3 mg/dL Normal 0.2-1.3 [facility] Comment on above: Performed By: #### T SH, T4, CMP #### [facility] [address] [place] [address] Carolina Elicia Calcium [Mass/Vol] 9.2 mg/dL Normal 8.4-10.2 [facility] Comment on above: Performed By: #### T SH, T4, CMP #### [facility] [address] [place] [address] Carolina Elicia Chloride [Moles/Vol] 107 mmol/L Normal 98-107 [facility] Comment on above: Performed By: #### T SH, T4, CMP #### [facility] [address] [place] [address] Carolina Elicia CO2 [Moles/Vol] 27.1 mmol/L Normal 22.0-30.0 [facility] Comment on above: Performed By: #### T SH, T4, CMP #### [facility] [address] [place], [place] [address] Carolina Elicia Creatinine [Mass/Vol] 0.80 mg/dL Normal 0.52-1.04 [facility] Comment on above: Performed By: #### T SH, T4, CMP #### [facility] [address] [place], [place] [address] Carolina Elicia EGFR-AF [place] CITIZ[place] >60 Normal >=60 [facility] Comment on above: Performed By: #### T SH, T4, CMP #### [facility] [address] [place] [address] Carolina Elicia EGFR-NON AF [place] CITIZ[place] >60 Normal >=60 [facility] Comment on above: Performed By: #### T SH, T4, CMP #### [facility] [address] [place], [place] [phone] Carolina Elicia Globulin (S) [Mass/Vol] 3.6 g/dL Normal [facility] Comment on above: Performed By: #### T SH, T4, CMP #### [facility] [address] [place] [address] Carolina Elicia Glucose [Mass/Vol] 112 mg/dL Critically high 74-106 [facility] Comment on above: Performed By: #### T SH, T4, CMP #### [facility] [address] [place] [address] Carolina Elicia Potassium [Moles/Vol] 4.7 mmol/L Normal 3.4-5.0 [facility] Comment on above: Performed By: #### T SH, T4, CMP #### [facility] [address] [place] [address] Carolina Elicia Protein [Mass/Vol] 7.3 g/dL Normal 6.1-8.2 [facility] Comment on above: Performed By: #### T SH, T4, CMP #### [facility] [address] [place] [address] Carolina Elicia Sodium [Moles/Vol] 141 mmol/L Normal 137-145 [facility] Comment on above: Performed By: #### T SH, T4, CMP #### [facility] [address] [place] [address] Carolina Elicia Urea nitrogen [Mass/Vol] 9.0 mg/dL Normal 7.0-17.0 [facility] Comment on above: Performed By: #### T SH, T4, CMP #### [facility] [address] [place], [place] [address] Carolina Elicia Urea nitrogen/Creatinine [Mass ratio] 11.2 mg/mg Normal [facility] Comment on above: Performed By: #### T SH, T4, CMP #### [facility] [address] [place] [address] Carolina Elicia T4on 11-03-2020 T4 [Mass/Vol] 7.60 ug/dL Normal 5.53-11.00 [facility] Comment on above: Performed By: #### T SH, T4, CMP #### [facility] [address] [place] [id number] Carolina Elicia TSHon 11-03-2020 TSH 0.955 uIU/mL Normal 0.470-4.680 [facility] Comment on above: Performed By: #### T SH, T4, CMP #### [facility] [address] [place], [place] [address] Carolina Rubi TSH RANGE SEE BELOW Normal [facility] Comment on above: Result Comment: <0.3 4 UIU/ml HYPERTHYROID 0.34-5.60 UIU/ml EUTHYROID >5.60 UIU/ml HYPOTHYROID Performed By: #### T SH, T4, CMP #### [facility] [address] [place], [place] [address] Carolina Rubi Vital Signs Date Time Vital Sign Value Performing Clinician Facility 12-21-2024 13:20-0400 Body height 160.02 cm Polina De La Rosa APRN Work Phone: [facility] 12-21-2024 13:20-0400 Body mass index (BMI) [Ratio] 33.5 kg/m2 Polina De La Rosa APRN Work Phone: [facility] 12-21-2024 13:20-0400 Body temperature 97.8 [degF] Polina De La Rosa APRN Work Phone: [facility] 12-21-2024 13:20-0400 Body weight 85.72 kg Polina De La Rosa APRN Work Phone: [facility] 12-21-2024 13:20-0400 Diastolic blood pressure 72 mm[Hg] Polina De La Rosa APRN Work Phone: [facility] 12-21-2024 13:20-0400 Heart rate 102 /min Polina De La Rosa APRN Work Phone: [facility] 12-21-2024 13:20-0400 SaO2% (BldA) [Mass fraction] 96 % Polina De La Rosa APRN Work Phone: [facility] 12-21-2024 13:20-0400 Systolic blood pressure 124 mm[Hg] Polina De La Rosa APRN Work Phone: [facility] 10-22-2024 10:55-0400 Body height 160 cm Lisy Teague MD Work Phone: [facility] 10-22-2024 10:55-0400 Body mass index (BMI) [Ratio] 33.66 kg/m2 Lisy Teague MD Work Phone: [facility] 10-22-2024 10:55-0400 Body weight 86.18 kg Lisy Teague MD Work Phone: [facility] 10-22-2024 10:55-0400 Diastolic blood pressure 77 mm[Hg] Lisy Teague MD Work Phone: [facility] 10-22-2024 10:55-0400 Heart rate 71 /min Lisy Teague MD Work Phone: [facility] 10-22-2024 10:55-0400 Systolic blood pressure 174 mm[Hg] Lisy Teague MD Work Phone: [facility] 09-15-2024 13:35-0400 Body height 160.02 cm Polina De La Rosa COMPOSITE BOND TECHNICIAN Work Phone: [facility] 09-15-2024 13:35-0400 Body mass index (BMI) [Ratio] 33.6 kg/m2 Polina De La Rosa COMPOSITE BOND TECHNICIAN Work Phone: [facility] 09-15-2024 13:35-0400 Body temperature 96.9 [degF] Polina De La Rosa COMPOSITE BOND TECHNICIAN Work Phone: [facility] 09-15-2024 13:35-0400 Body weight 86.18 kg Polina De La Rosa APRN Work Phone: [facility] 09-15-2024 13:35-0400 Diastolic blood pressure 82 mm[Hg] Polina De La Rosa COMPOSITE BOND TECHNICIAN Work Phone: [facility] 09-15-2024 13:35-0400 Heart rate 86 /min Polina Noblebalbina COMPOSITE BOND TECHNICIAN Work Phone: [facility] 09-15-2024 13:35-0400 SaO2% (BldA) [Mass fraction] 96 % Polina De La Rosa COMPOSITE BOND TECHNICIAN Work Phone: [facility] 09-15-2024 13:35-0400 Systolic blood pressure 126 mm[Hg] Polina Noblebalbina COMPOSITE BOND TECHNICIAN Work Phone: [facility] 09-06-2024 15:11-0400 Body height 160.02 cm Polina De La Rosa COMPOSITE BOND TECHNICIAN Work Phone: [facility] 09-06-2024 15:11-0400 Body mass index (BMI) [Ratio] 33.6 kg/m2 Polina De La Rosa COMPOSITE BOND TECHNICIAN Work Phone: [facility] 09-06-2024 15:11-0400 Body temperature 98.2 [degF] Polina De La Rosa COMPOSITE BOND TECHNICIAN Work Phone: [facility] 09-06-2024 15:11-0400 Body weight 86.18 kg Polina De La Rosa COMPOSITE BOND TECHNICIAN Work Phone: [facility] 09-06-2024 15:11-0400 Diastolic blood pressure 80 mm[Hg] Polina Noblebalbina COMPOSITE BOND TECHNICIAN Work Phone: [facility] 09-06-2024 15:11-0400 Heart rate 81 /min Polina Noblebalbina COMPOSITE BOND TECHNICIAN Work Phone: [facility] 09-06-2024 15:11-0400 SaO2% (BldA) [Mass fraction] 96 % Polina Noblebalbina COMPOSITE BOND TECHNICIAN Work Phone: [facility] 09-06-2024 15:11-0400 Systolic blood pressure 144 mm[Hg] Polina Steeljaci COMPOSITE BOND TECHNICIAN Work Phone: [facility] 09-02-2024 15:45-0400 Diastolic blood pressure 87 mm[Hg] Polina De La Rosa COMPOSITE BOND TECHNICIAN Work Phone: [facility] 09-02-2024 15:45-0400 Heart rate 70 /min Polina De La Rosa COMPOSITE BOND TECHNICIAN Work Phone: [facility] 09-02-2024 15:45-0400 Respiratory rate 18 /min Polina De La Rosa COMPOSITE BOND TECHNICIAN Work Phone: [facility] 09-02-2024 15:45-0400 SaO2% (BldA) [Mass fraction] 96 % Polina Noblebalbina COMPOSITE BOND TECHNICIAN Work Phone: [facility] 09-02-2024 15:45-0400 Systolic blood pressure 175 mm[Hg] Polina Noblebalbina COMPOSITE BOND TECHNICIAN Work Phone: [facility] 09-02-2024 14:25-0400 Body height 160.02 cm Polina Noblebalbina COMPOSITE BOND TECHNICIAN Work Phone: [facility] 09-02-2024 14:25-0400 Body temperature 97.8 [degF] Polina De La Rosa COMPOSITE BOND TECHNICIAN Work Phone: [facility] 09-02-2024 14:25-0400 Body weight 86.1 kg Polina De La Rosa COMPOSITE BOND TECHNICIAN Work Phone: [facility] 06-14-2024 13:04-0400 Body height 160.[address] [facility] 06-14-2024 13:04-0400 Body mass index (BMI) [Ratio] 35.2 kg/m2 [facility] 06-14-2024 13:04-0400 Body temperature 98.3 [degF] [facility] 06-14-2024 13:04-0400 Body weight 90.[address] [facility] 06-14-2024 13:04-0400 Diastolic blood pressure 88 mm[Hg] [facility] 06-14-2024 13:04-0400 Heart rate 88 /min [facility] 06-14-2024 13:04-0400 SaO2% (BldA) [Mass fraction] 98 % [facility] 06-14-2024 13:04-0400 Systolic blood pressure 142 mm[Hg] [facility] 03-22-2024 11:08-0500 Body height 160.[address] [facility] 03-22-2024 11:08-0500 Body mass index (BMI) [Ratio] 33.6 kg/m2 [facility] 03-22-2024 11:08-0500 Body weight 86.[address] [facility] 03-22-2024 11:08-0500 Diastolic blood pressure 84 mm[Hg] [facility] 03-22-2024 11:08-0500 Heart rate 80 /min [facility] 03-22-2024 11:08-0500 SaO2% (BldA) [Mass fraction] 97 % [facility] 03-22-2024 11:08-0500 Systolic blood pressure 132 mm[Hg] [facility] 12-09-2023 13:13-0400 Body height 160.[address] [facility] 12-09-2023 13:13-0400 Body mass index (BMI) [Ratio] 32.6 kg/m2 [facility] 12-09-2023 13:13-0400 Body weight 83.[address] [facility] 12-09-2023 13:13-0400 Diastolic blood pressure 70 mm[Hg] [facility] 12-09-2023 13:13-0400 Heart rate 63 /min [facility] 12-09-2023 13:13-0400 Respiratory rate 18 /min [facility] 12-09-2023 13:13-0400 SaO2% (BldA) [Mass fraction] 98 % [facility] 12-09-2023 13:13-0400 Systolic blood pressure 120 mm[Hg] [facility] 09-10-2023 13:28-0400 Body height 160.[address] [facility] 09-10-2023 13:28-0400 Body mass index (BMI) [Ratio] 33.1 kg/m2 [facility] 09-10-2023 13:28-0400 Body weight 84.[address] [facility] 09-10-2023 13:28-0400 Diastolic blood pressure 70 mm[Hg] [facility] 09-10-2023 13:28-0400 Heart rate 73 /min [facility] 09-10-2023 13:28-0400 SaO2% (BldA) [Mass fraction] 98 % [facility] 09-10-2023 13:28-0400 Systolic blood pressure 110 mm[Hg] [facility] 08-07-2023 13:24-0400 Body height 160.[address] [facility] 08-07-2023 13:24-0400 Body mass index (BMI) [Ratio] 33.8 kg/m2 [facility] 08-07-2023 13:24-0400 Body weight 86.[address] [facility] 08-07-2023 13:24-0400 Diastolic blood pressure 64 mm[Hg] [facility] 08-07-2023 13:24-0400 Heart rate 78 /min [facility] 08-07-2023 13:24-0400 SaO2% (BldA) [Mass fraction] 97 % [facility] 08-07-2023 13:24-0400 Systolic blood pressure 116 mm[Hg] [facility] 03-12-2023 13:30-0500 Body height 160.02 cm Polina De La Rosa Other [email or web address] Other 03-12-2023 13:30-0500 Body mass index (BMI) [Ratio] 33.09 kg/m2 Polina De La Rosa Other [email or web address] Other 03-12-2023 13:30-0500 Body weight 84.73 kg Polina De La Rosa Other [email or web address] Other 03-12-2023 13:30-0500 Diastolic blood pressure 80 mm[Hg] Polina De La Rosa Other [email or web address] Other 03-12-2023 13:30-0500 SaO2% (BldA) [Mass fraction] 96 % Polina De La Rosa Other [email or web address] Other 03-12-2023 13:30-0500 Systolic blood pressure 132 mm[Hg] Polina De La Rosa Other [email or web address] Other 01-21-2023 13:29-0400 Blood Pressure Location [facility] [place] 01-21-2023 13:29-0400 Diastolic blood pressure 80 mm[Hg] [facility] [place] 01-21-2023 13:29-0400 Heart rate 72 /min [facility] [place] 01-21-2023 13:29-0400 Respiratory rate 16 /min [facility] [place] 01-21-2023 13:29-0400 Systolic blood pressure 138 mm[Hg] [facility] 12-16-2022 14:00-0400 Body height 160.02 cm Polina De La Rosa Other [email or web address] Other 12-16-2022 14:00-0400 Body mass index (BMI) [Ratio] 31.92 kg/m2 Poilna De La Rosa Other [email or web address] Other 12-16-2022 14:00-0400 Body weight 81.74 kg Polina De La Rosa Other [email or web address] Other 12-16-2022 14:00-0400 Diastolic blood pressure 72 mm[Hg] Polina Steeljaci Other [email or web address] Other 12-16-2022 14:00-0400 SaO2% (BldA) [Mass fraction] 96 % Polina Steeljaci Other [email or web address] Other 12-16-2022 14:00-0400 Systolic blood pressure 120 mm[Hg] Polina Rj Other [email or web address] Other Encounters Encounter Date Encounter Type Care Provider Facility Start: 12-30-2024 End: 12-30-2024 ambulatory Polina Steeljaci DIOP Work Phone: [facility] Work Phone: Start: 12-30-2024 End: 12-30-2024 Patient encounter procedure Polina Rj DIOP [facility] Work Phone: Start: 12-21-2024 End: 12-21-2024 ambulatory Polina Steeljaci DIOP Work Phone: [facility] Work Phone: Start: 12-21-2024 End: 12-21-2024 Patient encounter procedure Polina Steeljaci DIOP [facility] Work Phone: Start: 10-22-2024 End: 10-22-2024 Bamboo flowsyang Teague MD [facility] Start: 10-22-2024 End: 10-22-2024 Bamboo flowsyang Teague MD Work Phone: [facility] Start: 10-22-2024 End: 10-22-2024 ambulatory LISY TEAGUE Not Available Start: 10-22-2024 End: 10-22-2024 Office outpatient new 45 minutes Lisy Teague MD Work Phone: [facility] Comment on above: Recurrent epistaxis (Primary Dx); Chronic rhinitis; Hypertension, unspecified type Start: 09-23-2024 Non-patient / Non-visit Nikkie De La Rosa APRN [facility] Work Phone: Start: 09-15-2024 End: 09-15-2024 ambulatory Polina Rj DIOP Work Phone: [facility] Work Phone: Start: 09-15-2024 End: 09-15-2024 Patient encounter procedure Polina Rj DIOP Work Phone: [facility] Work Phone: Start: 09-06-2024 End: 09-06-2024 ambulatory Polina Rj DIOP Work Phone: [facility] Work Phone: Start: 09-06-2024 End: 09-06-2024 Patient encounter procedure Polina Rj DIOP Work Phone: [facility] Work Phone: Start: 09-02-2024 End: 09-02-2024 Emergency department patient visit Polina Rj DIOP Work Phone: [facility] Work Phone: Start: 06-14-2024 End: 06-14-2024 ambulatory [facility] Work Phone: Start: 06-14-2024 End: 06-14-2024 Patient encounter procedure [facility] Work Phone: Start: 04-06-2024 Non-patient / Non-visit [facility] Work Phone: Start: 03-22-2024 Patient encounter procedure [facility] Start: 03-22-2024 End: 03-22-2024 Patient encounter procedure [facility] Work Phone: Start: 03-19-2024 Non-patient / Non-visit [facility] Work Phone: Start: 12-09-2023 End: 12-09-2023 ambulatory [facility] Work Phone: Start: 12-09-2023 End: 12-09-2023 Patient encounter procedure [facility] Work Phone: Start: 09-10-2023 End: 09-10-2023 ambulatory [facility] Work Phone: Start: 09-10-2023 End: 09-10-2023 Patient encounter procedure [facility] Work Phone: Start: 08-07-2023 End: 08-07-2023 Patient encounter procedure [facility] Work Phone: Start: 05-19-2023 End: 05-19-2023 ambulatory Polina De La Rosa Other [email or web address] Other Start: 05-19-2023 Telephone encounter Polina Aldair her [facility] Start: 03-12-2023 End: 03-12-2023 ambulatory Polina De La Rosa Other [email or web address] Other Start: 03-12-2023 Office outpatient vi sit 25 minutes Polina De La Rosa [facility] Start: 03-04-2023 End: 03-04-2023 ambulatory Polina De La Rosa Other [email or web address] Other Start: 03-04-2023 Telephone encounter Polina Steelmike her [facility] Start: 02-19-2023 End: 02-20-2023 ambulatory George ARGUETA Facility:[id number] Start: 02-10-2023 End: 02-10-2023 ambulatory Polina Rj Other [email or web address] Other Start: 02-10-2023 Telephone encounter Polina Quinteros her [facility] Start: 01-21-2023 End: 01-22-2023 ambulatory George R NILDipika Facility:[facility] [place] Start: 01-21-2023 End: 01-21-2023 Patient encounter procedure George R NILL [facility] [place] Start: 01-09-2023 ambulatory George ARGUETA Facility:[facility] Start: 01-06-2023 End: 01-06-2023 ambulatory Polina Rj Other [email or web address] Other Start: 01-06-2023 Telephone encounter Polina Quinteros her [facility] Start: 12-16-2022 End: 12-16-2022 ambulatory Polina Steeljaci Other [email or web address] Other Start: 12-16-2022 Patient encounter procedure Polina Steelursulabarbra [facility] Start: 12-11-2022 End: 12-12-2022 ambulatory Héctor Estrada MD Facility:[facility] Start: 11-28-2022 End: 11-29-2022 ambulatory Héctor Estrada MD Facility:[facility] Cli demetrio Start: 11-21-2022 ambulatory Héctor Estrada MD Fac ility:[facility] Start: 08-24-2021 End: 08-25-[address] DORIAN HORTON Facility:[facility]1 Start: 12-29-2020 Postop follow up vis it related to original px Dashawn Diallo [facility] Start: 11-03-2020 End: 11-04-[address] DORIAN HORTON Facility:[facility] Procedures Date Procedure Procedure Detail Performing Clinician Start: 05-10-2019 Cataract extraction and insertion of intraocular lens George NILL Comment on above: LEFT Start: 03-22-2019 Cataract extraction and insertion of intraocular lens George NILL Comment on above: CATARACT EXTRACTION W/ INTRAOCULAR LENS IMPLANTATION right Start: 10-02-2018 Colonoscopy Lisy roldan MD Work Phone: Start: 10-02-2018 Colonoscopy George NI LL section George NIL L Cholecystectomy George NILL Fracture of lower li mb (disorder) George NILL Plan of Treatment Date Care Activity Detail Author Start: 10-02-2028 Screening for malignant neoplasm of colon [facility] Start: 12-06-2024 Influenza vaccination Influenza Vaccine (#1) [facility] Start: 06-14-1999 Pneumococcal Vaccine: 65+ Years (1 of 1 - PCV) Pneumococcal Vaccine: 65+ Years (1 of 1 - PCV) [facility] Start: 1950 Screening for malignant neoplasm of colon [facility] metabo lic 2000 panel - Serum or Plasma [facility] DXA Skeletal system. axial Views for bone density [facility] MG Breast - bilatera l Screening [facility] Patient Education [facility] Work Phone: Patient referral [facility] Work Phone: [facility] Immunizations Immunization Date Immunization Notes Care Provider Fa cility 02-12-2024 influenza virus vaccine, unspecified formulation Lisy Teague MD Work Phone: [facility] 07-27-2020 SARS-CoV-2 (COVID-19 ) mRNA BNT-162b2 vax George NILL [facility] 07-05-2020 SARS-CoV-2 (COVID-19 ) mRNA BNT-162b2 vax George NILL [facility] NEGATED: Highlighted row has not occurred!01-21-2023 influenza virus vaccine, unspecified formulation George NILL [facility] [place] Payers Date Payer Category Payer Self-pay [id number] 2024 Medicare (Managed Care) [employer] [id number] 2024 Medicare [id number] 2017 Self-pay ABC 1959 Unknown [id number] 1949 Unknown [id number] [id number] 1949 Unknown [id number]. 2.593 1949 Unknown [id number]. [id number] 1949 Unknown [id number] .[id number]. 2.718 1949 Unknown [id number] .[id number]. [id number] 1949 Unknown [id number] .[id number]. [id number] 1949 Unknown [id number] .[id number]. [id number] 1949 Unknown [id number] .[id number]. [id number] Medicare Medicare [id number] Unknown [id number] [id number] Social History Date Type Detail Facility Start: 10-22-2024 Sex Assigned At F [facility] Start: 01-21-2023 End: 09-02-2024 Tobacco smoking status Never smoked tobacco (finding) [facility] [place] Tobacco smoking status Never [facility] Start: 1950 Sex Assigned At Female F [facility] Start: 06-14-2024 End: 09-15-2024 Sex Female (finding) [facility] Tobacco smoking stat [facility] Tobacco smoking consumption unknown [facility] Start: 1950 Sex assigned at Not on file [facility] Start: 10-22-2024 Tobacco use and exposure Smokeless tobacco non-user [facility] Start: 10-22-2024 Alcoholic beverage intake Ex-drinker (finding) [facility] Start: 10-22-2024 History of Social function [facility] Medical Equipment Procedure Code Equipment Code Equipment Origin al Text Equipment Identifier Dates CATARACT EXTRACT ION W/ INTRAOCULAR LENS Sridevi Shankar MD 03/22/19 Non Biological Eye R {[id number] FDA Start: 03-22-2019 CATARACT EXTRACT ION W/ INTRAOCULAR LENS Sridevi Shankar MD 05/10/19 Non Biological Eye L {[id number] FDA Start: 05-10-2019 Orthopaedic bone screw, non-bioabsorbable, non-sterile ()[id number] FDA Start: 11-07-2020 Femur nail, sterile ()[id number] FDA Start: 11-07-2020 Spiral blade ()[id number] FDA Start: 11-07-2020 Functional Status Date Assessment Result Facility 01-21-2023 Functional Status N/A [facility] [place] Clinical Notes 12-29-2020 to 12-21-2024 Note Date & Type Note Facility 12-21-2024 Evaluation note Diagnosis Onset Date Resolution Degenerative arthritis of lumbar spine acute December 21, 2024 1:18pm Other chronic pain acute 2024 1:18pm Primary hypertension acute Dec 1:18pm Type 2 diabetes mellitus acute December 21, 2024 1:18pm [facility] Work Phone: 1(330) 448-814607-18-2025 History of Present illness Narrative* Lisy Teague MD - 10/22/2024 10:50 AM EDT Images from the original note were not included. Subjective Patient ID: Emiliana Webb is a 74 y.o. female who presents for Epistaxis (Nose Bleed) Pt reports recurrent epistaxis on the left. No blood thinners. Bleeds ant and post. Last bled a fewdays ago. Nose has not needed to be [...] each day at the same time HYDROcodone-acetaminophen ([place]) 5-325 MG tablet every 6 (six) hours [...] nasal endoscopy was performed bilaterally. The endoscope wasplaced into the nose and a thorough inspection [...] nose BID x 2 weeks. F/U if recurs.BP elevated today. F/U with PCP to consider increased BP meds [facility] [id number] Chief complaint+Reason for visit Narrative* Chief Complaint Admit Date Referral Order September 23, 2024 1:49 pm 3 month f/u December 21, 2024 1:18pm Reason for Visit Admit Date Degenerative arthritis of lumbar spine S eptember 2024 1:18pm Other chronic pain December 21, 2024 1:18pm Primary hypertension December 21 1:18pm Type 2 diabetes mellitus December 21, 2024 1:18pm [facility] Work Phone: 1(212) 620-854906-02-2025 Evaluation note* Diagnosis Onset Date Resolution Status [...] September 052024 1:30pm Pre-diabetes acute September 15, 1:30pm Primary hypertension acute September 15, 2024 1:30pm [facility] Work Phone: 1(214) 786-368903-10-2025 Evaluation note* Diagnosis Onset Date Resolution Status Admit Date Back pain acute June 14 1:01pm Degenerative arthritis of alia mbar spine acute June 14, 2024 1:01pm Other chronic pain acute June 14, 2024 1:01pm Pre-diabetes acute June 14, 2024 1:01pm Primary hypertension acute [facility] 2024 1:01pm [facility] Work Phone: 1(764) 165-540703-10-2025 Evaluation note* Diagnosis Onset Date Resolution Status [...] Other chronic pain acute September 062024 3:00pm [facility] Work Phone: 1(919) 513-413212-16-2024 Evaluation note* Diagnosis Onset Date Resolution Status Admit Date Back pain acute March 22, 2024 10:54am Degenerative arthritis of lumbar spine acute March 22, 2 024 10:54am Medicare annual wellness visit, subsequent acute March 22, 2024 10:54am Other chronic pain acute Decemb er 2023 10:54am Post-menopausal acute March 22, 2024 10:54am Pre-diabetes acute March 10:54am Primary hypertension acute Dece mber 2023 10:54am Screening for breast cancer acute March 22, 2024 10:54am Screening for osteoporosis acute March 22, 2024 10:54am Back pain acute June 14 1:01pm Degenerative arthritis of lumbar spine acute June 14, 2024 1:01pm Other chronic pain acute June 14, 2024 1:01pm Pre-diabetes acute June 14, 2024 1:01pm Primary hypertension acute 2024 1:01pm [facility] Work Phone: 1([phone]) 966-571002-12-2024 Evaluation note* Encounter Date Diagnosis Assessment Notes Treatment Notes Treatment Clinical Notes May, Other chronic pain (ICD-10 - G89.29) [email or web address] Other 12-06-2023 Evaluation note* Encounter Date Diagnosis [...] Low back pain, unspecified (ICD-10 - M54.50) [email or web address] Other 11-06-2023 Evaluation note* Encounter Date Diagnosis Assessment Notes Treatment Notes Treatment Clinical Notes Feb, Low back pain, unspecified (ICD-10 - M54.50) Feb, Other chronic pain (ICD-10 - G89.29) [facility] Other 10-17-2023 NoteChief Complaint consultation for positive [...] Recorded SARS-CoV-2 (COVID-19) mRNA BNT-162b2 vax 07/05/2020 [facility] HospitalComment on above:Result Comment: Electronically Signed By: ELLIE NDIAYE, George Trinh\Date and Time Signed: 01/21/23 14:00 [id number] Evaluation note * Encounter Date Diagnosis Assessment [...] (ICD-10 - R73.01) Will obtain labs from [facility] Sugars reviewed and above normal values [...] each discussed. Patient opts for cologuard screening. [email or web address] Other 09-24-2021 Evaluation note* Encounter Date Diagnosis [...] Other specified postprocedural states (ICD-10 - Z98.890) [email or web address] Other Evaluation + Plan note No data available for this section [facility] Evaluation noteNo InformationNort [employer] Other Evaluation note* Diagnosis Onset Date Resolution Status Back pain acute Contusion of left knee acute Contusion of rib on left side acute Fall acute Other chronic pain acute Pre-diabetes acute Back pain acute Other chronic pain acute [facility] Work Phone: Evaluation note* Diagnosis Onset Date Resolution Status Back pain acute Other chronic pain acute Back pain acute Other chronic pain acute Pre-diabetes acute Primary hypertension acute [facility] Work Phone: Evaluation note* Diagnosis Recurrent epistaxis- Primary Chronic rhinitis Hypertension, unspecified type [facility] Diagnosis Onset Date Resolution Status Admit Date Degenerative arthritis of lumbar spine acute December 21, 2024 1:18pm Other chronic pain acute 2024 1:18pm Primary hypertension acute Dec 1:18pm Type 2 diabetes mellitus acute December 21, 2024 1:18pm [facility] Work Phone: History general Narrative - Reported* Type Description Date Medical History HTN Medical History Pre-diabetes Medical History Back pain Surgical History x3 Surgical History Gallbladder Surgical History Leg surgery, jcarlos placement [email or web address] Other Hospital Discharge instructions No data available for this section [facility] [place] [facility] Discharge instructions Additional Instructions Take your meds as prescribed [facility] Work Phone: Progress note No data available for this section [facility] [place] Reason for referral (narrative)* Reason *FU 02/17 needs ev aluation for chronic back pain Diagnosis 1 Low back pain, unspe cified (M54.50) Diagnosis 2 Other chronic pain ( G89.29) Referral Organization [facility]ia Referring Provider First Name Polina Referring Provider Last Name Peymanachebalbina Referring Provider Specialty Nurse Alex bustamante Referred Organization [facility] Referred Address [address], [place],[address] Referred Provider Specialty Pain Medicin e Referral Priority Routine General Notes Tracey Hancock 04:38:21 PM >received today, attachments made, notes locked, referral faxed Clinical Notes f: [id number] [email or web address] Other Reason for referral (narrative)No reason for referral [facility] availableGal[facility] Work Phone: Summary Purpose Family History Relationship [...] ecember 2023 10:54am Medicare annual wellness visit, tashae nt March 22, 2024 10:54am Other chronic [...] of lumbar spine J une 2024 3:00pm Epistaxis September 06, 2024 3:00p [...] Primary hypertension September 15, 2024 1:3 0pm Chief Complaint Admit Date 3 month f/u December 21, 2024 1:18pm Flu Shot December 30, 2024 1:45pm Reason for Visit Admit Date Degenerative arthritis of lumbar spine S eptember 2024 1:18pm Other chronic pain December 21, 2024 1:18pm Primary hypertension December 21 1:18pm Type 2 diabetes mellitus December 21, 2024 1:18pm Additional Source Comments INFORMATION SOURCE (unrecogn ized section and content) DATE CREATED AUTHOR 08/31/2021 [facility] DATE CREATED AUTHOR AUTHOR'S ORGANIZ ATION 12/12/2022 [facility] DATE CREATED AUTHOR AUTHOR'S ORGANIZ ATION 03/08/2023 [facility] DATE CREATED AUTHOR AUTHOR'S ORGANIZ ATION 09/27/2024 [facility] DATE CREATED AUTHOR AUTHOR'S ORGANIZ ATION 10/25/2024 [facility] EPIC REASON FOR VISIT (unrecogniz ed section and content) Reason Comments Epistaxis (Nose Bleed) Patient Care team informatio n (unrecognized section and content) Team Status: Active Member Role Status Dates Polina De La Rosa APRN HYDRAULIC PILE HAMMER OPERATOR-C Primary Care Provider Active Team Status: Inactive Member Role Status Dates Polina De La Rosa APRN HYDRAULIC PILE HAMMER OPERATORStanleyC Primary Care Provider, Attending Provider Active Start: August 07, 2023 End: August 07, 2023 Team Status: Inactive Member Role Status Dates Polina De La Rosa APRN HYDRAULIC PILE HAMMER OPERATOR-C Primary Care Provider, Attending Provider Active Start: September 10, 2023 End: September 10, 2023 Team Status: Inactive Member Role Status Dates Polina De La Rosa APRN HYDRAULIC PILE HAMMER OPERATOR-C Primary Care Provider, Attending Provider Active Start: December 09, 2023 End: December 09, 2023 Team Status: Active Member Role Status Dates Polina De La Rosa APRN HYDRAULIC PILE HAMMER OPERATOR-C Primary Care Provider, Attending Provider Active Start: March 19, 2024 Team Status: Inactive Member Role Status Dates Polina De La Rosa APRN HYDRAULIC PILE HAMMER OPERATOR-C Primary Care Provider, Attending Provider Active Start: March 22, 2024 End: March 22, 2024 Team Status: Active Member Role Status Dates Polina De La Rosa APRN HYDRAULIC PILE HAMMER OPERATOR-C Primary Care Provider, Attending Provider Active Start: April 06, 2024 Team Status: Inactive Member Role Status Dates Polina De La Rosa APRN HYDRAULIC PILE HAMMER OPERATOR-C Primary Care Provider, Attending Provider Active Start: June 14, 2024 End: June 14, 2024 Team Status: Inactive Member Role Status Dates Polina De La Rosa APRN HYDRAULIC PILE HAMMER OPERATOR-C Primary Care Provider Active Start: September 02, 2024 End: September 02, 2024 Juan Luis Roblero MD Emergency Provider Active Star t: September 02, 2024 End: September 02, 2024 Team Status: Inactive Member Role Status Dates Polina De La Rosa APRN HYDRAULIC PILE HAMMER OPERATOR-C Primary Care Provider, Attending Provider Active Start: September 06, 2024 End: September 06, 2024 Team Status: Inactive Member Role Status Dates Polina De La Rosa APRN HYDRAULIC PILE HAMMER OPERATOR-C Primary Care Provider, Attending Provider Active Start: September 15, 2024 End: September 15, 2024 Critical Care Educator Relationship Specialty Start Date End Date Polina De La Rosa NP [address] [place] [address] PCP - General Family Medicine 09/28/24 Critical Care Educator Relationship Specialty Start Date End Date Polina De La Rosa NP [address] [place] [address] PCP - General Family Medicine 09/28/24 Team Status: Active Member Role Status Dates Polina De La Rosa APRN HYDRAULIC PILE HAMMER OPERATOR-C Primary Care Provider Active Start: September 23, 2024 Polina De La Rosa APRN HYDRAULIC PILE HAMMER OPERATOR-Anika Attending Provider Act kathi Start: September 23, 2024 Team Status: Inactive Member Role Status Dates Polina De La Rosa APRN HYDRAULIC PILE HAMMER OPERATOR-C Primary Care Provider Active Start: December 062024 End: December 21, 2024 Polina De La Rosa APRN NP-Anika Attending Provider Active Start: December End: December 21, 2024 Team Status: Inactive Member Role Status Dates Polina De La Rosa APRN HYDRAULIC PILE HAMMER OPERATOR-Anika Primary Care Provider Active Start: December 072024 End: December 30, 2024 Polina De La Rosa APRN NP-Anika Attending Provider Active Start: December End: December 30, 2024 Goals (unrecognized section and content) Goals [...] BE BASED ON THE PRIMARY CLINICAL RECORDS. [employer] [facility]. provides no warranty or guarantee of the accuracy or completeness of information in this document.
--- NOTE | 2025-01-24 15:08 | PC.NURSE ---
area red, warm and firm
--- NOTE | 2025-01-24 15:37 | ED.GENADUL1 ---
HPI HPI - General Adult General Chief complaint: Skin/Abscess/Foreign Body Stated complaint: POSSIBLE SPIDER BITE- BUTTOCK Time Seen by Provider: 01/24/25 15:20 Source: patient Mode of arrival: walk-in Limitations: no limitations History of Present Illness HPI narrative: cc - medial left buttock spider bite Started one week ago - painful area on the medial left buttock - no relief with soapy baths over the weekend, when the pain worsened. No systemic symptoms such as fever or chills. No vomiting or diarrhea. No abdominal pain. Pt says it is very painful to sit Related Data Home Medications ?Medication ?Instructions ?Recorded ?Confirmed hydrocodone 5 mg-acetaminophen 325 1 tab PO Q8H PRN pain 09/13/22 01/24/25 mg tablet aspirin 81 mg capsule 81 mg PO DAILY 02/11/23 01/24/25 carvedilol 3.125 mg tablet 3.125 mg PO BID 02/11/23 01/24/25 lisinopril 5 mg tablet 5 mg PO DAILY 02/11/23 01/24/25 metformin 1,000 mg tablet 1,000 mg PO DAILY 02/11/23 01/24/25 Previous Rx's ?Medication ?Instructions ?Recorded cephalexin 500 mg capsule 500 mg PO QID 7 days #28 caps 01/24/25 hydrocodone 5 mg-acetaminophen 325 1 tab PO Q6H PRN pain #10 tabs 01/24/25 mg tablet sulfamethoxazole 800 1 tab PO BID 7 days #14 tabs 01/24/25 mg-trimethoprim 160 mg tablet (Bactrim DS) Allergies Allergy/AdvReac Type Severity Reaction Status Date / Time latex Allergy Severe Hives Verified 01/24/25 13:29 bee stings Allergy Severe Anaphylaxis Uncoded 01/24/25 13:29 mri dye Allergy Severe Anaphylaxis Uncoded 01/24/25 13:29 sea food Allergy Severe itch Uncoded 01/24/25 13:29 Opioid HPI Opioid Management Most Recent Opioid Data: Last Pain Scale 10 Today, 13:24 [facility] Medical History (Updated 01/24/25 @ 16:16 by Kashif Lyman) Fracture of leg ?S82.90XA - Unspecified fracture of unspecified lower leg, initial encounter for closed fracture (ICD-10) Positive colorectal cancer screening using Cologuard test ?R19.5 - Other fecal abnormalities (ICD-10) Impaired fasting glucose ?R73.01 - Impaired fasting glucose (ICD-10) Chronic back pain ?M54.9 - Dorsalgia, unspecified (ICD-10) ?G89.29 - Other chronic pain (ICD-10) Obesity ?E66.9 - Obesity, unspecified (ICD-10) HTN (hypertension) ?I10 - Essential (primary) hypertension (ICD-10) Surgical History (Updated 02/11/23 @ 13:17 by Stormy Magallanes, RN) Hx of cholecystectomy ?Z90.49 - Acquired absence of other specified parts of digestive tract (ICD-10) H/O colonoscopy ?Z98.890 - Other specified postprocedural states (ICD-10) H/O section ?Z98.891 - History of uterine scar from previous surgery (ICD-10) History of cataract extraction with lens replacement Social History (Updated 02/11/23 @ 13:25 by Stormy Magallanes, RN) Within the past year, how often did you have a drink containing alcohol: never Score interpretation: A score less than 3 is consistent with normal alcohol consumption. 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 afebrile General: Well-appearing and in no apparent distress. Skin: Warm, dry, no pallor noted. No rash. Medial left buttock = 3 cm diameter abscess with central area of pustule and fluctuance. There is surrounding cellulitis measuring 8 cm x 4 cm involving the medial portion of the left buttock. No proximal streaking or erythema noted in the back or vaginal area. Pustule is not draining at this time. Cardiovascular: Tachycardia. Respiratory: No accessory muscle use or respiratory distress. Lungs are clear to auscultation, no wheezing, rales or rhonchi Back: No midline thoracic or lumbar vertebral tenderness. No CVA tenderness. Skin of the buttocks described above. Musculoskeletal: normal ROM, no calf or popliteal tenderness, no lower extremity edema/swelling Neurological: A&O x4. No cranial nerve dysfunction observed. No truncal ataxia. Moves all extremities. Sensation intact. Psychiatric: Cooperative and interactive. Normal mood and affect. Constitutional Vital Signs, click to edit/add: Last Vital Signs Temp 98.5 F 01/24/25 13:24 Pulse 105 H 01/24/25 13:24 Resp 18 01/24/25 13:24 BP 148/75 H 01/24/25 15:46 Pulse Ox 95 01/24/25 13:24 O2 Del Method Room Air 01/24/25 13:24 Course Vital Signs Vital signs: Vital Signs Temperature 98.5 F 01/24/25 13:24 Pulse Rate 105 H 01/24/25 13:24 Respiratory Rate 18 01/24/25 13:24 Blood Pressure 135/84 01/24/25 13:24 Pulse Oximetry 95 01/24/25 13:24 Oxygen Delivery Method Room Air 01/24/25 13:24 Temperature 98.5 F 01/24/25 13:24 Pulse Rate 105 H 01/24/25 13:24 Respiratory Rate 18 01/24/25 13:24 Blood Pressure 148/75 H 01/24/25 15:46 Pulse Oximetry 95 01/24/25 13:24 Oxygen Delivery Method Room Air 01/24/25 13:24 Medical Decision Making MDM Narrative Medical decision making narrative: The nurse Stacey Blackman assisted me in evaluating and examining this patient as well as in performance of the incision and drainage of the patient's abscess. The patient was given oral cephalexin and oral Bactrim DS in the emergency department. Incision and drainage:A single layer of iodine was used to prep the area.Drapes were placed to ensure isolation of the abscess and surrounding skin tissue.A regional field block was performed with 1% lidocaine with epinephrine.Incision was made with an 11 blade to the full dimension of the abscess, significant amount purulent material was expressed.Cultures were obtained and sent to the lab.The abscess was explored, the use of hemostats were used to break up the septum and loculations within the abscess. A dry sterile dressing was placed.Patient tolerated the procedure well and will be discharged with Keflex, Bactrim and a short course of analgesic medications.Patient is to follow-up in the next 2-3 days with PCP or ED to have area evaluated. Patient discharged home with prescriptions for Bactrim and Keflex. She was instructed to sit in a soapy bath in order to help keep this area clean and drain. Primary care physician follow-up or ED return if she worsens. Discharge Plan Discharge Chief Complaint: Skin/Abscess/Foreign Body Clinical Impression: Abscess of skin or subcutaneous tissue, Cellulitis Patient Disposition: Home, Self-Care Time of Disposition Decision: 16:16 Prescriptions / Home Meds: New cephalexin 500 mg capsule 500 mg PO QID 7 Days Qty: 28 0RF sulfamethoxazole-trimethoprim [Bactrim DS] 800-160 mg tablet 1 tab PO BID 7 Days Qty: 14 0RF hydrocodone-acetaminophen 5-325 mg tablet 1 tab PO Q6H PRN (Reason: pain) Qty: 10 0RF No Action hydrocodone-acetaminophen 5-325 mg tablet 1 tab PO Q8H PRN (Reason: pain) aspirin 81 mg capsule 81 mg PO DAILY carvedilol 3.125 mg tablet 3.125 mg PO BID Rx Instructions: must administer with a meal/food lisinopril 5 mg tablet 5 mg PO DAILY metformin 1,000 mg tablet 1,000 mg PO DAILY Print Language: Kinyarwanda Instructions: Cellulitis (ED), Abscess (ED), Abscess Incision and Drainage (DC) Referrals: MYRTLE BAILEY [Primary Care Provider, Unknown] - 1 week
[2025-01-24] MEDS: LIDOCAINE HCL 1%-EPINEPHRINE 1:100,000 20 ML MDV INJ (15:44)
[2025-01-24] MEDS: SULFAMETHOXAZOLE/TRIMETHOPRIM 800-160 MG TABLET 1 TAB PO (15:44)
[2025-01-24] MEDS: CEPHALEXIN 500 MG CAPSULE PO (15:45)
[2025-01-24 15:46] VITALS: BP 148/75
--- NOTE | 2025-01-24 16:18 | PC.NURSE ---
I&D complete by ER DR Lyman at bedside, moderate copious amount of drainage obtained after cleansing area and using an 11 blade. pt tolerated procedure well. Pad in place
== END 2025-01-24 16:33 | disposition home or self-care (01) ==
PROVIDERS: Emergency Provider Emergency Medicine; PCP Nurse Practitioner Family
DX: L02.31 Cutaneous abscess of buttock (principal); L03.317 Cellulitis of buttock
CPT/HCPCS: 10060; 99283

== ENCOUNTER 2025-03-27 11:20 | Emergency (ER) | payer MEDICARE, SELFPAY ==
[2025-03-27 11:24] VITALS: PULSE 83; TEMP 36.6; O2SAT 97; BMI 29.2
[2025-03-27 11:28] VITALS: BP 155/81
--- NOTE | 2025-03-27 11:39 | ED_ITS ---
HPI HPI - General Adult General Chief complaint: Urogenital-Female Stated complaint: URINARY ISSUES Time Seen by Provider: 03/27/25 11:35 Source: patient Mode of arrival: walk-in History of Present Illness HPI narrative: 74-year-old female presenting for dysuria. It started this morning and she thinks it is due to drinking a [employer] yesterday. No gross hematuria or fever or back pain. No vomiting. She think she has a UTI. Related Data Home Medications ?Medication ?Instructions ?Recorded ?Confirmed aspirin 81 mg capsule 81 mg PO DAILY 02/11/2303/08 carvedilol 3.125 mg tablet 3.125 mg PO BID 02/11/23 lisinopril 5 mg tablet 5 mg PO DAILY 02/11/2303/27 metformin 1,000 mg tablet 1,000 mg PO DAILY 02/11/23 1 05/28/24 Previous Rx's ?Medication ?Instructions ?Recorded hydrocodone 5 mg-acetaminophen 325 1 tab PO Q6H PRN pa in #10 tabs 01/24/25 mg tablet cephalexin 500 mg capsule 500 mg PO TID 7 days #21 cap s 03/27/25 Allergies Allergy/AdvReac Type Severity Reaction Status Date / Time latex Allergy Severe Hives Verified 01/24/25 13:29 bee stings Allergy Severe Anaphylaxis Uncoded 01/24/25 13:29 mri dye Allergy Severe Anaphylaxis Uncoded 01/24/25 13:29 sea food Allergy Severe itch Uncoded 01/24/25 13:29 Opioid HPI Opioid Management Most Recent Opioid Data: Last Pain Scale 10 01/24/25, 13:24 Review of Systems ROS Narrative A ten point review of systems is negative except as noted above. [facility] Medical History (Updated 03/27/25 @ 11:58 by Jeff Pena MD) Fracture of leg ?S82.90XA - Unspecified fracture of unspecified lower leg, initial encounter for closed fracture (ICD-10) Positive colorectal cancer screening using Cologuard test ?R19.5 - Other fecal abnormalities (ICD-10) Impaired fasting glucose ?R73.01 - Impaired fasting glucose (ICD-10) Chronic back pain ?M54.9 - Dorsalgia, unspecified (ICD-10) ?G89.29 - Other chronic pain (ICD-10) Obesity ?E66.9 - Obesity, unspecified (ICD-10) HTN (hypertension) ?I10 - Essential (primary) hypertension (ICD-10) Surgical History (Updated 02/11/23 @ 13:17 by Stormy Magallanes RN) Hx of cholecystectomy ?Z90.49 - Acquired absence of other specified parts of digestive tract (ICD- 10) H/O colonoscopy ?Z98.890 - Other specified postprocedural states (ICD-10) H/O section ?Z98.891 - History of uterine scar from previous surgery (ICD-10) History of cataract extraction with lens replacement Social History (Updated 02/11/23 @ 13:25 by Stormy Magallanes, PARTH) Within the past year, how often did you have a drink containing alcohol: never Score interpretation: A score less than 3 is consistent with normal alcohol consumption. 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 Skin:Warm, dry, no pallor noted.There is no rash noted. Head:Normocephalic, atraumatic Eye: Normal conjunctiva, no drainage Ears, Nose, Mouth, and Throat: oral mucosa is moist. Nares patent. Cardiovascular:Regular Rate and Rhythm Respiratory:Patient is in no distress, no accessory muscle use, lungs are clear to auscultation, no wheezing, rales or rhonchi Back:non-tender, no CVA tenderness bilaterally to percussion. GI: Soft and nontender Musculoskeletal: No joint swelling Neurological:A&O, normal speech Psychiatric:Cooperative Constitutional Vital Signs, click to edit/add: Last Vital Signs Temp 97.9 F 03/27/25 11:24 Pulse 83 03/27/25 11:24 Resp 20 03/27/25 11:24 BP 155/81 H 03/27/25 11:28 Pulse Ox 97 03/27/25 11:24 O2 Del Method Room Air 03/27/25 11:24 Course Vital Signs Vital signs: Vital Signs Temperature 97.9 F 03/27/25 11:24 Pulse Rate 83 03/27/25 11:24 Respiratory Rate 20 03/27/25 11:24 Pulse Oximetry 97 03/27/25 11:24 Oxygen Delivery Method Room Air 03/27/25 11:24 Temperature 97.9 F 03/27/25 11:24 Pulse Rate 83 03/27/25 11:24 Respiratory Rate 20 03/27/25 11:24 Blood Pressure 155/81 H 03/27/25 11:28 Pulse Oximetry 97 03/27/25 11:24 Oxygen Delivery Method Room Air 03/27/25 11:24 Medical Decision Making MDM Narrative Medical decision making narrative: UTI is identified. She was given her first dose of Keflex here and prescribed Keflex as well. Treatment diagnosis and follow-up were discussed with the patient. Differential Diagnosis Differential Diagnosis: UTI, dysuria Lab Data Lab results reviewed: Yes I reviewed the patient's lab results Labs: Lab Results 03/27/25 Range/Units 11:25 Urine Color Lt. yellow (YELLOW) Urine Clarity Sl cloudy (CLEAR) Urine pH 5.5 (5.0-9.0) Ur Specific [place] <=1.005 A (1.005-1.025) Urine Protein Trace (NEG/TRACE) mg/dL Urine Glucose (UA) Negative (NEGATIVE) mg/dL Urine Ketones Negative (NEGATIVE) mg/dL Urine Occult Blood Large A (NEGATIVE) Urine Nitrite Negative (NEGATIVE) Urine Bilirubin Negative (NEGATIVE) Urine Urobilinogen 0.2 (0.2-1.0) EU/dL Ur Leukocyte Esterase Large A (NEGATIVE) Discharge Plan Discharge Chief Complaint: Urogenital-Female Clinical Impression: Urinary tract infection Patient Disposition: Home, Self-Care Time of Disposition Decision: 11:58 Condition: Good Mode of Transportation: Private Vehicle Prescriptions / Home Meds: New cephalexin 500 mg capsule 500 mg PO TID 7 Days Qty: 21 0RF No Action hydrocodone-acetaminophen 5-325 mg tablet 1 tab PO Q6H PRN (Reason: pain) Qty: 10 0RF aspirin 81 mg capsule 81 mg PO DAILY carvedilol 3.125 mg tablet 3.125 mg PO BID Rx Instructions: must administer with a meal/food lisinopril 5 mg tablet 5 mg PO DAILY metformin 1,000 mg tablet 1,000 mg PO DAILY Print Language: Russian Instructions: Urinary Tract Infection in Older Adults (ED) Referrals: MYRTLE BAILEY [Primary Care Provider, Unknown] - 1 week
[2025-03-27 11:44] LABS: Glucose Urine UA NEGATIVE (NEGATIVE)
--- OUTSIDE RECORDS SUMMARY | 2025-03-27 12:01 | XMS_ITS | Clinical Summary ---
Author Organization [employer] Address [facility] [place]-[id number] [address] [place] [address] Care Team Providers Care Truck Technician Name Role Phone Kamari Jean DO Primary Care Provider [phone] Allergies Active AllergyReactionsCriticalityNoted DateCommentsBee Venom Protein (Honey Bee)05/27/2019Dye05/27/2019 IVP CONTRAST DYE Unsure of reaction Medications MedicationSigDispense QuantityRefillsLast FilledStart DateEnd DateStatus metFORMIN (GLUCOPHAGE) 1000 mg tablet Take 1,000 mg by mouth 2 (two) times a day with meals.Active carvediloL (COREG) 6.25 mg tablet Take 6.25 mg by mouth 2 (two) times a day with meals.Active lisinopriL (PRINIVIL,ZESTRIL) 5 mg tablet Take 5 mg by mouth daily.Active aspirin 81 mg Take 81 mg by mouth daily.Active HYDROcodone-acetaminophen (NORCO) 5-325 mg per tablet Take 1 tablet by mouth every 6 (six) hours as needed for pain.Active Social History Tobacco UseTypesPacks/DayYears UsedDateSmoking Tobacco: NeverSmokeless Tobacco: NeverAlcohol UseStandard Drinks/WeekCommentsNever0 (1 standard drink = 0.6 oz pure alcohol)AUDIT-CAnswerDate RecordedFrequency of Alcohol ConsumptionNever 05/27/2019Average Number of DrinksNot on file05/27/2019Frequency of Binge DrinkingNot on file05/27/2019ChildcareAnswerDate RecordedChildcareUnknown 09/16/2018EmploymentAnswerDate RxouxdfqKhyhbvivjaGlvwrsg32/12/2019Purpose - Life AnswerDate RecordedPurpose and direction in qxayHhtszii36/11/2021 CommentsUnknownSex and Gender InformationValueDate RecordedSex Assigned at Not on fileLegal CckBjmcim34/24/2017 2:29 PM EDTGender IdentityNot on fileSexual OrientationNot on file Last Filed Vital Signs Vital SignReadingTime TakenCommentsBlood Fhlwtnzb666/72006/02/2019 9:00 AM EST Yhpfn172206/02/2019 9:00 AM PAOMhgkmrlsimb72.5 ??C (97.7 ??F)06/02/2019 6:31 AM ESTRespiratory Uydf655006/02/2019 6:31 AM ESTOxygen Xjmjlihtwk92%06/02/2019 9:00 AM ESTInhaled Oxygen Concentration--Aotbvh63.3 kg (188 lb)06/02/2019 6:31 AM EST Qeibqv077 cm (5' 3 )06/02/2019 6:31 AM ESTBody Mass Index33. 6:31 AM EST Plan of Treatment Health MaintenanceDue DateLast DoneCommentsDepression Aafzmlysk35/09/1962Tobacco Fkwwypzkm52/09/1962DTaP,Tdap and Td Vaccines (1 - Tdap)1968Zoster (Shingles) Vaccine (1 of 2)06/14/1999Fall Risk Izdcneifw61/09/2015RSV ( or age 60+ yrs) (1 - 1-dose 75+ series)2024Influenza Tmlrdis0912/06/2024 Medical Devices Not on file Insurance Care Teams Team MemberRelationshipSpecialtyStart DateEnd Date Ted, Kamari West DO [facility]/27/19
--- OUTSIDE RECORDS SUMMARY | 2025-03-27 12:01 | XMS_ITS | Clinical Summary ---
Author Organization [facility] Healthcare Address [address] [place] [address] Care Team Providers Care Seal Mixer Name Role Phone Polina De La Rosa NP Primary Care Provider Allergies Active AllergyReactionsCriticalityNoted DateCommentsBee Venom10/22/2024 Other Reaction(s): Unknown Iodinated Contrast Media10/22/2024 Other Reaction(s): Unknown Latex10/22/2024 Medications MedicationSigDispense QuantityRefillsLast FilledStart DateEnd DateStatus carvedilol (Coreg) 6.25 MG tablet 1 (one) time each day at the same timeActive HYDROcodone-acetaminophen ([place]) 5-325 MG tablet every 6 (six) hoursActive lisinopril 5 MG tablet 1 (one) time each day at the same timeActive metFORMIN (Glucophage) 1000 MG tablet Take 1,000 mg by mouth in the morning and 1,000 mg in the evening. Take with meals.Active mupirocin (Bactroban) 2 % ointment Indications:Chronic rhinitisApply to each side of the nose twice daily for 2 weeks 15 g 5Active Active Problems ProblemNoted DateDiagnosed DateArthritis of carpometacarpal (CMC) joint of left thumb10/20/20241177Urrgrxwqnbas31/16/2025Impaired fasting qahleor9010/20/2024arpal tunnel syndrome of right wrist5BMI 31.0-31.9,adult5Chronic pain bctmngoo77/16/2025Positive colorectal cancer screening using Cologuard test 10/20/2024 Family History RelationNameStatusCommentsFatherDeceasedMotherDeceased Social History Tobacco UseTypesPacks/DayYears UsedDateSmoking Tobacco: NeverSmokeless Tobacco: Never Tobacco Cessation:Counseling Given: Not Answered Alcohol UseStandard Drinks/WeekCommentsNot Currently0 (1 standard drink = 0.6 oz pure alcohol)CommentsUnknownSex and Gender InformationValueDate Recorded Sex Assigned at BirthNot on fileLegal BucEjcxqc48/01/2023 8:33 PM EDTGender IdentityNot on fileSexual OrientationNot on file Last Filed Vital Signs Vital SignReadingTime TakenCommentsBlood Fzjtaige834/7707 10:55 AM EDT Ymniz837710/22/2024 10:55 AM EDTTemperature--Respiratory Rate--Oxygen Saturation-- Inhaled Oxygen Concentration--Gpphpx60.2 kg (190 lb)10/22/2024 10:55 AM EDT Dkjyhs657 cm (5' 3 )10/22/2024 10:55 AM EDTBody Mass Index33.66010/22/2024 10:55 AM EDT Plan of Treatment Health MaintenanceDue DateLast DoneCommentsCT Umhhajdschpu85/09/1950FIT-DNA 1949FIT1949FOBT1949 9143Eivbdbtyeekpk92/09/1950Pneumococcal Vaccine: 65+ Years (1 of 1 - PCV)06/14/1999COVID-19 Vaccine ( season) , 07/27/2020, 07/05/2020Influenza Vaccine (#1)2024 02/12/2024, 4671Rmyebzorubc27Colorectal Cancer Screening 10/02/2028 Insurance Care Teams Team MemberRelationshipSpecialtyStart DateEnd Date Polina De La Rosa NP [facility] [place] [address] [facility]
--- OUTSIDE RECORDS SUMMARY | 2025-03-27 12:01 | XMS_ITS | Clinical Summary ---
Author Organization [facility] Address [address] [place] [address] Care Team Providers Care Clinical Coder Name Role Phone House Sr., Kamari EUGENE Primary Care Provider + Social History Tobacco UseTypesPacks/DayYears UsedDateSmoking Tobacco: Never Assessed CommentsUnknownSex and Gender InformationValueDate RecordedSex Assigned at Not on fileLegal ZntThjtme64/02/2012 9:23 AM ESTGender IdentityNot on fileSexual OrientationNot on file Plan of Treatment Health MaintenanceDue DateLast DoneCommentsAnxiety Ipnqkdzdk86/09/1968Depression Hzgybjuzs32/09/1968Hepatitis C Bghbwiewl46/09/1968DTaP,Tdap,Td Vaccine (1 - Tdap)1968CT Npmsvrnzvocb60/09/1995Cologuard (FIT-DNA)1994Colonoscopy 1994Colorectal Cancer Xxbnznzbj20/09/1995Diabetes Clvrxyiwu95/09/1995Fecal Occult Blood1994Lipid Dejnuetek71/09/2364Xvxbcvkfecpyr99/09/1995 Pneumococcal Vaccine: 50+ (1 of 1 - PCV)06/14/1999Shingrix Vaccine (1 of 2) 06/14/1999Bone Density Urdxyatfm16/09/2015dvance Directive Qsvguargxu57/01/2025 RSV Vaccine (1 - 1-dose 75+ series)2024ovid-19 Vaccine (1 - 2024-26 season)2024Influenza Vaccine (#1)2024 Insurance Care Teams Team MemberRelationshipSpecialtyStart DateEnd Date Kamari Jean Sr., DO [facility]CP [facility]05/17/10
[2025-03-27] MEDS: CEPHALEXIN 500 MG CAPSULE PO (12:04)
[2025-03-27 12:08] LABS: Cast Seen? NONE SEEN #/LPF (NONE SEEN); Crystals Seen? None Seen #/HPF (None Seen); Urine Culture Indicated YES-FRMC
== END 2025-03-27 12:09 | disposition home or self-care (01) ==
PROVIDERS: Emergency Provider Emergency Medicine; PCP Nurse Practitioner Family
DX: N39.0 Urinary tract infection, site not specified (principal)
CPT/HCPCS: 81001; 87086; 99283